=== PATIENT | female | born 1980 | race Caucasian/White ===

== ENCOUNTER 2016-04-04 11:07 | Emergency (ER) | payer OTHER ==
[2016-04-04 11:37] VITALS: BP 153/103; PULSE 100; TEMP 98; BMI 31.6
--- NOTE | 2016-04-04 14:57 | PDOC ---
History of Present Illness - General Chief Complaint: Pain Stated Complaint: ANXIETY & PAIN Time Seen by Provider: 04/04/16 14:36 - History of Present Illness Initial Comments: 04/04/16 14:58 35-year-old female with a past medical history of asthma, morbid obesity, diabetes, manic depression, bipolar disorder, arthritis, migraines, Patient states that 24 hours ago she got some upsetting news about her children , and she became very upset, and had an anxiety issue She states that since that time she has had 24 hours of constant chest pain, migraines, spine pain in her neck, and anxiety She denies any cough or shortness of breath She denies any leg swelling She denies any palpitations He denies any other complaints at this time, and states that the chest pain has been constant for 24 hours, since she got upset Remainder of the review of systems is negative Past History - Past Medical History Allergies/Adverse Reactions: Allergies Allergy/AdvReac Type Severity Reaction Status Date / Time hydrocodone bitartrate Allergy Severe SEIZURE Verified 04/04/16 11:37 [From Vicodin] Penicillins Allergy Severe Difficulty Verified 04/04/16 11:37 Breathing Sulfa (Sulfonamide Allergy Verified 04/04/16 11:37 Antibiotics) topiramate [From Topamax] Allergy Verified 04/04/16 11:37 Home Medications: Ambulatory Orders Ipratropium/Albuterol Sulfate [Combivent Respimat Inhal [place]] 4 gm IH DAILY Metformin HCl [Glucophage] 1,000 mg PO BID 12/14/13 Zolpidem Tartrate [Ambien] 10 mg PO HS 12/14/13 Gabapentin 300 mg PO TID 02/08/14 Omeprazole [Prilosec] 40 mg PO DAILY 02/08/14 Hydrochlorothiazide [Hctz -] 25 mg PO DAILY 07/21/14 Acetaminophen/Caffeine/Butalb [Fioricet -] 1 tab PO TID PRN 08/09/14 Cetirizine HCl [Zyrtec -] 10 mg PO DAILY 08/09/14 Ergocalciferol (Vitamin D2) [Vitamin D] 50,000 unit PO WEEKLY 08/09/14 Paroxetine HCl [Paxil] 40 mg PO DAILY 08/09/14 Insulin Glargine,Hum.rec.anlog [Lantus Solostar PEN (NF)] 46 units SQ HS Amlodipine Besylate/Benazepril [Lotrel 10-20 mg Capsule] 1 each PO DAILY Diphenhydramine HCl [Benadryl -] 25 mg PO HS PRN 05/06/15 Meclizine HCl [Antivert -] 25 mg PO DAILY PRN 05/06/15 Naproxen [EC-Naprosyn] 550 mg PO BID 05/06/15 Sitagliptin Phosphate [Januvia] 100 mg PO DAILY 05/06/15 Ascorbic Acid [Vitamin C -] 500 mg PO DAILY 03/06/16 Budesonide/Formeterol Fumarate [SYMBICORT 160/4.5mcg -] 1 inh PO BID 03/06/16 Cyclobenzaprine HCl [Flexeril -] 10 mg PO TID 03/06/16 Asthma: Yes COPD: Yes Diabetes: Yes (on insulin) HTN: Yes Hypercholesterolemia: Yes Psychiatric Problems: Yes (anxiety disorder) Suicide Attempt (Hx): No Seizures: Yes Other medical history: LUPUS - Surgical History Orthopedic Surgery: Yes (rt knee 06/19/12) - Immunization History Immunization Up to Date: No - Psycho/Social/Smoking Cessation Hx Anxiety: Yes (OCD) Suicidal Ideation: No Smoking Status: Yes Smoking History: Current every day smoker Have you smoked in the past 12 months: Yes Number of Cigarettes Smoked Daily: 10 If you are a former smoker, when did you quit?: 6 months Information on smoking cessation initiated: No 'Breaking Loose' booklet given: 02/08/15 Hx Alcohol Use: Yes Drug/Substance Use Hx: No Substance Use Type: Alcohol Hx Substance Use Treatment: No *Physical Exam - Vital Signs Last Vital Signs Temp Pulse Resp BP Pulse Ox 98 F 100 H 18 153/103 99 04/04/16 11:33 04/04/16 11:33 04/04/16 11:33 04/04/16 11:33 04/04/16 11:33 - Physical Exam Comments: 04/04/16 15:01 Physical exam Last Vital Signs Temp Pulse Resp BP Pulse Ox 98 F 100 H 18 153/103 100 04/04/16 11:33 04/04/16 11:33 04/04/16 11:33 04/04/16 11:33 04/04/16 13:30 GENERAL: The patient is awake, alert, and fully oriented, and in no apparent distress. HEAD: Normal with no signs of trauma. EYES: Sclera anicteric ENT: Mucous membranes moist NECK: Normal range of motion, supple No C-spine tenderness LUNGS: Breath sounds equal, clear to auscultation bilaterally. No wheezes, and no crackles. HEART: Regular rate and rhythm, normal S1 and S2 without murmur, rub or gallop. CHEST WALL: The chest pain is completely reproducible by pressing on the costochondral junctions bilaterally ABDOMEN: Soft, nontender, normoactive bowel sounds. No guarding, no rebound. No masses appreciated. EXTREMITIES: Normal range of motion, no edema. No clubbing or cyanosis. No cords, erythema, or tenderness. NEUROLOGICAL: Cranial nerves II through XII grossly intact. Normal speech, normal gait. PSYCH: Normal mood, normal affect. SKIN: Warm, Dry, ED Treatment Course - LABORATORY CBC & Chemistry Diagram: 04/04/16 15:37 04/04/16 15:37 Medical Decision Making - Medical Decision Making 04/04/16 16:45 Patient with anxiety and very atypical chest pain, which has been constant for the past 24 hours, and reproduced by pressing on the anterior chest wall One set of enzymes would be sufficient, for pain that is been constant for at least 24 hours EKG Normal sinus rhythm 97, normal axis Normal AV and IV conduction time Normal EKG 04/04/16 17:03 Laboratory Results - last 24 hr 04/04/16 04/04/16 15:37 15:37 WBC 12.4 H RBC 4.82 Hgb 12.5 D Hct 38.3 MCV 79.5 L MCHC 32.8 RDW 16.6 H D Plt Count 310 MPV 9.6 D Sodium 138 Potassium 3.9 Chloride 101 Carbon Dioxide 28 D Anion Gap 9 BUN 9 D Creatinine 0.7 D Creat Clearance w eGFR > 60 Random Glucose 132 H Calcium 9.2 Total Bilirubin 0.3 D AST 15 D ALT 30 Alkaline Phosphatase 206 H D Creatine Kinase 96 Troponin I < 0.02 Total Protein 7.7 Albumin 3.6 04/04/16 17:10 Patient refuses chest x-ray wants to leave now Impression-anxiety and atypical chest pain *DC/Admit/Observation/Transfer Diagnosis at time of Disposition: Atypical chest pain, Anxiety - Discharge Dispostion Disposition: HOME Condition at time of disposition: Stable - Referrals Referrals: Theresa Dennis [Primary Care Provider] - Call tomorrow - Patient Instructions Additional Instructions: Followup with your primary care physician in 24-48 hours Return immediately if you worsen in any way Take your medications as directed
[2016-04-04 15:54] LABS: MCHC 32.8 g/dl (32.0-36.0); MEAN CELL VOLUME 79.5 fl (80-96); MEAN PLT VOLUME 9.6 fl (7.5-11.1); PLATELET COUNT 310 K/MM3 (134-434); RDW 16.6 % (11.6-15.6); WHITE BLOOD COUNT 12.4 K/mm3 (4.0-10.0)
[2016-04-04 16:52] LABS: ALBUMIN 3.6 g/dl (3.4-5.0); ANION GAP 9 (8-16); BILIRUBIN,TOTAL 0.3 mg/dL (0.2-1.0); CALCIUM 9.2 mg/dL (8.5-10.1); CO2 28 mmol/L (21-32); CREATININE 0.7 mg/dL (0.55-1.02); GLUCOSE,RANDOM 132 mg/dL (74-106); SGOT/AST 15 U/L (15-37); SGPT/ALT 30 U/L (12-78); TOT PROT 7.7 g/dl (6.4-8.2)
[2016-04-04 16:54] LABS: ALK PHOS 206 U/L (45-117); TROPONIN I < 0.02 ng/ml (0.00-0.05)
--- NOTE | 2016-04-04 17:04 | EKG ---
Test Reason : Blood Pressure : / mmHG Vent. Rate : 097 BPM Atrial Rate : 097 BPM P-R Int : 152 ms QRS Dur : 078 ms QT Int : 366 ms P-R-T Axes : 037 024 037 degrees QTc Int : 464 ms POOR DATA QUALITY, INTERPRETATION MAY BE ADVERSELY AFFECTED NORMAL SINUS RHYTHM NORMAL ECG NO PREVIOUS ECGS AVAILABLE Confirmed by CHECO PÉREZ MD ([id number]) on 04/04/2016 5:04:24 PM Referred By: Confirmed By:CHECO PÉREZ MD
== END 2016-04-04 17:33 | disposition home or self-care (01) ==
LOC: JER 11:07
DX: R07.89 Other chest pain (principal); F41.9 Anxiety disorder, unspecified; I10 Essential (primary) hypertension; E10.9 Type 1 diabetes mellitus without complications; Z79.4 Long term (current) use of insulin; Z79.84 Long term (current) use of oral hypoglycemic drugs; J45.909 Unspecified asthma, uncomplicated; J44.9 Chronic obstructive pulmonary disease, unspecified
CPT/HCPCS: 36415; 80053; 82550; 84484; 84703; 85027; 93005; 93010; 99285-25

== ENCOUNTER 2019-07-01 20:53 | Inpatient (IN) | payer OTHER ==
--- NOTE | 2019-07-01 21:40 | PDOC ---
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 Patient lives in [place], here to help care for sister. Notes for the past week, she has had LLQ abdominal pain that radiates down her entire L leg. Went to another hospital 2 days ago, who did an X-ray of her hip showing arthritis, but without any acute pathology. Did not get CT scan at that time. Notes that she tried half a blunt and 800 mg Advil at home without relief. ROS: GENERAL/CONSTITUTIONAL: denies fever, chills, diaphoresis, generalized weakness HEAD, EYES, EARS, NOSE AND THROAT: denies rhinorrhea, nasal congestion, throat pain, throat swelling NEUROLOGIC: denies headache, focal weakness, dizziness CARDIOVASCULAR: denies chest pain, syncope, palpitations, irregular heart rate, lightheadedness RESPIRATORY: denies cough, shortness of breath, dyspnea with exertion GASTROINTESTINAL: endorses LLQ abdominal pain radiating down L leg. Denies abdominal distension, nausea, vomiting, diarrhea, constipation, melena, hematochezia GENITOURINARY: denies dysuria, frequency, urgency, hesitancy, hematuria, flank pain, genital pain MUSCULOSKELETAL: denies myalgia, arthralgia, joint swelling, back pain, neck pain SKIN: denies rash, itching, pallor HEMATOLOGIC/IMMUNOLOGIC: denies easy bleeding, easy bruising, lymphadenopathy, frequent infections ENDOCRINE: denies unexplained weight gain, unexplained weight loss, heat intolerance, cold intolerance PSYCHIATRIC: denies suicidal or homicidal ideation, hallucinations PE: Gen: well-developed, well-nourished, appears distressed and tearful Neuro: AAOX4, CN II-XII grossly intact HEENT: atraumatic, normocephalic Neck: trachea midline, supple CV: mildly tachycardic to 120s, regular rhythm, no murmurs, rubs, or gallops Pulm: CTA b/l, no wheezing Abd: soft, non-distended, LLQ tenderness MSK: full ROM, intact pulses Extr: no edema, no deformities Skin: warm, dry MDM: Concern for intra-abdominal pathology, diverticulitis v colitis. - CBC, CMP - PT/PTT - UA/UC/urine preg - lactic acid - Ofirmev - CT abd/pelvis pending Cr and test 07/01/19 22:35 WBC 16.7. 07/01/19 22:58 UA with 3+ glucose, 1+ ketones. 07/01/19 23:20 Lactate 2.4, Cr 0.8, serum preg negative. Will get CT abd/pelvis w/ contrast. 07/02/19 00:35 CT abd/pelvis: Asymmetric enlargement of the left psoas/iliopsoas and iliacus muscle concerning for evolving hematoma or abscess. Appendix normal. Several bilateral lower lobe pulmonary nodules concerning for malignancy. Sigmoid diverticulosis without diverticulitis or bowel obstruction. Hepatomegaly with hepatic steatosis. Will admit, get blood cultures, f/u repeat lactic acid, give vanc/meropenem (penicillin allergy). 07/02/19 01:17 EKG sinus tachycardia at 123 bpm, LA 152, QRS 78, QTc 432. Patient admitted. 07/02/19 01:52 Repeat lactic acid 0.9. Past History - Past Medical History Allergies/Adverse Reactions: Allergies Allergy/AdvReac Type Severity Reaction Status Date / Time hydrocodone bitartrate Allergy Severe SEIZURE Verified 04/04/16 11:37 [From Vicodin] Penicillins Allergy Severe Difficulty Verified 04/04/16 11:37 Breathing Sulfa (Sulfonamide Allergy Verified 04/04/16 11:37 Antibiotics) topiramate [From Topamax] Allergy Verified 04/04/16 11:37 Home Medications: Ambulatory Orders Ipratropium/Albuterol Sulfate [Combivent Respimat Inhal [place]] 4 gm IH DAILY 12/14/13 Metformin HCl [Glucophage] 1,000 mg PO BID 12/14/13 Zolpidem Tartrate [Ambien] 10 mg PO HS 12/14/13 Gabapentin 600 mg PO TID 02/08/14 Omeprazole [Prilosec] 40 mg PO DAILY 02/08/14 Hydrochlorothiazide [Hctz -] 25 mg PO DAILY 07/21/14 Insulin Glargine,Hum.rec.anlog [Lantus Solostar PEN (NF)] 46 units SQ HS 03/08/15 Budesonide/Formeterol Fumarate [SYMBICORT 160/4.5mcg -] 1 inh PO BID 03/06/16 Cyclobenzaprine HCl [Flexeril -] 10 mg PO TID 03/06/16 Budesonide/Formeterol Fumarate [SYMBICORT 160/4.5mcg -] 1 inh PO DAILY 07/02/19 Duloxetine HCl [Cymbalta] 30 mg PO DAILY 07/02/19 Furosemide [Lasix] 20 mg PO DAILY 07/02/19 Hydrochlorothiazide 07/02/19 Hydrochlorothiazide 25 mg PO DAILY 07/02/19 Hydromorphone HCl [Dilaudid] 8 mg PO TID 07/02/19 Ipratropium/Albuterol Sulfate [Combivent Respimat 20-100 Mcg] 1 inh NEB BID 07/02/19 Ipratropium/Albuterol Sulfate [Combivent Respimat Inhal [place]] 4 gm IH 07/02/19 LORazepam [Ativan] 1 mg PO HS 07/02/19 Sitagliptin Phosphate [Januvia] 50 mg PO DAILY 07/02/19 Asthma: Yes COPD: Yes Diabetes: Yes (on insulin) HTN: Yes Hypercholesterolemia: No Psychiatric Problems: Yes (anxiety disorder) Seizures: Yes - Surgical History Orthopedic Surgery: Yes (rt knee 06/19/12) - Immunization History Immunization Up to Date: Yes - Psycho Social/Smoking Cessation Hx Smoking Status: Yes Smoking History: Current every day smoker Have you smoked in the past 12 months: Yes Number of Cigarettes Smoked Daily: 10 If you are a former smoker, when did you quit?: 6 months Information on smoking cessation initiated: Yes 'Breaking Loose' booklet given: 02/08/15 (given on previous admission) Hx Alcohol Use: No Drug/Substance Use Hx: Yes (marijuana) Substance Use Type: Alcohol Hx Substance Use Treatment: No *Physical Exam - Vital Signs Last Vital Signs Temp Pulse Resp BP Pulse Ox 97.9 F 116 H 22 H 138/97 98 07/01/19 20:58 07/01/19 20:58 07/01/19 20:58 07/01/19 20:58 07/01/19 20:58 ED Treatment Course - LABORATORY CBC & Chemistry Diagram: 07/01/19 22:15 07/01/19 22:15 Discharge - Discharge Information Problems reviewed: Yes Clinical Impression/Diagnosis: Iliopsoas abscess - Follow up/Referral - Patient Discharge Instructions - Post Discharge Activity
[2019-07-01] MEDS ORDERED: SODIUM CHLORIDE 0.9% 500 ML INFUS.BAG IV ONE (22:20)
--- NOTE | 2019-07-01 22:22 | PDOC ---
Attending Attestation - Resident Resident Name: Cale Duvall - ED Attending Attestation I have performed the following: I have examined & evaluated the patient, The case was reviewed & discussed with the resident, I agree w/resident's findings & plan - HPI HPI: 07/01/19 22:21 38 yo F PMH lupus, cervical CA s/p chemotherapy in remission, IDDM type 2, asthma, morbid obesity, severe anxiety/depression, osteoarthritis, rheumatoid arthritis, migraines, s/p tubal ligation, MRSA colonization on chronic doxycycline/clindamycin, c/b recurrent yeast infections, presenting with L abd pain, radiating from groin to her back/buttock, intermittently and worsening x 1 week. yesterday developed fever, tmax 101; went to [facility] yesterday, where she said xrays were done and no further imaging or workup was pursued resides in [place]; came up to [place] to care for her sister who has endometriosis no other sick contacts. no travel history. no cough/congestion, vomiting, diarrhea, bloody stools, urinary sx. +current yeast infection, has not picked up her diflucan yet, as she gets frequent yeast infection from chronic use of doxycycline and clindamycin for chronic MRSA infections. no trauma, no recent procedures no h/o kidney stones, no prior sx of similar nature. 07/01/19 22:48 07/02/19 00:40 - Physicial Exam PE: 07/01/19 22:22 Agree with the resident's HPI and PE as documented in the electronic medical record. uncomfortable appearing, in mild distress 2/2 pain, EOMI, PERRL, nl conjunctiva, anicteric; oropharynx clear, dry mucus membranes. neck supple. lungs clear, +tachy. abdomen soft and obese, +LLQ TTP. no rebound or guarding. no CVAT. Back nontender. CARTY x4, no focal neuro deficits. No peripheral edema. normal color for ethnicity, WWP 07/01/19 22:51 - Medical Decision Making 07/01/19 22:51 Vital Signs Temp Pulse Resp BP Pulse Ox 97.9 F 116 H 22 H 138/97 98 07/01/19 20:58 07/01/19 20:58 07/01/19 20:58 07/01/19 20:58 07/01/19 20:58 initial vs reviewed, afebrile here. +tachycardic. normotensive normal sats no respiratory distress. +LLQ abdominal tenderness noted. DDx abdominal pain: Renal colic, biliary colic, metabolic/electrolyte derangements. GERD, PUD, esophageal spasm, pancreatitis, hepatitis, constipation, colitis, gastroenteritis, cholecystitis, UTI, pyelonephritis, ileus, SBO, medication side effect, hernia, appendicitis, diverticulitis, mesenteric ischemia. msk strain, mesenteric adenitis, psoas abscess. No evidence of pancreatitis, AAA, cholecystitis, choledocholithiasis, cholangitis, mesenteric ischemia, small bowel obstruction, diverticulitis, colitis, appendicitis, or pelvic etiolology, [place] tear, nougat candy maker helper issues such as ovarian torsion, TOA, or ectopic . The patient appears uncomfortable, Given medications tylenol --> reglan and morphine for continued pain control, as 12/24. IVF hydration. labs and lytes with normal Cr and lytes. +leukocytosis 16K, infection vs inflammation lactic mildly elevated, 2.4. will hydrate and recheck. lfts normal UA neg for blood or s/s infection; some glucose and protein, some ketones - getting hydration. neg preg test pending urine and blood cultures x2 07/02/19 00:[address] shows asymmetry with left psoas muscle, abscess vs hematoma. also incidental lung nodules, concern for malignancy - follow up ct chest as inpatient, cxr for now. will likely need IR drainage. IV vancomycin 2g (wt based dosing) and meropenem 1g (pcn allergy) for empiric coverage due to her h/o mrsa as well as dm/comorbidities admission warranted. continued pain control, hydration, IV abx, and IR consult in the AM for definitive management. admitted to Dr Garcia, hospitalist service. 07/02/19 01:29 Heart Score/ECG Review #1 ECG reviewed & interpreted by me at: 01:20 General ECG Interpretation: Sinus Rhythm, Normal Intervals 07/02/19 01:22 sinus tachycardia 123 bpm, nonspecific t wave abnormalities, normal intervals, narrow qrs. normal ST segments and T wave morphology Discharge - Discharge Information Problems reviewed: Yes Clinical Impression/Diagnosis: Iliopsoas abscess Condition: Fair - Admission Yes - Follow up/Referral - Patient Discharge Instructions - Post Discharge Activity
[2019-07-01 22:28] LABS: BASO % 0.4 % (0-2.0); EOS % 0.3 % (0-4.5); HEMATOCRIT 43.6 % (32.4-45.2); HEMOGLOBIN 14.4 GM/dL (10.7-15.3); LYMPH % 7.3 % (8-40); MCH 29.3 pg (25.7-33.7); MCHC 33.1 g/dl (32.0-36.0); MEAN CELL VOLUME 88.5 fl (80-96); MEAN PLT VOLUME 10.1 fl (7.5-11.1); PLATELET COUNT 342 K/MM3 (134-434); RBC 4.92 M/mm3 (3.60-5.2); RDW 13.8 % (11.6-15.6); WHITE BLOOD COUNT 16.7 K/mm3 (4.0-10.0)
[2019-07-01] MEDS ORDERED: ACETAMINOPHEN 1000 MG/100 ML VIAL (NON FORMULARY) IVPB ONE (22:30)
[2019-07-01] MEDS ORDERED: ACETAMINOPHEN INJECTION 100 ML IVPB ONE (22:33)
[2019-07-01 22:36] LABS: INR 1.07 (0.83-1.09); PROTHROMBIN TIME (PATIENT) 12.6 SEC (9.7-13.0)
[2019-07-01 22:38] LABS: ACTIVATED PTT 31.7 SECONDS (25.2-36.5)
[2019-07-01 22:46] LABS: PH,URINE 6.5 (5.0-8.0); URINE APPEARANCE CLEAR; URINE BILIRUBIN NEGATIVE (NEGATIVE); URINE COLOR YELLOW; URINE GLUCOSE (UA) 3+ (NEGATIVE); URINE KETONE 1+ (NEGATIVE); URINE LEUK ESTERASE NEGATIVE (NEGATIVE); URINE NITRITE NEGATIVE (NEGATIVE); URINE PROTEIN TRACE (NEGATIVE); URINE UROBILINOGEN 0.2 mg/dL (0.2-1.0)
[2019-07-01] MEDS ORDERED: METOCLOPRAMIDE HCL INJECTION 10 MG/2 ML VIAL IVPUSH ONE (22:47)
[2019-07-01] MEDS ORDERED: morphine CARPU-JECT 4 MG/1 ML DISP.SYRIN IVPUSH ONE (22:47)
[2019-07-01] MEDS ORDERED: morphine SULFATE 4 MG/ML VIAL ONE (22:49)
[2019-07-01] MEDS ORDERED: METOCLOPRAMIDE HCL INJECTION 10 MG/2 ML VIAL ONE (22:49)
[2019-07-01 23:18] LABS: ALBUMIN 2.5 g/dl (3.4-5.0); BILIRUBIN,TOTAL 0.4 mg/dL (0.2-1); BLOOD UREA NITROGEN 10.3 mg/dL (7-18); CALCIUM 9.1 mg/dL (8.5-10.1); CREATININE 0.8 mg/dL (0.55-1.3); POTASSIUM 3.9 mmol/L (3.5-5.1); TOT PROT 7.1 g/dl (6.4-8.2)
[2019-07-01 23:37] LABS: PLATELET ESTIMATE ADEQUATE
[2019-07-02] MEDS ORDERED: HYDROmorphone HCL CARPU-JECT 2 MG/1 ML DISP.SYRIN IVPUSH ONE ×2 (00:37→02:25)
[2019-07-02] MEDS ORDERED: HYDROmorphone HCl 2 MG/ML VIAL ONE ×2 (00:40→02:25)
[2019-07-02] MEDS ORDERED: VANCOMYCIN 1,000 MG in DEXTROSE 5%-WATER - 250 ML IVPB ONE (00:43)
[2019-07-02] MEDS ORDERED: PIPERACILLIN/TAZOB 3.375 GM 3.375 GM in DEXTROSE 5%-WATER - 50 ML IVPB ONE (00:44)
[2019-07-02] MEDS ORDERED: VANCOMYCIN 2,000 MG in DEXTROSE 5%-WATER - 250 ML IVPB ONE ×2 (00:46→01:21)
[2019-07-02] MEDS ORDERED: MEROPENEM 1 GM in DEXTROSE 5%-WATER 100 ML IVPB ONE (00:47)
--- NOTE | 2019-07-02 00:57 | HP ---
CHIEF COMPLAINT: severe LLQ pain PCP: Monica PCP HISTORY OF PRESENT ILLNESS: 38F w/ pmh of Lupus, h/o MRSA bacteremia, recurrent MRSA skin abscesses on intermittent doxycycline-clindamycin regimens, cervical CA(s/p chemotherapy 10ys prior), endometriosis, IDDM(Lantus 48U), seizure disorder, chronic migraines, herniated L-spine disc, chronic lower back pain(dilaudid 8mg TID), OA, RA, anxiety presented to [facility] at the behest of her sister for complaint of >7d of severe intermittent LLQ pain radiating to the leg and ribs. Has associated home Tmax of 101F, 3 day prior, which pt states triggered a witnessed seizure. Patient ran out of some of her home medications(including her keppra) ~3d prior. States that she has had recurrent skin abscesses of her Right arm, buttocks, perineal area that have prompted multiple I&Ds x3ys. Her daughters have also had leg abscesses. Patient states that once, her dx was attributed to pool swimming. Most recent abscess at her Left buttock, ~beginning of May that had spontaneous thick, yellow, foul drainage. Pt took a bus ride from [place]([facility]) -->[facility], at the beginning of May and subsequent the wound closed. Thinks that her abd has bulged in the last few days. ER course was notable for: (1) Glucose 370 (2) WBC 16.7, lactic acid 2.4 (3) glucose 370 (4) CT A/P: asymmetric enlargement of Left psoas/iliopsoas, iliacus muscle concerning for evolving hematoma or abscess. Several b/l pulmonary nodules(5- 15mm) concerning for malignancy. Sigmoid diverticulosis w/o diverticulitis or bowel obstruction. Hepatomegaly w/ hepatic steastosis. (5) NS 1L, meropenem + vanco, morphine, dilaudid 1mg x3, ofirmev Recent Travel: PAST MEDICAL HISTORY: Lupus, h/o MRSA bacteremia, recurrent MRSA skin abscesses on intermittent doxycycline-clindamycin regimens, cervical CA(s/p chemotherapy 10ys prior), endometriosis, IDDM(Lantus 48U), seizure disorder, chronic migraines, chronic lower back pain(dilaudid 8mg TID), OA, RA, anxiety PAST SURGICAL HISTORY: multiple skin I&Ds b/l tubal ligation Right knee ligament repair Social History: Smokin/2 ppd x20ys Alcohol: special occasions Drugs: MJ Allergies hydrocodone bitartrate [From Vicodin] Allergy (Severe, Verified 04/04/16 11:37) SEIZURE Penicillins Allergy (Severe, Verified 04/04/16 11:37) Difficulty Breathing Sulfa (Sulfonamide Antibiotics) Allergy (Verified 04/04/16 11:37) topiramate [From Topamax] Allergy (Verified 04/04/16 11:37) HOME MEDICATIONS: Home Medications Medication Instructions Recorded Ipratropium/Albuterol Sulfate 4 gm IH DAILY 12/14/13 [Combivent Respimat Inhal Guion] Metformin HCl [Glucophage] 1,000 mg PO BID 12/14/13 Zolpidem Tartrate [Ambien] 10 mg PO HS 12/14/13 Gabapentin 300 mg PO TID 02/08/14 Omeprazole [Prilosec] 40 mg PO DAILY 02/08/14 Hydrochlorothiazide [Hctz -] 25 mg PO DAILY 07/21/14 Acetaminophen/Caffeine/Butalb 1 tab PO TID PRN 08/09/14 [Fioricet -] Cetirizine HCl [Zyrtec -] 10 mg PO DAILY 08/09/14 Ergocalciferol (Vitamin D2) 50,000 unit PO WEEKLY 08/09/14 [Vitamin D] Paroxetine HCl [Paxil] 40 mg PO DAILY 08/09/14 Insulin Glargine,Hum.rec.anlog 46 units SQ HS 03/08/15 [Lantus Solostar PEN (NF)] Amlodipine Besylate/Benazepril 1 each PO DAILY 05/06/15 [Lotrel 10-20 mg Capsule] Diphenhydramine HCl [Benadryl -] 25 mg PO HS PRN 05/06/15 Meclizine HCl [Antivert -] 25 mg PO DAILY PRN 05/06/15 Naproxen [EC-Naprosyn] 550 mg PO BID 05/06/15 Sitagliptin Phosphate [Januvia] 100 mg PO DAILY 05/06/15 Ascorbic Acid [Vitamin C -] 500 mg PO DAILY 03/06/16 Budesonide/Formeterol Fumarate 1 inh PO BID 03/06/16 [SYMBICORT 160/4.5mcg -] Cyclobenzaprine HCl [Flexeril -] 10 mg PO TID 03/06/16 REVIEW OF SYSTEMS CONSTITUTIONAL: fever, loss of appetite Absent: chills, diaphoresis, generalized weakness, malaise, weight change HEENT: Absent: rhinorrhea, nasal congestion, throat pain, throat swelling, difficulty swallowing, mouth swelling, ear pain, eye pain, visual changes CARDIOVASCULAR: Absent: chest pain, syncope, palpitations, irregular heart rate, lightheadedness, peripheral edema RESPIRATORY: Absent: cough, shortness of breath, dyspnea with exertion, orthopnea, wheezing, stridor, hemoptysis GASTROINTESTINAL: LLQ abd pain, nausea Absent: abdominal distension, vomiting, diarrhea, constipation, melena, hematochezia GENITOURINARY: burning, itchy pain, white thick vaginal discharge Absent: dysuria, frequency, urgency, hesitancy, hematuria, flank pain, genital pain MUSCULOSKELETAL: Absent: myalgia, arthralgia, joint swelling, back pain, neck pain SKIN: RUE with mutliple well-healed incisional scars, Left inner bu ttock/perineum with area of nontender fluctuance Absent: rash, itching, pallor HEMATOLOGIC/IMMUNOLOGIC: Absent: easy bleeding, easy bruising, lymphadenopathy, frequent infections ENDOCRINE: Absent: unexplained weight gain, unexplained weight loss, heat intolerance, cold intolerance NEUROLOGIC: Absent: headache, focal weakness or paresthesias, dizziness, unsteady gait, seizure, mental status changes, bladder or bowel incontinence PSYCHIATRIC: Absent: anxiety, depression, suicidal or homicidal ideation, hallucinations. PHYSICAL EXAMINATION Vital Signs - 24 hr 07/01/19 20:58 Temperature 97.9 F Pulse Rate 116 H Respiratory 22 H Rate Blood Pressure 138/97 O2 Sat by Pulse 98 Oximetry (%) GENERAL: Awake, alert, and fully oriented. Anxious and in-distress. Obese HEAD: Normal with no signs of trauma. EYES: sclera anicteric, conjunctiva clear EARS, NOSE, THROAT: Ears normal, nares patent, oropharynx clear without ex udates. Moist mucous membranes. Nasal piercing, tongue peircing NECK: Normal range of motion, supple without lymphadenopathy, JVD, or masses. LUNGS: Breath sounds equal, clear to auscultation bilaterally. No wheezes, and no crackles. No accessory muscle use. HEART: Regular rhythm, tachycardia, normal S1 and S2 without murmur, rub or gallop. ABDOMEN: obese, well-healed umbilical surgical scar, LLQ tenderness, neg rebound. Abd pain on AROM and passive ROM of LLE MUSCULOSKELETAL: No bony deformities or tenderness. Pain to palpation of lower L-spine UPPER EXTREMITIES: 2+ pulses, warm, well-perfused. No cyanosis. No clubbing. No peripheral edema. LOWER EXTREMITIES: 2+ pulses, warm, well-perfused. No calf tenderness. No peripheral edema. No redness of LLE NEUROLOGICAL: Normal speech SKIN: Warm, dry, normal turgor, no rashes or lesions noted, normal capillary refill. Laboratory Results - last 24 hr 07/01/19 07/01/19 07/01/19 22:15 22:15 22:15 WBC 16.7 H RBC 4.92 Hgb 14.4 Hct 43.6 MCV 88.5 MCH 29.3 D MCHC 33.1 RDW 13.8 D Plt Count 342 MPV 10.1 Absolute Neuts (auto) 14.6 H Neutrophils % 87.0 H D Neutrophils % (Manual) 73.0 Band Neutrophils % 9.0 Lymphocytes % 7.3 L D Lymphocytes % (Manual) 10.0 Monocytes % 5.0 Monocytes % (Manual) 7 Eosinophils % 0.3 Eosinophils % (Manual) 1.0 Basophils % 0.4 Nucleated RBC % 0 Platelet Estimate Adequate PT with INR 12.60 INR 1.07 PTT (Actin FS) 31.7 Sodium 134 L Potassium 3.9 Chloride 99 Carbon Dioxide 22 Anion Gap 13 BUN 10.3 Creatinine 0.8 Est GFR (CKD-EPI)AfAm 109.93 Est GFR (CKD-EPI)NonAf 94.85 Random Glucose 370 H Lactic Acid Calcium 9.1 Total Bilirubin 0.4 AST 48 H ALT 54 Alkaline Phosphatase 208 H Total Protein 7.1 Albumin 2.5 L Urine Color Urine Appearance Urine pH Ur Specific [place] Urine Protein Urine Glucose (UA) Urine Ketones Urine Blood Urine Nitrite Urine Bilirubin Urine Urobilinogen Ur Leukocyte Esterase Urine HCG, Qual 07/01/19 07/01/19 07/01/19 22:30 22:30 22:35 WBC RBC Hgb Hct MCV MCH MCHC RDW Plt Count MPV Absolute Neuts (auto) Neutrophils % Neutrophils % (Manual) Band Neutrophils % Lymphocytes % Lymphocytes % (Manual) Monocytes % Monocytes % (Manual) Eosinophils % Eosinophils % (Manual) Basophils % Nucleated RBC % Platelet Estimate PT with INR INR PTT (Actin FS) Sodium Potassium Chloride Carbon Dioxide Anion Gap BUN Creatinine Est GFR (CKD-EPI)AfAm Est GFR (CKD-EPI)NonAf Random Glucose Lactic Acid 2.4 H* Calcium Total Bilirubin AST ALT Alkaline Phosphatase Total Protein Albumin Urine Color Yellow Urine Appearance Clear Urine pH 6.5 D Ur Specific [place] 1.038 H Urine Protein Trace Urine Glucose (UA) 3+ H Urine Ketones 1+ H Urine Blood Negative Urine Nitrite Negative Urine Bilirubin Negative Urine Urobilinogen 0.2 Ur Leukocyte Esterase Negative Urine HCG, Qual Negative ASSESSMENT/PLAN: Lupus, h/o MRSA bacteremia, recurrent MRSA skin abscesses on intermittent doxycycline-clindamycin regimens, cervical CA(s/p chemotherapy 10ys prior), endometriosis, IDDM(Lantus 48U), seizure disorder, chronic migraines, herniated L-spine disc, chronic lower back pain(dilaudid 8mg TID), OA, RA, anxiety presented to [facility] at the behest of her sister for complaint of >7d of severe intermittent LLQ pain. ED evaluation found a Left-sided psoas abscess. #sepsis 2/2 psoas abscess > WBC 16.7, tachy 116, lactic acid 2.4 > CT A/P: asymmetric enlargement of Left psoas/iliopsoas, iliacus muscle concerning for evolving hematoma or abscess. Several b/l pulmonary nodules(5- 15mm) concerning for malignancy. Sigmoid diverticulosis w/o diverticulitis or bowel obstruction. Hepatomegaly w/ hepatic steastosis > UA: gluocse 3+, ketones 1+ > BCX --pending - IVF - NPO - abx regimen: Meropenem + vancomycin - IR vs Surgery Consult - ID consult(Naren) #pulmonary nodules --possibly 2/2 metastases from cervical CA > CT chest --pending - consider outpatient Onc consult #vaginal yeast infection -diflucan #IDDM > gluc 370 > HbA1c --pending - ISS + Levemir(normally 48U, but giving 30U d/t NPO) #SLE --not an active issues - med rec pending #chronic seizure -keppra --dose unknown #COPD --not in excerbation -duonebs PRN -symbicort FEN -LR @100 -NPO, except meds DVT PPX -SQH Family Medical History Family Hx Cancer: Grandfather (paternal) (lung CA), Mother (Mother had leukemia. Maternal aunt had breast CA. Paternal aunt had brain CA) Visit type - Emergency Visit Emergency Visit: Yes ED Registration Date: 07/02/19 Care time: The patient presented to the Emergency Department on the above date and was hospitalized for further evaluation of their emergent condition. - New Patient This patient is new to me today: Yes Date on this admission: 07/02/19 - Critical Care Critical Care patient: No ATTENDING PHYSICIAN STATEMENT I saw and evaluated the patient. I reviewed the resident's note and discussed the case with the resident. I agree with the resident's findings and plan as documented. SUBJECTIVE: OBJECTIVE: ASSESSMENT AND PLAN:
[2019-07-02] MEDS ORDERED: MEROPENEM 1 GM VIAL (RESTRICTED TO ID) IVPB ONE (01:09)
[2019-07-02] MEDS ORDERED: VANCOMYCIN 1 GRAM (PRE-DOCKED) 1,000 MG/250 ML BAG IVPB ONE (01:10)
[2019-07-02] MEDS ORDERED: VANCOMYCIN 2,000 MG in DEXTROSE 5%-WATER - 500 ML IVPB ONE (01:21)
--- NOTE | 2019-07-02 01:24 | PN ---
Progress Note, Physician - Current Medication List Current Medications: Active Medications Vancomycin HCl 2,000 mg/ (Dextrose) 500 mls @ 250 mls/hr IVPB ONCE ONE; Protocol Stop: 07/02/19 03:20 Meropenem 1 gm/ Dextrose 50 mls @ 100 mls/hr IVPB ONCE ONE Stop: 07/02/19 01:59 - Objective Vital Signs: Vital Signs Temperature 97.9 F 07/01/19 20:58 Pulse Rate 116 H 07/01/19 20:58 Respiratory Rate 22 H 07/01/19 20:58 Blood Pressure 138/97 07/01/19 20:58 O2 Sat by Pulse Oximetry (%) 98 07/01/19 20:58 Constitutional: Yes: Well Nourished, Moderate Distress (due to pain) Cardiovascular: Yes: WNL Respiratory: Yes: WNL Gastrointestinal: Yes: Normal Bowel Sounds, Soft, Abdomen, Obese Extremities: Yes: Other (tenderness in gluteal and groin area) Edema: No Labs: CBC, BMP 07/01/19 22:15 07/01/19 22:15 INR, PTT INR 1.07 (0.83-1.09) 07/01/19 22:15 Impression/Plan Impression/Plan: ANTHONY 38 y/o F PMH SLE, cervical CA s/p chemotherapy in remission, IDDM type 2, COPD/Asthma (active smoker) , morbid obesity, severe anxiety/depression, seizure d/o osteoarthritis, rheumatoid arthritis, migraines, s/p tubal ligation, MRSA colonization w/ repeat skin abscesses on chronic doxycycline/clindamycin, c/b recurrent yeast infections, presenting with LLQ abd pain, radiating from groin to her back/buttock A/W fevers X 1 WK., and witnessed seizure x 1-pt off meds x 2 weeks. V/S: Afeb HR 116 BP 138/97 98% on RA Labs: Leukocytosis to 16.7 with left shift 87% Lymphopenia 7.3 H/H no anemia Plt wnl BMP: Na 134 K 3.9 BUN/Creat 10.3/0.8 LA 2.4 AST/ALT ALP 48/54/208 U/A 1+ketones neg nitrite neg LE Imaging: CTA/P: Asymmetric enlargement of the left psoas/iliopsoas and iliacus muscle concerning for evolving hematoma or abscess. Appendix normal. Several bilateral lower lobe pulmonary nodules concerning for malignancy. Sigmoid diverticulosis without diverticulitis or bowel obstruction. Hepatomegaly with hepatic steatosis Several bilateral lower lobe pulmonary nodules are seen 5-15 mm in size and concerning for malignancy In ED NS x 1L, Jasvir/Vanc, Dilaudid 1 mg IV x3, Morphine 4 mg x1, Reglan 10mg x1 , 1 g Tylenol IV Sepsis 2/2 Possible Left Psoas/iliopsoas Abscess C/W Vanc and Meropenem has Hx of MRSA colonization Trend LA to clearance Surgical consult /IR F/U off read - no notation on size BCx x 2 ESR , CRP IV LR @ 125 cc/ hr ID consult Dilaudid 2 mg q6 PRN -pt chronically on dilaudid- need to reconcile Vaginal Yeast Infection c/o thick white d/c U/A neg PO Diflucan Pulmonary nodules likely 2/2 Mets (Hx Cervical Cancer) / Cervical CA s/p chemotherapy in remission Chest CT CT A/P didnt show any other possible etiologies- f/u off read Transaminitis with cholestatic pattern in setting of morbid obesity CT-There are no gallstones identified. Liver is large and fatty in density without mass or biliary dilatation. Trend LFT IDDMII HbA1C F/S -370 On metformin, and jardiance- doses not reconciled ISS Lantus 48 qhs- give 30 for tonight- keep NPO SLE Needs reconciliation for meds Not in acute flare Seizure Keppra 1000 mg (per pt TID) order 1000 mg 1st dose stat and reconcile resume home dose COPD/Asthma Resume home meds- symbicort Duoneb PRN Smoking counseling Rheumatoid Arthritis/OA Needs reconciliation for meds Morbid obesity Severe anxiety/depression/Migraines DVT Px: HSQ 5K TID Diet- NPO Visit type - Emergency Visit Emergency Visit: Yes ED Registration Date: 07/02/19 Care time: The patient presented to the Emergency Department on the above date and was hospitalized for further evaluation of their emergent condition. - New Patient This patient is new to me today: No - Critical Care Critical Care patient: No - Discharge Referral Referred to [facility] Med P.C.: No
[2019-07-02] MEDS ORDERED: MEROPENEM 1 GM in DEXTROSE 5%-WATER - 50 ML IVPB ONE (01:30)
[2019-07-02] MEDS ORDERED: HYDROmorphone HCl 2 MG/ML VIAL IVPUSH ONE ×2 (02:18→05:21)
[2019-07-02] MEDS ORDERED: SODIUM CHLORIDE 1,000 ML IV SCH (02:30)
[2019-07-02] MEDS ORDERED: MORPHINE SULFATE 2 MG/ML VIAL IVPUSH PRN (04:14)
[2019-07-02] MEDS ORDERED: FLUCONAZOLE 150 MG TABLET PO ONE (04:20)
[2019-07-02] MEDS ORDERED: ALBUTEROL SO4 2.5/IPRATROPIUM 0.5 INH SOL 3 ML VIAL.NEB. NEB PRN (04:20)
[2019-07-02] MEDS ORDERED: MORPHINE SULFATE 2 MG/ML VIAL IVPUSH ONE ×2 (05:15→05:28)
[2019-07-02] MEDS ORDERED: oxyCODONE HCL 5 MG TABLET PO ONE (05:29)
[2019-07-02] MEDS: HEPARIN NA (PORCINE) 5,000 UNITS/ML 1ML VIAL SQ SCH ×3 (06:30→21:35)
[2019-07-02] MEDS ORDERED: HYDROmorphone HCl 2 MG/ML VIAL IVPUSH PRN (06:32)
[2019-07-02] MEDS: INSULIN SLIDING SCALE (NOVOLOG) 1 VIAL SQ SCH ×4 (06:45→21:36)
[2019-07-02] MEDS: levETIRAcetam 500 MG/5 ML INJECTION VIAL IVPB SCH ×3 (07:58→21:37)
[2019-07-02] MEDS: DOCUSATE SODIUM 100 MG CAPSULE (FP) PO SCH (09:49)
[2019-07-02] MEDS ORDERED: levETIRAcetam 500 MG TABLET (FP) PO SCH (10:00)
[2019-07-02] MEDS ORDERED: BUDESONIDE/FORMETEROL FUMARATE 80/4.5 mcg INHALER IH SCH (10:00)
[2019-07-02] MEDS ORDERED: MEROPENEM 500 MG in SODIUM CHLORIDE 100 ML IVPB ONE (10:00)
[2019-07-02 11:15] LABS: HEMATOCRIT 38.3 % (32.4-45.2); HEMOGLOBIN 12.5 GM/dL (10.7-15.3); MCH 28.8 pg (25.7-33.7); MCHC 32.5 g/dl (32.0-36.0); MEAN CELL VOLUME 88.5 fl (80-96); MEAN PLT VOLUME 9.4 fl (7.5-11.1); PLATELET COUNT 265 K/MM3 (134-434); RBC 4.33 M/mm3 (3.60-5.2); RDW 13.7 % (11.6-15.6); WHITE BLOOD COUNT 16.6 K/mm3 (4.0-10.0)
--- NOTE | 2019-07-02 11:26 | CONSULT ---
- Consultation REQUESTING PROVIDER: Arron GARRISON CONSULT REQUEST: We have been asked to surgically evaluate this patient for ( specify). PCP:Syed Heller HISTORY OF PRESENT ILLNESS:REYMUNDO who is a 38 y/o female who presented w/ a 10 -12 day history of worsening LLQ abdominal pain and left hip pain w/o h/o trauma. She traveled by bus recently to [place] from [place] to help her sister. She has a h/o sepsis due to MRSA and has been on oral antibiotics which she stopped after she left [place]; she is a poor historian at best; she states she had fever associated w/the pain; she was txed and released from and released from another local ER w/o a w/u; only an xray of her hip. She was seen on the stretcher prior to going for an MRI; she was c/o unrelenting pain in the left hip. PMHx: DM/HTN/?asthma?/# MRSA skin infections/cervical ca s/p chemo and in remission/lupus/anxiety and depression PSHx: BTL/knee surgery Home Medications Medication Instructions Recorded Ipratropium/Albuterol Sulfate 4 gm IH DAILY 12/14/13 [Combivent Respimat Inhal Ferney] Metformin HCl [Glucophage] 1,000 mg PO BID 12/14/13 Zolpidem Tartrate [Ambien] 10 mg PO HS 12/14/13 Gabapentin 600 mg PO TID 02/08/14 Omeprazole [Prilosec] 40 mg PO DAILY 02/08/14 Hydrochlorothiazide [Hctz -] 25 mg PO DAILY 07/21/14 Insulin Glargine,Hum.rec.anlog 46 units SQ HS 03/08/15 [Lantus Solostar PEN (NF)] Budesonide/Formeterol Fumarate 1 inh PO BID 03/06/16 [SYMBICORT 160/4.5mcg -] Cyclobenzaprine HCl [Flexeril -] 10 mg PO TID 03/06/16 Budesonide/Formeterol Fumarate 1 inh PO DAILY 07/02/19 [SYMBICORT 160/4.5mcg -] Duloxetine HCl [Cymbalta] 30 mg PO DAILY 07/02/19 Furosemide [Lasix] 20 mg PO DAILY 07/02/19 Hydrochlorothiazide 07/02/19 Hydrochlorothiazide 25 mg PO DAILY 07/02/19 Hydromorphone HCl [Dilaudid] 8 mg PO TID 07/02/19 Ipratropium/Albuterol Sulfate 1 inh NEB BID 07/02/19 [Combivent Respimat 20-100 Mcg] Ipratropium/Albuterol Sulfate 4 gm IH 07/02/19 [Combivent Respimat Inhal Ferney] LORazepam [Ativan] 1 mg PO HS 07/02/19 Sitagliptin Phosphate [Januvia] 50 mg PO DAILY 07/02/19 Allergies Allergy/AdvReac Type Severity Reaction Status Date / Time hydrocodone bitartrate Allergy Severe SEIZURE Verified 04/04/16 11:37 [From Vicodin] Penicillins Allergy Severe Difficulty Verified 04/04/16 11:37 Breathing Sulfa (Sulfonamide Allergy Verified 04/04/16 11:37 Antibiotics) topiramate [From Topamax] Allergy Verified 04/04/16 11:37 REVIEW OF SYSTEMS: CONSTITUTIONAL: Present: fever, chills, diaphoresis, generalized weakness, malaise, Absent :loss of appetite, weight change CARDIOVASCULAR: Absent: chest pain, syncope, palpitations, irregular heart rate, lightheadedness, peripheral edema RESPIRATORY: Absent: cough, shortness of breath, dyspnea with exertion, wheezing, stridor, hemoptysis GASTROINTESTINAL: Present: abdominal pain, Absent: abdominal distension, nausea, vomiting, diarrhea, constipation, melena, hematochezia GENITOURINARY: Absent: dysuria, frequency, urgency, hesitancy, hematuria, flank pain, genital pain Present: vaginal discharge HEMATOLOGIC/IMMUNOLOGIC: Absent: easy bleeding, easy bruising, lymphadenopathy NEUROLOGIC: Present: headache, focal weakness, paresthesias, dizziness, unsteady gait, mental status changes, Absent:bladder or bowel incontinence PSYCHIATRIC: Present: anxiety, depression, Absent:suicidal or homicidal ideation, hallucinations. PHYSICAL EXAM: GENERAL: Awake, alert, and fully oriented, in moderate acute distress. HEAD: Normal with no signs of trauma. EYES: sclera anicteric, conjunctiva clear. NECK: Normal ROM, supple without lymphadenopathy, JVD, or masses. ABDOMEN: Soft, nontender, not distended, normoactive bowel sounds, no guarding, no rebound, no masses. No organomegaly. No hernias; no scars MUSCULOSKELETAL: Limited ROM @ left hip from pain; No bony deformities or tenderness. No CVA tenderness. UPPER EXTREMITIES: 2+ pulses, warm, well-perfused. No cyanosis. Cap refill <2 seconds. No peripheral edema. LOWER EXTREMITIES: 2+ pulses, warm, well-perfused. No calf tenderness. No peripheral edema. NEUROLOGICAL: Normal speech, gait not observed. PSYCH: Cooperative. Poor eye contact. Appropriate mood and affect. SKIN: Warm, dry, normal turgor, no active rashes or lesions noted; areas present w/ evidence of previous ABSSSI. Vital Signs Temperature 98.5 F 07/02/19 08:20 Pulse Rate 137 H 07/02/19 08:20 Respiratory Rate 22 H 07/02/19 08:20 Blood Pressure 130/80 07/02/19 08:20 O2 Sat by Pulse Oximetry (%) 97 07/02/19 02:07 Lab Results WBC 16.6 K/mm3 (4.0-10.0) H 07/02/19 10:55 RBC 4.33 M/mm3 (3.60-5.2) 07/02/19 10:55 Hgb 12.5 GM/dL (10.7-15.3) 07/02/19 10:55 Hct 38.3 % (32.4-45.2) 07/02/19 10:55 MCV 88.5 fl (80-96) 07/02/19 10:55 MCHC 32.5 g/dl (32.0-36.0) 07/02/19 10:55 RDW 13.7 % (11.6-15.6) 07/02/19 10:55 Plt Count 265 K/MM3 (134-434) D 07/02/19 10:55 INR 1.07 (0.83-1.09) 07/01/19 22:15 Sodium 134 mmol/L (136-145) L 07/01/19 22:15 Potassium 3.9 mmol/L (3.5-5.1) 07/01/19 22:15 Chloride 99 mmol/L (98-107) 07/01/19 22:15 Carbon Dioxide 22 mmol/L (21-32) 07/01/19 22:15 Anion Gap 13 MMOL/L (8-16) 07/01/19 22:15 BUN 10.3 mg/dL (7-18) 07/01/19 22:15 Creatinine 0.8 mg/dL (0.55-1.3) 07/01/19 22:15 Random Glucose 370 mg/dL (74-106) H 07/01/19 22:15 Calcium 9.1 mg/dL (8.5-10.1) 07/01/19 22:15 Imaging w/u to date reviewed. IMP: left probable ilio-psoas inflammation and possible collection(s) most likely from hematogenous spread. PLAN: Suggest NPO/IVF/IVAB's/CT scan chest/f/u MRI?IR evaluation for drainage if review of images reveals a discrete drainable focus or foci; this would be both diagnostic and therapeutic. Rest as per primary team and recommendations of ID. Control pain; may need xfer to a tertiary care facility if operative intervention is needed. George Oreilly MD FACS
[2019-07-02 11:57] LABS: ANION GAP 18 MMOL/L (8-16); BLOOD UREA NITROGEN 4.8 mg/dL (7-18); CALCIUM 8.2 mg/dL (8.5-10.1); CHLORIDE 100 mmol/L (98-107); CO2 12 mmol/L (21-32); CREATININE 0.5 mg/dL (0.55-1.3); GLUCOSE,RANDOM 266 mg/dL (74-106); MAGNESIUM 1.8 mg/dL (1.8-2.4); PHOSPHOROUS 2.3 mg/dL (2.5-4.9); POTASSIUM 3.2 mmol/L (3.5-5.1); SODIUM 131 mmol/L (136-145)
--- NOTE | 2019-07-02 12:11 | EKG ---
Test Reason : Blood Pressure : / mmHG Vent. Rate : 141 BPM Atrial Rate : 141 BPM P-R Int : 096 ms QRS Dur : 078 ms QT Int : 368 ms P-R-T Axes : 000 026 056 degrees QTc Int : 563 ms SINUS TACHYCARDIA WITH SHORT GA NONSPECIFIC T WAVE ABNORMALITY ABNORMAL ECG WHEN COMPARED WITH ECG OF 02-JUL-2019 01:15, NONSPECIFIC T WAVE ABNORMALITY, IMPROVED IN ANTERIOR LEADS Confirmed by RIMA RAZO MD ([id number]) on 07/02/2019 12:10:58 PM Referred By: Confirmed By:RIMA RAZO MD
--- NOTE | 2019-07-02 12:11 | EKG ---
Test Reason : Blood Pressure : / mmHG Vent. Rate : 123 BPM Atrial Rate : 123 BPM P-R Int : 144 ms QRS Dur : 080 ms QT Int : 302 ms P-R-T Axes : 049 034 049 degrees QTc Int : 432 ms POOR DATA QUALITY, INTERPRETATION MAY BE ADVERSELY AFFECTED SINUS TACHYCARDIA POSSIBLE LEFT ATRIAL ENLARGEMENT NONSPECIFIC T WAVE ABNORMALITY ABNORMAL ECG WHEN COMPARED WITH ECG OF 04-APR-2016 15:43, NO SIGNIFICANT CHANGE WAS FOUND Confirmed by RIMA RAZO MD ([id number]) on 07/02/2019 12:11:27 PM Referred By: Confirmed By:RIMA RAZO MD
[2019-07-02 13:16] LABS: LDH 228 U/L (84-246)
--- NOTE | 2019-07-02 14:09 | PN ---
<Tayler Daniel - Last Filed: 07/02/19 14:44> Physical Exam: SUBJECTIVE: Patient seen and examined at bedside. pt is very uncomfortable screaming in pain OBJECTIVE: Vital Signs Period Temp Pulse Resp BP Sys/Turner Pulse Ox Last 24 Hr 97.9 F-99.5 F 116-137 20-24 130-156/80-97 96-98 GENERAL: The patient is awake, alert, and fully oriented, in no acute distress. HEAD: Normal with no signs of trauma. LUNGS:decreasd breath sounds, no accessory muscle use. HEART: tachycardic, S1, S2 without murmur, rub or gallop. ABDOMEN: Soft, TENDER at LLQ, LUQ, nondistended, + guarding, no rebound EXTREMITIES: 2+ pulses, warm, well-perfused, no edema. SKIN: Warm, dry, normal turgor, no rashes or lesions noted Laboratory Last Values WBC 16.6 K/mm3 (4.0-10.0) H 07/02/19 10:55 RBC 4.33 M/mm3 (3.60-5.2) 07/02/19 10:55 Hgb 12.5 GM/dL (10.7-15.3) 07/02/19 10:55 Hct 38.3 % (32.4-45.2) 07/02/19 10:55 MCV 88.5 fl (80-96) 07/02/19 10:55 MCH 28.8 pg (25.7-33.7) 07/02/19 10:55 MCHC 32.5 g/dl (32.0-36.0) 07/02/19 10:55 RDW 13.7 % (11.6-15.6) 07/02/19 10:55 Plt Count 265 K/MM3 (134-434) D 07/02/19 10:55 MPV 9.4 fl (7.5-11.1) 07/02/19 10:55 Absolute Neuts (auto) 14.6 K/mm3 (1.5-8.0) H 07/01/19 22:15 Neutrophils % 87.0 % (42.8-82.8) H D 07/01/19 22:15 Neutrophils % (Manual) 73.0 % (42.8-82.8) 07/01/19 22:15 Band Neutrophils % 9.0 % 07/01/19 22:15 Lymphocytes % 7.3 % (8-40) L D 07/01/19 22:15 Lymphocytes % (Manual) 10.0 % (8-40) 07/01/19 22:15 Monocytes % 5.0 % (3.8-10.2) 07/01/19 22:15 Monocytes % (Manual) 7 % (3.8-10.2) 07/01/19 22:15 Eosinophils % 0.3 % (0-4.5) 07/01/19 22:15 Eosinophils % (Manual) 1.0 % (0-4.5) 07/01/19:15 Basophils % 0.4 % (0-2.0) 07/01/19:15 Nucleated RBC % 0 % (0-0) 07/01/19 22:15 Platelet Estimate Adequate 07/01/19 22:15 ESR 76 mm/hr (0-20) H 07/02/19 10:55 PT with INR 12.60 SEC (9.7-13.0) 07/01/19 22:15 INR 1.07 (0.83-1.09) 07/01/19 22:15 PTT (Actin FS) 31.7 SECONDS (25.2-36.5) 07/01/19 22:15 Sodium 131 mmol/L (136-145) L 07/02/19 10:55 Potassium 3.2 mmol/L (3.5-5.1) L 07/02/19 10:55 Chloride 100 mmol/L (98-107) 07/02/19 10:55 Carbon Dioxide 12 mmol/L (21-32) L 07/02/19 10:55 Anion Gap 18 MMOL/L (8-16) H 07/02/19 10:55 BUN 4.8 mg/dL (7-18) L 07/02/19 10:55 Creatinine 0.5 mg/dL (0.55-1.3) L 07/02/19 10:55 Est GFR (CKD-EPI)AfAm 144.31 07/02/19 10:55 Est GFR (CKD-EPI)NonAf 124.51 07/02/19 10:55 POC Glucometer 254 UNITS (80-120) 07/02/19 12:55 Random Glucose 266 mg/dL (74-106) H 07/02/19 10:55 Hemoglobin A1c % 13.8 % (4.2-6.3) H 07/02/19 10:55 Lactic Acid 0.9 mmol/L (0.4-2.0) 07/02/19 01:02 Calcium 8.2 mg/dL (8.5-10.1) L 07/02/19 10:55 Phosphorus 2.3 mg/dL (2.5-4.9) L 07/02/19 10:55 Magnesium 1.8 mg/dL (1.8-2.4) 07/02/19 10:55 Total Bilirubin 0.4 mg/dL (0.2-1) 07/01/19 22:15 AST 48 U/L (15-37) H 07/01/19 22:15 ALT 54 U/L (13-61) 07/01/19 22:15 Alkaline Phosphatase 208 U/L (45-117) H 07/01/19 22:15 LD Total 228 U/L (84-246) 07/02/19 10:55 Troponin I < 0.02 ng/ml (0.00-0.05) 07/02/19 10:55 C-Reactive Protein 44.8 MG/DL (0.00-0.3) H 07/02/19 10:55 Total Protein 7.1 g/dl (6.4-8.2) 07/01/19 22:15 Albumin 2.5 g/dl (3.4-5.0) L 07/01/19 22:15 TSH 0.24 uIU/ml (0.358-3.74) L 07/02/19 10:55 Urine Color Yellow 07/01/19 22:30 Urine Appearance Clear 07/01/19 22:30 Urine pH 6.5 (5.0-8.0) D 07/01/19 22:30 Ur Specific Mcalester 1.038 (1.010-1.035) H 07/01/19 22:30 Urine Protein Trace (NEGATIVE) 07/01/19 22:30 Urine Glucose (UA) 3+ (NEGATIVE) H 07/01/19 22:30 Urine Ketones 1+ (NEGATIVE) H 07/01/19 22:30 Urine Blood Negative (NEGATIVE) 07/01/19 22:30 Urine Nitrite Negative (NEGATIVE) 07/01/19 22:30 Urine Bilirubin Negative (NEGATIVE) 07/01/19 22:30 Urine Urobilinogen 0.2 mg/dL (0.2-1.0) 07/01/19 22:30 Ur Leukocyte Esterase Negative (NEGATIVE) 07/01/19 22:30 Urine HCG, Qual Negative 07/01/19 22:30 Active Medications Generic Name Dose Route Start Last Admin Trade Name Freq PRN Reason Stop Dose Admin Albuterol/Ipratropium 1 amp 07/02/19 04:20 Duoneb - NEB Q6H PRN SHORTNESS OF BREATH Budesonide/Formoterol Fumarate 2 puff 07/02/19 10:00 Symbicort 160/4.5mcg - IH BID [facility] Docusate Sodium 100 mg 07/02/19 10:00 07/02/19 09:49 Colace - PO 100 mg DAILY [facility]ANTZ Administration Heparin Sodium (Porcine) 5,000 unit 07/02/19 06:00 07/02/19 06:30 Heparin - SQ 5,000 unit TID [facility] Administration Hydromorphone HCl 2 mg 07/02/19 06:32 07/02/19 09:49 Dilaudid Vial - IVPUSH 2 mg Q6H PRN Administration PAIN LEVEL 7 - 10 Sodium Chloride 1,000 mls @ 83 mls/hr 07/02/19 02:30 Normal Saline - IV ASDIR [facility] Lactated Ringer's 1,000 ml in 1,000 mls @ 125 mls/hr 07/02/19 04:30 Lactated Ringers Solution IV ASDIR [facility] Insulin Aspart 1 vial 07/02/19 07:00 07/02/19 12:56 Novolog Vial Sliding Scale - SQ Not Given ACHS [facility] Protocol Insulin Detemir 30 units 07/02/19 22:00 Levemir Vial SQ HS [facility] Levetiracetam 1,000 mg 07/02/19 06:45 07/02/19 07:58 Keppra Injection - IVPB 1,000 mg TID [facility] Administration ASSESSMENT/PLAN: Lupus, h/o MRSA bacteremia, 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 ED evaluation found a Left-sided psoas abscess. #sepsis 2/2 psoas abscess > WBC 16.7, tachy 116, lactic acid 2.4 > CT A/P: asymmetric enlargement of Left psoas/iliopsoas, iliacus muscle concerning for evolving hematoma or abscess. Several b/l pulmonary nodules(5- 15mm) concerning for malignancy. Sigmoid diverticulosis w/o diverticulitis or bowel obstruction. Hepatomegaly w/ hepatic steastosis > UA: gluocse 3+, ketones 1+ > BCX --pending - IVF - NPO - abx regimen: Meropenem + vancomycin - IR vs Surgery Consult - ID consult(Naren) #pulmonary nodules --possibly 2/2 metastases from cervical CA > CT chest --pending - consider outpatient Onc consult #vaginal yeast infection -diflucan #IDDM > gluc 370 > HbA1c --pending - ISS + Levemir(normally 48U, but giving 30U d/t NPO) #SLE --not an active issues - med rec pending #chronic seizure -keppra --dose unknown #COPD --not in excerbation -duonebs PRN -symbicort FEN -LR @100 -NPO, except meds DVT PPX -SQH ATTENDING PHYSICIAN STATEMENT I saw and evaluated the patient. I reviewed the resident's note and discussed the case with the resident. I agree with the resident's findings and plan as documented. SUBJECTIVE: OBJECTIVE: ASSESSMENT AND PLAN: <Syed Heller - Last Filed: 07/02/19 16:30> Physical Exam: SUBJECTIVE: Patient seen and examined OBJECTIVE: Vital Signs Period Temp Pulse Resp BP Sys/Turner Pulse Ox Last 24 Hr 97.9 F-101.1 F 116-137 20-24 130-156/77-97 96-98 Laboratory Results - last 24 hr 07/01/19 07/01/19 07/01/19 22:15 22:15 22:15 WBC 16.7 H RBC 4.92 Hgb 14.4 Hct 43.6 MCV 88.5 MCH 29.3 D MCHC 33.1 RDW 13.8 D Plt Count 342 MPV 10.1 Absolute Neuts (auto) 14.6 H Neutrophils % 87.0 H D Neutrophils % (Manual) 73.0 Band Neutrophils % 9.0 Lymphocytes % 7.3 L D Lymphocytes % (Manual) 10.0 Monocytes % 5.0 Monocytes % (Manual) 7 Eosinophils % 0.3 Eosinophils % (Manual) 1.0 Basophils % 0.4 Nucleated RBC % 0 Platelet Estimate Adequate ESR PT with INR 12.60 INR 1.07 PTT (Actin FS) 31.7 Sodium 134 L Potassium 3.9 Chloride 99 Carbon Dioxide 22 Anion Gap 13 BUN 10.3 Creatinine 0.8 Est GFR (CKD-EPI)AfAm 109.93 Est GFR (CKD-EPI)NonAf 94.85 POC Glucometer Random Glucose 370 H Hemoglobin A1c % Lactic Acid Calcium 9.1 Phosphorus Magnesium Total Bilirubin 0.4 AST 48 H ALT 54 Alkaline Phosphatase 208 H LD Total Troponin I C-Reactive Protein Total Protein 7.1 Albumin 2.5 L TSH Urine Color Urine Appearance Urine pH Ur Specific Mcalester Urine Protein Urine Glucose (UA) Urine Ketones Urine Blood Urine Nitrite Urine Bilirubin Urine Urobilinogen Ur Leukocyte Esterase Urine HCG, Qual 07/01/19 07/01/19 07/01/19 22:30 22:30 22:35 WBC RBC Hgb Hct MCV MCH MCHC RDW Plt Count MPV Absolute Neuts (auto) Neutrophils % Neutrophils % (Manual) Band Neutrophils % Lymphocytes % Lymphocytes % (Manual) Monocytes % Monocytes % (Manual) Eosinophils % Eosinophils % (Manual) Basophils % Nucleated RBC % Platelet Estimate ESR PT with INR INR PTT (Actin FS) Sodium Potassium Chloride Carbon Dioxide Anion Gap BUN Creatinine Est GFR (CKD-EPI)AfAm Est GFR (CKD-EPI)NonAf POC Glucometer Random Glucose Hemoglobin A1c % Lactic Acid 2.4 H* Calcium Phosphorus Magnesium Total Bilirubin AST ALT Alkaline Phosphatase LD Total Troponin I C-Reactive Protein Total Protein Albumin TSH Urine Color Yellow Urine Appearance Clear Urine pH 6.5 D Ur Specific Mcalester 1.038 H Urine Protein Trace Urine Glucose (UA) 3+ H Urine Ketones 1+ H Urine Blood Negative Urine Nitrite Negative Urine Bilirubin Negative Urine Urobilinogen 0.2 Ur Leukocyte Esterase Negative Urine HCG, Qual Negative 07/02/19 07/02/19 07/02/19 01:02 01:02 01:10 WBC RBC Hgb Hct MCV MCH MCHC RDW Plt Count MPV Absolute Neuts (auto) Neutrophils % Neutrophils % (Manual) Band Neutrophils % Lymphocytes % Lymphocytes % (Manual) Monocytes % Monocytes % (Manual) Eosinophils % Eosinophils % (Manual) Basophils % Nucleated RBC % Platelet Estimate ESR 68 H PT with INR INR PTT (Actin FS) Sodium Potassium Chloride Carbon Dioxide Anion Gap BUN Creatinine Est GFR (CKD-EPI)AfAm Est GFR (CKD-EPI)NonAf POC Glucometer Random Glucose Hemoglobin A1c % Lactic Acid 0.9 Calcium Phosphorus Magnesium Total Bilirubin AST ALT Alkaline Phosphatase LD Total Troponin I C-Reactive Protein 44.2 H Total Protein Albumin TSH Urine Color Urine Appearance Urine pH Ur Specific M[place] Urine Protein Urine Glucose (UA) Urine Ketones Urine Blood Urine Nitrite Urine Bilirubin Urine Urobilinogen Ur Leukocyte Esterase Urine HCG, Qual 07/02/19 07/02/19 07/02/19 06:35 10:55 10:55 WBC 16.6 H RBC 4.33 Hgb 12.5 Hct 38.3 MCV 88.5 MCH 28.8 MCHC 32.5 RDW 13.7 Plt Count 265 D MPV 9.4 Absolute Neuts (auto) Neutrophils % Neutrophils % (Manual) Band Neutrophils % Lymphocytes % Lymphocytes % (Manual) Monocytes % Monocytes % (Manual) Eosinophils % Eosinophils % (Manual) Basophils % Nucleated RBC % Platelet Estimate ESR PT with INR INR PTT (Actin FS) Sodium Potassium Chloride Carbon Dioxide Anion Gap BUN Creatinine Est GFR (CKD-EPI)AfAm Est GFR (CKD-EPI)NonAf POC Glucometer 261 Random Glucose Hemoglobin A1c % 13.8 H Lactic Acid Calcium Phosphorus Magnesium Total Bilirubin AST ALT Alkaline Phosphatase LD Total Troponin I C-Reactive Protein Total Protein Albumin TSH Urine Color Urine Appearance Urine pH Ur Specific M[place]ester Urine Protein Urine Glucose (UA) Urine Ketones Urine Blood Urine Nitrite Urine Bilirubin Urine Urobilinogen Ur Leukocyte Esterase Urine HCG, Qual 07/02/19 07/02/19 07/02/19 10:55 10:55 12:55 WBC RBC Hgb Hct MCV MCH MCHC RDW Plt Count MPV Absolute Neuts (auto) Neutrophils % Neutrophils % (Manual) Band Neutrophils % Lymphocytes % Lymphocytes % (Manual) Monocytes % Monocytes % (Manual) Eosinophils % Eosinophils % (Manual) Basophils % Nucleated RBC % Platelet Estimate ESR 76 H PT with INR INR PTT (Actin FS) Sodium 131 L Potassium 3.2 L Chloride 100 Carbon Dioxide 12 L Anion Gap 18 H BUN 4.8 L Creatinine 0.5 L Est GFR (CKD-EPI)AfAm 144.31 Est GFR (CKD-EPI)NonAf 124.51 POC Glucometer 254 Random Glucose 266 H Hemoglobin A1c % Lactic Acid Calcium 8.2 L Phosphorus 2.3 L Magnesium 1.8 Total Bilirubin AST ALT Alkaline Phosphatase LD Total 228 Troponin I < 0.02 C-Reactive Protein 44.8 H Total Protein Albumin TSH 0.24 L Urine Color Urine Appearance Urine pH Ur Specific M[place]ester Urine Protein Urine Glucose (UA) Urine Ketones Urine Blood Urine Nitrite Urine Bilirubin Urine Urobilinogen Ur Leukocyte Esterase Urine HCG, Qual Active Medications Generic Name Dose Route Start Last Admin Trade Name Freq PRN Reason Stop Dose Admin Albuterol/Ipratropium 1 amp 07/02/19 04:20 Duoneb - NEB Q6H PRN SHORTNESS OF BREATH Budesonide/Formoterol Fumarate 2 puff 07/02/19 10:00 Symbicort 160/4.5mcg - IH BID [facility] Docusate Sodium 100 mg 07/02/19 10:00 07/02/19 09:49 Colace - PO 100 mg DAILY [facility] Administration Heparin Sodium (Porcine) 5,000 unit 07/02/19 06:00 07/02/19 14:46 Heparin - SQ Not Given TID [facility] Hydromorphone HCl 2 mg 07/02/19 16:00 07/02/19 16:16 Dilaudid Vial - IVPUSH 2 mg Q4H PRN Administration PAIN LEVEL 7 - 10 Sodium Chloride 1,000 mls @ 83 mls/hr 07/02/19 02:30 Normal Saline - IV ASDIR [facility] Lactated Ringer's 1,000 ml in 1,000 mls @ 125 mls/hr 07/02/19 04:30 Lactated Ringers Solution IV ASDIR [facility] Meropenem 1 gm in 20 mls @ 240 mls/hr 07/02/19 18:00 Merrem (Restricted To Id) - IVPUSH Q8H-IV [facility] Vancomycin HCl 1,500 mg/ 500 mls @ 250 mls/hr 07/02/19 16:00 Dextrose IVPB Q12H [facility] Protocol Insulin Aspart 1 vial 07/02/19 07:00 07/02/19 12:56 Novolog Vial Sliding Scale - SQ Not Given ACHS [facility] Protocol Insulin Detemir 15 units 07/03/19 07:00 Levemir Vial SQ AM [facility] Levetiracetam 1,000 mg 07/02/19 06:45 07/02/19 15:36 Keppra Injection - IVPB 1,000 mg TID [facility] Administration ASSESSMENT/PLAN: Seen and examined. Please see resident note for further historical information. I personally verified all the drummond historical formation and exam findings. Personally in pretted imaging and diagnostics and reviewed appropriate results. I reviewed all labs and vital signs are per the resident note and EMR as documented. I agree with the above assessment and plan unless supplemented by myself and the following. Visit type - Emergency Visit Emergency Visit: Yes ED Registration Date: 07/02/19 Care time: The patient presented to the Emergency Department on the above date and was hospitalized for further evaluation of their emergent condition. - New Patient This patient is new to me today: Yes Date on this admission: 07/02/19 - Critical Care Critical Care patient: No - Discharge Referral Referred to [facility] Med P.C.: No ATTENDING PHYSICIAN STATEMENT I saw and evaluated the patient. I reviewed the resident's note and discussed the case with the resident. I agree with the resident's findings and plan as documented. SUBJECTIVE: OBJECTIVE: ASSESSMENT AND PLAN:
[2019-07-02] MEDS ORDERED: VANCOMYCIN HCL 1,500 MG in DEXTROSE 5%-WATER - 250 ML IVPB SCH (16:00)
--- NOTE | 2019-07-02 16:00 | PN ---
Progress Note (short form) - Note Progress Note: ID consult dictated imp/reccd 38 yo female admitted with 10 -12 day history of worsening llq/left hip pain she came from [place] two weeks ago to help her sister h notable for DM and MRSA sepsis about 8 months ago was hospitalized and then on daily clindamycin/doxycycline - stopped prior to arrival in [place] denies endocarditis denies IVDU (smokes marijuana) denies HIV 2 days after arriving started having pain also intermittent fevers with the pain went to the ED at another facility 2 days ago and was discharged after xray of hip she just returned from MRI very poor historian received vancomycin and meropenem in ED and meropenem agian this am without any issues history of PEN allergy complains of severe pain in her left hip and abdomen- won't turn on her back and won't let me touch her leg suspect MRSA endocarditis given overall constellation of fever, probable psoas abscess/phlegmon, cavitary lesions on chest ct cardiology consult surgery followup transfer to telemetry ECHO vanco/meropenem please follow vancomycin trough closely f/u imaging drain abscess if noted on MRI poorly controlled DM ?need to transfer repeat blood cultures in am follow labs closely trend esr/crp agree with quantiferon agree with covid 19 pcr overall prognosis guarded d/w hospitalist d/w cardiology Problem List - Problems (1) Endocarditis Code(s): I38 - ENDOCARDITIS, VALVE UNSPECIFIED (2) Hx MRSA infection Code(s): Z86.14 - PERSONAL HISTORY OF METHICILLIN RESIS STAPH INFECTION (3) Cavitary lung disease Code(s): J98.4 - OTHER DISORDERS OF LUNG (4) Iliopsoas abscess Code(s): K68.12 - PSOAS MUSCLE ABSCESS (5) Poorly controlled diabetes mellitus Code(s): E11.65 - TYPE 2 DIABETES MELLITUS WITH HYPERGLYCEMIA
[2019-07-02] MEDS: HYDROmorphone HCl 2 MG/ML VIAL IVPUSH PRN ×2 (16:16→20:34)
[2019-07-02] MEDS ORDERED: INSULIN SLIDING SCALE (NOVOLOG) 1 VIAL SQ SCH (16:30)
--- NOTE | 2019-07-02 16:30 | CON.CARD ---
Consult Consult Specialty:: cardiology Reason for Consultation:: r/o endocarditis - History of Present Illness Chief Complaint: Pt A&Ox3; pain with any movement of left hip, lower back; chest discomfort with cough History of Present Illness: 38 yo F PMH lupus, RA, OA, cervical CA s/p chemotherapy in remission, IDDM type 2, HTN, asthma, morbid obesity, severe anxiety/depression, ?seizures, current cigarette smoker,migraines, s/p tubal ligation, MRSA colonization on skin (back): on chronic doxycycline/clindamycin, c/b recurrent yeast infections, now presenting with L abd pain, radiating from groin to her back/buttock, intermittently and worsening x 1 week. yesterday developed fever, tmax 101; went to [facility] yesterday, where she said xrays were done and no further imaging or workup was pursued c/o severe left hip pain resides in [place]; came up to [place] to care for her sister who has endometriosis no other sick contacts. no travel history. no cough/congestion, vomiting, diarrhea, bloody stools, urinary sx. +current yeast infection, has not picked up her diflucan yet, as she gets frequent yeast infection from chronic use of doxycycline and clindamycin for chronic MRSA infections. no trauma, no recent procedures no h/o kidney stones, no prior sx of similar nature. Has had EKG recently; denies having had ECHO. - History Source History Provided By: Patient, Medical Record Limitations to Obtaining History: Other (Pt in pain; makes it difficult for her to give complete history) - Past Medical History Cardio/Vascular: Yes: HTN Reproductive: Yes: Other (regular menses) ...LMP: 02/22/12 - Alcohol/Substance Use Hx Alcohol Use: No - Smoking History Smoking history: Current every day smoker Have you smoked in the past 12 months: Yes Aproximately how many cigarettes per day: 10 If you are a former smoker, when did you quit?: 6 months Home Medications - Allergies Allergies/Adverse Reactions: Allergies Allergy/AdvReac Type Severity Reaction Status Date / Time hydrocodone bitartrate Allergy Severe SEIZURE Verified 04/04/16 11:37 [From Vicodin] Penicillins Allergy Severe Difficulty Verified 04/04/16 11:37 Breathing Sulfa (Sulfonamide Allergy Verified 04/04/16 11:37 Antibiotics) topiramate [From Topamax] Allergy Verified 04/04/16 11:37 - Home Medications Home Medications: Ambulatory Orders Ipratropium/Albuterol Sulfate [Combivent Respimat Inhal Turin] 4 gm IH DAILY Metformin HCl [Glucophage] 1,000 mg PO BID 12/14/13 Zolpidem Tartrate [Ambien] 10 mg PO HS 12/14/13 Gabapentin 600 mg PO TID 02/08/14 Omeprazole [Prilosec] 40 mg PO DAILY 02/08/14 Hydrochlorothiazide [Hctz -] 25 mg PO DAILY 07/21/14 Insulin Glargine,Hum.rec.anlog [Lantus Solostar PEN (NF)] 46 units SQ HS 03/08/15 Budesonide/Formeterol Fumarate [SYMBICORT 160/4.5mcg -] 1 inh PO BID 03/06/16 Cyclobenzaprine HCl [Flexeril -] 10 mg PO TID 03/06/16 Budesonide/Formeterol Fumarate [SYMBICORT 160/4.5mcg -] 1 inh PO DAILY 07/02/19 Duloxetine HCl [Cymbalta] 30 mg PO DAILY 07/02/19 Furosemide [Lasix] 20 mg PO DAILY 07/02/19 Hydrochlorothiazide 07/02/19 Hydrochlorothiazide 25 mg PO DAILY 07/02/19 Hydromorphone HCl [Dilaudid] 8 mg PO TID 07/02/19 Ipratropium/Albuterol Sulfate [Combivent Respimat 20-100 Mcg] 1 inh NEB BID 07/02/19 Ipratropium/Albuterol Sulfate [Combivent Respimat Inhal Turin] 4 gm IH 07/02/19 LORazepam [Ativan] 1 mg PO HS 07/02/19 Sitagliptin Phosphate [Januvia] 50 mg PO DAILY 07/02/19 Family Medical History Family Hx Cardiac Disorders: Mother (CVA in her 50s) Review of Systems - Review of Systems Constitutional: reports: Fever, Other (lower back, left hip pain) Eyes: reports: No Symptoms HENT: reports: No Symptoms Neck: reports: No Symptoms Cardiovascular: reports: Shortness of Breath Respiratory: reports: Exercise Intolerance, SOB on Exertion Gastrointestinal: reports: No Symptoms Genitourinary: reports: No Symptoms Breasts: reports: No Symptoms Reported Musculoskeletal: reports: Back Pain, Muscle Pain, Muscle Weakness Neurological: reports: Seizure, Weakness Psychiatric: reports: Anxiety, Depression - Risk Factors Known Risk Factors: Yes: Diabetes Mellitus, Physical Inactivity, Smoking, Other Vital Signs: Vital Signs Temperature 101.1 F H 07/02/19 15:27 Pulse Rate 120 H 07/02/19 15:27 Respiratory Rate 22 H 07/02/19 15:27 Blood Pressure 138/77 07/02/19 15:27 O2 Sat by Pulse Oximetry (%) 97 07/02/19 02:07 Constitutional: Yes: Anxious, Moderate Distress, Obese HENT: Yes: WNL Neck: Yes: WNL Respiratory: Yes: Tachypnea - Other Data Labs, Other Data: CBC, BMP 07/02/19 10:55 07/02/19 10:55 INR, PTT INR 1.07 (0.83-1.09) 07/01/19 22:15 Troponin, BNP 07/02/19 10:55 Troponin I < 0.02 Troponin, BNP 07/02/19 10:55 Troponin I < 0.02 Problem List - Problems (1) Hypokalemia Assessment/Plan: replete, Keep K 4.0-4.5 Keep Mg 2.0-2.4 Keep PO4 2.5-4.9 Code(s): E87.6 - HYPOKALEMIA (2) Endocarditis Assessment/Plan: ECHO: suboptimal study (pt in intense pain left hip,limiting her ability to move and allow better imaging; tachycardic) ; normal LVEF;unable to evaluate valves for vegetations. Blood cultures note cocci in clusters. Hx MRSA Pelvic MRI: suspicious for left ileacus abscesses. CT chest: severe atelectasis; numerous pulmonary nodules, some appeaing cavitary: eitiologies broad (r/o infectious; sarcoid; RA; malignancy) Febrile. On antibiotics per ID. Surgical evaluation regarding pelvic MRI findings. Maintain hydration; f/u Is and Os, BUN/Cr, electrolytes. Pain management. Surgical and pulmonary evaluations. Repeat ECHO when pt able to move for better position for imaging. F/u clinically; may require GENEVA. Code(s): I38 - ENDOCARDITIS, VALVE UNSPECIFIED (3) Blood bacterial culture positive Assessment/Plan: cocci in clusters; await identification. On antibiotics per ID. ECHO: limited study with normal LVEF; poor views of valves; nondiagnostic for vegetations. YECENIA pelvis : suspicious for absesses. Await surgical evaluation. Code(s): R78.81 - BACTEREMIA (4) Abscess Code(s): L02.91 - CUTANEOUS ABSCESS, UNSPECIFIED (5) Fever Code(s): R50.9 - FEVER, UNSPECIFIED (6) Rheumatoid arthritis Code(s): M06.9 - RHEUMATOID ARTHRITIS, UNSPECIFIED (7) Lupus Code(s): M32.9 - SYSTEMIC LUPUS ERYTHEMATOSUS, UNSPECIFIED (8) Osteoarthritis Code(s): M19.90 - UNSPECIFIED OSTEOARTHRITIS, UNSPECIFIED SITE (9) HTN (hypertension) Code(s): I10 - ESSENTIAL (PRIMARY) HYPERTENSION (10) Migraine Code(s): G43.909 - MIGRAINE, UNSP, NOT INTRACTABLE, WITHOUT STATUS MIGRAINOSUS (11) Obesity, Class III, BMI 40-49.9 (morbid obesity) Code(s): E66.01 - MORBID (SEVERE) OBESITY DUE TO EXCESS CALORIES (12) Seizure Code(s): R56.9 - UNSPECIFIED CONVULSIONS (13) Sleep apnea Code(s): G47.30 - SLEEP APNEA, UNSPECIFIED (14) Sinus tachycardia Code(s): R00.0 - TACHYCARDIA, UNSPECIFIED (15) Diabetes Code(s): E11.9 - TYPE 2 DIABETES MELLITUS WITHOUT COMPLICATIONS (16) Hx MRSA infection Assessment/Plan: Hx MRSA colonization; on chronic antibiotics. BLood cultures now: cocci in clusters. CT chest: severe atelectasis; cavitary lesions. MRI pelvis: collections suspicious for abscess. On antibiotics; f/u culture identification. Code(s): Z86.14 - PERSONAL HISTORY OF METHICILLIN RESIS STAPH INFECTION (17) Pulmonary cavitary lesion Assessment/Plan: CT chest: severe atelectasis; multiple nodules, cavitations On antibiotics. F/u with ID, training designer. Code(s): J98.4 - OTHER DISORDERS OF LUNG (18) Leukocytosis Code(s): D72.829 - ELEVATED WHITE BLOOD CELL COUNT, UNSPECIFIED (19) Cervical cancer Assessment/Plan: hx chemotherapy. CT chest: multiple nodules/some cavitary. Code(s): C53.9 - MALIGNANT NEOPLASM OF CERVIX UTERI, UNSPECIFIED
[2019-07-02] MEDS ORDERED: POTASSIUM CHLORIDE TABS 20 MEQ TABLET.ER (FP) PO ONE (16:33)
[2019-07-02] MEDS: LACTATED RINGERS SOLUTION 1,000 ML/1,000 ML INFUS.BAG IV SCH (16:44)
[2019-07-02] MEDS: BUDESONIDE/FORMETEROL FUMARATE 160/4.5 mcg INHALER IH SCH ×2 (17:00→21:37)
[2019-07-02] MEDS: VANCOMYCIN HCL 1,500 MG in DEXTROSE 5%-WATER - 500 ML IVPB SCH (17:14)
--- NOTE | 2019-07-02 17:45 | ECHO ---
Version: 1 Name: ABBIE JOHNSON Exam: Adult Echocardiogram Study Date: 07/02/2019, 4:44 PM Age: 38 Years Left Ventricle The left ventricle is grossly normal size. Left ventricular systolic function is grossly normal. Reg ional wall motion abnormalities cannot be excluded due to limited visualization. Right Ventricle The right ventricle is grossly normal size. The right ventricular systolic function is grossly kristy l. Atria Normal left and right atrial size and function. Mitral Valve The mitral valve is not well visualized. The mitral valve is grossly normal. There is no mitral valv e stenosis. Limited doppler. No significant regurgitation. Tricuspid Valve The tricuspid valve is not well visualized. Limited doppler, no significant tricuspid regurgitation. Aortic Valve The aortic valve is not well visualized. Limited doppler; no significant regurgitation. Pulmonic Valve The pulmonic valve is not well visualized. Great Vessels The aortic root is not well visualized. Pericardium/Pleura There is no pericardial effusion. Tech Comments Very TDS on valves due to morbid obesity and patient's position (alternating right lateral decubitus /supine). Also very agitated and in a lot of left hip pain. Summary Statements Technically difficult and limited study. Consider GENEVA if clinically indicated. Left ventricular systolic function is grossly normal. Regional wall motion abnormalities cannot be excluded due to limited visualization. The mitral valve is not well visualized. The mitral valve is grossly normal. Limited doppler. No significant regurgitation. Limited doppler, no significant tricuspid regurgitation. The aortic valve is not well visualized. Limited doppler; no significant regurgitation. The pulmonic valve is not well visualized. Technically difficult and limited study. Consider GENEVA if clinically indicated. MD Panda *Rg 07/02/2019, 5:45 PM Ordering Physician: Fantasma Dc Referring Physician: FANTASMA DC Performed By: Shala Chandler
--- NOTE | 2019-07-02 17:59 | CONS ---
INFECTIOUS DISEASE CONSULTATION DATE OF CONSULTATION: DATE OF DICTATION: 07/02/2019 HISTORY: This is a 38-year-old woman with history of lupus, history of MRSA bacteremia she reports about 8 months ago. Denies endocarditis, recurrent MRSA skin abscesses. She has been on doxycycline, clindamycin. Recently stopped about 2 weeks ago. History of diabetes. Presents to the ER with complaints of severe left lower quadrant pain radiating to her left leg. She has had fevers at home that she states happen when she has the pain. She reports coming by bus to [place] 2 weeks ago to help her sister from [place]. She reports that 2 days after she arrived she started having this pain, which has gradually worsened. She reports as well intermittent fevers. She denies any nausea, vomiting, diarrhea, or dysuria. She went to another ER 2 days ago. Reports that she had an x-ray but no acute pathology. She denies any cough. She denies any congestion or sick contact. She says everyone is well at her sister's house. She is currently a very poor historian. Much of this history is from the chart as she is in pain and really does not want to talk. She just returned from MRI. In the ER, she was noted to have an elevated glucose, a white count of 16. CAT scan showed asymmetric enlargement of the left psoas, iliopsoas area, and she has now gone for an MRI of the same area. She got vancomycin and meropenem in the emergency room, which she tolerated well. PAST MEDICAL HISTORY: Notable for lupus, MRSA bacteremia, recurrent MRSA skin abscesses, cervical cancer status post chemotherapy 10 years ago, endometriosis, diabetes, seizure disorder, chronic migraines, chronic low back pain, osteoarthritis, rheumatoid arthritis, and anxiety. SURGICAL HISTORY: Notable for multiple skin incisions and drainage, section, bilateral tubal ligation, and right knee ligament repair. SOCIAL HISTORY: She smokes 1/2 pack per day. She smokes occasional marijuana. Occasional alcohol. No IV drug use. Reports she is HIV negative. ALLERGIES: She is allergic to HYDROCODONE, PENICILLIN, which causes difficulty breathing, SULFA, but she has tolerated the meropenem, which she has received several doses of. TOPAMAX she is allergic to as well. MEDICATIONS: Combivent, hydromorphone, hydrochlorothiazide, Lasix, Cymbalta, Ativan, Januvia, Symbicort, Prilosec, Glucophage, insulin. She has stopped her clindamycin, doxycycline she tells me. REVIEW OF SYSTEMS: As per HPI. PHYSICAL EXAMINATION: General: She is lying on her right side. She refuses to lie on her back. Exam is extremely limited. Vital Signs: Temperature is 101.1, pulse of 120, blood pressure is 138/77, respiratory rate is 22. She is saturating 97% on 2 L nasal cannula. HEENT: She is normocephalic. Her eyes are anicteric. She does not have any conjunctival hemorrhages. Neck: Supple. Heart: Tachycardic. I do not hear a murmur. Lungs: Diminished breath sounds at the bases. Abdomen: Mid epigastric area is soft. I am examining her on her side. She will not let me examine her left side or her left hip. She will not move her legs. DIAGNOSTIC DATA: Her white count is 16.6, hemoglobin 12.5, platelets are 265, sedimentation rate is 76, INR is 1. BUN 48, creatinine 0.5, hemoglobin A1c is 13.8, glucose at 266. CRP is 44. Her urine hCG is negative. Urinalysis is notable for 3+ glucose, 1+ ketones. CAT scan of the abdomen is as previously stated. She had a chest CT done that shows ill-defined infiltrates with some atelectatic changes upper lobes and apical segments. She also has multiple lung nodules some demonstrating early cavitation. In summary, this is an ill-appearing 38-year-old woman very poor historian who has severe pain in her left hip and abdomen with some iliopsoas swelling. Concerns would be MRSA, endocarditis with probable psoas abscess phlegmon. Cavitary lesions on chest CT as well are supportive of this. Would obtain a Cardiology consult, echo, surgical follow up. Transfer to telemetry. Vancomycin, meropenem, which she is tolerating. Please follow vancomycin trough closely. Follow up her imaging. Drain abscess if noted on the MRI. Question whether she needs to be transferred. Repeat blood cultures in the morning. Follow labs closely. Trend her sedimentation rate, CRP. Agree with QuantiFeron. Agree with COVID-19 PCR. Overall prognosis is guarded. Discussed with the hospitalist and with Cardiology. AURA COSTELLO M.D. [id number]
[2019-07-02] MEDS: MEROPENEM 1 GM PUSH 1 GM/20 ML DISP.SYRIN IVPUSH SCH (18:44)
[2019-07-02] MEDS ORDERED: FAMOTIDINE 20 MG TABLET PO ONE (20:47)
[2019-07-02] MEDS ORDERED: INSULIN (LEVEMIR) 100 UNITS/ML UNITS SQ SCH (22:00)
[2019-07-03] MEDS: HYDROmorphone HCl 2 MG/ML VIAL IVPUSH PRN ×5 (01:04→20:56)
[2019-07-03] MEDS: MEROPENEM 1 GM PUSH 1 GM/20 ML DISP.SYRIN IVPUSH SCH ×3 (01:30→18:07)
[2019-07-03] MEDS ORDERED: ALBUTEROL SO4 HFA INHALER IH PRN (02:17)
[2019-07-03] MEDS: VANCOMYCIN HCL 1,500 MG in DEXTROSE 5%-WATER - 500 ML IVPB SCH (03:22)
[2019-07-03] MEDS: HEPARIN NA (PORCINE) 5,000 UNITS/ML 1ML VIAL SQ SCH ×2 (05:35→15:12)
[2019-07-03] MEDS: levETIRAcetam 500 MG/5 ML INJECTION VIAL IVPB SCH ×2 (05:35→15:13)
[2019-07-03] MEDS: LACTATED RINGERS SOLUTION 1,000 ML/1,000 ML INFUS.BAG IV SCH ×2 (06:00→09:55)
[2019-07-03] MEDS: INSULIN SLIDING SCALE (NOVOLOG) 1 VIAL SQ SCH ×4 (06:40→18:01)
[2019-07-03] MEDS: INSULIN (LEVEMIR) 100 UNITS/ML UNITS SQ SCH (07:28)
--- NOTE | 2019-07-03 07:43 | PN ---
Progress Note (short form) - Note Progress Note: Coverage for Dr. Lee Ann Davis Chief Complaint: Events noted, notes reviewed, resting in bed, complaining of persistent discomfort- left lower quadrant and hip area, tachypnea, denies any chest discomfort History of Present Illness: Seen or examined. Events noted, notes reviewed, resting in bed, complaining of persistent discomfort- left lower quadrant and hip area, tachypnea, denies any chest discomfort Awaiting transfer to a telemetry unit for observation/monitoring Current Medications: Current Medications Generic Name Dose Route Start Last Admin Trade Name Freq PRN Reason Stop Dose Admin Albuterol Sulfate 2 puff 07/03/19 02:17 Ventolin Hfa Inhaler - IH Q4H PRN SHORT OF BREATH/WHEEZING Budesonide/Formoterol Fumarate 2 puff 07/02/19 10:00 07/03/19 09:10 Symbicort 160/4.5mcg - IH 2 puff BID FRANTZ Administration Docusate Sodium 100 mg 07/02/19 10:00 07/03/19 09:02 Colace - PO 100 mg DAILY FRANTZ Administration Guaifenesin 10 ml 07/03/19 08:16 07/03/19 09:04 Robitussin - PO 10 ml Q6H PRN Administration COUGH Heparin Sodium (Porcine) 5,000 unit 07/02/19 06:00 07/03/19 15:12 Heparin - SQ Not Given TID FRANTZ Hydromorphone HCl 2 mg 07/02/19 16:00 07/03/19 13:25 Dilaudid Vial - IVPUSH 2 mg Q4H PRN Administration PAIN LEVEL 7 - 10 Lactated Ringer's 1,000 ml in 1,000 mls @ 125 mls/hr 07/02/19 04:30 07/03/19 09:55 Lactated Ringers Solution IV 125 mls/hr ASDIR FRANTZ Administration Meropenem 1 gm in 20 mls @ 240 mls/hr 07/02/19 18:00 07/03/19 09:55 Merrem (Restricted To Id) - IVPUSH 240 mls/hr Q8H-IV FRANTZ Administration Vancomycin HCl 1,500 mg/ 500 mls @ 250 mls/hr 07/02/19 16:00 07/03/19 03:22 Dextrose IVPB 250 mls/hr Q12H FRANTZ Administration Protocol Potassium Phosphate 30 mm/ 510 mls @ 62.5 mls/hr 07/03/19 14:01 Sodium Chloride IVPB 07/03/19 22:10 ONCE ONE Insulin Aspart 1 vial 07/02/19 07:00 07/03/19 11:42 Novolog Vial Sliding Scale - SQ Not Given ACHS [facility] Protocol Insulin Detemir 15 units 07/03/19 07:00 07/03/19 07:28 Levemir Vial SQ 15 units AM FRANTZ Administration Levetiracetam 1,000 mg 07/02/19 06:45 07/03/19 15:13 Keppra Injection - IVPB 1,000 mg TID FRANTZ Administration Review of Systems Constitutional: denies: Chills or Fever Cardiovascular: As noted above Respiratory: denies: Cough or Sputum Production Gastrointestinal: denies: Nausea, Vomiting, Diarrhea, Constipation reports Abdominal Pain/left lower quadrant Genitourinary: No symptoms reported - Objective Vital Signs: Last Vital Signs Temp Pulse Resp BP Pulse Ox 98.4 F 125 H 24 H 143/92 96 07/03/19 14:41 07/03/19 14:41 07/03/19 14:41 07/03/19 14:41 07/03/19 09:05 Neck: Supple negative JVD no bruit Cardiovascular: S1 S2 Regularly Rate Rhythm Tachycardic Respiratory: Diminished Breath Sounds Bilaterally Gastrointestinal: Soft Normal Bowel Sounds Ext: Negative Edema Labs: CBC, BMP 07/03/19 12:34 07/03/19 12:34 Hepatic Panel Total Bilirubin 0.5 mg/dL (0.2-1) 07/03/19 12:34 AST 14 U/L (15-37) L 07/03/19 12:34 ALT 23 U/L (13-61) 07/03/19 12:34 Alkaline Phosphatase 156 U/L (45-117) H 07/03/19 12:34 Albumin 1.8 g/dl (3.4-5.0) L 07/03/19 12:34 INR, PTT INR 1.07 (0.83-1.09) 07/01/19 22:15 Fibrinogen > 500.0 mg/dL (238-498) H 07/03/19 12:34 Assessment/Plan ASSESSMENT: 1. Bacterial endocarditis suspected (MRSA endocarditis suspected), evidence of septic emboli (MRSA bacteremia) 2. Probable sepsis syndrome- coronavirus/COVID 19 to be excluded, serology pending 3. Persistent sinus tachycardia most likely related to the above-noted clinical presentation 4. History of systemic lupus erythematosus 5. Hypertension 6. Insulin-dependent diabetes mellitus 7. History of bronchial asthma 8. History of rheumatoid arthritis 9. History of cervical carcinoma post chemotherapy 10. History of anxiety disorder/clinical depression PLAN: 1. Continue antibiotic therapy as per primary team/ID service 2. If sinus tachycardia is persistent provided hemodynamic stability may consider the addition of beta-abhinav therapy 3. Consideration for transesophageal echocardiography if the above-noted silvio teremia is persistent despite adequate antibiotic therapy- preferentially avoid any invasive procedures considering the current coronavirus/COVID 19 pandemic 4. Awaiting transfer to a telemetry unit for purpose of monitoring/pending bed availability Ishaan Colindres M.D.
--- NOTE | 2019-07-03 08:55 | PN ---
Progress Note (short form) - Note Progress Note: PULMONARY CONSULTATION DICTATED 07/03/19 IMP SUSPECTED ENDOCARDITIS SUSPECTED COVID 19 SLE RA OA ASTHMA MULTIPLE ABSCESSES PLAN SUPPLEMENTAL O2 ABX PER ID SURGERY EVAL FOR DRAINAGE OF ABSCESSES COVID SEROLOGY PENDING MONITOR LYTES MONITOR INFLAMMATORY MARKERS ALBUTEROL INHALER DR SAM
[2019-07-03] MEDS: DOCUSATE SODIUM 100 MG CAPSULE (FP) PO SCH (09:02)
[2019-07-03] MEDS: guaiFENesin 200 MG/10 ML 10 ML UNIT-DOSE CUPS PO PRN ×2 (09:04→18:01)
[2019-07-03] MEDS: BUDESONIDE/FORMETEROL FUMARATE 160/4.5 mcg INHALER IH SCH (09:10)
--- NOTE | 2019-07-03 12:12 | PN ---
<Tayler Daniel - Last Filed: 07/03/19 12:05> Physical Exam: SUBJECTIVE: Patient seen and examined0 at bedside , pt in alot of pain . OBJECTIVE: Vital Signs Period Temp Pulse Resp BP Sys/Turner Pulse Ox Last 24 Hr 98.6 F-101.1 F 120-146 22-24 135-163/24-96 94 GENERAL: The patient is awake, alert, and fully oriented, in no acute distress. HEAD: Normal with no signs of trauma. LUNGS: Breath sounds decreased, tachypneic clear to auscultation bilaterally HEART:tachycardic S1, S2 ABDOMEN: Soft, TTP LLQ, LUQ nondistended EXTREMITIES: 2+ pulses, warm, well-perfused, no edema. SKIN: Warm, dry, normal turgor, no rashes or lesions noted Active Medications Generic Name Dose Route Start Last Admin Trade Name Freq PRN Reason Stop Dose Admin Albuterol Sulfate 2 puff 07/03/19 02:17 Ventolin Hfa Inhaler - IH Q4H PRN SHORT OF BREATH/WHEEZING Budesonide/Formoterol Fumarate 2 puff 07/02/19 10:00 07/03/19 09:10 Symbicort 160/4.5mcg - IH 2 puff BID FRANTZ Administration Docusate Sodium 100 mg 07/02/19 10:00 07/03/19 09:02 Colace - PO 100 mg DAILY FRANTZ Administration Guaifenesin 10 ml 07/03/19 08:16 07/03/19 09:04 Robitussin - PO 10 ml Q6H PRN Administration COUGH Heparin Sodium (Porcine) 5,000 unit 07/02/19 06:00 07/03/19 05:35 Heparin - SQ Not Given TID FRANTZ Hydromorphone HCl 2 mg 07/02/19 16:00 07/03/19 09:04 Dilaudid Vial - IVPUSH 2 mg Q4H PRN Administration PAIN LEVEL 7 - 10 Lactated Ringer's 1,000 ml in 1,000 mls @ 125 mls/hr 07/02/19 04:30 07/03/19 09:55 Lactated Ringers Solution IV 125 mls/hr ASDIR FRANTZ Administration Meropenem 1 gm in 20 mls @ 240 mls/hr 07/02/19 18:00 07/03/19 09:55 Merrem (Restricted To Id) - IVPUSH 240 mls/hr Q8H-IV FRANTZ Administration Vancomycin HCl 1,500 mg/ 500 mls @ 250 mls/hr 07/02/19 16:00 07/03/19 03:22 Dextrose IVPB 250 mls/hr Q12H FRANTZ Administration Protocol Insulin Aspart 1 vial 07/02/19 07:00 07/03/19 06:40 Novolog Vial Sliding Scale - SQ Not Given ACHS FRANTZ Protocol Insulin Detemir 15 units 07/03/19 07:00 07/03/19 07:28 Levemir Vial SQ 15 units AM FRANTZ Administration Levetiracetam 1,000 mg 07/02/19 06:45 07/03/19 05:35 Keppra Injection - IVPB 1,000 mg TID FRANTZ Administration ASSESSMENT/PLAN: 38 yo F PMH of lupus, h/o MRSA bacteremia, recurrent MRSA skin abscesses on in termittent doxycycline-clindamycin regimens, cervical CA(s/p chemotherapy 10ys prior), endometriosis, IDDM(Lantus 48U), seizure disorder, chronic migraines, herniated L-spine disc, chronic lower back pain(dilaudid 8mg TID), OA, RA, anxiety presented to [facility] with 10 days severe intermittent LLQ pain. admitted for sepsis 2/2 Left-sided psoas abscess. Sepsis 2/2 likely psoas abscess ; MRSA bacteremia, r/o endocarditis - leukocytosis , lactate , febrile - CT and MRI reviewed. psoas hematoma vs abcess ; IR and Surgery input appreciated - maintain IVF, NPO - continue Jasvir , vanc - ID recs appreciated - BCx: presumptive MRSA - Echo shows normal EF, unable to assess valve fxn; will try to repeat Echo for better image, may need GENEVA to r/o vegetations -transfer to tele for closer monitoring pulmonary nodules 2/2 septic emboli vs TB - will order quantiferon -BCx : presumptive MRSA - Pulm consulted peripheral GGO - will test for COVID 19 - Pulm consulted - avoid nebulized meds DM -BGM - ISS + Levemir(15 U) -A1C 13.3 Seixure d/o - continue keppra FEN -LR @100 -NPO, except meds DVT PPX; SQH ATTENDING PHYSICIAN STATEMENT I saw and evaluated the patient. I reviewed the resident's note and discussed the case with the resident. I agree with the resident's findings and plan as documented. SUBJECTIVE: OBJECTIVE: ASSESSMENT AND PLAN: <Syed Helelr - Last Filed: 07/03/19 18:54> Physical Exam: SUBJECTIVE: Patient seen and examined OBJECTIVE: Vital Signs Period Temp Pulse Resp BP Sys/Turner Pulse Ox Last 24 Hr 98.4 F-98.9 F 125-140 23-24 135-163/24-92 94-96 Laboratory Results - last 24 hr 07/02/19 07/03/19 07/03/19 21:33 06:14 11:41 WBC RBC Hgb Hct MCV MCH MCHC RDW Plt Count MPV Fibrinogen D-Dimer Sodium Potassium Chloride Carbon Dioxide Anion Gap BUN Creatinine Est GFR (CKD-EPI)AfAm Est GFR (CKD-EPI)NonAf POC Glucometer 236 284 234 Random Glucose Calcium Phosphorus Magnesium Ferritin Total Bilirubin AST ALT Alkaline Phosphatase LD Total C-Reactive Protein Total Protein Albumin Triglycerides Cholesterol Total LDL Cholesterol HDL Cholesterol 07/03/19 07/03/19 07/03/19 12:34 12:34 12:34 WBC 17.7 H RBC 4.25 Hgb 12.2 Hct 38.0 MCV 89.4 MCH 28.6 MCHC 32.0 RDW 14.1 Plt Count 280 MPV 9.2 Fibrinogen > 500.0 H D-Dimer 4500 H Sodium 134 L Potassium 3.5 Chloride 106 Carbon Dioxide 13 L Anion Gap 15 BUN 7.8 Creatinine 0.5 L Est GFR (CKD-EPI)AfAm 144.31 Est GFR (CKD-EPI)NonAf 124.51 POC Glucometer Random Glucose 247 H Calcium 8.6 Phosphorus 1.5 L Magnesium 2.0 Ferritin 706.9 H Total Bilirubin 0.5 AST 14 L ALT 23 Alkaline Phosphatase 156 H LD Total 241 C-Reactive Protein 43.6 H Total Protein 6.0 L Albumin 1.8 L Triglycerides 211 H Cholesterol 128 Total LDL Cholesterol 83 HDL Cholesterol 11 L 07/03/19 17:55 WBC RBC Hgb Hct MCV MCH MCHC RDW Plt Count MPV Fibrinogen D-Dimer Sodium Potassium Chloride Carbon Dioxide Anion Gap BUN Creatinine Est GFR (CKD-EPI)AfAm Est GFR (CKD-EPI)NonAf POC Glucometer 242 Random Glucose Calcium Phosphorus Magnesium Ferritin Total Bilirubin AST ALT Alkaline Phosphatase LD Total C-Reactive Protein Total Protein Albumin Triglycerides Cholesterol Total LDL Cholesterol HDL Cholesterol Active Medications Generic Name Dose Route Start Last Admin Trade Name Freq PRN Reason Stop Dose Admin Albuterol Sulfate 2 puff 07/03/19 02:17 Ventolin Hfa Inhaler - IH Q4H PRN SHORT OF BREATH/WHEEZING Budesonide/Formoterol Fumarate 2 puff 07/02/19 10:00 07/03/19 09:10 Symbicort 160/4.5mcg - IH 2 puff BID FRANTZ Administration Docusate Sodium 100 mg 07/02/19 10:00 07/03/19 09:02 Colace - PO 100 mg DAILY FRANTZ Administration Guaifenesin 10 ml 07/03/19 08:16 07/03/19 18:01 Robitussin - PO 10 ml Q6H PRN Administration COUGH Heparin Sodium (Porcine) 5,000 unit 07/02/19 06:00 07/03/19 15:12 Heparin - SQ Not Given TID FRANTZ Hydromorphone HCl 2 mg 07/02/19 16:00 07/03/19 13:25 Dilaudid Vial - IVPUSH 2 mg Q4H PRN Administration PAIN LEVEL 7 - 10 Lactated Ringer's 1,000 ml in 1,000 mls @ 125 mls/hr 07/02/19 04:30 07/03/19 09:55 Lactated Ringers Solution IV 125 mls/hr ASDIR FRANTZ Administration Meropenem 1 gm in 20 mls @ 240 mls/hr 07/02/19 18:00 07/03/19 18:07 Merrem (Restricted To Id) - IVPUSH 240 mls/hr Q8H-IV FRANTZ Administration Vancomycin HCl 1,500 mg/ 500 mls @ 250 mls/hr 07/02/19 16:00 07/03/19 03:22 Dextrose IVPB 250 mls/hr Q12H FRANTZ Administration Protocol Potassium Phosphate 30 mm/ 510 mls @ 62.5 mls/hr 07/03/19 14:01 07/03/19 18:08 Sodium Chloride IVPB 07/03/19 22:10 62.5 mls/hr ONCE ONE Administration Insulin Aspart 1 vial 07/02/19 07:00 07/03/19 18:01 Novolog Vial Sliding Scale - SQ 4 units ACHS FRANTZ Administration Protocol Insulin Detemir 15 units 07/03/19 07:00 07/03/19 07:28 Levemir Vial SQ 15 units AM FRANTZ Administration Levetiracetam 1,000 mg 07/02/19 06:45 07/03/19 15:13 Keppra Injection - IVPB 1,000 mg TID FRANTZ Administration ASSESSMENT/PLAN: Patient is going today for possible I&D of his abscess by IR. Seen and examined. Please see resident note for further historical information. I personally verified all the drummond historical formation and exam findings. Personally in pretted imaging and diagnostics and reviewed appropriate results. I reviewed all labs and vital signs are per the resident note and EMR as documented. I agree with the above assessment and plan unless supplemented by myself and the following. Visit type - Emergency Visit Emergency Visit: Yes ED Registration Date: 07/02/19 Care time: The patient presented to the Emergency Department on the above date and was hospitalized for further evaluation of their emergent condition. - New Patient This patient is new to me today: Yes Date on this admission: 07/03/19 - Critical Care Critical Care patient: No - Discharge Referral Referred to [facility] Med P.C.: No ATTENDING PHYSICIAN STATEMENT I saw and evaluated the patient. I reviewed the resident's note and discussed the case with the resident. I agree with the resident's findings and plan as documented. SUBJECTIVE: OBJECTIVE: ASSESSMENT AND PLAN:
[2019-07-03 12:49] LABS: HEMOGLOBIN 12.2 GM/dL (10.7-15.3); MCH 28.6 pg (25.7-33.7); MEAN CELL VOLUME 89.4 fl (80-96); MEAN PLT VOLUME 9.2 fl (7.5-11.1); PLATELET COUNT 280 K/MM3 (134-434); RBC 4.25 M/mm3 (3.60-5.2); RDW 14.1 % (11.6-15.6); WHITE BLOOD COUNT 17.7 K/mm3 (4.0-10.0)
[2019-07-03 13:23] LABS: ALBUMIN 1.8 g/dl (3.4-5.0); BILIRUBIN,TOTAL 0.5 mg/dL (0.2-1); BLOOD UREA NITROGEN 7.8 mg/dL (7-18); CALCIUM 8.6 mg/dL (8.5-10.1); CREATININE 0.5 mg/dL (0.55-1.3); PHOSPHOROUS 1.5 mg/dL (2.5-4.9); POTASSIUM 3.5 mmol/L (3.5-5.1)
[2019-07-03] MEDS ORDERED: NAPH,MB-DB/K PH,MBDB POWDER PACKET PO SCH (14:00)
[2019-07-03] MEDS ORDERED: POTASSIUM PHOSPHATE 30 MM in SODIUM CHLORIDE 500 ML IVPB ONE (14:01)
--- NOTE | 2019-07-03 14:14 | PN ---
Progress Note (short form) - Note Progress Note: still with LLQ and left hip pain laying on her right side Vital Signs Period Temp Pulse Resp BP Sys/Turner Pulse Ox Last 24 Hr 98.6 F-101.1 F 120-146 22-24 135-163/24-96 94-96 cor-rrr lungs decreased bs at bases abd soft,left sided discomfort ext no edema, pain to touch left hip CBC, BMP 07/03/19 12:34 07/03/19 12:34 Microbiology 07/02/19 00:55 Blood - Peripheral Venous Blood Culture - Preliminary Staphylococcus Latex Coag Pos 07/02/19 01:02 Blood - Peripheral Venous Blood Culture - Preliminary Presumptive Mrsa (Pbp2a Pos) echo limited pelvic MRI with collections noted left iliacus muscle a/p suspect MRSA endocarditis MRSA bacteremia abscesses left iliacus muscle pen allergy repeat blood cultures sent trend esr/crp agree with quantiferon agree with covid 19 pcr continue with vanco/meropenem for vanco trough today please contact surgery regarding abscess drainage d/w resident who will speak with her attending
[2019-07-03] MEDS ORDERED: HYDROmorphone HCl 2 MG/ML VIAL IVPB ONE (16:15)
--- NOTE | 2019-07-03 17:09 | PN ---
Progress Note (short form) - Note Progress Note: PULMONARY CONSULTATION DICTATED 07/03/19 IMP LIKELY MRSA ENDOCARDITIS MULTIPLE PULMONARY NODULES LIKELY INFECTIOUS SLE RA SUSPECTED COVID 19 MULTIPLE ABSCESSES ASTHMA H/O CERVICAL CA PLAN ABX PER ID SURGERY EVAL FOR DRAINAGE COVID SEROLOGY PENDING ALBUTEROL MONITOR INFLAMMATORY MARKERS MONITOR LYTES ? GENEVA DR SAM Problem List - Problems (1) Abscess Code(s): L02.91 - CUTANEOUS ABSCESS, UNSPECIFIED (2) Blood bacterial culture positive Code(s): R78.81 - BACTEREMIA (3) Endocarditis Code(s): I38 - ENDOCARDITIS, VALVE UNSPECIFIED (4) Fever Code(s): R50.9 - FEVER, UNSPECIFIED (5) Hx MRSA infection Code(s): Z86.14 - PERSONAL HISTORY OF METHICILLIN RESIS STAPH INFECTION (6) Iliopsoas abscess Code(s): K68.12 - PSOAS MUSCLE ABSCESS (7) Lupus Code(s): M32.9 - SYSTEMIC LUPUS ERYTHEMATOSUS, UNSPECIFIED (8) Pulmonary cavitary lesion Code(s): J98.4 - OTHER DISORDERS OF LUNG (9) Rheumatoid arthritis Code(s): M06.9 - RHEUMATOID ARTHRITIS, UNSPECIFIED (10) Asthma Code(s): J45.909 - UNSPECIFIED ASTHMA, UNCOMPLICATED (11) HTN (hypertension) Code(s): I10 - ESSENTIAL (PRIMARY) HYPERTENSION
--- NOTE | 2019-07-03 17:30 | CONS ---
PULMONARY CONSULTATION DATE OF CONSULTATION: 07/03/2019 REFERRING PHYSICIAN: Syed Heller MD HISTORY: Patient is a 38-year-old female with a past medical for lupus, asthma, history of MRSA bacteremia approximately 8 months ago, recurrent MRSA skin abscesses, diabetes, cervical cancer status post chemotherapy 10 years ago, endometriosis, diabetes, seizure disorder, chronic migraines, chronic lower back pain, osteoarthritis, rheumatoid arthritis, anxiety. Admitted to [facility] with complaint of severe left lower quadrant pain radiating to her legs. Patient apparently had fevers at home. She apparently came by bus to [place] approximately 2 weeks ago from [place]. Apparently 2 days after she arrived she started developing the pain, which has increased in severity. She also had intermittent fevers. She denied any nausea, vomiting, or diarrhea. She apparently went to the emergency room 2 days prior to this admission and had an x-ray, which showed no acute pathology. Denied any cough. In the ER, she was noted to have elevated glucose, elevated white count. She had a CT scan of the chest, which revealed left psoas, iliopsoas area, and asymmetric enlargement. She also had a CAT scan of the chest performed, which revealed multiple pulmonary nodules some with cavitation and mediastinal adenopathy and ill-defined infiltrates in the lower lobe segments as well as a lumbar MRI, which revealed a left iliac muscle prominence, associated edema within the muscle, and a loculated fluid collection suggestive of abscesses. Echocardiogram was also performed, which revealed valves are not well visualized. No evidence of acute endocarditis with poor study. PAST MEDICAL HISTORY: Again as above. CURRENT MEDICATIONS: Include Symbicort, meropenem, vancomycin, Keppra, albuterol, Colace, Robitussin, NovoLog, Levemir, Dilaudid, potassium. PHYSICAL EXAMINATION: General: Patient is an obese female awake, alert. Appears in pain. Mildly dyspneic. Vital Signs: She is afebrile. Blood pressure 143/92, respiratory rate is 24, O2 saturation is 96%. HEENT: Normocephalic, atraumatic. Neck: Supple. Heart: Regular with S1, S2. Chest: Clear. Abdomen: Soft. Bowel sounds are positive. Extremities: No cyanosis or edema. LABORATORIES: WBCs 17.7, hemoglobin 12.2, hematocrit 38, platelet count 280,000. BUN is 7, creatinine 0.5. Ferritin level is 706, CRP is 43, LDH is 241, fibrinogen greater than 500. D-dimer greater than 4500. CAT scan of the chest as noted earlier. IMPRESSION: 1. 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 2. Multiple abscesses. 3. Suspected COVID-19 infection. 4. Systemic lupus erythematosus. 5. Rheumatoid. 6. Osteoarthritis. 7. Asthma. PLAN: Supplemental O2. Antibiotics per Infectious Disease. Surgical evaluation for drainage of abscesses. COVID serology pending. Monitor electrolytes. Monitor inflammatory markers. Albuterol inhaler as needed. LINDA SAM M.D. [id number]
[2019-07-04] MEDS ORDERED: ACETAMINOPHEN 1000 MG/100 ML VIAL (NON FORMULARY) IVPB ONE (00:08)
[2019-07-04] MEDS: INSULIN SLIDING SCALE (NOVOLOG) 1 VIAL SQ SCH ×5 (00:14→23:31)
[2019-07-04] MEDS: HEPARIN NA (PORCINE) 5,000 UNITS/ML 1ML VIAL SQ SCH ×4 (00:15→21:29)
[2019-07-04] MEDS: levETIRAcetam 500 MG/5 ML INJECTION VIAL IVPB SCH ×4 (00:15→21:29)
[2019-07-04] MEDS: BUDESONIDE/FORMETEROL FUMARATE 160/4.5 mcg INHALER IH SCH ×3 (00:20→21:29)
[2019-07-04] MEDS: VANCOMYCIN HCL 1,500 MG in DEXTROSE 5%-WATER - 500 ML IVPB SCH (00:36)
[2019-07-04] MEDS: MEROPENEM 1 GM PUSH 1 GM/20 ML DISP.SYRIN IVPUSH SCH ×2 (01:51→09:29)
[2019-07-04] MEDS ORDERED: PT OWN MED DRAWER 7, Y5N ONE ×5 (02:05→23:11)
[2019-07-04] MEDS: guaiFENesin 200 MG/10 ML 10 ML UNIT-DOSE CUPS PO PRN (04:07)
[2019-07-04] MEDS: LACTATED RINGERS SOLUTION 1,000 ML/1,000 ML INFUS.BAG IV SCH (04:49)
[2019-07-04] MEDS: HYDROmorphone HCl 2 MG/ML VIAL IVPUSH PRN ×4 (04:54→20:15)
[2019-07-04] MEDS: INSULIN (LEVEMIR) 100 UNITS/ML UNITS SQ SCH (06:51)
--- NOTE | 2019-07-04 07:14 | PN ---
Progress Note (short form) - Note Progress Note: Coverage for Dr. Lee Ann Davis Chief Complaint: Events noted, notes reviewed, transferred to telemetry unit, post CT-guided iliopsoas abscess drainage- drain in situ, resting in bed/restless, complaining of persistent discomfort- left lower quadrant and hip area, denies any chest discomfort History of Present Illness: Seen or examined on telemetry. Events noted, notes reviewed, transferred to telemetry unit, post CT-guided iliopsoas abscess drainage- drain in situ, resting in bed/restless, complaining of persistent discomfort- left lower quadrant and hip area, denies any chest discomfort Current Medications: Current Medications Generic Name Dose Route Start Last Admin Trade Name Freq PRN Reason Stop Dose Admin Albuterol Sulfate 2 puff 07/03/19 02:17 Ventolin Hfa Inhaler - IH Q4H PRN SHORT OF BREATH/WHEEZING Budesonide/Formoterol Fumarate 2 puff 07/02/19 10:00 07/04/19 09:44 Symbicort 160/4.5mcg - IH 2 puff BID FRANTZ Administration Docusate Sodium 100 mg 07/02/19 10:00 07/04/19 09:22 Colace - PO 100 mg DAILY FRANTZ Administration Guaifenesin 10 ml 07/03/19 08:16 07/04/19 04:07 Robitussin - PO 10 ml Q6H PRN Administration COUGH Heparin Sodium (Porcine) 5,000 unit 07/02/19 06:00 07/04/19 06:51 Heparin - SQ 5,000 unit TID FRANTZ Administration Hydromorphone HCl 2 mg 07/02/19 16:00 07/04/19 09:06 Dilaudid Vial - IVPUSH 2 mg Q4H PRN Administration PAIN LEVEL 7 - 10 Lactated Ringer's 1,000 ml in 1,000 mls @ 125 mls/hr 07/02/19 04:30 07/04/19 04:49 Lactated Ringers Solution IV Not Given ASDIR FRANTZ Vancomycin HCl 1,750 mg/ 500 mls @ 125 mls/hr 07/04/19 12:00 07/04/19 12:01 Dextrose IVPB 125 mls/hr Q12H FRANTZ Administration Protocol Potassium Phosphate 30 mm/ 510 mls @ 62.5 mls/hr 07/04/19 11:31 Sodium Chloride IVPB 07/04/19 19:40 ONCE ONE Insulin Aspart 1 vial 07/02/19 07:00 07/04/19 11:30 Novolog Vial Sliding Scale - SQ 6 units ACHS FRANTZ Administration Protocol Insulin Detemir 15 units 07/03/19 07:00 07/04/19 06:51 Levemir Vial SQ 15 units AM FRANTZ Administration Levetiracetam 1,000 mg 07/02/19 06:45 07/04/19 06:51 Keppra Injection - IVPB 1,000 mg TID FARNTZ Administration Review of Systems Constitutional: denies: Chills or Fever Cardiovascular: As noted above Respiratory: denies: Cough or Sputum Production Gastrointestinal: denies: Nausea, Vomiting, Diarrhea, Constipation reports Abdominal Pain/left lower quadrant Genitourinary: No symptoms reported - Objective Vital Signs: Last Vital Signs Temp Pulse Resp BP Pulse Ox 98.3 F 115 H 20 142/68 94 L 07/04/19 07:00 07/04/19 07:00 07/04/19 07:00 07/04/19 07:00 07/03/19 21:30 Intake & Output 07/01/19 07/02/19 07/03/19 07/04/19 23:59 23:59 23:59 23:59 Intake Total 2375 2515 1490 Output Total 20 10 Balance 2375 2495 1480 Weight 231 lb 231 lb Neck: Supple negative JVD no bruit Cardiovascular: S1 S2 Regularly Rate Rhythm Tachycardic Respiratory: Diminished Breath Sounds Bilaterally Gastrointestinal: Soft Normal Bowel Sounds Ext: Negative Edema Labs: CBC, BMP 07/04/19 05:50 07/04/19 05:50 Hepatic Panel Total Bilirubin 0.9 mg/dL (0.2-1) 07/04/19 05:50 AST 119 U/L (15-37) H 07/04/19 05:50 ALT 77 U/L (13-61) H 07/04/19 05:50 Alkaline Phosphatase 172 U/L (45-117) H 07/04/19 05:50 Albumin 1.7 g/dl (3.4-5.0) L 07/04/19 05:50 INR, PTT INR 1.07 (0.83-1.09) 07/01/19 22:15 Fibrinogen > 500.0 mg/dL (238-498) H 07/04/19 05:50 Abnormal Lab Results 07/03/19 07/03/19 07/03/19 12:34 12:34 12:34 WBC 17.7 H Fibrinogen > 500.0 H D-Dimer 4500 H Sodium 134 L Potassium Carbon Dioxide 13 L Creatinine 0.5 L Random Glucose 247 H Calcium Phosphorus 1.5 L Ferritin 706.9 H AST 14 L ALT Alkaline Phosphatase 156 H LD Total C-Reactive Protein 43.6 H Total Protein 6.0 L Albumin 1.8 L Triglycerides 211 H HDL Cholesterol 11 L Vancomycin Pre-Dose 07/04/19 07/04/19 07/04/19 00:25 05:50 05:50 WBC 18.9 H Fibrinogen D-Dimer Sodium Potassium 3.3 L Carbon Dioxide 19 L Creatinine 0.4 L Random Glucose 235 H Calcium 8.2 L Phosphorus 1.7 L Ferritin 882.7 H AST 119 H ALT 77 H Alkaline Phosphatase 172 H LD Total 304 H C-Reactive Protein 31.3 H Total Protein 5.7 L Albumin 1.7 L Triglycerides HDL Cholesterol Vancomycin Pre-Dose 1.9 L 07/04/19 05:50 WBC Fibrinogen > 500.0 H D-Dimer 5257 H Sodium Potassium Carbon Dioxide Creatinine Random Glucose Calcium Phosphorus Ferritin AST ALT Alkaline Phosphatase LD Total C-Reactive Protein Total Protein Albumin Triglycerides HDL Cholesterol Vancomycin Pre-Dose Assessment/Plan ASSESSMENT: 1. Bacterial endocarditis suspected (MRSA endocarditis suspected), evidence of septic emboli (MRSA bacteremia) 2. Iliopsoas abscess post percutaneous CT scan guided drainage/drain in situ with probable sepsis syndrome- coronavirus/COVID 19 negative 3. Persistent sinus tachycardia most likely related to the above-noted clinical presentation 4. History of systemic lupus erythematosus 5. Hypertension 6. Insulin-dependent diabetes mellitus 7. History of bronchial asthma 8. History of rheumatoid arthritis 9. History of cervical carcinoma post chemotherapy 10. History of anxiety disorder/clinical depression 11. Hypokalemia PLAN: 1. Continue antibiotic therapy as per primary team/ID service 2. As outlined in yesterday's note if sinus tachycardia is persistent provided hemodynamic stability may consider the addition of beta-abhinav therapy 3. Consideration for transesophageal echocardiography if the above-noted bacteremia is persistent despite adequate antibiotic therapy- preferentially avoid any invasive procedures considering the current coronavirus/COVID 19 pandemic 4. Correction of hypokalemia- primary team to address Saulat Jens M.D.
[2019-07-04 08:16] LABS: HEMATOCRIT 35.2 % (32.4-45.2); HEMOGLOBIN 11.7 GM/dL (10.7-15.3); MCH 28.7 pg (25.7-33.7); MCHC 33.2 g/dl (32.0-36.0); MEAN CELL VOLUME 86.6 fl (80-96); MEAN PLT VOLUME 9.6 fl (7.5-11.1); PLATELET COUNT 279 K/MM3 (134-434); RBC 4.07 M/mm3 (3.60-5.2); RDW 14.4 % (11.6-15.6); WHITE BLOOD COUNT 18.9 K/mm3 (4.0-10.0)
[2019-07-04 08:56] LABS: ALBUMIN 1.7 g/dl (3.4-5.0); BILIRUBIN,TOTAL 0.9 mg/dL (0.2-1); BLOOD UREA NITROGEN 9.4 mg/dL (7-18); CALCIUM 8.2 mg/dL (8.5-10.1); CREATININE 0.4 mg/dL (0.55-1.3); MAGNESIUM 2.2 mg/dL (1.8-2.4); PHOSPHOROUS 1.7 mg/dL (2.5-4.9); POTASSIUM 3.3 mmol/L (3.5-5.1); TOT PROT 5.7 g/dl (6.4-8.2)
[2019-07-04] MEDS: DOCUSATE SODIUM 100 MG CAPSULE (FP) PO SCH (09:22)
[2019-07-04] MEDS ORDERED: POTASSIUM PHOSPHATE 30 MM in SODIUM CHLORIDE 500 ML IVPB ONE (11:31)
--- NOTE | 2019-07-04 11:33 | PN ---
Progress Note (short form) - Note Progress Note: able to lay flat today s/p IR drainage of 20 cc pus from ilacus abscess drain in place eating Vital Signs Period Temp Pulse Resp BP Sys/Turner Pulse Ox Last 24 Hr 97.9 F-98.7 F 115-128 20-24 127-147/65-92 94-98 cor-rrr llungs decreased bs at bases abd soft,nt ext no edema drain with murky bloody fluid CBC, BMP 07/04/19 05:50 07/04/19 05:50 Microbiology 07/02/19 00:55 Blood - Peripheral Venous Blood Culture - Preliminary Presumptive Mrsa (Pbp2a Pos) 07/02/19 01:02 Blood - Peripheral Venous Blood Culture - Preliminary Presumptive Mrsa (Pbp2a Pos) 07/03/19 11:10 Blood - Peripheral Venous Blood Culture - Preliminary Pending Organism 07/03/19 11:10 Blood - Peripheral Venous Blood Culture - Preliminary Pending Organism echo limited pelvic MRI with collections noted left iliacus muscle COVID a/p suspect MRSA endocarditis MRSA bacteremia abscesses left iliacus muscle-s/p IR drainage pen allergy obese poorly controlled DM lupus by history repeat blood cultures sent - trend esr/crp agree with quantiferon d/c meropenem continue vancomycin d/w cardiology overall prognosis is guarded repeat vancomycin trough before dose tomorrow 11am- do not hold vancomycin pending levels
[2019-07-04] MEDS ORDERED: VANCOMYCIN HCL 1,500 MG in DEXTROSE 5%-WATER - 500 ML IVPB SCH (12:00)
[2019-07-04] MEDS: VANCOMYCIN 1,750 MG in DEXTROSE 5%-WATER - 500 ML IVPB SCH ×2 (12:01→23:32)
--- NOTE | 2019-07-04 12:03 | PN ---
Progress Note (short form) - Note Progress Note: Attending Surgeon c/o pain; she is receiving Dilaudid VSS AF drain in place left flank; bloody output only blood cultures positive for MRSA Psoas drainage cultures/gram stain pending IMP:s/p left psoas abscess drainage PLAN: Continue present tx.; will need f/u imaging later this week. George Oreilly MD FACS
--- NOTE | 2019-07-04 12:19 | PN ---
<Syed Heller - Last Filed: 07/04/19 17:04> Physical Exam: SUBJECTIVE: Patient seen and examined OBJECTIVE: Vital Signs Period Temp Pulse Resp BP Sys/Turner Pulse Ox Last 24 Hr 97.9 F-98.7 F 115-128 20-22 127-154/65-87 94-98 Laboratory Results - last 24 hr 07/02/19 07/03/19 07/03/19 16:10 12:34 17:55 WBC RBC Hgb Hct MCV MCH MCHC RDW Plt Count MPV Fibrinogen D-Dimer Sodium 134 L Potassium 3.5 Chloride 106 Carbon Dioxide 13 L Anion Gap 15 BUN 7.8 Creatinine 0.5 L Est GFR (CKD-EPI)AfAm 144.31 Est GFR (CKD-EPI)NonAf 124.51 POC Glucometer 242 Random Glucose 247 H Calcium 8.6 Phosphorus 1.5 L Magnesium 2.0 Ferritin 706.9 H Total Bilirubin 0.5 Direct Bilirubin AST 14 L ALT 23 Alkaline Phosphatase 156 H LD Total 241 Creatine Kinase 103 C-Reactive Protein 43.6 H Total Protein 6.0 L Albumin 1.8 L Triglycerides 211 H Cholesterol 128 Total LDL Cholesterol 83 HDL Cholesterol 11 L Vancomycin Pre-Dose COVID-19 (TESSIE) Not detected 07/04/19 07/04/19 07/04/19 00:25 05:50 05:50 WBC 18.9 H RBC 4.07 Hgb 11.7 Hct 35.2 MCV 86.6 MCH 28.7 MCHC 33.2 RDW 14.4 Plt Count 279 MPV 9.6 Fibrinogen D-Dimer Sodium 136 Potassium 3.3 L Chloride 105 Carbon Dioxide 19 L Anion Gap 12 BUN 9.4 Creatinine 0.4 L Est GFR (CKD-EPI)AfAm 155.30 Est GFR (CKD-EPI)NonAf 134.00 POC Glucometer Random Glucose 235 H Calcium 8.2 L Phosphorus 1.7 L Magnesium 2.2 Ferritin 882.7 H Total Bilirubin 0.9 Direct Bilirubin 0.2 AST 119 H ALT 77 H Alkaline Phosphatase 172 H LD Total 304 H Creatine Kinase C-Reactive Protein 31.3 H Total Protein 5.7 L Albumin 1.7 L Triglycerides Cholesterol Total LDL Cholesterol HDL Cholesterol Vancomycin Pre-Dose 1.9 L COVID-19 (TESSIE) 07/04/19 05:50 WBC RBC Hgb Hct MCV MCH MCHC RDW Plt Count MPV Fibrinogen > 500.0 H D-Dimer 5257 H Sodium Potassium Chloride Carbon Dioxide Anion Gap BUN Creatinine Est GFR (CKD-EPI)AfAm Est GFR (CKD-EPI)NonAf POC Glucometer Random Glucose Calcium Phosphorus Magnesium Ferritin Total Bilirubin Direct Bilirubin AST ALT Alkaline Phosphatase LD Total Creatine Kinase C-Reactive Protein Total Protein Albumin Triglycerides Cholesterol Total LDL Cholesterol HDL Cholesterol Vancomycin Pre-Dose COVID-19 (TESSIE) Active Medications Generic Name Dose Route Start Last Admin Trade Name Freq PRN Reason Stop Dose Admin Albuterol Sulfate 2 puff 07/03/19 02:17 Ventolin Hfa Inhaler - IH Q4H PRN SHORT OF BREATH/WHEEZING Budesonide/Formoterol Fumarate 2 puff 07/02/19 10:00 07/04/19 09:44 Symbicort 160/4.5mcg - IH 2 puff BID FRANTZ Administration Docusate Sodium 100 mg 07/02/19 10:00 07/04/19 09:22 Colace - PO 100 mg DAILY FRANTZ Administration Guaifenesin 10 ml 07/03/19 08:16 07/04/19 04:07 Robitussin - PO 10 ml Q6H PRN Administration COUGH Heparin Sodium (Porcine) 5,000 unit 07/02/19 06:00 07/04/19 14:04 Heparin - SQ 5,000 unit TID FRANTZ Administration Hydromorphone HCl 2 mg 07/02/19 16:00 07/04/19 16:07 Dilaudid Vial - IVPUSH 2 mg Q4H PRN Administration PAIN LEVEL 7 - 10 Lactated Ringer's 1,000 ml in 1,000 mls @ 125 mls/hr 07/02/19 04:30 07/04/19 04:49 Lactated Ringers Solution IV Not Given ASDIR FRANTZ Vancomycin HCl 1,750 mg/ 500 mls @ 125 mls/hr 07/04/19 12:00 07/04/19 12:01 Dextrose IVPB 125 mls/hr Q12H FRANTZ Administration Protocol Potassium Phosphate 30 mm/ 510 mls @ 62.5 mls/hr 07/04/19 11:31 07/04/19 16:28 Sodium Chloride IVPB 07/04/19 19:40 62.5 mls/hr ONCE ONE Administration Doxycycline Hyclate 100 mg/ 100 mls @ 100 mls/hr 07/04/19 14:07 Dextrose IVPB BID FRANTZ Insulin Aspart 1 vial 07/02/19 07:00 07/04/19 16:28 Novolog Vial Sliding Scale - SQ 6 units ACHS FRANTZ Administration Protocol Insulin Detemir 15 units 07/03/19 07:00 07/04/19 06:51 Levemir Vial SQ 15 units AM FRANTZ Administration Levetiracetam 1,000 mg 07/02/19 06:45 07/04/19 15:28 Keppra Injection - IVPB 1,000 mg TID FRANTZ Administration ASSESSMENT/PLAN: Seen and examined. Please see resident note for further historical information. I personally verified all the drummond historical formation and exam findings. Personally in pretted imaging and diagnostics and reviewed appropriate results. I reviewed all labs and vital signs are per the resident note and EMR as documented. I agree with the above assessment and plan unless supplemented by myself and the following. Plan #1 sepsis due to saw sepsis MRSA bacteremia rule endocarditis Pulmonary nodule possible septic emboli versus TB diabetes Elevated liver enzymes Continue IV antibiotics drainage is in place and it draining For elevated liver enzymes we will do repeat abdominal sonogram and hepatitis panel ID consult follow-up appreciated continue pain medications. Visit type - Emergency Visit Emergency Visit: Yes ED Registration Date: 07/02/19 Care time: The patient presented to the Emergency Department on the above date and was hospitalized for further evaluation of their emergent condition. - New Patient This patient is new to me today: No - Critical Care Critical Care patient: No - Discharge Referral Referred to [facility] Med [facility] No ATTENDING PHYSICIAN STATEMENT I saw and evaluated the patient. I reviewed the resident's note and discussed the case with the resident. I agree with the resident's findings and plan as documented. SUBJECTIVE: OBJECTIVE: ASSESSMENT AND PLAN: <Tayler Daniel - Last Filed: 07/04/19 18:04> Physical Exam: SUBJECTIVE: Patient seen and examined at bedside. pt states she is very uncomfortable and is in alot of pain. she states that the pain is not improved OBJECTIVE: Vital Signs Period Temp Pulse Resp BP Sys/Turner Pulse Ox Last 24 Hr 97.9 F-98.7 F 115-128 20-24 127-147/65-92 94-98 GENERAL: The patient is awake, alert, and fully oriented, in no acute distress. HEAD: Normal with no signs of trauma. LUNGS: Breath sounds decreased, clear to auscultation bilaterally,no accessory muscle use. HEART: tachycardic,S1, S2 ABDOMEN: Soft, tender to palpation LUQ, LLQ EXTREMITIES: 2+ pulses, warm, well-perfused, no edema. Laboratory Results - last 24 hr 07/02/19 07/03/19 07/03/19 16:10 12:34 12:34 WBC 17.7 H RBC 4.25 Hgb 12.2 Hct 38.0 MCV 89.4 MCH 28.6 MCHC 32.0 RDW 14.1 Plt Count 280 MPV 9.2 Fibrinogen D-Dimer Sodium 134 L Potassium 3.5 Chloride 106 Carbon Dioxide 13 L Anion Gap 15 BUN 7.8 Creatinine 0.5 L Est GFR (CKD-EPI)AfAm 144.31 Est GFR (CKD-EPI)NonAf 124.51 POC Glucometer Random Glucose 247 H Calcium 8.6 Phosphorus 1.5 L Magnesium 2.0 Ferritin 706.9 H Total Bilirubin 0.5 AST 14 L ALT 23 Alkaline Phosphatase 156 H LD Total 241 C-Reactive Protein 43.6 H Total Protein 6.0 L Albumin 1.8 L Triglycerides 211 H Cholesterol 128 Total LDL Cholesterol 83 HDL Cholesterol 11 L Vancomycin Pre-Dose COVID-19 (TESSIE) Not detected 07/03/19 07/03/19 07/04/19 12:34 17:55 00:25 WBC RBC Hgb Hct MCV MCH MCHC RDW Plt Count MPV Fibrinogen > 500.0 H D-Dimer 4500 H Sodium Potassium Chloride Carbon Dioxide Anion Gap BUN Creatinine Est GFR (CKD-EPI)AfAm Est GFR (CKD-EPI)NonAf POC Glucometer 242 Random Glucose Calcium Phosphorus Magnesium Ferritin Total Bilirubin AST ALT Alkaline Phosphatase LD Total C-Reactive Protein Total Protein Albumin Triglycerides Cholesterol Total LDL Cholesterol HDL Cholesterol Vancomycin Pre-Dose 1.9 L COVID-19 (TESSIE) 07/04/19 07/04/19 07/04/19 05:50 05:50 05:50 WBC 18.9 H RBC 4.07 Hgb 11.7 Hct 35.2 MCV 86.6 MCH 28.7 MCHC 33.2 RDW 14.4 Plt Count 279 MPV 9.6 Fibrinogen > 500.0 H D-Dimer 5257 H Sodium 136 Potassium 3.3 L Chloride 105 Carbon Dioxide 19 L Anion Gap 12 BUN 9.4 Creatinine 0.4 L Est GFR (CKD-EPI)AfAm 155.30 Est GFR (CKD-EPI)NonAf 134.00 POC Glucometer Random Glucose 235 H Calcium 8.2 L Phosphorus 1.7 L Magnesium 2.2 Ferritin 882.7 H Total Bilirubin 0.9 AST 119 H ALT 77 H Alkaline Phosphatase 172 H LD Total 304 H C-Reactive Protein 31.3 H Total Protein 5.7 L Albumin 1.7 L Triglycerides Cholesterol Total LDL Cholesterol HDL Cholesterol Vancomycin Pre-Dose COVID-19 (TESSIE) Active Medications Generic Name Dose Route Start Last Admin Trade Name Freq PRN Reason Stop Dose Admin Albuterol Sulfate 2 puff 07/03/19 02:17 Ventolin Hfa Inhaler - IH Q4H PRN SHORT OF BREATH/WHEEZING Budesonide/Formoterol Fumarate 2 puff 07/02/19 10:00 07/04/19 09:44 Symbicort 160/4.5mcg - IH 2 puff BID FRANTZ Administration Docusate Sodium 100 mg 07/02/19 10:00 07/04/19 09:22 Colace - PO 100 mg DAILY FRANTZ Administration Guaifenesin 10 ml 07/03/19 08:16 07/04/19 04:07 Robitussin - PO 10 ml Q6H PRN Administration COUGH Heparin Sodium (Porcine) 5,000 unit 07/02/19 06:00 07/04/19 06:51 Heparin - SQ 5,000 unit TID FRANTZ Administration Hydromorphone HCl 2 mg 07/02/19 16:00 07/04/19 09:06 Dilaudid Vial - IVPUSH 2 mg Q4H PRN Administration PAIN LEVEL 7 - 10 Lactated Ringer's 1,000 ml in 1,000 mls @ 125 mls/hr 07/02/19 04:30 07/04/19 04:49 Lactated Ringers Solution IV Not Given ASDIR FRANTZ Vancomycin HCl 1,750 mg/ 500 mls @ 125 mls/hr 07/04/19 12:00 07/04/19 12:01 Dextrose IVPB 125 mls/hr Q12H FRANTZ Administration Protocol Potassium Phosphate 30 mm/ 510 mls @ 62.5 mls/hr 07/04/19 11:31 Sodium Chloride IVPB 07/04/19 19:40 ONCE ONE Insulin Aspart 1 vial 07/02/19 07:00 07/04/19 11:30 Novolog Vial Sliding Scale - SQ 6 units ACHS FRANTZ Administration Protocol Insulin Detemir 15 units 07/03/19 07:00 07/04/19 06:51 Levemir Vial SQ 15 units AM FRANTZ Administration Levetiracetam 1,000 mg 07/02/19 06:45 07/04/19 06:51 Keppra Injection - IVPB 1,000 mg TID FRANTZ Administration ASSESSMENT/PLAN: 38 yo F PMH of lupus, h/o MRSA bacteremia, recurrent MRSA skin abscesses on intermittent doxycycline-clindamycin regimens, cervical CA(s/p chemotherapy 10ys prior), endometriosis, IDDM(Lantus 48U), seizure disorder, chronic migraines, herniated L-spine disc, chronic lower back pain(dilaudid 8mg TID), OA, RA, anxiety presented to [facility] with 10 days severe intermittent LLQ pain. admitted for sepsis 2/2 Left-sided psoas abscess. s/p IR drainage on 07/03 w/ FRANCO drain Sepsis 2/2 likely psoas abscess ; MRSA bacteremia, r/o endocarditis - leukocytosis , lactate , febrile - CT and MRI reviewed. psoas hematoma vs abcess ; IR and Surgery input appreciated . s/p abscess drainage by IR, now has FRANCO . pending abscess cx. -c/w IVF - continue vanc. vanc level tomorrow at 11 - continue doxy - ID recs appreciated - BCx: MRSA. pending rpt - Echo shows normal EF, unable to assess valve fxn; will try to repeat Echo for better image, may need GENEVA to r/o vegetations -transfer to tele for closer monitoring - pain mgmt consulted . pt now on dilauded 4 mg q4 h pulmonary nodules 2/2 septic emboli vs TB - quantiferon pending -BCx : MRSA. pending rpt - Pulm consulted. ID consulted peripheral GGO - COVID 19 negative - Pulm consulted - avoid nebulized meds DM -BGM - ISS + Levemir(15 U) -A1C 13.3 Seixure d/o - continue keppra Transaminitis likely 2/2 sepsis - cont to monitor - hold tylenol - hepatitis panel pending FEN -LR @100 -diabetic, sodium diet DVT PPX; SQH ATTENDING PHYSICIAN STATEMENT I saw and evaluated the patient. I reviewed the resident's note and discussed the case with the resident. I agree with the resident's findings and plan as documented. SUBJECTIVE: OBJECTIVE: ASSESSMENT AND PLAN:
[2019-07-04] MEDS ORDERED: DOXYCYCLINE INJECTION 100 MG in DEXTROSE 5%-WATER - 100 ML IVPB SCH (14:00)
[2019-07-04] MEDS ORDERED: DOXYCYCLINE HYCLATE 100 MG VIAL ONE (14:13)
[2019-07-04] MEDS ORDERED: DEXTROSE 5%-WATER 100 ML IVPB ONE (14:13)
[2019-07-04 15:33] LABS: BILIRUBIN,DIRECT 0.2 mg/dL (0.0-0.2)
[2019-07-04] MEDS: DOXYCYCLINE INJECTION 100 MG in DEXTROSE 5%-WATER 100 ML IVPB SCH (21:57)
[2019-07-05] MEDS: HYDROmorphone HCl 2 MG/ML VIAL IVPUSH PRN ×2 (00:36→05:22)
[2019-07-05] MEDS: HEPARIN NA (PORCINE) 5,000 UNITS/ML 1ML VIAL SQ SCH ×3 (05:21→21:11)
[2019-07-05] MEDS: levETIRAcetam 500 MG/5 ML INJECTION VIAL IVPB SCH ×3 (05:21→21:11)
[2019-07-05] MEDS: LACTATED RINGERS SOLUTION 1,000 ML/1,000 ML INFUS.BAG IV SCH (05:21)
[2019-07-05] MEDS: guaiFENesin 200 MG/10 ML 10 ML UNIT-DOSE CUPS PO PRN ×2 (06:28→13:10)
[2019-07-05] MEDS: INSULIN SLIDING SCALE (NOVOLOG) 1 VIAL SQ SCH ×4 (06:29→21:11)
[2019-07-05] MEDS: INSULIN (LEVEMIR) 100 UNITS/ML UNITS SQ SCH (06:29)
[2019-07-05] MEDS ORDERED: DOXYCYCLINE HYCLATE 100 MG VIAL ONE (08:12)
[2019-07-05] MEDS ORDERED: DEXTROSE 5%-WATER 100 ML IVPB ONE (08:12)
--- NOTE | 2019-07-05 08:32 | PN ---
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 yesterday developed fever, tmax 101; went to [facility] yesterday, where she said xrays were done and no further imaging or workup was pursued c/o severe left hip pain - Current Medication List Current Medications: Active Medications Albuterol Sulfate (Ventolin Hfa Inhaler -) 2 puff IH Q4H PRN PRN Reason: SHORT OF BREATH/WHEEZING Budesonide/Formoterol Fumarate (Symbicort 160/4.5mcg -) 2 puff IH BID [facility] Last Admin: 07/04/19 21:29 Dose: 2 puff Documented by: Docusate Sodium (Colace -) 100 mg PO DAILY [facility] Last Admin: 07/04/19 09:22 Dose: 100 mg Documented by: Guaifenesin (Robitussin -) 10 ml PO Q6H PRN PRN Reason: COUGH Last Admin: 07/05/19 06:28 Dose: 10 ml Documented by: Heparin Sodium (Porcine) (Heparin -) 5,000 unit SQ TID [facility] Last Admin: 07/05/19 05:21 Dose: 5,000 unit Documented by: Hydromorphone HCl (Dilaudid Vial -) 2 mg IVPUSH Q4H PRN PRN Reason: PAIN LEVEL 7 - 10 Last Admin: 07/05/19 05:22 Dose: 2 mg Documented by: Lactated Ringer's (Lactated Ringers Solution) 1,000 ml in 1,000 mls @ 125 mls/hr IV ASDIR [facility] Last Admin: 07/05/19 05:21 Dose: Not Given Documented by: Vancomycin HCl 1,750 mg/ (Dextrose) 500 mls @ 125 mls/hr IVPB Q12H [facility]; Protocol Last Admin: 07/04/19 23:32 Dose: 125 mls/hr Documented by: Doxycycline Hyclate 100 mg/ (Dextrose) 100 mls @ 100 mls/hr IVPB BID [facility] Last Admin: 07/04/19 21:57 Dose: 100 mls/hr Documented by: Insulin Aspart (Novolog Vial Sliding Scale -) 1 vial SQ ACHS [facility]; Protocol Last Admin: 07/05/19 06:29 Dose: 6 units Documented by: Insulin Detemir (Levemir Vial) 15 units SQ AM [facility] Last Admin: 07/05/19 06:29 Dose: 15 units Documented by: Levetiracetam (Keppra Injection -) 1,000 mg IVPB TID [facility] Last Admin: 07/05/19 05:21 Dose: 1,000 mg Documented by: - Objective Vital Signs: Vital Signs Temperature 98.5 F 07/05/19 06:00 Pulse Rate 117 H 07/05/19 06:00 Respiratory Rate 20 07/05/19 06:00 Blood Pressure 149/89 07/05/19 06:00 O2 Sat by Pulse Oximetry (%) 96 07/04/19 21:00 Eyes: Yes: WNL, Conjunctiva Clear, EOM Intact HENT: Yes: WNL, Atraumatic, Normocephalic Neck: Yes: WNL, Supple, Trachea Midline Cardiovascular: Yes: WNL, Regular Rate and Rhythm, S1, S2 Respiratory: Yes: Diminished Gastrointestinal: Yes: WNL, Normal Bowel Sounds Genitourinary: Yes: WNL Musculoskeletal: Yes: WNL Extremities: Yes: WNL Edema: No Integumentary: Yes: WNL Neurological: Yes: WNL, Alert, Oriented ...Motor Strength: WNL Psychiatric: Yes: WNL Labs: CBC, BMP 07/04/19 05:50 07/04/19 05:50 INR, PTT INR 1.07 (0.83-1.09) 07/01/19 22:15 Fibrinogen > 500.0 mg/dL (238-498) H 07/04/19 05:50 Assessment/Plan 1. r/o Bacterial endocarditis suspected (MRSA endocarditis suspected), evidence of septic emboli (MRSA bacteremia) 2. Iliopsoas abscess post percutaneous CT scan guided drainage/drain in situ with probable sepsis syndrome- coronavirus/COVID 19 negative 3. Persistent sinus tachycardia most likely related to the above-noted clinical presentation 4. History of systemic lupus erythematosus 5. Hypertension 6. Insulin-dependent diabetes mellitus 7. History of bronchial asthma 8. History of rheumatoid arthritis 9. History of cervical carcinoma post chemotherapy 10. History of anxiety disorder/clinical depression 11. Hypokalemia PLAN: 1. Continue antibiotic therapy as per primary team/ID service 2. As outlined in yesterday's note if sinus tachycardia is persistent provided hemodynamic stability may consider the addition of beta-abhinav therapy 3. Patient cooperative today will repeat TTE. Consideration for transesophageal echocardiography if the above-noted bacteremia is persistent despite adequate antibiotic therapy- preferentially avoid any invasive procedures considering the current coronavirus/COVID 19 pandemic 4. Correction of hypokalemia- primary team to address
[2019-07-05] MEDS: DOCUSATE SODIUM 100 MG CAPSULE (FP) PO SCH (09:08)
[2019-07-05] MEDS: DOXYCYCLINE INJECTION 100 MG in DEXTROSE 5%-WATER 100 ML IVPB SCH (09:08)
[2019-07-05] MEDS: BUDESONIDE/FORMETEROL FUMARATE 160/4.5 mcg INHALER IH SCH ×2 (09:09→21:11)
[2019-07-05] MEDS: HYDROmorphone HCl 2 MG/ML VIAL IVPB PRN ×3 (10:12→21:05)
[2019-07-05] MEDS ORDERED: SODIUM CHLORIDE NASAL SPRAY 44 ML BOTTLE NS PRN (10:19)
--- NOTE | 2019-07-05 10:21 | PN ---
Physical Exam: SUBJECTIVE: Patient seen and examined OBJECTIVE: Vital Signs Period Temp Pulse Resp BP Sys/Turner Pulse Ox Last 24 Hr 97.7 F-98.5 F 114-125 18-24 125-154/74-117 96 GENERAL: The patient is awake, alert, and fully oriented, in no acute distress. HEAD: Normal with no signs of trauma. EYES: PERRL, extraocular movements intact, sclera anicteric, conjunctiva clear. No ptosis. ENT: Ears normal, nares patent, oropharynx clear without exudates, moist mucous membranes. NECK: Trachea midline, full range of motion, supple. LUNGS: Breath sounds equal, clear to auscultation bilaterally, no wheezes, no crackles, no accessory muscle use. HEART: Regular rate and rhythm, S1, S2 without murmur, rub or gallop. ABDOMEN: Soft, nontender, nondistended, normoactive bowel sounds, no guarding, no rebound, no hepatosplenomegaly, no masses. EXTREMITIES: 2+ pulses, warm, well-perfused, no edema. NEUROLOGICAL: Cranial nerves II through XII grossly intact. Normal speech, gait not observed. PSYCH: Normal mood, normal affect. SKIN: Warm, dry, normal turgor, no rashes or lesions noted Laboratory Results - last 24 hr 07/02/19 07/03/19 07/04/19 16:10 12:34 05:50 Sodium 134 L 136 Potassium 3.5 3.3 L Chloride 106 105 Carbon Dioxide 13 L 19 L Anion Gap 15 12 BUN 7.8 9.4 Creatinine 0.5 L 0.4 L Est GFR (CKD-EPI)AfAm 144.31 155.30 Est GFR (CKD-EPI)NonAf 124.51 134.00 POC Glucometer Random Glucose 247 H 235 H Calcium 8.6 8.2 L Phosphorus 1.5 L 1.7 L Magnesium 2.0 2.2 Ferritin 706.9 H 882.7 H Total Bilirubin 0.5 0.9 Direct Bilirubin 0.2 AST 14 L 119 H ALT 23 77 H Alkaline Phosphatase 156 H 172 H LD Total 241 304 H Creatine Kinase 103 C-Reactive Protein 43.6 H 31.3 H Total Protein 6.0 L 5.7 L Albumin 1.8 L 1.7 L Triglycerides 211 H Cholesterol 128 Total LDL Cholesterol 83 HDL Cholesterol 11 L COVID-19 (TESSIE) Not detected 07/05/19 05:16 Sodium Potassium Chloride Carbon Dioxide Anion Gap BUN Creatinine Est GFR (CKD-EPI)AfAm Est GFR (CKD-EPI)NonAf POC Glucometer 261 Random Glucose Calcium Phosphorus Magnesium Ferritin Total Bilirubin Direct Bilirubin AST ALT Alkaline Phosphatase LD Total Creatine Kinase C-Reactive Protein Total Protein Albumin Triglycerides Cholesterol Total LDL Cholesterol HDL Cholesterol COVID-19 (TESSIE) Active Medications Generic Name Dose Route Start Last Admin Trade Name Freq PRN Reason Stop Dose Admin Acetaminophen 1,000 mg 07/05/19 10:18 Tylenol - PO Q6H PRN MODERATE PAIN Albuterol Sulfate 2 puff 07/03/19 02:17 Ventolin Hfa Inhaler - IH Q4H PRN SHORT OF BREATH/WHEEZING Budesonide/Formoterol Fumarate 2 puff 07/02/19 10:00 07/05/19 09:09 Symbicort 160/4.5mcg - IH 2 puff BID [facility] Administration Docusate Sodium 100 mg 07/02/19 10:00 07/05/19 09:08 Colace - PO 100 mg DAILY [facility] Administration Guaifenesin 10 ml 07/03/19 08:16 07/05/19 06:28 Robitussin - PO 10 ml Q6H PRN Administration COUGH Heparin Sodium (Porcine) 5,000 unit 07/02/19 06:00 07/05/19 05:21 Heparin - SQ 5,000 unit TID [facility] Administration Hydromorphone HCl 2 mg 07/05/19 10:09 07/05/19 10:12 Dilaudid Vial - IVPB 2 mg Q4H PRN Administration PAIN LEVEL 7 - 10 Lactated Ringer's 1,000 ml in 1,000 mls @ 125 mls/hr 07/02/19 04:30 07/05/19 05:21 Lactated Ringers Solution IV Not Given ASDIR [facility]Z Vancomycin HCl 1,750 mg/ 500 mls @ 125 mls/hr 07/04/19 12:00 07/04/19 23:32 Dextrose IVPB 125 mls/hr Q12H [facility] Administration Protocol Doxycycline Hyclate 100 mg/ 100 mls @ 100 mls/hr 07/04/19 14:07 07/05/19 09:08 Dextrose IVPB 100 mls/hr BID [facility] Administration Insulin Aspart 1 vial 07/02/19 07:00 07/05/19 06:29 Novolog Vial Sliding Scale - SQ 6 units ACHS [facility] Administration Protocol Insulin Detemir 15 units 07/03/19 07:00 07/05/19 06:29 Levemir Vial SQ 15 units AM [facility] Administration Levetiracetam 1,000 mg 07/02/19 06:45 07/05/19 05:21 Keppra Injection - IVPB 1,000 mg TID [facility] Administration ASSESSMENT/PLAN: pt seen AAOx3 pt receiving 2L via O2 sat 96%, pt c/o dry nasal and blowing red tinged mucous. saline ocean spray prn ordered drainage intact, minimal serous sanguineous noted. pt continue to c/o pain to left groin area, continue with Dilaudid as ordered. Tylenol 1000mg prn ordered. continue to monitor Visit type - Emergency Visit Emergency Visit: Yes ED Registration Date: 07/02/19 Care time: The patient presented to the Emergency Department on the above date and was hospitalized for further evaluation of their emergent condition. - New Patient This patient is new to me today: Yes Date on this admission: 07/05/19 - Critical Care Critical Care patient: No - Discharge Referral Referred to [facility] Med P.C.: No
--- NOTE | 2019-07-05 12:35 | EKG ---
Test Reason : Blood Pressure : / mmHG Vent. Rate : 137 BPM Atrial Rate : 137 BPM P-R Int : 112 ms QRS Dur : 082 ms QT Int : 380 ms P-R-T Axes : -12 022 047 degrees QTc Int : 573 ms SINUS TACHYCARDIA NONSPECIFIC T WAVE ABNORMALITY ABNORMAL ECG WHEN COMPARED WITH ECG OF 02-JUL-2019 06:10, NONSPECIFIC T WAVE ABNORMALITY, IMPROVED IN LATERAL LEADS Confirmed by Adrián Abreu ([id number]) on 07/05/2019 12:35:11 PM Referred By: Confirmed By:Adrián Abreu
--- NOTE | 2019-07-05 12:51 | PN ---
Progress Note (short form) - Note Progress Note: overall improved, still with left hip/LLQ discomfort eating afebrile Vital Signs Period Temp Pulse Resp BP Sys/Turner Pulse Ox Last 24 Hr 97.7 F-98.5 F 114-125 18-24 125-154/74-117 96-96 cor-rrr lungs decreased bs at bases abd soft,nt drain- minimal fluid ext no edema CBC, BMP 07/04/19 05:50 07/04/19 05:50 today's labs not yet drawn Microbiology 07/03/19 17:30 Abscess Gram Stain - Final 07/03/19 17:30 Abscess Body Fluid Culture - Preliminary Presumptive Mrsa (Pbp2a Pos) 07/04/19 05:50 Blood - Peripheral Venous Blood Culture - Preliminary Pending Organism 07/04/19 06:10 Blood - Peripheral Venous Blood Culture - Preliminary NO GROWTH OBTAINED AFTER 24 HOURS, INCUBATION TO CONTINUE FOR 4 DAYS. 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
[2019-07-05 13:04] LABS: BASO % 0.3 % (0-2.0); EOS % 0.3 % (0-4.5); HEMATOCRIT 39.5 % (32.4-45.2); HEMOGLOBIN 13.1 GM/dL (10.7-15.3); LYMPH % 13.3 % (8-40); MCH 28.4 pg (25.7-33.7); MCHC 33.2 g/dl (32.0-36.0); MEAN CELL VOLUME 85.6 fl (80-96); MONO % 7.9 % (3.8-10.2); NEUT % 78.2 % (42.8-82.8); PLATELET COUNT 424 K/MM3 (134-434); RBC 4.61 M/mm3 (3.60-5.2); WHITE BLOOD COUNT 22.1 K/mm3 (4.0-10.0)
[2019-07-05] MEDS ORDERED: PT OWN MED DRAWER 7, Y5N ONE ×2 (13:07→20:46)
[2019-07-05] MEDS: VANCOMYCIN 1,750 MG in DEXTROSE 5%-WATER - 500 ML IVPB SCH (13:09)
[2019-07-05 13:35] LABS: BILIRUBIN,TOTAL 0.8 mg/dL (0.2-1); BLOOD UREA NITROGEN 7.6 mg/dL (7-18); CALCIUM 8.6 mg/dL (8.5-10.1); CREATININE 0.7 mg/dL (0.55-1.3); MAGNESIUM 2.3 mg/dL (1.8-2.4); PHOSPHOROUS 2.8 mg/dL (2.5-4.9); POTASSIUM 3.2 mmol/L (3.5-5.1); TOT PROT 6.5 g/dl (6.4-8.2)
[2019-07-05 14:10] LABS: ANISOCYTOSIS 0; MACROCYTOSIS 0; PLATELET ESTIMATE NORMAL
[2019-07-05] MEDS: VANCOMYCIN HCL 1,500 MG in DEXTROSE 5%-WATER - 500 ML IVPB SCH ×2 (14:44→16:42)
[2019-07-05] MEDS: DOXYCYCLINE INJECTION 100 MG in DEXTROSE 5%-WATER - 100 ML IVPB SCH (21:11)
[2019-07-05] MEDS: POTASSIUM CHLORIDE TABS 20 MEQ TABLET.ER (FP) PO SCH (21:11)
[2019-07-05] MEDS ORDERED: VANCOMYCIN HCL 1,750 MG in DEXTROSE 5%-WATER - 500 ML IVPB SCH (23:30)
[2019-07-06] MEDS: VANCOMYCIN HCL 1,750 MG in DEXTROSE 5%-WATER - 500 ML IVPB SCH ×2 (02:08→13:17)
[2019-07-06] MEDS: HYDROmorphone HCl 2 MG/ML VIAL IVPB PRN ×5 (02:08→20:35)
[2019-07-06] MEDS: HEPARIN NA (PORCINE) 5,000 UNITS/ML 1ML VIAL SQ SCH ×3 (06:05→21:36)
[2019-07-06] MEDS: LACTATED RINGERS SOLUTION 1,000 ML/1,000 ML INFUS.BAG IV SCH ×2 (06:05→12:39)
[2019-07-06] MEDS: levETIRAcetam 500 MG/5 ML INJECTION VIAL IVPB SCH ×3 (06:05→21:36)
[2019-07-06] MEDS: INSULIN (LEVEMIR) 100 UNITS/ML UNITS SQ SCH (06:15)
[2019-07-06] MEDS: INSULIN SLIDING SCALE (NOVOLOG) 1 VIAL SQ SCH ×4 (06:15→21:55)
[2019-07-06 08:06] LABS: BASO % 0.3 % (0-2.0); EOS % 0.6 % (0-4.5); HEMATOCRIT 33.3 % (32.4-45.2); HEMOGLOBIN 11.2 GM/dL (10.7-15.3); LYMPH % 13.8 % (8-40); MCH 28.5 pg (25.7-33.7); MCHC 33.6 g/dl (32.0-36.0); MEAN CELL VOLUME 84.8 fl (80-96); MEAN PLT VOLUME 8.7 fl (7.5-11.1); MONO % 9.4 % (3.8-10.2); NEUT % 75.9 % (42.8-82.8); PLATELET COUNT 332 K/MM3 (134-434); RBC 3.93 M/mm3 (3.60-5.2); RDW 13.6 % (11.6-15.6); WHITE BLOOD COUNT 15.4 K/mm3 (4.0-10.0)
[2019-07-06] MEDS ORDERED: PT OWN MED DRAWER 7, Y5N ONE ×3 (08:40→21:22)
[2019-07-06 08:48] LABS: ALBUMIN 1.8 g/dl (3.4-5.0); BILIRUBIN,TOTAL 0.4 mg/dL (0.2-1); BLOOD UREA NITROGEN 5.4 mg/dL (7-18); CALCIUM 8.1 mg/dL (8.5-10.1); CREATININE 0.4 mg/dL (0.55-1.3); TOT PROT 5.8 g/dl (6.4-8.2)
[2019-07-06 09:04] LABS: POTASSIUM 2.7 mmol/L (3.5-5.1)
[2019-07-06] MEDS: DOCUSATE SODIUM 100 MG CAPSULE (FP) PO SCH (09:08)
[2019-07-06] MEDS: POTASSIUM CHLORIDE TABS 20 MEQ TABLET.ER (FP) PO SCH ×2 (09:08→21:36)
[2019-07-06] MEDS: BUDESONIDE/FORMETEROL FUMARATE 160/4.5 mcg INHALER IH SCH ×2 (09:09→21:38)
[2019-07-06] MEDS: DOXYCYCLINE INJECTION 100 MG in DEXTROSE 5%-WATER - 100 ML IVPB SCH ×2 (09:09→21:36)
--- NOTE | 2019-07-06 09:13 | ECHO ---
Name: RAJ PISANO, ABBIE Exam:Adult Echocardiogram Study Date: 07/05/2019 03:13 PM Age: 38 yrs Reason For Study: R/O Endocarditis, f/u patient awake and cooperative Height: 61 in Weight: 231 lb BSA: 2.0 m2 MMode/2D Measurements & Calculations RVDd: 2.9 cm Ao root diam: 2.7 cm IVSd: 0.90 cm LA dimension: 3.5 cm LVIDd: 4.4 cm ACS: 2.0 cm LVIDs: 3.0 cm LVPWd: 0.93 cm EDV(Teich): 90.0 ml LVOT diam: 2.0 cm ESV(Teich): 36.1 ml LAV (MOD-bp): 32.0 ml TAPSE: 2.1 cm RV S Burt: 19.2 cm/sec Doppler Measurements & Calculations MV E max burt: 124.6 cm/sec Ao V2 max: 181.9 cm/sec MV A max burt: 153.6 cm/sec Ao max P.2 mmHg MV E/A: 0.81 Ao V2 mean: 112.5 cm/sec MV dec time: 0.10 sec Ao mean P.0 mmHg Ao V2 VTI: 25.0 cm YURY(I,D): 2.9 cm2 YURY(V,D): 2.3 cm2 LV V1 max P.6 mmHg SV(LVOT): 71.4 ml LV V1 mean P.9 mmHg LV V1 max: 137.6 cm/sec LV V1 mean: 90.6 cm/sec LV V1 VTI: 23.6 cm TR max burt: 215.1 cm/sec PA V2 max: 115.4 cm/sec TR max P.9 mmHg PA max P.3 mmHg PA acc slope: 897.2 cm/sec2 PA acc time: 0.11 sec Med Peak E' Burt: 7.6 cm/sec PA pr(Accel): 31.5 mmHg Med E/e': 16.4 Lat Peak E' Burt: 10.8 cm/sec Lat E/e': 11.5 Pulm Sys Burt: 81.9 cm/sec Pulm Turner Burt: 51.3 cm/sec Pulm S/D: 1.6 Tech Comments TDS due to body habitus. Procedure Study Quality: Fair. The study was technically difficult with many images being suboptimal in quality . Left Ventricle The left ventricular size, thickness and function are normal. The left ventricular ejection fraction is normal. Ejection Fraction = 60-65%. Right Ventricle The right ventricle is normal in size and function. Atria Normal left and right atrial size and function. Mitral Valve The mitral valve is grossly normal. There is no mitral regurgitation noted. Tricuspid Valve The tricuspid valve is not well visualized. The tricuspid valve is not well visualized, but is grossl y normal. No tricuspid regurgitation. Aortic Valve The aortic valve is trileaflet. No hemodynamically significant valvular aortic stenosis. No aortic regurgitation is present. Pulmonic Valve The pulmonic valve is not well visualized. There is no pulmonic valvular regurgitation. Great Vessels The aortic root is normal size. Pericardium/Pleura There is no pericardial effusion. Interpretation Summary This was essentially a normal study. Adrián Abreu 07/06/2019 09:12 AM
[2019-07-06 10:48] LABS: ANISOCYTOSIS 0; MACROCYTOSIS 0; PLATELET ESTIMATE NORMAL
[2019-07-06] MEDS: KCL 10 MEQ IVPB 10 MEQ/100 ML INFUS.BAG IVPB SCH ×3 (11:32→16:37)
[2019-07-06] MEDS: guaiFENesin 200 MG/10 ML 10 ML UNIT-DOSE CUPS PO PRN ×2 (11:39→20:35)
[2019-07-06] MEDS: LIDOCAINE 5% TOPICAL PATCH TP SCH (11:39)
--- NOTE | 2019-07-06 11:45 | PN ---
Physical Exam: SUBJECTIVE: Patient seen and examined OBJECTIVE: Vital Signs Period Temp Pulse Resp BP Sys/Turner Pulse Ox Last 24 Hr 98 F-98.8 F 101-120 17-22 145-156/84-92 GENERAL: The patient is awake, alert, and fully oriented, in no acute distress. HEAD: Normal with no signs of trauma. EYES: PERRL, extraocular movements intact, sclera anicteric, conjunctiva clear. No ptosis. ENT: Ears normal, nares patent, oropharynx clear without exudates, moist mucous membranes. NECK: Trachea midline, full range of motion, supple. LUNGS: Breath sounds equal, clear to auscultation bilaterally, no wheezes, no crackles, no accessory muscle use. HEART: Regular rate and rhythm, S1, S2 without murmur, rub or gallop. ABDOMEN: Soft, nontender, nondistended, normoactive bowel sounds, no guarding, no rebound, no hepatosplenomegaly, no masses. EXTREMITIES: 2+ pulses, warm, well-perfused, no edema. NEUROLOGICAL: Cranial nerves II through XII grossly intact. Normal speech, gait not observed. PSYCH: Normal mood, normal affect. SKIN: Warm, dry, normal turgor, no rashes or lesions noted Laboratory Results - last 24 hr 07/02/19 07/04/19 07/05/19 13:00 16:10 12:40 WBC RBC Hgb Hct MCV MCH MCHC RDW Plt Count MPV Absolute Neuts (auto) Neutrophils % Neutrophils % (Manual) Band Neutrophils % Lymphocytes % Lymphocytes % (Manual) Monocytes % Monocytes % (Manual) Eosinophils % Eosinophils % (Manual) Basophils % Basophils % (Manual) Myelocytes % (Man) Promyelocytes % (Man) Blast Cells % (Manual) Nucleated RBC % Metamyelocytes Hypochromia Platelet Estimate Polychromasia Poikilocytosis Anisocytosis Microcytosis Macrocytosis Sodium Potassium Chloride Carbon Dioxide Anion Gap BUN Creatinine Est GFR (CKD-EPI)AfAm Est GFR (CKD-EPI)NonAf POC Glucometer Random Glucose Calcium Phosphorus Magnesium Total Bilirubin AST ALT Alkaline Phosphatase C-Reactive Protein Total Protein Albumin Vancomycin Pre-Dose 5.3 Hep A IgM Ab Confirm Negative Hep Bs Antigen Negative Hep B Core IgM Ab Negative Hepatitis C Ab (EIA) <0.1 TB Test (QFT) Nil 0.01 TB Test (QFT) Mitogen 0.41 TB Test (QFT) Ag 1 0.03 TB Test (QFT) Ag 2 0.02 TB Test (QFT) Indeterminate TB Positive Criteria 07/05/19 07/05/19 07/05/19 12:40 12:40 20:59 WBC 22.1 H RBC 4.61 Hgb 13.1 Hct 39.5 MCV 85.6 MCH 28.4 MCHC 33.2 RDW 14.0 Plt Count 424 D MPV 9.0 Absolute Neuts (auto) 17.3 H Neutrophils % 78.2 Neutrophils % (Manual) 65.3 Band Neutrophils % 9.9 Lymphocytes % 13.3 D Lymphocytes % (Manual) 15.8 D Monocytes % 7.9 Monocytes % (Manual) 5 Eosinophils % 0.3 Eosinophils % (Manual) 0.0 D Basophils % 0.3 Basophils % (Manual) 0.0 Myelocytes % (Man) 2 Promyelocytes % (Man) 0 Blast Cells % (Manual) 0 Nucleated RBC % 0 Metamyelocytes 1 Hypochromia 0 Platelet Estimate Normal Polychromasia 0 Poikilocytosis 0 Anisocytosis 0 Microcytosis 0 Macrocytosis 0 Sodium 135 L Potassium 3.2 L Chloride 96 L Carbon Dioxide 27 Anion Gap 12 BUN 7.6 Creatinine 0.7 Est GFR (CKD-EPI)AfAm 129.19 Est GFR (CKD-EPI)NonAf 111.47 POC Glucometer 291 Random Glucose 344 H Calcium 8.6 Phosphorus 2.8 Magnesium 2.3 Total Bilirubin 0.8 AST 40 H ALT 76 H Alkaline Phosphatase 206 H C-Reactive Protein Total Protein 6.5 Albumin 2.0 L Vancomycin Pre-Dose Hep A IgM Ab Confirm Hep Bs Antigen Hep B Core IgM Ab Hepatitis C Ab (EIA) TB Test (QFT) Nil TB Test (QFT) Mitogen TB Test (QFT) Ag 1 TB Test (QFT) Ag 2 TB Test (QFT) TB Positive Criteria 07/06/19 07/06/19 07/06/19 05:58 07:19 07:19 WBC 15.4 H RBC 3.93 Hgb 11.2 Hct 33.3 D MCV 84.8 MCH 28.5 MCHC 33.6 RDW 13.6 Plt Count 332 D MPV 8.7 Absolute Neuts (auto) 11.7 H Neutrophils % 75.9 Neutrophils % (Manual) 71.0 Band Neutrophils % 2.0 Lymphocytes % 13.8 Lymphocytes % (Manual) 17.0 Monocytes % 9.4 Monocytes % (Manual) 8 Eosinophils % 0.6 D Eosinophils % (Manual) 1.0 D Basophils % 0.3 Basophils % (Manual) 1.0 D Myelocytes % (Man) 0 D Promyelocytes % (Man) 0 Blast Cells % (Manual) 0 Nucleated RBC % 0 Metamyelocytes 0 D Hypochromia 0 Platelet Estimate Normal Polychromasia 0 Poikilocytosis 0 Anisocytosis 0 Microcytosis 0 Macrocytosis 0 Sodium 135 L Potassium 2.7 L* Chloride 96 L Carbon Dioxide 33 H Anion Gap 6 L BUN 5.4 L Creatinine 0.4 L Est GFR (CKD-EPI)AfAm 155.30 Est GFR (CKD-EPI)NonAf 134.00 POC Glucometer 270 Random Glucose 240 H Calcium 8.1 L Phosphorus Magnesium Total Bilirubin 0.4 AST 14 L ALT 47 Alkaline Phosphatase 148 H C-Reactive Protein 16.0 H Total Protein 5.8 L Albumin 1.8 L Vancomycin Pre-Dose Hep A IgM Ab Confirm Hep Bs Antigen Hep B Core IgM Ab Hepatitis C Ab (EIA) TB Test (QFT) Nil TB Test (QFT) Mitogen TB Test (QFT) Ag 1 TB Test (QFT) Ag 2 TB Test (QFT) TB Positive Criteria 07/06/19 11:36 WBC RBC Hgb Hct MCV MCH MCHC RDW Plt Count MPV Absolute Neuts (auto) Neutrophils % Neutrophils % (Manual) Band Neutrophils % Lymphocytes % Lymphocytes % (Manual) Monocytes % Monocytes % (Manual) Eosinophils % Eosinophils % (Manual) Basophils % Basophils % (Manual) Myelocytes % (Man) Promyelocytes % (Man) Blast Cells % (Manual) Nucleated RBC % Metamyelocytes Hypochromia Platelet Estimate Polychromasia Poikilocytosis Anisocytosis Microcytosis Macrocytosis Sodium Potassium Chloride Carbon Dioxide Anion Gap BUN Creatinine Est GFR (CKD-EPI)AfAm Est GFR (CKD-EPI)NonAf POC Glucometer 261 Random Glucose Calcium Phosphorus Magnesium Total Bilirubin AST ALT Alkaline Phosphatase C-Reactive Protein Total Protein Albumin Vancomycin Pre-Dose Hep A IgM Ab Confirm Hep Bs Antigen Hep B Core IgM Ab Hepatitis C Ab (EIA) TB Test (QFT) Nil TB Test (QFT) Mitogen TB Test (QFT) Ag 1 TB Test (QFT) Ag 2 TB Test (QFT) TB Positive Criteria Active Medications Generic Name Dose Route Start Last Admin Trade Name Freq PRN Reason Stop Dose Admin Acetaminophen 1,000 mg 07/05/19 10:18 Tylenol - PO Q6H PRN MODERATE PAIN Albuterol Sulfate 2 puff 07/03/19 02:17 Ventolin Hfa Inhaler - IH Q4H PRN SHORT OF BREATH/WHEEZING Budesonide/Formoterol Fumarate 2 puff 07/02/19 10:00 07/06/19 09:09 Symbicort 160/4.5mcg - IH 2 puff BID FRANTZ Administration Docusate Sodium 100 mg 07/02/19 10:00 07/06/19 09:08 Colace - PO 100 mg DAILY [facility]Z Administration Guaifenesin 10 ml 07/03/19 08:16 07/06/19 11:39 Robitussin - PO 10 ml Q6H PRN Administration COUGH Heparin Sodium (Porcine) 5,000 unit 07/02/19 06:00 07/06/19 06:05 Heparin - SQ 5,000 unit TID FRANTZ Administration Hydromorphone HCl 2 mg 07/05/19 10:09 07/06/19 11:27 Dilaudid Vial - IVPB 2 mg Q4H PRN Administration PAIN LEVEL 7 - 10 Lactated Ringer's 1,000 ml in 1,000 mls @ 125 mls/hr 07/02/19 04:30 07/06/19 06:05 Lactated Ringers Solution IV Not Given ASDIR FRANTZ Doxycycline Hyclate 100 mg/ 100 mls @ 100 mls/hr 07/05/19 22:00 07/06/19 09:09 Dextrose IVPB 100 mls/hr BID FRANTZ Administration Vancomycin HCl 1,750 mg/ 500 mls @ 250 mls/hr 07/06/19 01:00 07/06/19 02:08 Dextrose IVPB 250 mls/hr Q12H FRANTZ Administration Protocol Potassium Chloride 10 meq in 100 mls @ 100 mls/hr 07/06/19 10:45 07/06/19 11:32 Potassium Chloride 10 Meq Premix Ivpb - IVPB 07/06/19 13:44 100 mls/hr Q60M FRANTZ Administration Insulin Aspart 1 vial 07/02/19 07:00 07/06/19 11:39 Novolog Vial Sliding Scale - SQ 6 units ACHS FRANTZ Administration Protocol Insulin Detemir 15 units 07/03/19 07:00 07/06/19 06:15 Levemir Vial SQ 15 units AM FR[facility]Z Administration Levetiracetam 1,000 mg 07/02/19 06:45 07/06/19 06:05 Keppra Injection - IVPB 1,000 mg TID FRANTZ Administration Lidocaine 1 patch 07/06/19 11:00 07/06/19 11:39 Lidoderm Patch - TP 1 patch DAILY FRANTZ Administration Miscellaneous 1 each 07/06/19 22:00 Lidoderm Patch Removal MC DAILY@2200 FRANTZ Potassium Chloride 20 meq 07/05/19 22:00 07/06/19 09:08 K-Dur - PO 07/07/19 21:59 20 meq BID FRANTZ Administration Sodium Chloride 2 spray 07/05/19 10:19 07/05/19 13:10 [place]al [place] - NS 2 spray TID PRN Administration NASAL CONGESTION ASSESSMENT/PLAN: aaox3 lying in bed. receiving O2 via N/C sat at >95% lungs assessed CTA no c/o respiratory distress, no SOB no chest pain ocean spray helping with her dry nose low potassium; 3 runs of KCL via IV ordered repeated CBC for tomorrow FRANCO intact draining minimal amt of fluid. pt states her wound pain is lessen. pt able to move leg more freely. pt c/o low back pain; lidocaine patch ordered.. tylenol 1000mg ordered, pt made aware to request tylenol as well. Visit type - Emergency Visit Emergency Visit: Yes ED Registration Date: 07/02/19 Care time: The patient presented to the Emergency Department on the above date and was hospitalized for further evaluation of their emergent condition. - New Patient This patient is new to me today: Yes Date on this admission: 07/06/19 - Critical Care Critical Care patient: No - Discharge Referral Referred to [facility] Med P.C.: No
--- NOTE | 2019-07-06 13:31 | PN ---
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
[2019-07-06] MEDS: LIDOCAINE PATCH REMOVAL MC SCH (21:56)
[2019-07-07] MEDS ORDERED: PT OWN MED DRAWER 7, Y5N ONE ×3 (00:06→09:00)
--- NOTE | 2019-07-07 00:10 | PN ---
Progress Note, Physician Chief Complaint: Pt A&Ox3; no dyspnea; no chest pain; less pain in hip ("with Dilaudid, the pain went from 10/10 to 8/10"). Litlle pain at left iliacus abscess IR drainage site. She mentions having "polyps in my lungs: it must be malignancy; I knew it would happen some time". 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 yesterday developed fever, tmax 101; went to [facility] yesterday, where she said xrays were done and no further imaging or workup was pursued c/o severe left hip pain resides in [place]; came up to [place] to care for her sister who has endometriosis no other sick contacts. no travel history. no cough/congestion, vomiting, diarrhea, bloody stools, urinary sx. +current yeast infection, has not picked up her diflucan yet, as she gets frequent yeast infection from chronic use of doxycycline and clindamycin for chronic MRSA infections. no trauma, no recent procedures no h/o kidney stones, no prior sx of similar nature. Has had EKG recently; denies having had ECHO. - Current Medication List Current Medications: Active Medications Acetaminophen (Tylenol -) 1,000 mg PO Q6H PRN PRN Reason: MODERATE PAIN Albuterol Sulfate (Ventolin Hfa Inhaler -) 2 puff IH Q4H PRN PRN Reason: SHORT OF BREATH/WHEEZING Last Admin: 07/06/19 22:42 Dose: 2 inh Documented by: Budesonide/Formoterol Fumarate (Symbicort 160/4.5mcg -) 2 puff IH BID [facility] Last Admin: 07/06/19 21:38 Dose: 2 puff Documented by: Docusate Sodium (Colace -) 100 mg PO DAILY [facility] Last Admin: 07/06/19 09:08 Dose: 100 mg Documented by: Guaifenesin (Robitussin -) 10 ml PO Q6H PRN PRN Reason: COUGH Last Admin: 07/06/19 20:35 Dose: 10 ml Documented by: Heparin Sodium (Porcine) (Heparin -) 5,000 unit SQ TID [facility] Last Admin: 07/06/19 21:36 Dose: 5,000 unit Documented by: Hydromorphone HCl (Dilaudid Vial -) 2 mg IVPB Q4H PRN PRN Reason: PAIN LEVEL 7 - 10 Last Admin: 07/06/19 20:35 Dose: 2 mg Documented by: Lactated Ringer's (Lactated Ringers Solution) 1,000 ml in 1,000 mls @ 125 mls/hr IV ASDIR [facility] Last Admin: 07/06/19 12:39 Dose: 125 mls/hr Documented by: Doxycycline Hyclate 100 mg/ (Dextrose) 100 mls @ 100 mls/hr IVPB BID [facility] Last Admin: 07/06/19 21:36 Dose: 100 mls/hr Documented by: Vancomycin HCl 1,750 mg/ (Dextrose) 500 mls @ 250 mls/hr IVPB Q12H [facility]; Protocol Last Admin: 07/06/19 13:17 Dose: 250 mls/hr Documented by: Insulin Aspart (Novolog Vial Sliding Scale -) 1 vial SQ ACHS [facility]; Protocol Last Admin: 07/06/19 21:55 Dose: 6 units Documented by: Insulin Detemir (Levemir Vial) 15 units SQ AM [facility] Last Admin: 07/06/19 06:15 Dose: 15 units Documented by: Levetiracetam (Keppra Injection -) 1,000 mg IVPB TID [facility] Last Admin: 07/06/19 21:36 Dose: 1,000 mg Documented by: Lidocaine (Lidoderm Patch -) 1 patch TP DAILY [facility] Last Admin: 07/06/19 11:39 Dose: 1 patch Documented by: Miscellaneous (Lidoderm Patch Removal) 1 each MC DAILY@2200 [facility] Last Admin: 07/06/19 21:56 Dose: 1 each Documented by: Potassium Chloride (K-Dur -) 20 meq PO BID [facility] Stop: 07/07/19 21:59 Last Admin: 07/06/19 21:36 Dose: 20 meq Documented by: Sodium Chloride ([place] Nasal [place] -) 2 spray NS TID PRN PRN Reason: NASAL CONGESTION Last Admin: 07/05/19 13:10 Dose: 2 spray Documented by: - Objective Vital Signs: Vital Signs Temperature 97.5 F L 07/06/19 18:00 Pulse Rate 109 H 07/06/19 18:00 Respiratory Rate 07/06/19 18:00 Blood Pressure 135/80 07/06/19 18:00 O2 Sat by Pulse Oximetry (%) 93 L 07/06/19 17:40 Constitutional: Yes: Obese Eyes: Yes: WNL HENT: Yes: WNL Cardiovascular: Yes: S1, S2, S4 Respiratory: Yes: WNL Gastrointestinal: No: Tenderness ...Rectal Exam: Yes: Deferred Genitourinary: No: Anuria Breast(s): Yes: WNL Musculoskeletal: Yes: Joint Stiffness, Muscle Pain Extremities: Yes: Other Edema: No Peripheral Pulses WNL: Yes Integumentary: Yes: Tattoos Wound/Incision: Yes: Dressing Dry and Intact (left iliacus IR drainage) Neurological: Yes: Alert, Oriented Psychiatric: Yes: Alert, Oriented, Other Labs: CBC, BMP 07/06/19 07:19 07/06/19 07:19 INR, PTT INR 1.07 (0.83-1.09) 07/01/19 22:15 Fibrinogen > 500.0 mg/dL (238-498) H 07/04/19 05:50 Abnormal Lab Results 07/06/19 07/06/19 07:19 07:19 WBC 15.4 H Absolute Neuts (auto) 11.7 H Sodium 135 L Potassium 2.7 L* Chloride 96 L Carbon Dioxide 33 H Anion Gap 6 L BUN 5.4 L Creatinine 0.4 L Random Glucose 240 H Calcium 8.1 L AST 14 L Alkaline Phosphatase 148 H C-Reactive Protein 16.0 H Total Protein 5.8 L Albumin 1.8 L - ....Imaging Chest X-ray: Image Reviewed EKG: Image Reviewed Problem List - Problems (1) Hypokalemia Assessment/Plan: replete again, and: Keep K 4.0-4.5 Keep Mg 2.0-2.4 Keep PO4 2.5-4.9 Code(s): E87.6 - HYPOKALEMIA (2) Endocarditis Assessment/Plan: With pt having less pain in hip and better able to move, ECHO was repeated, and was reported as being an essentially normal study. S/p iliacus abscess IR drainage. Pt remains baterecmic (MRSA). Afebrile since 07/02/19 at 15:17. CT chest: severe atelectasis; numerous pulmonary nodules, some appearing cavitar y: eitiologies broad (r/o infectious; sarcoid; RA; malignancy) Febrile. On vancomycin and doxycycline per ID (await new agent: telavancin) Blood cultures sent today. Maintain hydration; f/u Is and Os, BUN/Cr, electrolytes. Pain management. Clinically improved, but remains bacteremic; may require GENEVA. Code(s): I38 - ENDOCARDITIS, VALVE UNSPECIFIED (3) Blood bacterial culture positive Assessment/Plan: Bacteremic (MRSA). On antibiotics per ID. Repeat ECHO: essentially normal study. Afebrile since 07/02/19. Code(s): R78.81 - BACTEREMIA (4) Abscess Assessment/Plan: s/p IR purulent drainage of left iliacus abscess. Code(s): L02.91 - CUTANEOUS ABSCESS, UNSPECIFIED (5) Rheumatoid arthritis Code(s): M06.9 - RHEUMATOID ARTHRITIS, UNSPECIFIED (6) Lupus Code(s): M32.9 - SYSTEMIC LUPUS ERYTHEMATOSUS, UNSPECIFIED (7) Osteoarthritis Code(s): M19.90 - UNSPECIFIED OSTEOARTHRITIS, UNSPECIFIED SITE (8) HTN (hypertension) Code(s): I10 - ESSENTIAL (PRIMARY) HYPERTENSION (9) Migraine Code(s): G43.909 - MIGRAINE, UNSP, NOT INTRACTABLE, WITHOUT STATUS MIGRAINOSUS (10) Obesity, Class III, BMI 40-49.9 (morbid obesity) Code(s): E66.01 - MORBID (SEVERE) OBESITY DUE TO EXCESS CALORIES (11) Seizure Code(s): R56.9 - UNSPECIFIED CONVULSIONS (12) Sleep apnea Code(s): G47.30 - SLEEP APNEA, UNSPECIFIED (13) Sinus tachycardia Code(s): R00.0 - TACHYCARDIA, UNSPECIFIED (14) Diabetes Code(s): E11.9 - TYPE 2 DIABETES MELLITUS WITHOUT COMPLICATIONS (15) Hx MRSA infection Assessment/Plan: Hx MRSA colonization; on chronic antibiotics. BLood cultures now: cocci in clusters. CT chest: severe atelectasis; cavitary lesions. MRI pelvis: collections suspicious for abscess. On antibiotics; f/u culture identification. Code(s): Z86.14 - PERSONAL HISTORY OF METHICILLIN RESIS STAPH INFECTION (16) Pulmonary cavitary lesion Assessment/Plan: CT chest: severe atelectasis; multiple nodules, cavitations On antibiotics. 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 Code(s): J98.4 - OTHER DISORDERS OF LUNG (17) Leukocytosis Code(s): D72.829 - ELEVATED WHITE BLOOD CELL COUNT, UNSPECIFIED (18) Cervical cancer Assessment/Plan: hx chemotherapy. CT chest: multiple nodules, some cavitary. Code(s): C53.9 - MALIGNANT NEOPLASM OF CERVIX UTERI, UNSPECIFIED
[2019-07-07] MEDS: VANCOMYCIN HCL 1,750 MG in DEXTROSE 5%-WATER - 500 ML IVPB SCH (00:27)
[2019-07-07] MEDS: HYDROmorphone HCl 2 MG/ML VIAL IVPB PRN ×5 (00:32→18:15)
[2019-07-07] MEDS: levETIRAcetam 500 MG/5 ML INJECTION VIAL IVPB SCH ×2 (05:46→14:51)
[2019-07-07] MEDS: HEPARIN NA (PORCINE) 5,000 UNITS/ML 1ML VIAL SQ SCH ×2 (05:46→14:51)
[2019-07-07] MEDS: LACTATED RINGERS SOLUTION 1,000 ML/1,000 ML INFUS.BAG IV SCH (05:46)
[2019-07-07] MEDS: INSULIN (LEVEMIR) 100 UNITS/ML UNITS SQ SCH (06:00)
[2019-07-07] MEDS: INSULIN SLIDING SCALE (NOVOLOG) 1 VIAL SQ SCH ×3 (06:00→17:08)
[2019-07-07 07:50] LABS: BASO % 0.4 % (0-2.0); EOS % 1.2 % (0-4.5); HEMATOCRIT 34.7 % (32.4-45.2); HEMOGLOBIN 11.8 GM/dL (10.7-15.3); LYMPH % 15.7 % (8-40); MCH 28.9 pg (25.7-33.7); MCHC 33.9 g/dl (32.0-36.0); MEAN CELL VOLUME 85.2 fl (80-96); MEAN PLT VOLUME 8.4 fl (7.5-11.1); NEUT % 73.7 % (42.8-82.8); PLATELET COUNT 381 K/MM3 (134-434); RBC 4.08 M/mm3 (3.60-5.2); RDW 13.6 % (11.6-15.6)
--- NOTE | 2019-07-07 08:12 | PN ---
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 yesterday developed fever, tmax 101; went to [facility] yesterday, where she said xrays were done and no further imaging or workup was pursued c/o severe left hip pain - Current Medication List Current Medications: Active Medications Acetaminophen (Tylenol -) 1,000 mg PO Q6H PRN PRN Reason: MODERATE PAIN Albuterol Sulfate (Ventolin Hfa Inhaler -) 2 puff IH Q4H PRN PRN Reason: SHORT OF BREATH/WHEEZING Last Admin: 07/06/19 22:42 Dose: 2 inh Documented by: Budesonide/Formoterol Fumarate (Symbicort 160/4.5mcg -) 2 puff IH BID [facility] Last Admin: 07/06/19 21:38 Dose: 2 puff Documented by: Docusate Sodium (Colace -) 100 mg PO DAILY [facility] Last Admin: 07/06/19 09:08 Dose: 100 mg Documented by: Guaifenesin (Robitussin -) 10 ml PO Q6H PRN PRN Reason: COUGH Last Admin: 07/06/19 20:35 Dose: 10 ml Documented by: Heparin Sodium (Porcine) (Heparin -) 5,000 unit SQ TID [facility] Last Admin: 07/07/19 05:46 Dose: 5,000 unit Documented by: Hydromorphone HCl (Dilaudid Vial -) 2 mg IVPB Q4H PRN PRN Reason: PAIN LEVEL 7 - 10 Last Admin: 07/07/19 05:35 Dose: 2 mg Documented by: Lactated Ringer's (Lactated Ringers Solution) 1,000 ml in 1,000 mls @ 125 mls/hr IV ASDIR [facility] Last Admin: 07/07/19 05:46 Dose: 125 mls/hr Documented by: Doxycycline Hyclate 100 mg/ (Dextrose) 100 mls @ 100 mls/hr IVPB BID [facility] Last Admin: 07/06/19 21:36 Dose: 100 mls/hr Documented by: Vancomycin HCl 1,750 mg/ (Dextrose) 500 mls @ 250 mls/hr IVPB Q12H [facility]; Protocol Last Admin: 07/07/19 00:27 Dose: 250 mls/hr Documented by: Insulin Aspart (Novolog Vial Sliding Scale -) 1 vial SQ ACHS [facility]; Protocol Last Admin: 07/07/19 06:00 Dose: 4 units Documented by: Insulin Detemir (Levemir Vial) 15 units SQ AM [facility] Last Admin: 07/07/19 06:00 Dose: 15 units Documented by: Levetiracetam (Keppra Injection -) 1,000 mg IVPB TID [facility] Last Admin: 07/07/19 05:46 Dose: 1,000 mg Documented by: Lidocaine (Lidoderm Patch -) 1 patch TP DAILY [facility] Last Admin: 07/06/19 11:39 Dose: 1 patch Documented by: Miscellaneous (Lidoderm Patch Removal) 1 each MC DAILY@2200 [facility] Last Admin: 07/06/19 21:56 Dose: 1 each Documented by: Potassium Chloride (K-Dur -) 20 meq PO BID [facility] Stop: 07/07/19 21:59 Last Admin: 07/06/19 21:36 Dose: 20 meq Documented by: Sodium Chloride ([place] Nasal [place] -) 2 spray NS TID PRN PRN Reason: NASAL CONGESTION Last Admin: 07/05/19 13:10 Dose: 2 spray Documented by: - Objective Vital Signs: Vital Signs Temperature 98.7 F 07/07/19 05:44 Pulse Rate 107 H 07/07/19 05:44 Respiratory Rate 18 07/07/19 05:44 Blood Pressure 151/83 07/07/19 05:44 O2 Sat by Pulse Oximetry (%) 99 07/07/19 06:00 Eyes: Yes: WNL, Conjunctiva Clear, EOM Intact HENT: Yes: WNL, Atraumatic, Normocephalic Neck: Yes: WNL, Supple, Trachea Midline Cardiovascular: Yes: WNL, Regular Rate and Rhythm Respiratory: Yes: WNL, Regular, CTA Bilaterally Gastrointestinal: Yes: WNL, Normal Bowel Sounds Genitourinary: Yes: WNL Musculoskeletal: Yes: WNL Extremities: Yes: WNL Edema: No Integumentary: Yes: WNL Neurological: Yes: WNL, Alert, Oriented ...Motor Strength: WNL Psychiatric: Yes: WNL Labs: INR, PTT INR 1.07 (0.83-1.09) 07/01/19 22:15 Fibrinogen > 500.0 mg/dL (238-498) H 07/04/19 05:50 Assessment/Plan Problem List - Problems (1) Hypokalemia Assessment/Plan: replete again, and: Keep K 4.0-4.5 Keep Mg 2.0-2.4 Keep PO4 2.5-4.9 Code(s): E87.6 - HYPOKALEMIA (2) Endocarditis Assessment/Plan: With pt having less pain in hip and better able to move, ECHO was repeated, and was reported as being an essentially normal study. S/p iliacus abscess IR drainage. Pt remains baterecmic (MRSA). Afebrile since 07/02/19 at 15:17. CT chest: severe atelectasis; numerous pulmonary nodules, some appearing cavitary: eitiologies broad (r/o infectious; sarcoid; RA; malignancy) Febrile. On vancomycin and doxycycline per ID (await new agent: telavancin) Blood cultures sent today. Maintain hydration; f/u Is and Os, BUN/Cr, electrolytes. Pain management. Clinically improved, but remains bacteremic; may require GENEVA. Code(s): I38 - ENDOCARDITIS, VALVE UNSPECIFIED (3) Blood bacterial culture positive Assessment/Plan: Bacteremic (MRSA). On antibiotics per ID. Repeat ECHO: essentially normal study. Afebrile since 07/02/19. Code(s): R78.81 - BACTEREMIA (4) Abscess Assessment/Plan: s/p IR purulent drainage of left iliacus abscess. Code(s): L02.91 - CUTANEOUS ABSCESS, UNSPECIFIED (5) Rheumatoid arthritis Code(s): M06.9 - RHEUMATOID ARTHRITIS, UNSPECIFIED (6) Lupus Code(s): M32.9 - SYSTEMIC LUPUS ERYTHEMATOSUS, UNSPECIFIED (7) Osteoarthritis Code(s): M19.90 - UNSPECIFIED OSTEOARTHRITIS, UNSPECIFIED SITE (8) HTN (hypertension) Code(s): I10 - ESSENTIAL (PRIMARY) HYPERTENSION (9) Migraine Code(s): G43.909 - MIGRAINE, UNSP, NOT INTRACTABLE, WITHOUT STATUS MIGRAINOSUS (10) Obesity, Class III, BMI 40-49.9 (morbid obesity) Code(s): E66.01 - MORBID (SEVERE) OBESITY DUE TO EXCESS CALORIES (11) Seizure Code(s): R56.9 - UNSPECIFIED CONVULSIONS (12) Sleep apnea Code(s): G47.30 - SLEEP APNEA, UNSPECIFIED (13) Sinus tachycardia Code(s): R00.0 - TACHYCARDIA, UNSPECIFIED (14) Diabetes Code(s): E11.9 - TYPE 2 DIABETES MELLITUS WITHOUT COMPLICATIONS (15) Hx MRSA infection Assessment/Plan: Hx MRSA colonization; on chronic antibiotics. BLood cultures now: cocci in clusters. CT chest: severe atelectasis; cavitary lesions. MRI pelvis: collections suspicious for abscess. On antibiotics; f/u culture identification. Code(s): Z86.14 - PERSONAL HISTORY OF METHICILLIN RESIS STAPH INFECTION (16) Pulmonary cavitary lesion Assessment/Plan: CT chest: severe atelectasis; multiple nodules, cavitations On antibiotics. 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 Code(s): J98.4 - OTHER DISORDERS OF LUNG (17) Leukocytosis Code(s): D72.829 - ELEVATED WHITE BLOOD CELL COUNT, UNSPECIFIED (18) Cervical cancer Assessment/Plan: hx chemotherapy. CT chest: multiple nodules, some cavitary. Code(s): C53.9 - MALIGNANT NEOPLASM OF CERVIX UTERI, UNSPECIFIED
[2019-07-07 08:22] LABS: BLOOD UREA NITROGEN 5.1 mg/dL (7-18); CALCIUM 8.4 mg/dL (8.5-10.1); CREATININE 0.4 mg/dL (0.55-1.3); POTASSIUM 3.1 mmol/L (3.5-5.1)
[2019-07-07] MEDS: DOXYCYCLINE INJECTION 100 MG in DEXTROSE 5%-WATER - 100 ML IVPB SCH (09:07)
[2019-07-07] MEDS: ACETAMINOPHEN 500 MG TABLET (FP) PO PRN ×2 (09:07→15:52)
[2019-07-07] MEDS: POTASSIUM CHLORIDE TABS 20 MEQ TABLET.ER (FP) PO SCH (09:07)
[2019-07-07] MEDS: DOCUSATE SODIUM 100 MG CAPSULE (FP) PO SCH (09:07)
[2019-07-07] MEDS: LIDOCAINE 5% TOPICAL PATCH TP SCH (09:07)
[2019-07-07] MEDS: BUDESONIDE/FORMETEROL FUMARATE 160/4.5 mcg INHALER IH SCH (10:20)
[2019-07-07] MEDS ORDERED: ALBUTEROL SO4 HFA INHALER IH PRN (10:46)
[2019-07-07 10:54] LABS: ANISOCYTOSIS 0; MACROCYTOSIS 0; PLATELET ESTIMATE NORMAL
--- NOTE | 2019-07-07 11:08 | PN ---
Physical Exam: SUBJECTIVE: Patient seen and examined OBJECTIVE: Vital Signs Period Temp Pulse Resp BP Sys/Turner Pulse Ox Last 24 Hr 97.3 F-98.7 F 98-112 18-20 124-154/74-83 91-99 GENERAL: The patient is awake, alert, and fully oriented, in no acute distress. HEAD: Normal with no signs of trauma. EYES: PERRL, extraocular movements intact, sclera anicteric, conjunctiva clear. No ptosis. ENT: Ears normal, nares patent, oropharynx clear without exudates, moist mucous membranes. NECK: Trachea midline, full range of motion, supple. LUNGS: Breath sounds equal, clear to auscultation bilaterally, no wheezes, no crackles, no accessory muscle use. HEART: Regular rate and rhythm, S1, S2 without murmur, rub or gallop. ABDOMEN: Soft, nontender, nondistended, normoactive bowel sounds, no guarding, no rebound, no hepatosplenomegaly, no masses. EXTREMITIES: 2+ pulses, warm, well-perfused, no edema. NEUROLOGICAL: Cranial nerves II through XII grossly intact. Normal speech, gait not observed. PSYCH: Normal mood, normal affect. SKIN: Warm, dry, normal turgor, no rashes or lesions noted Laboratory Results - last 24 hr 07/06/19 07/06/19 07/06/19 07:19 11:36 21:51 WBC RBC Hgb Hct MCV MCH MCHC RDW Plt Count MPV Absolute Neuts (auto) Neutrophils % Neutrophils % (Manual) 71.0 Band Neutrophils % 2.0 Lymphocytes % Lymphocytes % (Manual) 17.0 Monocytes % Monocytes % (Manual) 8 Eosinophils % Eosinophils % (Manual) 1.0 D Basophils % Basophils % (Manual) 1.0 D Myelocytes % (Man) 0 D Promyelocytes % (Man) 0 Blast Cells % (Manual) 0 Nucleated RBC % 0 Metamyelocytes 0 D Hypochromia 0 Platelet Estimate Normal Polychromasia 0 Poikilocytosis 0 Anisocytosis 0 Microcytosis 0 Macrocytosis 0 Sodium Potassium Chloride Carbon Dioxide Anion Gap BUN Creatinine Est GFR (CKD-EPI)AfAm Est GFR (CKD-EPI)NonAf POC Glucometer 261 259 Random Glucose Calcium 07/07/19 07/07/19 07:15 07:15 WBC 16.0 H RBC 4.08 Hgb 11.8 Hct 34.7 MCV 85.2 MCH 28.9 MCHC 33.9 RDW 13.6 Plt Count 381 MPV 8.4 Absolute Neuts (auto) 11.8 H Neutrophils % 73.7 Neutrophils % (Manual) Band Neutrophils % Lymphocytes % 15.7 Lymphocytes % (Manual) Monocytes % 9.0 Monocytes % (Manual) Eosinophils % 1.2 D Eosinophils % (Manual) Basophils % 0.4 Basophils % (Manual) Myelocytes % (Man) Promyelocytes % (Man) Blast Cells % (Manual) Nucleated RBC % 0 Metamyelocytes Hypochromia Platelet Estimate Polychromasia Poikilocytosis Anisocytosis Microcytosis Macrocytosis Sodium 138 Potassium 3.1 L Chloride 98 Carbon Dioxide 32 Anion Gap 8 BUN 5.1 L Creatinine 0.4 L Est GFR (CKD-EPI)AfAm 155.30 Est GFR (CKD-EPI)NonAf 134.00 POC Glucometer Random Glucose 224 H Calcium 8.4 L Active Medications Generic Name Dose Route Start Last Admin Trade Name Freq PRN Reason Stop Dose Admin Acetaminophen 1,000 mg 07/05/19 10:18 07/07/19 09:07 Tylenol - PO 1,000 mg Q6H PRN Administration MODERATE PAIN Albuterol Sulfate 2 puff 07/07/19 10:46 Ventolin Hfa Inhaler - IH Q4H PRN SHORT OF BREATH/WHEEZING Budesonide/Formoterol Fumarate 2 puff 07/02/19 10:00 07/07/19 10:20 Symbicort 160/4.5mcg - IH 2 puff BID [facility] Administration Docusate Sodium 100 mg 07/02/19 10:00 07/07/19 09:07 Colace - PO 100 mg DAILY [facility] Administration Guaifenesin 10 ml 07/03/19 08:16 07/06/19 20:35 Robitussin - PO 10 ml Q6H PRN Administration COUGH Heparin Sodium (Porcine) 5,000 unit 07/02/19 06:00 07/07/19 05:46 Heparin - SQ 5,000 unit TID [facility] Administration Hydromorphone HCl 2 mg 07/05/19 10:09 07/07/19 10:12 Dilaudid Vial - IVPB 2 mg Q4H PRN Administration PAIN LEVEL 7 - 10 Lactated Ringer's 1,000 ml in 1,000 mls @ 125 mls/hr 07/02/19 04:30 07/07/19 05:46 Lactated Ringers Solution IV 125 mls/hr ASDIR [facility] Administration Doxycycline Hyclate 100 mg/ 100 mls @ 100 mls/hr 07/05/19 22:00 07/07/19 09:07 Dextrose IVPB 100 mls/hr BID [facility] Administration Insulin Aspart 1 vial 07/02/19 07:00 07/07/19 06:00 Novolog Vial Sliding Scale - SQ 4 units ACHS [facility] Administration Protocol Insulin Detemir 15 units 07/03/19 07:00 07/07/19 06:00 Levemir Vial SQ 15 units AM [facility] Administration Levetiracetam 1,000 mg 07/02/19 06:45 07/07/19 05:46 Keppra Injection - IVPB 1,000 mg TID [facility] Administration Lidocaine 1 patch 07/06/19 11:00 07/07/19 09:07 Lidoderm Patch - TP 1 patch DAILY [facility] Administration Miscellaneous 1 each 07/06/19 22:00 07/06/19 21:56 Lidoderm Patch Removal MC 1 each DAILY@2200 [facility] Administration Non-Formulary Medication 1 inh 07/07/19 11:00 Ipratropium/Albuterol Sulfate [Combivent Respimat 20-100 Mcg] NEB BID [facility] Potassium Chloride 40 meq 07/07/19 10:00 07/07/19 09:07 K-Dur - PO 40 meq DAILY [facility] Administration Sodium Chloride 2 spray 07/05/19 10:19 07/05/19 13:10 [place] Nasal [place] - NS 2 spray TID PRN Administration NASAL CONGESTION ASSESSMENT/PLAN: aaox3 breathing well with current o2 orders lungs cta pt c/o of dressing to site is coming off. dressing change orders placed pt prefers combivent inh instead for albuterol inh. combivent ordered. Visit type - Emergency Visit Emergency Visit: Yes ED Registration Date: 07/02/19 Care time: The patient presented to the Emergency Department on the above date and was hospitalized for further evaluation of their emergent condition. - New Patient This patient is new to me today: Yes Date on this admission: 07/07/19 - Critical Care Critical Care patient: No - Discharge Referral Referred to [facility] Med P.C.: No
[2019-07-07] MEDS ORDERED: IPRATROPIUM/ALBUTEROL (COMBIVENT) RESPIMAT 20-100 MCG IH SCH (11:30)
--- NOTE | 2019-07-07 13:23 | PN ---
Progress Note (short form) - Note Progress Note: overall improved, still with left hip/LLQ discomfort eating afebrile still with positive blood cultures from 07/05 pending continues with drainage from the abscess Vital Signs Period Temp Pulse Resp BP Sys/Turner Pulse Ox Last 24 Hr 97.3 F-98.7 F 98-112 - 124-154/74-83 91-99 cor-rrr llungs decreased bs at bases abd soft,nt ext no edema drain with purulence CBC, BMP 07/07/19 07:15 07/07/19 07:15 Microbiology 07/04/19 05:50 Blood - Peripheral Venous Blood Culture - Final Mr S Aureus 07/03/19 17:30 Abscess Gram Stain - Final 07/03/19 17:30 Abscess Body Fluid Culture - Final Mr S Aureus 07/03/19 17:30 Abscess Anaerobic Culture - Final NO ANAEROBES WERE ISOLATED 07/04/19 06:10 Blood - Peripheral Venous Blood Culture - Preliminary Staphylococcus Latex Coag Pos 07/06/19 07:19 Blood - Peripheral Venous Blood Culture - Preliminary NO GROWTH OBTAINED AFTER 24 HOURS, INCUBATION TO CONTINUE FOR 4 DAYS. 07/06/19 07:19 Blood - Peripheral Venous Blood Culture - Preliminary NO GROWTH OBTAINED AFTER 24 HOURS, INCUBATION TO CONTINUE FOR 4 DAYS. 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
[2019-07-07] MEDS: IPRATROPIUM/ALBUTEROL (COMBIVENT) RESPIMAT 20-100 MCG IH SCH ×3 (15:36→22:30)
[2019-07-07] MEDS: WATER IVPB SCH (16:02)
[2019-07-07] MEDS: DEXTROSE 5% IVPB SCH (16:02)
[2019-07-07] MEDS: TELAVANCIN HCL IVPB SCH (16:02)
[2019-07-07] MEDS ORDERED: VANCOMYCIN 2,000 MG in DEXTROSE 5%-WATER - 250 ML IVPB ONE (23:28)
[2019-07-07] MEDS ORDERED: LACTATED RINGERS SOLUTION 1,000 ML/1,000 ML INFUS.BAG IV SCH (23:28)
[2019-07-07] MEDS: levETIRAcetam 500 MG TABLET (FP) PO SCH (23:45)
[2019-07-08] MEDS: LIDOCAINE PATCH REMOVAL MC SCH ×2 (02:12→22:43)
[2019-07-08] MEDS: HYDROmorphone HCL 2 MG TABLET PO PRN ×4 (03:58→16:56)
[2019-07-08] MEDS: guaiFENesin 200 MG/10 ML 10 ML UNIT-DOSE CUPS PO PRN (03:59)
[2019-07-08] MEDS ORDERED: levETIRAcetam 500 MG/5 ML INJECTION VIAL IVPB SCH (06:00)
[2019-07-08] MEDS: levETIRAcetam 500 MG TABLET (FP) PO SCH ×3 (07:22→22:43)
[2019-07-08] MEDS: INSULIN (LEVEMIR) 100 UNITS/ML UNITS SQ SCH ×2 (07:22→22:43)
[2019-07-08] MEDS: HEPARIN NA (PORCINE) 5,000 UNITS/ML 1ML VIAL SQ SCH ×4 (07:22→22:43)
[2019-07-08] MEDS: BUDESONIDE/FORMETEROL FUMARATE 160/4.5 mcg INHALER IH SCH ×3 (07:45→22:43)
[2019-07-08] MEDS: INSULIN SLIDING SCALE (NOVOLOG) 1 VIAL SQ SCH ×2 (07:45→16:51)
[2019-07-08] MEDS: levETIRAcetam 500 MG/5 ML INJECTION VIAL IVPB SCH (07:45)
[2019-07-08 08:13] LABS: BASO % 0.4 % (0-2.0); EOS % 1.4 % (0-4.5); HEMATOCRIT 35.4 % (32.4-45.2); HEMOGLOBIN 11.7 GM/dL (10.7-15.3); LYMPH % 15.8 % (8-40); MCH 28.7 pg (25.7-33.7); MCHC 33.1 g/dl (32.0-36.0); MEAN CELL VOLUME 86.7 fl (80-96); MEAN PLT VOLUME 8.6 fl (7.5-11.1); NEUT % 74.4 % (42.8-82.8); PLATELET COUNT 381 K/MM3 (134-434); RBC 4.08 M/mm3 (3.60-5.2); RDW 14.1 % (11.6-15.6)
[2019-07-08] MEDS ORDERED: PT OWN MED DRAWER 7, Y5N ONE (08:14)
[2019-07-08] MEDS: DOCUSATE SODIUM 100 MG CAPSULE (FP) PO SCH (09:13)
[2019-07-08] MEDS: LIDOCAINE 5% TOPICAL PATCH TP SCH (09:13)
[2019-07-08] MEDS: POTASSIUM CHLORIDE TABS 20 MEQ TABLET.ER (FP) PO SCH (09:13)
[2019-07-08] MEDS: IPRATROPIUM/ALBUTEROL (COMBIVENT) RESPIMAT 20-100 MCG IH SCH ×4 (09:44→22:43)
[2019-07-08 10:15] LABS: BLOOD UREA NITROGEN 5.5 mg/dL (7-18); CALCIUM 9.3 mg/dL (8.5-10.1); CREATININE 0.6 mg/dL (0.55-1.3); POTASSIUM 3.3 mmol/L (3.5-5.1)
[2019-07-08 11:07] LABS: ANISOCYTOSIS 0; MACROCYTOSIS 0; PLATELET ESTIMATE NORMAL
[2019-07-08] MEDS: ACETAMINOPHEN 500 MG TABLET (FP) PO PRN (13:58)
[2019-07-08] MEDS: WATER IVPB SCH (14:16)
[2019-07-08] MEDS: DEXTROSE 5% IVPB SCH (14:16)
[2019-07-08] MEDS: TELAVANCIN HCL IVPB SCH (14:16)
--- NOTE | 2019-07-08 14:28 | PN ---
Progress Note (short form) - Note Progress Note: overall improved, still with left hip/LLQ discomfort eating afebrile continues to have hip pain +constipation Vital Signs Period Temp Pulse Resp BP Sys/Turner Pulse Ox Last 24 Hr 97.4 F-99.4 F 93-108 20-20 141-155/77-94 95-100 cor-rrr llungs decreased bs at bases abd soft,nt ext no edema +drainage in FRANCO CBC, BMP 07/08/19 07:50 07/08/19 07:50 Microbiology 07/04/19 06:10 Blood - Peripheral Venous Blood Culture - Final Staphylococcus Latex Coag Pos 07/06/19 07:19 Blood - Peripheral Venous Blood Culture - Preliminary NO GROWTH OBTAINED AFTER 48 HOURS, INCUBATION TO CONTINUE FOR 3 DAYS. 07/06/19 07:19 Blood - Peripheral Venous Blood Culture - Preliminary NO GROWTH OBTAINED AFTER 48 HOURS, INCUBATION TO CONTINUE FOR 3 DAYS. 07/04/19 05:50 Blood - Peripheral Venous Blood Culture - Final Mr S Aureus 07/03/19 17:30 Abscess Gram Stain - Final 07/03/19 17:30 Abscess Body Fluid Culture - Final Mr S Aureus 07/03/19 17:30 Abscess Anaerobic Culture - Final NO ANAEROBES WERE ISOLATED 07/03/19 11:10 Blood - Peripheral Venous Blood Culture - Final Mr S Aureus 07/03/19 11:10 Blood - Peripheral Venous Blood Culture - Final Mr S Aureus 07/02/19 00:55 Blood - Peripheral Venous Blood Culture - Final Mr S Aureus 07/02/19 01:02 Blood - Peripheral Venous Blood Culture - Final Mr S Aureus pelvic MRI with collections noted left iliacus muscle COVID pcr negative 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
[2019-07-08] MEDS ORDERED: POLYETHYLENE GLYCOL 3350 119 GM BTL PO PRN (14:29)
--- NOTE | 2019-07-08 14:40 | PN ---
Physical Exam: SUBJECTIVE: Patient seen and examined OBJECTIVE: Vital Signs Period Temp Pulse Resp BP Sys/Turner Pulse Ox Last 24 Hr 97.4 F-99.4 F 93-115 - 141-155/77-95 95-100 Vital Signs Temperature 98.6 F 07/08/19 14:26 Pulse Rate 115 H 07/08/19 14:26 Respiratory Rate 20 07/08/19 14:26 Blood Pressure 147/95 07/08/19 14:26 O2 Sat by Pulse Oximetry (%) 95 07/08/19 09:00 GENERAL: The patient is awake, alert, in no acute distress but complains of 7/10 pain in the left hip area. HEAD: Normal with no signs of trauma. EYES: EOMI ENT: Ears normal NECK: normal LUNGS: Breath sounds clear HEART: Regular rate and rhythm, S1, S2 ABDOMEN: Soft, nontender, nondistended, normoactive bowel sounds, no guarding. FRANCO drain left lower quadrant with DSD, draining scant serosang fluid EXTREMITIES: 2+ pulses, warm, well-perfused, bruises on bilateral upper arms NEUROLOGICAL: nl mentation. Normal speech, gait not observed. PSYCH: Normal mood, normal affect. SKIN: Warm, dry Laboratory Results - last 24 hr 07/07/19 07/08/19 07/08/19 16:51 07:16 07:50 WBC RBC Hgb Hct MCV MCH MCHC RDW Plt Count MPV Absolute Neuts (auto) Neutrophils % Neutrophils % (Manual) Band Neutrophils % Lymphocytes % Lymphocytes % (Manual) Monocytes % Monocytes % (Manual) Eosinophils % Eosinophils % (Manual) Basophils % Basophils % (Manual) Myelocytes % (Man) Promyelocytes % (Man) Blast Cells % (Manual) Nucleated RBC % Metamyelocytes Hypochromia Platelet Estimate Polychromasia Poikilocytosis Anisocytosis Microcytosis Macrocytosis Sodium 137 Potassium 3.3 L Chloride 96 L Carbon Dioxide 30 Anion Gap 10 BUN 5.5 L Creatinine 0.6 Est GFR (CKD-EPI)AfAm 135.91 Est GFR (CKD-EPI)NonAf 117.26 POC Glucometer 234 294 Random Glucose 294 H Calcium 9.3 C-Reactive Protein 9.9 H 07/08/19 07/08/19 07:50 11:50 WBC 19.0 H RBC 4.08 Hgb 11.7 Hct 35.4 MCV 86.7 MCH 28.7 MCHC 33.1 RDW 14.1 Plt Count 381 MPV 8.6 Absolute Neuts (auto) 14.1 H Neutrophils % 74.4 Neutrophils % (Manual) 63.0 Band Neutrophils % 7.0 Lymphocytes % 15.8 Lymphocytes % (Manual) 15.0 Monocytes % 8.0 Monocytes % (Manual) 9 Eosinophils % 1.4 Eosinophils % (Manual) 4.0 D Basophils % 0.4 Basophils % (Manual) 0.0 Myelocytes % (Man) 0 D Promyelocytes % (Man) 0 Blast Cells % (Manual) 0 Nucleated RBC % 0 Metamyelocytes 2 D Hypochromia 0 Platelet Estimate Normal Polychromasia 0 Poikilocytosis 0 Anisocytosis 0 Microcytosis 0 Macrocytosis 0 Sodium Potassium Chloride Carbon Dioxide Anion Gap BUN Creatinine Est GFR (CKD-EPI)AfAm Est GFR (CKD-EPI)NonAf POC Glucometer 271 Random Glucose Calcium C-Reactive Protein Active Medications Generic Name Dose Route Start Last Admin Trade Name Freq PRN Reason Stop Dose Admin Acetaminophen 1,000 mg 07/05/19 10:18 07/08/19 13:58 Tylenol - PO 1,000 mg Q6H PRN Administration MODERATE PAIN Albuterol Sulfate 2 puff 07/07/19 10:46 Ventolin Hfa Inhaler - IH Q4H PRN SHORT OF BREATH/WHEEZING Albuterol/Ipratropium 1 puff 07/07/19 11:47 07/08/19 14:01 Combivent Respimat 20-100 Mcg IH 1 puff QID FRANTZ Administration Budesonide/Formoterol Fumarate 2 puff 07/08/19 10:00 07/08/19 09:44 Symbicort 160/4.5mcg - IH 2 puff BID FRANTZ Administration Docusate Sodium 100 mg 07/08/19 10:00 07/08/19 09:13 Colace - PO 100 mg DAILY FRANTZ Administration Guaifenesin 10 ml 07/03/19 08:16 07/08/19 03:59 Robitussin - PO 10 ml Q6H PRN Administration COUGH Heparin Sodium (Porcine) 5,000 unit 07/08/19 06:00 07/08/19 13:58 Heparin - SQ 5,000 unit TID FRANTZ Administration Hydromorphone HCl 2 mg 07/07/19 23:34 07/08/19 12:45 Dilaudid - PO 2 mg Q4H PRN Administration PAIN LEVEL 4 - 6 Telavancin 1,000 mg/ Dextrose 316.6667 mls @ 316.667 mls/hr 07/07/19 15:00 07/08/19 14:16 IVPB 316.667 mls/hr DAILY@1500 FRANTZ Administration Lactated Ringer's 1,000 ml in 1,000 mls @ 100 mls/hr 07/08/19 14:29 Lactated Ringers Solution IV ASDIR FRANTZ Insulin Detemir 15 units 07/03/19 07:00 07/08/19 07:22 Levemir Vial SQ 15 units AM FRANTZ Administration Levetiracetam 1,000 mg 07/07/19 23:45 07/08/19 13:58 Keppra - PO 1,000 mg TID FRANTZ Administration Lidocaine 1 patch 07/06/19 11:00 07/08/19 09:13 Lidoderm Patch - TP 1 patch DAILY [facility]ANTZ Administration Miscellaneous 1 each 07/06/19 22:00 07/08/19 02:12 Lidoderm Patch Removal MC Not Given DAILY@2200 FRANTZ Polyethylene Glycol 17 gm 07/08/19 14:29 Miralax (For Daily Use) - PO DAILY PRN CONSTIPATION Potassium Chloride 40 meq 07/07/19 10:00 07/08/19 09:13 K-Dur - PO 40 meq DAILY FRANTZ Administration Sodium Chloride 2 spray 07/05/19 10:19 07/05/19 13:10 [place] Nasal [place] - NS 2 spray TID PRN Administration NASAL CONGESTION ASSESSMENT/PLAN: 38 yo woman with a PMH of Lupus, h/o MRSA bacteremia, 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 Hospital course: ED: Tx with Vanc/meropenem 06/30: CT A/P: left iliopsoas enlarged, diverticulosis, hepatomegaly, b/l pulmonary nodules concerning for malignancy 07/01: Dr. Oreilly: prob left IP inflamation, rec: antibiotics 07/01: Chest CT: infiltrates, atelectasis, nodules, broad differential, cavitary lesions 07/01: ID, Dr. Marlow: sever pain left hip, supect MRSA endocarditis, rec: Cardiolgoy, Vanc, merop 07/01: Cardiology: Echo: supboptimal, nl LVEF, unable to eval for vegitations. BC positive for cocci in clusters. MRI Pelvis suspicious for abscess 07/01 Blood culture: positive for staph aureus 07/01: COVID negative 07/02: IR drainage Quantiferon 07/02: Abscess micro: positive for staph aureus 07/02: Dr. Villareal: suspect MRSA endocarditis 07/03: Abdominal ultrasound: cholelithiasis not acute 07/04: repeat Echo: essentially nl 07/06: Chest xray: interval worsening bilateral infiltrates 07/07: ID: rec: repeat blood cultures, reimage per surg recommendations last week 07/07: Cardiology: replete K, follow lytes, echo essentially nl Imp 1. MRSA endocarditis 2. Left iliopsoas drainage 3. multiple medical problems Plan 1. ID notes plan for repeat blood cultures 2. repeat CT Abd and pelvis ordered 3. ID, Cardiology, Pulmonary following 4. on daily Kcl, an additional 40 meq ordered 5. will increase Levimir to 15 u bid Problem List - Problems (1) Blood bacterial culture positive Problems reviewed: Yes Code(s): R78.81 - BACTEREMIA (2) Hx MRSA infection Problems reviewed: Yes Code(s): Z86.14 - PERSONAL HISTORY OF METHICILLIN RESIS STAPH INFECTION (3) Iliopsoas abscess Problems reviewed: Yes Code(s): K68.12 - PSOAS MUSCLE ABSCESS (4) Pulmonary cavitary lesion Problems reviewed: Yes Code(s): J98.4 - OTHER DISORDERS OF LUNG (5) Chronic use of opiate drugs therapeutic purposes Problems reviewed: Yes Code(s): Z79.899 - OTHER MRB ENGINEER (CURRENT) DRUG THERAPY (6) Diabetes Problems reviewed: Yes Code(s): E11.9 - TYPE 2 DIABETES MELLITUS WITHOUT COMPLICATIONS Visit type - Emergency Visit Emergency Visit: No - New Patient This patient is new to me today: Yes Date on this admission: 07/08/19 - Critical Care Critical Care patient: No
--- NOTE | 2019-07-08 14:41 | PN ---
Progress Note, Physician Chief Complaint: Pt A&Ox3; no dyspnea; no chest pain; c/o left hip pain, and mild pain at surgical drainage site. 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 yesterday developed fever, tmax 101; went to [facility] yesterday, where she said xrays were done and no further imaging or workup was pursued c/o severe left hip pain resides in [place]; came up to [place] to care for her sister who has endometriosis no other sick contacts. no travel history. no cough/congestion, vomiting, diarrhea, bloody stools, urinary sx. +current yeast infection, has not picked up her diflucan yet, as she gets frequent yeast infection from chronic use of doxycycline and clindamycin for chronic MRSA infections. no trauma, no recent procedures no h/o kidney stones, no prior sx of similar nature. Has had EKG recently; denies having had ECHO. - Current Medication List Current Medications: Active Medications Acetaminophen (Tylenol -) 1,000 mg PO Q6H PRN PRN Reason: MODERATE PAIN Last Admin: 07/08/19 13:58 Dose: 1,000 mg Documented by: Albuterol Sulfate (Ventolin Hfa Inhaler -) 2 puff IH Q4H PRN PRN Reason: SHORT OF BREATH/WHEEZING Albuterol/Ipratropium (Combivent Respimat 20-100 Mcg) 1 puff IH QID [facility] Last Admin: 07/08/19 14:01 Dose: 1 puff Documented by: Budesonide/Formoterol Fumarate (Symbicort 160/4.5mcg -) 2 puff IH BID [facility] Last Admin: 07/08/19 09:44 Dose: 2 puff Documented by: Docusate Sodium (Colace -) 100 mg PO DAILY [facility] Last Admin: 07/08/19 09:13 Dose: 100 mg Documented by: Guaifenesin (Robitussin -) 10 ml PO Q6H PRN PRN Reason: COUGH Last Admin: 07/08/19 03:59 Dose: 10 ml Documented by: Heparin Sodium (Porcine) (Heparin -) 5,000 unit SQ TID [facility] Last Admin: 07/08/19 13:58 Dose: 5,000 unit Documented by: Hydromorphone HCl (Dilaudid -) 2 mg PO Q4H PRN PRN Reason: PAIN LEVEL 4 - 6 Last Admin: 07/08/19 12:45 Dose: 2 mg Documented by: Telavancin 1,000 mg/ Dextrose 316.6667 mls @ 316.667 mls/hr IVPB DAILY@1500 [facility] Last Admin: 07/08/19 14:16 Dose: 316.667 mls/hr Documented by: Lactated Ringer's (Lactated Ringers Solution) 1,000 ml in 1,000 mls @ 100 mls/hr IV ASDIR [facility] Insulin Detemir (Levemir Vial) 15 units SQ AM [facility] Last Admin: 07/08/19 07:22 Dose: 15 units Documented by: Levetiracetam (Keppra -) 1,000 mg PO TID [facility] Last Admin: 07/08/19 13:58 Dose: 1,000 mg Documented by: Lidocaine (Lidoderm Patch -) 1 patch TP DAILY [facility] Last Admin: 07/08/19 09:13 Dose: 1 patch Documented by: Miscellaneous (Lidoderm Patch Removal) 1 each MC DAILY@2200 [facility] Last Admin: 07/08/19 02:12 Dose: Not Given Documented by: Polyethylene Glycol (Miralax (For Daily Use) -) 17 gm PO DAILY PRN PRN Reason: CONSTIPATION Potassium Chloride (K-Dur -) 40 meq PO DAILY [facility] Last Admin: 07/08/19 09:13 Dose: 40 meq Documented by: Sodium Chloride ([place] Nasal [place] -) 2 spray NS TID PRN PRN Reason: NASAL CONGESTION Last Admin: 07/05/19 13:10 Dose: 2 spray Documented by: - Objective Vital Signs: Vital Signs Temperature 98.6 F 07/08/19 14:26 Pulse Rate 115 H 07/08/19 14:26 Respiratory Rate 20 07/08/19 14:26 Blood Pressure 147/95 07/08/19 14:26 O2 Sat by Pulse Oximetry (%) 95 07/08/19 09:00 Constitutional: Yes: Obese Eyes: Yes: WNL HENT: Yes: WNL Neck: Yes: WNL Cardiovascular: Yes: S1, S2 Labs: CBC, BMP 07/08/19 07:50 07/08/19 07:50 INR, PTT INR 1.07 (0.83-1.09) 07/01/19 22:15 Fibrinogen > 500.0 mg/dL (238-498) H 07/04/19 05:50 Problem List - Problems (1) Hypokalemia Assessment/Plan: replete again (on 40 meq PO dailyh; will give an additional 40 meq), and: Keep K 4.0-4.5 (may improve with starting lisinopirl for HTN and DM). Keep Mg 2.0-2.4 (check serial level) Keep PO4 2.5-4.9 Code(s): E87.6 - HYPOKALEMIA (2) Endocarditis Assessment/Plan: 07/06/2019 blood cultures negative x 48 hours. ECHO was repeated, and was reported as being an essentially normal study. S/p iliacus abscess IR drainage; another 5 ml drained. On antibiotic change per ID. Code(s): I38 - ENDOCARDITIS, VALVE UNSPECIFIED (3) Blood bacterial culture positive Assessment/Plan: MRSA; most recent blood cultures ()07/06/19) negative x 48 hours. On antibiotics per ID. Repeat ECHO: essentially normal study. Afebrile since 07/02/19. Code(s): R78.81 - BACTEREMIA (4) Abscess Assessment/Plan: s/p IR purulent drainage of left iliacus abscess; still draining. For repeat CT Code(s): L02.91 - CUTANEOUS ABSCESS, UNSPECIFIED (5) Rheumatoid arthritis Code(s): M06.9 - RHEUMATOID ARTHRITIS, UNSPECIFIED (6) Lupus Code(s): M32.9 - SYSTEMIC LUPUS ERYTHEMATOSUS, UNSPECIFIED (7) Osteoarthritis Code(s): M19.90 - UNSPECIFIED OSTEOARTHRITIS, UNSPECIFIED SITE (8) HTN (hypertension) Assessment/Plan: start lisinopril (HTN; DM; episodes of hypokalemia). F/U BP serially; BUN/Cr, electrolytes. Code(s): I10 - ESSENTIAL (PRIMARY) HYPERTENSION (9) Migraine Code(s): G43.909 - MIGRAINE, UNSP, NOT INTRACTABLE, WITHOUT STATUS MIGRAINOSUS (10) Obesity, Class III, BMI 40-49.9 (morbid obesity) Code(s): E66.01 - MORBID (SEVERE) OBESITY DUE TO EXCESS CALORIES (11) Seizure Code(s): R56.9 - UNSPECIFIED CONVULSIONS (12) Sleep apnea Code(s): G47.30 - SLEEP APNEA, UNSPECIFIED (13) Sinus tachycardia Code(s): R00.0 - TACHYCARDIA, UNSPECIFIED (14) Diabetes Code(s): E11.9 - TYPE 2 DIABETES MELLITUS WITHOUT COMPLICATIONS (15) Hx MRSA infection Code(s): Z86.14 - PERSONAL HISTORY OF METHICILLIN RESIS STAPH INFECTION (16) Pulmonary cavitary lesion Code(s): J98.4 - OTHER DISORDERS OF LUNG (17) Leukocytosis Code(s): D72.829 - ELEVATED WHITE BLOOD CELL COUNT, UNSPECIFIED (18) Cervical cancer Code(s): C53.9 - MALIGNANT NEOPLASM OF CERVIX UTERI, UNSPECIFIED
[2019-07-08] MEDS ORDERED: POTASSIUM CHLORIDE TABS 20 MEQ TABLET.ER (FP) PO ONE (14:43)
[2019-07-08] MEDS: LACTATED RINGERS SOLUTION 1,000 ML/1,000 ML INFUS.BAG IV SCH (15:10)
[2019-07-08] MEDS: PANTOPRAZOLE 40 MG TABLET PO SCH (16:51)
[2019-07-08 17:01] LABS: PHOSPHOROUS 4.7 mg/dL (2.5-4.9)
[2019-07-09] MEDS: ACETAMINOPHEN 500 MG TABLET (FP) PO PRN (00:13)
[2019-07-09] MEDS: HYDROmorphone HCL 2 MG TABLET PO PRN ×4 (02:30→20:23)
[2019-07-09] MEDS: INSULIN SLIDING SCALE (NOVOLOG) 1 VIAL SQ SCH ×2 (07:05→17:51)
[2019-07-09] MEDS: HEPARIN NA (PORCINE) 5,000 UNITS/ML 1ML VIAL SQ SCH ×3 (07:05→21:51)
[2019-07-09] MEDS: INSULIN (LEVEMIR) 100 UNITS/ML UNITS SQ SCH ×2 (07:05→21:51)
[2019-07-09] MEDS: levETIRAcetam 500 MG TABLET (FP) PO SCH ×3 (07:05→21:51)
[2019-07-09 07:13] LABS: BASO % 0.3 % (0-2.0); EOS % 1.1 % (0-4.5); HEMATOCRIT 35.2 % (32.4-45.2); HEMOGLOBIN 11.8 GM/dL (10.7-15.3); LYMPH % 17.5 % (8-40); MCHC 33.5 g/dl (32.0-36.0); MEAN CELL VOLUME 86.6 fl (80-96); MEAN PLT VOLUME 8.1 fl (7.5-11.1); MONO % 7.5 % (3.8-10.2); NEUT % 73.6 % (42.8-82.8); PLATELET COUNT 368 K/MM3 (134-434); RBC 4.06 M/mm3 (3.60-5.2); WHITE BLOOD COUNT 13.5 K/mm3 (4.0-10.0)
[2019-07-09 07:39] LABS: ALBUMIN 2.1 g/dl (3.4-5.0); BILIRUBIN,TOTAL 0.7 mg/dL (0.2-1); BLOOD UREA NITROGEN 5.7 mg/dL (7-18); CALCIUM 8.5 mg/dL (8.5-10.1); CREATININE 0.7 mg/dL (0.55-1.3); POTASSIUM 4.1 mmol/L (3.5-5.1); TOT PROT 6.5 g/dl (6.4-8.2)
[2019-07-09 09:03] LABS: ANISOCYTOSIS 0; MACROCYTOSIS 0; PLATELET ESTIMATE NORMAL
--- NOTE | 2019-07-09 10:44 | PN ---
Physical Exam: SUBJECTIVE: Patient seen and examined. GI upset she notes started after contrast taken for CT yesterday. Nose has "scabs" from NC. Wants to go home, wants Tele off. Pain left lower quadrant persists OBJECTIVE: Vital Signs Period Temp Pulse Resp BP Sys/Turner Pulse Ox Last 24 Hr 98.0 F-98.9 F 92-115 18-20 134-158/66-98 92 GENERAL: The patient is awake, alert, in no acute distress. HEAD: Normal with no signs of trauma. EYES: Extraocular movements intact. No ptosis. ENT: Ears normal NECK: Supple. LUNGS: Breath sounds equal, clear to auscultation bilaterally HEART: Regular rate and rhythm, S1, S2 ABDOMEN: Soft, nontender, nondistended, normoactive bowel sounds, no guarding EXTREMITIES: warm, well-perfused, no edema. NEUROLOGICAL: Cranial nerves II through XII grossly intact. Normal speech, gait not observed. PSYCH: Normal mood, normal affect. SKIN: Warm, dry, normal turgor, no rashes or lesions noted Laboratory Results - last 24 hr 07/08/19 07/08/19 07/08/19 07:50 07:50 11:50 WBC RBC Hgb Hct MCV MCH MCHC RDW Plt Count MPV Absolute Neuts (auto) Neutrophils % Neutrophils % (Manual) 63.0 Band Neutrophils % 7.0 Lymphocytes % Lymphocytes % (Manual) 15.0 Monocytes % Monocytes % (Manual) 9 Eosinophils % Eosinophils % (Manual) 4.0 D Basophils % Basophils % (Manual) 0.0 Myelocytes % (Man) 0 D Promyelocytes % (Man) 0 Blast Cells % (Manual) 0 Nucleated RBC % 0 Metamyelocytes 2 D Hypochromia 0 Platelet Estimate Normal Polychromasia 0 Poikilocytosis 0 Anisocytosis 0 Microcytosis 0 Macrocytosis 0 Sodium 137 Potassium 3.3 L Chloride 96 L Carbon Dioxide 30 Anion Gap 10 BUN 5.5 L Creatinine 0.6 Est GFR (CKD-EPI)AfAm 135.91 Est GFR (CKD-EPI)NonAf 117.26 POC Glucometer 271 Random Glucose 294 H Calcium 9.3 Phosphorus 4.7 Magnesium 2.0 Total Bilirubin AST ALT Alkaline Phosphatase C-Reactive Protein 9.9 H Total Protein Albumin 07/09/19 07/09/19 06:40 06:40 WBC 13.5 H RBC 4.06 Hgb 11.8 Hct 35.2 MCV 86.6 MCH 29.0 MCHC 33.5 RDW 14.0 Plt Count 368 MPV 8.1 Absolute Neuts (auto) 9.9 H Neutrophils % 73.6 Neutrophils % (Manual) 68.0 Band Neutrophils % 3.0 Lymphocytes % 17.5 Lymphocytes % (Manual) 17.0 Monocytes % 7.5 Monocytes % (Manual) 5 Eosinophils % 1.1 Eosinophils % (Manual) 1.0 Basophils % 0.3 Basophils % (Manual) 1.0 D Myelocytes % (Man) 1 D Promyelocytes % (Man) 0 Blast Cells % (Manual) 0 Nucleated RBC % 0 Metamyelocytes 3 H D Hypochromia 0 Platelet Estimate Normal Polychromasia 0 Poikilocytosis 0 Anisocytosis 0 Microcytosis 0 Macrocytosis 0 Sodium 133 L Potassium 4.1 Chloride 98 Carbon Dioxide 28 Anion Gap 7 L BUN 5.7 L Creatinine 0.7 Est GFR (CKD-EPI)AfAm 129.19 Est GFR (CKD-EPI)NonAf 111.47 POC Glucometer Random Glucose 352 H Calcium 8.5 Phosphorus Magnesium Total Bilirubin 0.7 AST 242 H ALT 120 H Alkaline Phosphatase 354 H C-Reactive Protein Total Protein 6.5 Albumin 2.1 L Active Medications Generic Name Dose Route Start Last Admin Trade Name Freq PRN Reason Stop Dose Admin Acetaminophen 1,000 mg 07/05/19 10:18 07/09/19 00:13 Tylenol - PO 1,000 mg Q6H PRN Administration MODERATE PAIN Albuterol Sulfate 2 puff 07/07/19 10:46 Ventolin Hfa Inhaler - IH Q4H PRN SHORT OF BREATH/WHEEZING Albuterol/Ipratropium 1 puff 07/07/19 11:47 07/08/19 22:43 Combivent Respimat 20-100 Mcg IH 1 puff QID [facility] Administration Budesonide/Formoterol Fumarate 2 puff 07/08/19 10:00 07/08/19 22:43 Symbicort 160/4.5mcg - IH 2 puff BID [facility]Z Administration Docusate Sodium 100 mg 07/08/19 10:00 07/08/19 09:13 Colace - PO 100 mg DAILY [facility] Administration Guaifenesin 10 ml 07/03/19 08:16 07/08/19 03:59 Robitussin - PO 10 ml Q6H PRN Administration COUGH Heparin Sodium (Porcine) 5,000 unit 07/08/19 06:00 07/09/19 07:05 Heparin - SQ 5,000 unit TID [facility]Z Administration Hydromorphone HCl 2 mg 07/07/19 23:34 07/09/19 07:04 Dilaudid - PO 2 mg Q4H PRN Administration PAIN LEVEL 4 - 6 Telavancin 1,000 mg/ Dextrose 316.6667 mls @ 316.667 mls/hr 07/07/19 15:00 07/08/19 14:16 IVPB 316.667 mls/hr DAILY@1500 [facility] Administration Lactated Ringer's 1,000 ml in 1,000 mls @ 100 mls/hr 07/08/19 14:29 07/08/19 15:10 Lactated Ringers Solution IV 100 mls/hr ASDIR [facility] Administration Insulin Aspart 1 vial 07/08/19 16:30 07/09/19 07:05 Novolog Vial Sliding Scale - SQ 4 units BIDAC [facility]Z Administration Protocol Insulin Detemir 15 units 07/08/19 22:00 07/09/19 07:05 Levemir Vial SQ 15 units BID@0700,2200 [facility] Administration Levetiracetam 1,000 mg 07/07/19 23:45 07/09/19 07:05 Keppra - PO 1,000 mg TID [facility]Z Administration Lidocaine 1 patch 07/06/19 11:00 07/08/19 09:13 Lidoderm Patch - TP 1 patch DAILY [facility] Administration Miscellaneous 1 each 07/06/19 22:00 07/08/19 22:43 Lidoderm Patch Removal MC Not Given DAILY@2200 [facility]Z Pantoprazole Sodium 40 mg 07/08/19 16:30 07/08/19 16:51 Protonix - PO 40 mg DAILY [facility]Z Administration Polyethylene Glycol 17 gm 07/08/19 14:29 07/08/19 15:00 Miralax (For Daily Use) - PO 17 gm DAILY PRN Administration CONSTIPATION Potassium Chloride 40 meq 07/07/19 10:00 07/08/19 09:13 K-Dur - PO 40 meq DAILY [facility] Administration Sodium Chloride 2 spray 07/05/19 10:19 07/05/19 13:10 [place] Nasal [place] - NS 2 spray TID PRN Administration NASAL CONGESTION ASSESSMENT/PLAN: 38 yo woman with a PMH of Lupus, h/o MRSA bacteremia, 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 Pt was on antibiotics prior to admission. Hospital course: ED: Tx with Vanc/meropenem 06/30: CT A/P: left iliopsoas enlarged, diverticulosis, hepatomegaly, b/l pulmonary nodules concerning for malignancy 07/01: Dr. Oreilly: prob left IP inflamation, rec: antibiotics 07/01: Chest CT: infiltrates, atelectasis, nodules, broad differential, cavitary lesions 07/01: ID, Dr. Marlow: sever pain left hip, supect MRSA endocarditis, rec: Cardiolgoy, Vanc, merop 07/01: Cardiology: Echo: supboptimal, nl LVEF, unable to eval for vegetations. BC positive for cocci in clusters. MRI Pelvis suspicious for abscess 07/01: Blood culture: positive for staph aureus 07/01: COVID negative 07/01: Quantiferon: indeterminate 07/02: IR drainage 07/02: Abscess micro: positive for staph aureus 07/02: Dr. Villareal: suspect MRSA endocarditis 07/03: Abdominal ultrasound: cholelithiasis not acute 07/04: repeat Echo: essentially nl 07/06: Chest xray: interval worsening bilateral infiltrates 07/07: ID: rec: repeat blood cultures, reimage per surg recommendations last week 07/07: Cardiology: replete K, follow lytes, echo essentially nl 07/07: CT Abd/pelvis: decreased collection 07/08: Blood cultures repeated Imp 1. MRSA endocarditis, 07/05 blood cultures negative, new set sent on 07/07 2. Left iliopsoas drainage, cultures reveal staph aureus, collection reduced in size on yesterday's scan 3. multiple medical problems 4. hypokalemia, supplemented, today normal Plan 1. ID, Cardiology, Pulmonary following 2. follow glucose, increased Levimir to 15 u bid on 07/07 3. daily CBC, CMP 4. discussed FRANCO drain with Dr. Oreilly, plan to keep drain in until FridayJuly 11 Problem List - Problems (1) Blood bacterial culture positive Problems reviewed: Yes Code(s): R78.81 - BACTEREMIA (2) Hx MRSA infection Problems reviewed: Yes Code(s): Z86.14 - PERSONAL HISTORY OF METHICILLIN RESIS STAPH INFECTION (3) Iliopsoas abscess Problems reviewed: Yes Code(s): K68.12 - PSOAS MUSCLE ABSCESS (4) Pulmonary cavitary lesion Problems reviewed: Yes Code(s): J98.4 - OTHER DISORDERS OF LUNG (5) Chronic use of opiate drugs therapeutic purposes Problems reviewed: Yes Code(s): Z79.899 - OTHER HALFWAY (CURRENT) DRUG THERAPY (6) Diabetes Problems reviewed: Yes Code(s): E11.9 - TYPE 2 DIABETES MELLITUS WITHOUT COMPLICATIONS Visit type - Emergency Visit Emergency Visit: No - New Patient This patient is new to me today: No - Critical Care Critical Care patient: No
[2019-07-09] MEDS: BUDESONIDE/FORMETEROL FUMARATE 160/4.5 mcg INHALER IH SCH ×2 (10:55→21:53)
[2019-07-09] MEDS: IPRATROPIUM/ALBUTEROL (COMBIVENT) RESPIMAT 20-100 MCG IH SCH ×4 (10:55→21:51)
[2019-07-09] MEDS: LIDOCAINE 5% TOPICAL PATCH TP SCH (10:58)
[2019-07-09] MEDS: PANTOPRAZOLE 40 MG TABLET PO SCH (10:58)
[2019-07-09] MEDS: POTASSIUM CHLORIDE TABS 20 MEQ TABLET.ER (FP) PO SCH (10:58)
[2019-07-09] MEDS: DOCUSATE SODIUM 100 MG CAPSULE (FP) PO SCH (10:58)
--- NOTE | 2019-07-09 11:44 | PN ---
Progress Note (short form) - Note Progress Note: overall improved, still with left hip/LLQ discomfort eating afebrile continues to have hip pain constipation resolved Vital Signs Period Temp Pulse Resp BP Sys/Turner Pulse Ox Last 24 Hr 98.0 F-98.9 F 92-115 18-20 134-158/66-98 92 cor-rrr lungs decreased bs at bases abd soft,nt +pus in FRANCO drain ext no edema Microbiology 07/06/19 07:19 Blood - Peripheral Venous Blood Culture - Preliminary Presumptive Mrsa (Pbp2a Pos) 07/06/19 07:19 Blood - Peripheral Venous Blood Culture - Preliminary NO GROWTH OBTAINED AFTER 72 HOURS, INCUBATION TO CONTINUE FOR 2 DAYS. 07/04/19 06:10 Blood - Peripheral Venous Blood Culture - Final Staphylococcus Latex Coag Pos 07/04/19 05:50 Blood - Peripheral Venous Blood Culture - Final Mr S Aureus 07/03/19 17:30 Abscess Gram Stain - Final 07/03/19 17:30 Abscess Body Fluid Culture - Final Mr S Aureus 07/03/19 17:30 Abscess Anaerobic Culture - Final NO ANAEROBES WERE ISOLATED 07/03/19 11:10 Blood - Peripheral Venous Blood Culture - Final Mr S Aureus 07/03/19 11:10 Blood - Peripheral Venous Blood Culture - Final Mr S Aureus 07/02/19 00:55 Blood - Peripheral Venous Blood Culture - Final Mr S Aureus 07/02/19 01:02 Blood - Peripheral Venous Blood Culture - Final Mr S Aureus ct scan noted COVID pcr negative a/p suspected MRSA endocarditis MRSA bacteremia persistent abscesses left iliacus muscle-s/p IR drainage pen allergy obese poorly controlled DM lupus by history seizure disorder repeat blood culture pending need repeat imaging for f/u of abscess telavancin day #3 continue IVF while on televancin monitor renal function daily she reports anaphylaxis to penicillin and sulfa allergy options limited for MRSA treatment for both blood and lung infections as well as abscess review imaging repeat blood cultures sent abnl lfts- would ask GI to see covid negative
[2019-07-09] MEDS: LISINOPRIL 5 MG TABLET (FP) PO SCH (14:33)
--- NOTE | 2019-07-09 15:39 | PN ---
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 yesterday developed fever, tmax 101; went to [facility] yesterday, where she said xrays were done and no further imaging or workup was pursued c/o severe left hip pain - Current Medication List Current Medications: Active Medications Acetaminophen (Tylenol -) 1,000 mg PO Q6H PRN PRN Reason: MODERATE PAIN Last Admin: 07/09/19 00:13 Dose: 1,000 mg Documented by: Albuterol Sulfate (Ventolin Hfa Inhaler -) 2 puff IH Q4H PRN PRN Reason: SHORT OF BREATH/WHEEZING Albuterol/Ipratropium (Combivent Respimat 20-100 Mcg) 1 puff IH QID [facility] Last Admin: 07/09/19 14:33 Dose: 1 puff Documented by: Budesonide/Formoterol Fumarate (Symbicort 160/4.5mcg -) 2 puff IH BID [facility] Last Admin: 07/09/19 10:55 Dose: 2 puff Documented by: Docusate Sodium (Colace -) 100 mg PO DAILY [facility] Last Admin: 07/09/19 10:58 Dose: 100 mg Documented by: Guaifenesin (Robitussin -) 10 ml PO Q6H PRN PRN Reason: COUGH Last Admin: 07/08/19 03:59 Dose: 10 ml Documented by: Heparin Sodium (Porcine) (Heparin -) 5,000 unit SQ TID [facility] Last Admin: 07/09/19 14:33 Dose: 5,000 unit Documented by: Hydromorphone HCl (Dilaudid -) 2 mg PO Q4H PRN PRN Reason: PAIN LEVEL 4 - 6 Last Admin: 07/09/19 07:04 Dose: 2 mg Documented by: Telavancin 1,000 mg/ Dextrose 316.6667 mls @ 316.667 mls/hr IVPB DAILY@1500 [facility] Last Admin: 07/08/19 14:16 Dose: 316.667 mls/hr Documented by: Lactated Ringer's (Lactated Ringers Solution) 1,000 ml in 1,000 mls @ 100 mls/hr IV ASDIR [facility] Last Admin: 07/08/19 15:10 Dose: 100 mls/hr Documented by: Insulin Aspart (Novolog Vial Sliding Scale -) 1 vial SQ BIDAC [facility]; Protocol Last Admin: 07/09/19 07:05 Dose: 4 units Documented by: Insulin Detemir (Levemir Vial) 15 units SQ BID@0700,2200 [facility] Last Admin: 07/09/19 07:05 Dose: 15 units Documented by: Levetiracetam (Keppra -) 1,000 mg PO TID [facility] Last Admin: 07/09/19 14:33 Dose: 1,000 mg Documented by: Lidocaine (Lidoderm Patch -) 1 patch TP DAILY [facility] Last Admin: 07/09/19 10:58 Dose: 1 patch Documented by: Lisinopril (Prinivil) 5 mg PO DAILY [facility] Last Admin: 07/09/19 14:33 Dose: 5 mg Documented by: Miscellaneous (Lidoderm Patch Removal) 1 each MC DAILY@2200 [facility] Last Admin: 07/08/19 22:43 Dose: Not Given Documented by: Pantoprazole Sodium (Protonix -) 40 mg PO DAILY [facility] Last Admin: 07/09/19 10:58 Dose: 40 mg Documented by: Polyethylene Glycol (Miralax (For Daily Use) -) 17 gm PO DAILY PRN PRN Reason: CONSTIPATION Last Admin: 07/08/19 15:00 Dose: 17 gm Documented by: Potassium Chloride (K-Dur -) 40 meq PO DAILY [facility] Last Admin: 07/09/19 10:58 Dose: 40 meq Documented by: Sodium Chloride ([place] Nasal [place] -) 2 spray NS TID PRN PRN Reason: NASAL CONGESTION Last Admin: 07/05/19 13:10 Dose: 2 spray Documented by: - Objective Vital Signs: Vital Signs Temperature 98.3 F 07/09/19 14:46 Pulse Rate 94 H 07/09/19 14:46 Respiratory Rate 18 07/09/19 14:46 Blood Pressure 127/76 07/09/19 14:46 O2 Sat by Pulse Oximetry (%) 95 07/09/19 09:00 Eyes: Yes: WNL, Conjunctiva Clear, EOM Intact HENT: Yes: WNL, Atraumatic, Normocephalic Neck: Yes: WNL, Supple, Trachea Midline Cardiovascular: Yes: WNL, Regular Rate and Rhythm Respiratory: Yes: WNL, Regular, CTA Bilaterally Gastrointestinal: Yes: WNL, Normal Bowel Sounds Genitourinary: Yes: WNL Musculoskeletal: Yes: WNL Extremities: Yes: WNL Edema: No Integumentary: Yes: WNL Neurological: Yes: WNL, Alert, Oriented ...Motor Strength: WNL Psychiatric: Yes: WNL Labs: CBC, BMP 07/09/19 06:40 07/09/19 06:40 INR, PTT INR 1.07 (0.83-1.09) 07/01/19 22:15 Fibrinogen > 500.0 mg/dL (238-498) H 07/04/19 05:50 Assessment/Plan Problem List - Problems (1) Hypokalemia Assessment/Plan: replete again, and: Keep K 4.0-4.5 Keep Mg 2.0-2.4 Keep PO4 2.5-4.9 Code(s): E87.6 - HYPOKALEMIA (2) Endocarditis Assessment/Plan: With pt having less pain in hip and better able to move, ECHO was repeated, and was reported as being an essentially normal study. S/p iliacus abscess IR drainage. Pt remains baterecmic (MRSA). Afebrile since 07/02/19 at 15:17. CT chest: severe atelectasis; numerous pulmonary nodules, some appearing ca vitary: eitiologies broad (r/o infectious; sarcoid; RA; malignancy) Febrile. On vancomycin and doxycycline per ID (await new agent: telavancin) Blood cultures sent today. Maintain hydration; f/u Is and Os, BUN/Cr, electrolytes. Pain management. Clinically improved, but remains bacteremic; may require GENEVA. Code(s): I38 - ENDOCARDITIS, VALVE UNSPECIFIED (3) Blood bacterial culture positive Assessment/Plan: Bacteremic (MRSA). On antibiotics per ID. Repeat ECHO: essentially normal study. Afebrile since 07/02/19. Code(s): R78.81 - BACTEREMIA (4) Abscess Assessment/Plan: s/p IR purulent drainage of left iliacus abscess. Code(s): L02.91 - CUTANEOUS ABSCESS, UNSPECIFIED (5) Rheumatoid arthritis Code(s): M06.9 - RHEUMATOID ARTHRITIS, UNSPECIFIED (6) Lupus Code(s): M32.9 - SYSTEMIC LUPUS ERYTHEMATOSUS, UNSPECIFIED (7) Osteoarthritis Code(s): M19.90 - UNSPECIFIED OSTEOARTHRITIS, UNSPECIFIED SITE (8) HTN (hypertension) Code(s): I10 - ESSENTIAL (PRIMARY) HYPERTENSION (9) Migraine Code(s): G43.909 - MIGRAINE, UNSP, NOT INTRACTABLE, WITHOUT STATUS MIGRAINOSUS (10) Obesity, Class III, BMI 40-49.9 (morbid obesity) Code(s): E66.01 - MORBID (SEVERE) OBESITY DUE TO EXCESS CALORIES (11) Seizure Code(s): R56.9 - UNSPECIFIED CONVULSIONS (12) Sleep apnea Code(s): G47.30 - SLEEP APNEA, UNSPECIFIED (13) Sinus tachycardia Code(s): R00.0 - TACHYCARDIA, UNSPECIFIED (14) Diabetes Code(s): E11.9 - TYPE 2 DIABETES MELLITUS WITHOUT COMPLICATIONS (15) Hx MRSA infection Assessment/Plan: Hx MRSA colonization; on chronic antibiotics. BLood cultures now: cocci in clusters. CT chest: severe atelectasis; cavitary lesions. MRI pelvis: collections suspicious for abscess. On antibiotics; f/u culture identification. Code(s): Z86.14 - PERSONAL HISTORY OF METHICILLIN RESIS STAPH INFECTION (16) Pulmonary cavitary lesion Assessment/Plan: CT chest: severe atelectasis; multiple nodules, cavitations On antibiotics. F/u with ID, sales and marketing specialist. Code(s): J98.4 - OTHER DISORDERS OF LUNG (17) Leukocytosis Code(s): D72.829 - ELEVATED WHITE BLOOD CELL COUNT, UNSPECIFIED (18) Cervical cancer Assessment/Plan: hx chemotherapy. CT chest: multiple nodules, some cavitary. Code(s): C53.9 - MALIGNANT NEOPLASM OF CERVIX UTERI, UNSPECIFIED
[2019-07-09] MEDS: LACTATED RINGERS SOLUTION 1,000 ML/1,000 ML INFUS.BAG IV SCH (16:10)
[2019-07-09] MEDS: TELAVANCIN HCL IVPB SCH (16:11)
[2019-07-09] MEDS: DEXTROSE 5% IVPB SCH (16:11)
[2019-07-09] MEDS: WATER IVPB SCH (16:11)
[2019-07-09] MEDS ORDERED: PT OWN MED DRAWER 7, Y5N ONE (21:33)
[2019-07-09] MEDS: LIDOCAINE PATCH REMOVAL MC SCH (21:52)
[2019-07-10] MEDS: HYDROmorphone HCL 2 MG TABLET PO PRN ×4 (00:54→20:56)
[2019-07-10] MEDS: levETIRAcetam 500 MG TABLET (FP) PO SCH ×3 (05:35→21:13)
[2019-07-10] MEDS: HEPARIN NA (PORCINE) 5,000 UNITS/ML 1ML VIAL SQ SCH ×3 (05:35→21:13)
[2019-07-10] MEDS: INSULIN (LEVEMIR) 100 UNITS/ML UNITS SQ SCH ×2 (06:43→22:30)
[2019-07-10] MEDS: INSULIN SLIDING SCALE (NOVOLOG) 1 VIAL SQ SCH ×2 (06:44→16:30)
--- NOTE | 2019-07-10 07:43 | PN ---
Progress Note, Physician Chief Complaint: Seen and examined in bed. C/o of pain to left flank/ LLQ. Feels very weak and not able to ambulate to bathroom History of Present Illness: 38 y/o female with PMH Lupus, h/o MRSA bacteremia, recurrent MRSA skin abscesses on intermittent doxycycline-clindamycin regimens, cervical CA(s/p chemotherapy 10ys prior), endometriosis, IDDM(Lantus 48U), seizure disorder, chronic migra tamika, herniated L-spine disc, chronic lower back pain(dilaudid 8mg TID), OA, RA, anxiety presented to [facility] at the behest of her sister for complaint of >7d of severe intermittent LLQ pain. ED evaluation found a Left-sided psoas abscess. - Current Medication List Current Medications: Active Medications Acetaminophen (Tylenol -) 1,000 mg PO Q6H PRN PRN Reason: MODERATE PAIN Last Admin: 07/09/19 00:13 Dose: 1,000 mg Documented by: Albuterol Sulfate (Ventolin Hfa Inhaler -) 2 puff IH Q4H PRN PRN Reason: SHORT OF BREATH/WHEEZING Albuterol/Ipratropium (Combivent Respimat 20-100 Mcg) 1 puff IH QID [facility] Last Admin: 07/09/19 21:51 Dose: 1 puff Documented by: Budesonide/Formoterol Fumarate (Symbicort 160/4.5mcg -) 2 puff IH BID [facility] Last Admin: 07/09/19 21:53 Dose: 2 puff Documented by: Docusate Sodium (Colace -) 100 mg PO DAILY [facility] Last Admin: 07/09/19 10:58 Dose: 100 mg Documented by: Guaifenesin (Robitussin -) 10 ml PO Q6H PRN PRN Reason: COUGH Last Admin: 07/08/19 03:59 Dose: 10 ml Documented by: Heparin Sodium (Porcine) (Heparin -) 5,000 unit SQ TID [facility] Last Admin: 07/10/19 05:35 Dose: 5,000 unit Documented by: Hydromorphone HCl (Dilaudid -) 2 mg PO Q4H PRN PRN Reason: PAIN LEVEL 4 - 6 Last Admin: 07/10/19 05:16 Dose: 2 mg Documented by: Telavancin 1,000 mg/ Dextrose 316.6667 mls @ 316.667 mls/hr IVPB DAILY@1500 [facility] Last Admin: 07/09/19 16:11 Dose: 316.667 mls/hr Documented by: Lactated Ringer's (Lactated Ringers Solution) 1,000 ml in 1,000 mls @ 100 mls/hr IV ASDIR [facility] Last Admin: 07/09/19 16:10 Dose: 100 mls/hr Documented by: Insulin Aspart (Novolog Vial Sliding Scale -) 1 vial SQ BIDAC [facility]; Protocol Last Admin: 07/10/19 06:44 Dose: 6 units Documented by: Insulin Detemir (Levemir Vial) 15 units SQ BID@0700,2200 [facility] Last Admin: 07/10/19 06:43 Dose: 15 units Documented by: Levetiracetam (Keppra -) 1,000 mg PO TID [facility] Last Admin: 07/10/19 05:35 Dose: 1,000 mg Documented by: Lidocaine (Lidoderm Patch -) 1 patch TP DAILY [facility] Last Admin: 07/09/19 10:58 Dose: 1 patch Documented by: Lisinopril (Prinivil) 5 mg PO DAILY [facility] Last Admin: 07/09/19 14:33 Dose: 5 mg Documented by: Miscellaneous (Lidoderm Patch Removal) 1 each MC DAILY@2200 [facility] Last Admin: 07/09/19 21:52 Dose: 1 each Documented by: Pantoprazole Sodium (Protonix -) 40 mg PO DAILY [facility] Last Admin: 07/09/19 10:58 Dose: 40 mg Documented by: Polyethylene Glycol (Miralax (For Daily Use) -) 17 gm PO DAILY PRN PRN Reason: CONSTIPATION Last Admin: 07/08/19 15:00 Dose: 17 gm Documented by: Potassium Chloride (K-Dur -) 40 meq PO DAILY [facility] Last Admin: 07/09/19 10:58 Dose: 40 meq Documented by: Sodium Chloride ([place] Nasal [place] -) 2 spray NS TID PRN PRN Reason: NASAL CONGESTION Last Admin: 07/05/19 13:10 Dose: 2 spray Documented by: - Objective Vital Signs: Vital Signs Temperature 100.1 F H 07/10/19 02:00 Pulse Rate 112 H 07/10/19 02:00 Respiratory Rate 19 07/10/19 02:00 Blood Pressure 167/96 07/10/19 02:00 O2 Sat by Pulse Oximetry (%) 95 07/09/19 20:17 Constitutional: Yes: No Distress, Calm, Obese Eyes: Yes: WNL, Conjunctiva Clear HENT: Yes: WNL, Atraumatic, Normocephalic Neck: Yes: WNL, Supple, Trachea Midline Cardiovascular: Yes: WNL, Regular Rate and Rhythm Respiratory: Yes: WNL, Regular, CTA Bilaterally, On Nasal O2 (2L) Gastrointestinal: Yes: Abdomen, Obese, Tenderness (TTP LLQ/flank) ...Rectal Exam: Yes: Deferred Genitourinary: Yes: Incontinence Breast(s): Yes: WNL Musculoskeletal: Yes: Muscle Weakness Extremities: Yes: WNL Edema: No Peripheral Pulses WNL: Yes Peripheral Pulses: Left Radial: 2+, Right Radial: 2+, Left Doralis Pedis: 2+, Right Dorsalis Pedis: 2+, Left Femoral: 2+, Right Femoral: 2+ Integumentary: Yes: Other (fungal rash to groin BL) ...Motor Strength: LLE, RLE (weakness) Labs: CBC, BMP 07/09/19 06:40 07/09/19 06:40 INR, PTT INR 1.07 (0.83-1.09) 07/01/19 22:15 Fibrinogen > 500.0 mg/dL (238-498) H 07/04/19 05:50 - ....Imaging Cat Scan: Report Reviewed (ABD/Pelvis abcess collection less) Problem List - Problems (1) Migraine Assessment/Plan: no migraines noted since admission Code(s): G43.909 - MIGRAINE, UNSP, NOT INTRACTABLE, WITHOUT STATUS MIGRAINOSUS (2) IDDM (insulin dependent diabetes mellitus) Assessment/Plan: BGM AC/HS with novolog sliding scale BGM remain high will increase levemir to 20u bid c/w diabetic diet c/w levemir Code(s): [id number] - (3) Chronic bilateral low back pain Assessment/Plan: takes dilaudid at home additional pain from iliopsoas abcess dilaudid PO for pain 4-6, IV for 7-10 Code(s): M54.5 - LOW BACK PAIN; G89.29 - OTHER CHRONIC PAIN (4) MRSA bacteremia Assessment/Plan: ilsiopsoas abcess drain placed on 07/02 FRANCO with exudatative drainage on telavancin IV TTE 07/01 supboptimal, nl LVEF, unable to eval for vegetations ;repeated 07/04 and normal may require GENEVA if remains bacteremic repeat BCX sent ID following Code(s): R78.81 - BACTEREMIA; B95.62 - METHICILLIN RESIS STAPH INFCT CAUSING DISEASES CLASSD ELSWHR (5) Fungal infection of the groin Assessment/Plan: nystatin powder to groin prn avoid diapers, frequent toileting Code(s): B35.6 - TINEA CRURIS (6) Prophylactic measure Assessment/Plan: FEN Fluids: adequate PO intake Electrolytes: monitor & replete as needed Nutrition: diabetic diet DVT moderate risk sq heparin Dispo Maintain as inpatient full code discharge planning to home with possible IV abx Code(s): Z29.9 - ENCOUNTER FOR PROPHYLACTIC MEASURES, UNSPECIFIED (7) Iliopsoas abscess Assessment/Plan: FRANCO drain placed in IR on 07/03 continue to drain milky exudative material with persistent pain wii repeat CT on fri to assess size of collection c/w abx monitor temp and wbc curve Code(s): K68.12 - PSOAS MUSCLE ABSCESS (8) Lupus Code(s): M32.9 - SYSTEMIC LUPUS ERYTHEMATOSUS, UNSPECIFIED (9) Obesity, Class III, BMI 40-49.9 (morbid obesity) Assessment/Plan: weight loss counseling Code(s): E66.01 - MORBID (SEVERE) OBESITY DUE TO EXCESS CALORIES (10) Seizure Assessment/Plan: c/w keppra Code(s): R56.9 - UNSPECIFIED CONVULSIONS (11) Weakness Assessment/Plan: generalized weakness d/t immbolity, bacteremia PT request placed Code(s): R53.1 - WEAKNESS Impression/Plan Impression/Plan: Hospital course: ED: Tx with Vanc/meropenem 06/30: CT A/P: left iliopsoas enlarged, diverticulosis, hepatomegaly, b/l pulmonary nodules concerning for malignancy 07/01: Dr. Oreilly: prob left IP inflamation, rec: antibiotics 07/01: Chest CT: infiltrates, atelectasis, nodules, broad differential, cavitary lesions 07/01: ID, Dr. Marlow: sever pain left hip, supect MRSA endocarditis, rec: Cardiolgoy, Vanc, merop 07/01: Cardiology: Echo: supboptimal, nl LVEF, unable to eval for vegetations. BC positive for cocci in clusters. MRI Pelvis suspicious for abscess 07/01: Blood culture: positive for staph aureus 07/01: COVID negative 07/01: Quantiferon: indeterminate 07/02: IR drainage 07/02: Abscess micro: positive for staph aureus 07/02: Dr. Villareal: suspect MRSA endocarditis 07/03: Abdominal ultrasound: cholelithiasis not acute 07/04: repeat Echo: essentially nl 07/06: Chest xray: interval worsening bilateral infiltrates 07/07: ID: rec: repeat blood cultures, reimage per surg recommendations last week 07/07: Cardiology: replete K, follow lytes, echo essentially nl 07/07: CT Abd/pelvis: decreased collection 07/08: Blood cultures repeated 07/09:levemir increased, BCx pedning Visit type - Emergency Visit Emergency Visit: Yes ED Registration Date: 07/02/19 Care time: The patient presented to the Emergency Department on the above date and was hospitalized for further evaluation of their emergent condition. - New Patient This patient is new to me today: Yes Date on this admission: 07/10/19 - Critical Care Critical Care patient: No - Discharge Referral Referred to [facility] No
[2019-07-10 08:24] LABS: BASO % 0.3 % (0-2.0); HEMATOCRIT 36.1 % (32.4-45.2); HEMOGLOBIN 11.9 GM/dL (10.7-15.3); LYMPH % 15.7 % (8-40); MCH 28.4 pg (25.7-33.7); MCHC 32.9 g/dl (32.0-36.0); MEAN CELL VOLUME 86.4 fl (80-96); MEAN PLT VOLUME 8.5 fl (7.5-11.1); PLATELET COUNT 387 K/MM3 (134-434); RBC 4.18 M/mm3 (3.60-5.2); RDW 14.2 % (11.6-15.6)
[2019-07-10 08:52] LABS: ALBUMIN 2.4 g/dl (3.4-5.0); BILIRUBIN,TOTAL 0.3 mg/dL (0.2-1); BLOOD UREA NITROGEN 9.5 mg/dL (7-18); CALCIUM 8.7 mg/dL (8.5-10.1); CREATININE 0.7 mg/dL (0.55-1.3); POTASSIUM 4.3 mmol/L (3.5-5.1)
[2019-07-10] MEDS: IPRATROPIUM/ALBUTEROL (COMBIVENT) RESPIMAT 20-100 MCG IH SCH ×4 (09:29→21:13)
[2019-07-10] MEDS: LIDOCAINE 5% TOPICAL PATCH TP SCH (09:29)
[2019-07-10] MEDS: DOCUSATE SODIUM 100 MG CAPSULE (FP) PO SCH (09:29)
[2019-07-10] MEDS: POTASSIUM CHLORIDE TABS 20 MEQ TABLET.ER (FP) PO SCH (09:29)
[2019-07-10] MEDS: PANTOPRAZOLE 40 MG TABLET PO SCH (09:30)
[2019-07-10] MEDS: BUDESONIDE/FORMETEROL FUMARATE 160/4.5 mcg INHALER IH SCH ×2 (09:30→21:13)
[2019-07-10] MEDS: LISINOPRIL 5 MG TABLET (FP) PO SCH (09:30)
[2019-07-10 10:43] LABS: MAGNESIUM 2.3 mg/dL (1.8-2.4)
[2019-07-10] MEDS ORDERED: ALBUTEROL SO4 2.5/IPRATROPIUM 0.5 INH SOL 3 ML VIAL.NEB. NEB PRN ×2 (11:16→11:21)
[2019-07-10] MEDS ORDERED: HYDROmorphone HCL CARPU-JECT 2 MG/1 ML DISP.SYRIN IVPUSH SCH (12:00)
[2019-07-10] MEDS: NYSTATIN POWDER 100,000 UNITS/GM - 15 GM TOPICAL POWDER TP SCH ×2 (15:00→22:30)
--- NOTE | 2019-07-10 15:12 | PN ---
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 yesterday developed fever, tmax 101; went to [facility] yesterday, where she said xrays were done and no further imaging or workup was pursued c/o severe left hip pain resides in [place]; came up to [place] to care for her sister who has endometriosis no other sick contacts. no travel history. no cough/congestion, vomiting, diarrhea, bloody stools, urinary sx. +current yeast infection, has not picked up her diflucan yet, as she gets frequent yeast infection from chronic use of doxycycline and clindamycin for chronic MRSA infections. no trauma, no recent procedures no h/o kidney stones, no prior sx of similar nature. Has had EKG recently; denies having had ECHO. - Current Medication List Current Medications: Active Medications Acetaminophen (Tylenol -) 1,000 mg PO Q6H PRN PRN Reason: MODERATE PAIN Last Admin: 07/09/19 00:13 Dose: 1,000 mg Documented by: Albuterol/Ipratropium (Combivent Respimat 20-100 Mcg) 1 puff IH QID [facility] Last Admin: 07/10/19 14:00 Dose: 1 puff Documented by: Albuterol/Ipratropium (Duoneb -) 1 amp NEB Q4H PRN PRN Reason: SHORTNESS OF BREATH Budesonide/Formoterol Fumarate (Symbicort 160/4.5mcg -) 2 puff IH BID [facility] Last Admin: 07/10/19 09:30 Dose: 2 puff Documented by: Docusate Sodium (Colace -) 100 mg PO DAILY [facility] Last Admin: 07/10/19 09:29 Dose: 100 mg Documented by: Guaifenesin (Robitussin -) 10 ml PO Q6H PRN PRN Reason: COUGH Last Admin: 07/08/19 03:59 Dose: 10 ml Documented by: Heparin Sodium (Porcine) (Heparin -) 5,000 unit SQ TID [facility] Last Admin: 07/10/19 14:00 Dose: 5,000 unit Documented by: Hydromorphone HCl (Dilaudid -) 2 mg PO Q4H PRN PRN Reason: PAIN LEVEL 4 - 6 Last Admin: 07/10/19 05:16 Dose: 2 mg Documented by: Hydromorphone HCl (Dilaudid Vial -) 0.5 mg IVPUSH Q4H PRN PRN Reason: PAIN LEVEL 7 - 10 Telavancin 1,000 mg/ Dextrose 316.6667 mls @ 316.667 mls/hr IVPB DAILY@1500 [facility] Last Admin: 07/09/19 16:11 Dose: 316.667 mls/hr Documented by: Lactated Ringer's (Lactated Ringers Solution) 1,000 ml in 1,000 mls @ 100 mls/hr IV ASDIR [facility] Last Admin: 07/09/19 16:10 Dose: 100 mls/hr Documented by: Insulin Aspart (Novolog Vial Sliding Scale -) 1 vial SQ BIDAC [facility]; Protocol Last Admin: 07/10/19 06:44 Dose: 6 units Documented by: Insulin Detemir (Levemir Vial) 15 units SQ BID@0700,2200 [facility] Last Admin: 07/10/19 06:43 Dose: 15 units Documented by: Levetiracetam (Keppra -) 1,000 mg PO TID [facility] Last Admin: 07/10/19 14:00 Dose: 1,000 mg Documented by: Lidocaine (Lidoderm Patch -) 1 patch TP DAILY [facility] Last Admin: 07/10/19 09:29 Dose: 1 patch Documented by: Lisinopril (Prinivil) 5 mg PO DAILY [facility] Last Admin: 07/10/19 09:30 Dose: 5 mg Documented by: Miscellaneous (Lidoderm Patch Removal) 1 each MC DAILY@2200 [facility] Last Admin: 07/09/19 21:52 Dose: 1 each Documented by: Nystatin (Nystop Powder -) 1 applic TP TID [facility] Pantoprazole Sodium (Protonix -) 40 mg PO DAILY [facility] Last Admin: 07/10/19 09:30 Dose: 40 mg Documented by: Polyethylene Glycol (Miralax (For Daily Use) -) 17 gm PO DAILY PRN PRN Reason: CONSTIPATION Last Admin: 07/08/19 15:00 Dose: 17 gm Documented by: Potassium Chloride (K-Dur -) 40 meq PO DAILY [facility] Last Admin: 07/10/19 09:29 Dose: 40 meq Documented by: Sodium Chloride ([place] Nasal [place] -) 2 spray NS TID PRN PRN Reason: NASAL CONGESTION Last Admin: 07/05/19 13:10 Dose: 2 spray Documented by: - Objective Vital Signs: Vital Signs Temperature 98.7 F 07/10/19 08:00 Pulse Rate 94 H 07/10/19 08:00 Respiratory Rate 18 07/10/19 08:00 Blood Pressure 126/78 07/10/19 08:00 O2 Sat by Pulse Oximetry (%) 93 L 07/10/19 09:00 Constitutional: Yes: Obese Eyes: Yes: WNL HENT: Yes: WNL Neck: Yes: WNL Respiratory: Yes: Diminished, Tachypnea Gastrointestinal: Yes: Soft ...Rectal Exam: Yes: Deferred Genitourinary: No: Anuria Breast(s): Yes: WNL Musculoskeletal: Yes: Joint Stiffness (left hip), Muscle Weakness Extremities: Yes: Cool Edema: No Peripheral Pulses WNL: Yes Integumentary: Yes: Tattoos Wound/Incision: Yes: Dressing Dry and Intact (drain) Neurological: Yes: Alert, Oriented, Weakness Psychiatric: Yes: WNL Labs: CBC, BMP 07/10/19 07:35 07/10/19 07:35 INR, PTT INR 1.07 (0.83-1.09) 07/01/19 22:15 Fibrinogen > 500.0 mg/dL (238-498) H 07/04/19 05:50 - ....Imaging Chest X-ray: Image Reviewed EKG: Image Reviewed Other: Image Reviewed Problem List - Problems (1) Hypokalemia Assessment/Plan: On 40 meq PO daily; K WNL x past 72 hours Keep K 4.0-4.5 Keep Mg 2.0-2.4 (check serial level) Keep PO4 2.5-4.9 Code(s): E87.6 - HYPOKALEMIA (2) Endocarditis Assessment/Plan: 07/06/2019 blood cultures negative x 96 hours. ECHO was repeated, and was reported as being an essentially normal study. S/p iliacus abscess IR drainage. On antibiotics per ID. Code(s): I38 - ENDOCARDITIS, VALVE UNSPECIFIED (3) Blood bacterial culture positive Assessment/Plan: MRSA; most recent blood cultures ()07/06/19) negative x >96 hours;f/u. On antibiotics per ID. Repeat ECHO: essentially normal study. Afebrile since 07/02/19. Code(s): R78.81 - BACTEREMIA (4) Abscess Assessment/Plan: s/p IR purulent drainage of left iliacus abscess; still draining. For repeat CT Code(s): L02.91 - CUTANEOUS ABSCESS, UNSPECIFIED (5) Rheumatoid arthritis Code(s): M06.9 - RHEUMATOID ARTHRITIS, UNSPECIFIED (6) Lupus Code(s): M32.9 - SYSTEMIC LUPUS ERYTHEMATOSUS, UNSPECIFIED (7) Osteoarthritis Code(s): M19.90 - UNSPECIFIED OSTEOARTHRITIS, UNSPECIFIED SITE (8) HTN (hypertension) Code(s): I10 - ESSENTIAL (PRIMARY) HYPERTENSION (9) Migraine Code(s): G43.909 - MIGRAINE, UNSP, NOT INTRACTABLE, WITHOUT STATUS MIGRAINOSUS (10) Obesity, Class III, BMI 40-49.9 (morbid obesity) Code(s): E66.01 - MORBID (SEVERE) OBESITY DUE TO EXCESS CALORIES (11) Seizure Code(s): R56.9 - UNSPECIFIED CONVULSIONS (12) Sleep apnea Code(s): G47.30 - SLEEP APNEA, UNSPECIFIED (13) Sinus tachycardia Code(s): R00.0 - TACHYCARDIA, UNSPECIFIED (14) Diabetes Code(s): E11.9 - TYPE 2 DIABETES MELLITUS WITHOUT COMPLICATIONS (15) Hx MRSA infection Code(s): Z86.14 - PERSONAL HISTORY OF METHICILLIN RESIS STAPH INFECTION (16) Pulmonary cavitary lesion Code(s): J98.4 - OTHER DISORDERS OF LUNG (17) Leukocytosis Code(s): D72.829 - ELEVATED WHITE BLOOD CELL COUNT, UNSPECIFIED (18) Cervical cancer Code(s): C53.9 - MALIGNANT NEOPLASM OF CERVIX UTERI, UNSPECIFIED
[2019-07-10] MEDS: TELAVANCIN HCL IVPB SCH (16:00)
[2019-07-10] MEDS: DEXTROSE 5% IVPB SCH (16:00)
[2019-07-10] MEDS: WATER IVPB SCH (16:00)
[2019-07-10] MEDS ORDERED: PT OWN MED DRAWER 7, Y5N ONE (16:21)
[2019-07-10] MEDS: LACTATED RINGERS SOLUTION 1,000 ML/1,000 ML INFUS.BAG IV SCH (17:25)
[2019-07-10] MEDS: HYDROmorphone HCl 2 MG/ML VIAL IVPUSH PRN (17:27)
[2019-07-11] MEDS: LIDOCAINE PATCH REMOVAL MC SCH ×2 (00:09→23:42)
[2019-07-11] MEDS: ACETAMINOPHEN 500 MG TABLET (FP) PO PRN (02:22)
[2019-07-11] MEDS: HYDROmorphone HCL 2 MG TABLET PO PRN ×2 (04:39→21:11)
[2019-07-11] MEDS: HEPARIN NA (PORCINE) 5,000 UNITS/ML 1ML VIAL SQ SCH ×3 (05:00→22:00)
[2019-07-11] MEDS: levETIRAcetam 500 MG TABLET (FP) PO SCH ×3 (05:00→22:00)
[2019-07-11] MEDS: NYSTATIN POWDER 100,000 UNITS/GM - 15 GM TOPICAL POWDER TP SCH ×3 (06:48→22:00)
[2019-07-11] MEDS: INSULIN SLIDING SCALE (NOVOLOG) 1 VIAL SQ SCH ×2 (06:48→17:05)
[2019-07-11] MEDS: INSULIN (LEVEMIR) 100 UNITS/ML UNITS SQ SCH ×2 (06:48→22:00)
--- NOTE | 2019-07-11 07:39 | PN ---
Progress Note, Physician Chief Complaint: Seen and examined in bed.Pain to left flank / LLQ persists-states is less lthan yesterday. Remains very week. History of Present Illness: 38 y/o female with PMH Lupus, h/o MRSA bacteremia, recurrent MRSA skin abscesses on intermittent doxycycline-clindamycin regimens, cervical CA(s/p chemotherapy 10ys prior), endometriosis, IDDM(Lantus 48U), seizure disorder, chronic migrai hany, herniated L-spine disc, chronic lower back pain(dilaudid 8mg TID), OA, RA, anxiety presented to [facility] at the behest of her sister for complaint of >7d of severe intermittent LLQ pain. ED evaluation found a Left-sided psoas abscess. - Current Medication List Current Medications: Active Medications Acetaminophen (Tylenol -) 1,000 mg PO Q6H PRN PRN Reason: MODERATE PAIN Last Admin: 07/11/19 02:22 Dose: 1,000 mg Documented by: Albuterol/Ipratropium (Combivent Respimat 20-100 Mcg) 1 puff IH QID [facility] Last Admin: 07/10/19 21:13 Dose: 1 puff Documented by: Albuterol/Ipratropium (Duoneb -) 1 amp NEB Q4H PRN PRN Reason: SHORTNESS OF BREATH Budesonide/Formoterol Fumarate (Symbicort 160/4.5mcg -) 2 puff IH BID [facility] Last Admin: 07/10/19 21:13 Dose: 2 puff Documented by: Docusate Sodium (Colace -) 100 mg PO DAILY [facility] Last Admin: 07/10/19 09:29 Dose: 100 mg Documented by: Guaifenesin (Robitussin -) 10 ml PO Q6H PRN PRN Reason: COUGH Last Admin: 07/08/19 03:59 Dose: 10 ml Documented by: Heparin Sodium (Porcine) (Heparin -) 5,000 unit SQ TID [facility] Last Admin: 07/11/19 05:00 Dose: 5,000 unit Documented by: Hydromorphone HCl (Dilaudid -) 2 mg PO Q4H PRN PRN Reason: PAIN LEVEL 4 - 6 Last Admin: 07/11/19 04:39 Dose: 2 mg Documented by: Hydromorphone HCl (Dilaudid Vial -) 0.5 mg IVPUSH Q4H PRN PRN Reason: PAIN LEVEL 7 - 10 Last Admin: 07/10/19 17:27 Dose: 0.5 mg Documented by: Telavancin 1,000 mg/ Dextrose 316.6667 mls @ 316.667 mls/hr IVPB DAILY@1500 [facility] Last Admin: 07/10/19 16:00 Dose: 316.667 mls/hr Documented by: Lactated Ringer's (Lactated Ringers Solution) 1,000 ml in 1,000 mls @ 100 mls/hr IV ASDIR [facility] Last Admin: 07/10/19 17:25 Dose: 100 mls/hr Documented by: Insulin Aspart (Novolog Vial Sliding Scale -) [facility]ial [facility]; Protocol Last Admin: 07/11/19 06:48 Dose: 6 units Documented by: Insulin Detemir (Levemir Vial) 20 units SQ BID@0700,2200 [facility] Last Admin: 07/11/19 06:48 Dose: 20 units Documented by: Levetiracetam (Keppra -) 1,000 mg PO TID [facility] Last Admin: 07/11/19 05:00 Dose: 1,000 mg Documented by: Lidocaine (Lidoderm Patch -) 1 patch TP DAILY [facility] Last Admin: 07/10/19 09:29 Dose: 1 patch Documented by: Lisinopril (Prinivil) 5 mg PO DAILY [facility] Last Admin: 07/10/19 09:30 Dose: 5 mg Documented by: Miscellaneous (Lidoderm Patch Removal) 1 each MC DAILY@2200 [facility] Last Admin: 07/11/19 00:09 Dose: Not Given Documented by: Nystatin (Nystop Powder -) 1 applic TP TID [facility] Last Admin: 07/11/19 06:48 Dose: Not Given Documented by: Pantoprazole Sodium (Protonix -) 40 mg PO DAILY [facility] Last Admin: 07/10/19 09:30 Dose: 40 mg Documented by: Polyethylene Glycol (Miralax (For Daily Use) -) 17 gm PO DAILY PRN PRN Reason: CONSTIPATION Last Admin: 07/08/19 15:00 Dose: 17 gm Documented by: Potassium Chloride (K-Dur -) 40 meq PO DAILY [facility] Last Admin: 07/10/19 09:29 Dose: 40 meq Documented by: Sodium Chloride ([place] Nasal [place] -) 2 spray NS TID PRN PRN Reason: NASAL CONGESTION Last Admin: 07/05/19 13:10 Dose: 2 spray Documented by: - Objective Vital Signs: Vital Signs Temperature 98.1 F 07/11/19 06:00 Pulse Rate 93 H 07/11/19 06:00 Respiratory Rate 07/11/19 06:00 Blood Pressure 111/64 07/11/19 06:00 O2 Sat by Pulse Oximetry (%) 93 L 07/10/19 21:00 Additional Findings/Remarks: Constitutional: Yes: No Distress, Calm, Obese Eyes: Yes: WNL, Conjunctiva Clear HENT: Yes: WNL, Atraumatic, Normocephalic Neck: Yes: WNL, Supple, Trachea Midline Cardiovascular: Yes: WNL, Regular Rate and Rhythm Respiratory: Yes: WNL, Regular, CTA Bilaterally, On Nasal O2 (2L) Gastrointestinal: Yes: Abdomen, Obese, Tenderness (TTP LLQ/flank) ...Rectal Exam: Yes: Deferred Genitourinary: Yes: Incontinence Breast(s): Yes: WNL Musculoskeletal: Yes: Muscle Weakness Extremities: Yes: WNL Edema: No Peripheral Pulses WNL: Yes Peripheral Pulses: Left Radial: 2+, Right Radial: 2+, Left Doralis Pedis: 2+, Right Dorsalis Pedis: 2+, Left Femoral: 2+, Right Femoral: 2+ Integumentary: Yes: Other (fungal rash to groin BL) ...Motor Strength: LLE, RLE (weakness) Labs: CBC, BMP 07/10/19 07:35 07/10/19 07:35 INR, PTT INR 1.07 (0.83-1.09) 07/01/19 22:15 Fibrinogen > 500.0 mg/dL (238-498) H 07/04/19 05:50 - ....Imaging Cat Scan: Report Reviewed Problem List - Problems (1) Migraine Assessment/Plan: no migraines noted since admission Code(s): G43.909 - MIGRAINE, UNSP, NOT INTRACTABLE, WITHOUT STATUS MIGRAINOSUS (2) IDDM (insulin dependent diabetes mellitus) Assessment/Plan: BGM AC/HS with novolog sliding scale BGM remain high BGM remain high c/w levemir 20u bid-will increase tmrw in reamin high c/w diabetic diet Code(s): [id number] - (3) Chronic bilateral low back pain Assessment/Plan: takes dilaudid at home additional pain from iliopsoas abcess dilaudid PO for pain 4-6, IV for 7-10 Code(s): M54.5 - LOW BACK PAIN; G89.29 - OTHER CHRONIC PAIN (4) MRSA bacteremia Assessment/Plan: ilsiopsoas abcess drain placed on 07/02 FRANCO with exudatative drainage on telavancin IV TTE 07/01 supboptimal, nl LVEF, unable to eval for vegetations ;repeated 07/04 and normal may require GENEVA if remains bacteremic repeat BCX sent ID following Code(s): R78.81 - BACTEREMIA; B95.62 - METHICILLIN RESIS STAPH INFCT CAUSING DISEASES CLASSD ELSWHR (5) Fungal infection of the groin Assessment/Plan: c/w nystatin powder to groin prn avoid diapers, frequent toileting Code(s): B35.6 - TINEA CRURIS (6) Prophylactic measure Assessment/Plan: FEN Fluids: adequate PO intake Electrolytes: monitor & replete as needed Nutrition: diabetic diet DVT moderate risk sq heparin Dispo Maintain as inpatient full code discharge planning to home with possible IV abx Code(s): Z29.9 - ENCOUNTER FOR PROPHYLACTIC MEASURES, UNSPECIFIED (7) Iliopsoas abscess Assessment/Plan: FRANCO drain placed in IR on 07/03 continue to drain milky exudative material with persistent pain will repeat CT on fri to assess size of collection c/w abx monitor temp and wbc curve Code(s): K68.12 - PSOAS MUSCLE ABSCESS (8) Lupus Code(s): M32.9 - SYSTEMIC LUPUS ERYTHEMATOSUS, UNSPECIFIED (9) Obesity, Class III, BMI 40-49.9 (morbid obesity) Assessment/Plan: weight loss counseling Code(s): E66.01 - MORBID (SEVERE) OBESITY DUE TO EXCESS CALORIES (10) Seizure Assessment/Plan: c/w keppra Code(s): R56.9 - UNSPECIFIED CONVULSIONS (11) Weakness Assessment/Plan: generalized weakness d/t immbolity, bacteremia PT request placed Code(s): R53.1 - WEAKNESS Visit type - Emergency Visit Emergency Visit: Yes ED Registration Date: 07/02/19 Care time: The patient presented to the Emergency Department on the above date and was hospitalized for further evaluation of their emergent condition. - New Patient This patient is new to me today: No - Critical Care Critical Care patient: No - Discharge Referral Referred to [facility] Med P.C[facility] No
[2019-07-11] MEDS ORDERED: PT OWN MED DRAWER 7, Y5N ONE ×2 (08:22→14:09)
[2019-07-11] MEDS: DOCUSATE SODIUM 100 MG CAPSULE (FP) PO SCH (09:18)
[2019-07-11] MEDS: BUDESONIDE/FORMETEROL FUMARATE 160/4.5 mcg INHALER IH SCH ×2 (09:19→22:00)
[2019-07-11] MEDS: PANTOPRAZOLE 40 MG TABLET PO SCH (09:19)
[2019-07-11] MEDS: POTASSIUM CHLORIDE TABS 20 MEQ TABLET.ER (FP) PO SCH (09:19)
[2019-07-11] MEDS: LISINOPRIL 5 MG TABLET (FP) PO SCH (09:19)
[2019-07-11] MEDS: IPRATROPIUM/ALBUTEROL (COMBIVENT) RESPIMAT 20-100 MCG IH SCH ×4 (09:19→22:00)
[2019-07-11] MEDS: LIDOCAINE 5% TOPICAL PATCH TP SCH (12:05)
[2019-07-11 12:12] LABS: BASO % 0.6 % (0-2.0); EOS % 0.9 % (0-4.5); HEMATOCRIT 37.1 % (32.4-45.2); HEMOGLOBIN 12.1 GM/dL (10.7-15.3); LYMPH % 21.4 % (8-40); MCH 28.5 pg (25.7-33.7); MCHC 32.6 g/dl (32.0-36.0); MEAN CELL VOLUME 87.5 fl (80-96); MEAN PLT VOLUME 8.6 fl (7.5-11.1); NEUT % 70.1 % (42.8-82.8); PLATELET COUNT 361 K/MM3 (134-434); RBC 4.24 M/mm3 (3.60-5.2); RDW 14.3 % (11.6-15.6); WHITE BLOOD COUNT 13.3 K/mm3 (4.0-10.0)
[2019-07-11] MEDS: HYDROmorphone HCl 2 MG/ML VIAL IVPUSH PRN (12:27)
[2019-07-11 12:55] LABS: ALBUMIN 2.4 g/dl (3.4-5.0); BILIRUBIN,TOTAL 0.8 mg/dL (0.2-1); BLOOD UREA NITROGEN 11.9 mg/dL (7-18); CALCIUM 9.1 mg/dL (8.5-10.1); CREATININE 0.6 mg/dL (0.55-1.3); MAGNESIUM 2.4 mg/dL (1.8-2.4); POTASSIUM 4.7 mmol/L (3.5-5.1); TOT PROT 6.9 g/dl (6.4-8.2)
[2019-07-11] MEDS: LACTATED RINGERS SOLUTION 1,000 ML/1,000 ML INFUS.BAG IV SCH (14:08)
[2019-07-11] MEDS: DEXTROSE 5% IVPB SCH (16:51)
[2019-07-11] MEDS: WATER IVPB SCH (16:51)
[2019-07-11] MEDS: TELAVANCIN HCL IVPB SCH (16:51)
[2019-07-12] MEDS: INSULIN (LEVEMIR) 100 UNITS/ML UNITS SQ SCH ×2 (06:54→21:44)
[2019-07-12] MEDS: HEPARIN NA (PORCINE) 5,000 UNITS/ML 1ML VIAL SQ SCH ×3 (06:54→21:44)
[2019-07-12] MEDS: NYSTATIN POWDER 100,000 UNITS/GM - 15 GM TOPICAL POWDER TP SCH ×3 (06:54→21:45)
[2019-07-12] MEDS: INSULIN SLIDING SCALE (NOVOLOG) 1 VIAL SQ SCH ×2 (06:54→17:13)
[2019-07-12] MEDS: levETIRAcetam 500 MG TABLET (FP) PO SCH ×3 (06:54→21:44)
--- NOTE | 2019-07-12 07:52 | PN ---
Progress Note, Physician Chief Complaint: Seen and examined in bed. Pain persists. Upset that she could not eat bc she has to drink PO contrast for CT. COVID test re-sent -markers sent and elevated. History of Present Illness: 38 y/o female with PMH Lupus, h/o MRSA bacteremia, recurrent MRSA skin abscesses on intermittent doxycycline-clindamycin regimens, cervical CA(s/p chemotherapy 10ys prior), endometriosis, IDDM(Lantus 48U), seizure disorder, chronic migraines, herniated L-spine disc, chronic lower back pain(dilaudid 8mg TID), OA, RA, anxiety presented to [facility] at the behest of her sister for complaint of >7d of severe intermittent LLQ pain. ED evaluation found a Left-sided psoas abscess. - Current Medication List Current Medications: Active Medications Acetaminophen (Tylenol -) 1,000 mg PO Q6H PRN PRN Reason: MODERATE PAIN Last Admin: 07/11/19 02:22 Dose: 1,000 mg Documented by: Albuterol/Ipratropium (Combivent Respimat 20-100 Mcg) 1 puff IH QID [facility] Last Admin: 07/11/19 22:00 Dose: 1 puff Documented by: Albuterol/Ipratropium (Duoneb -) 1 amp NEB Q4H PRN PRN Reason: SHORTNESS OF BREATH Budesonide/Formoterol Fumarate (Symbicort 160/4.5mcg -) 2 puff IH BID [facility] Last Admin: 07/11/19 22:00 Dose: 2 puff Documented by: Docusate Sodium (Colace -) 100 mg PO DAILY [facility] Last Admin: 07/11/19 09:18 Dose: 100 mg Documented by: Guaifenesin (Robitussin -) 10 ml PO Q6H PRN PRN Reason: COUGH Last Admin: 07/08/19 03:59 Dose: 10 ml Documented by: Heparin Sodium (Porcine) (Heparin -) 5,000 unit SQ TID [facility] Last Admin: 07/12/19 06:54 Dose: 5,000 unit Documented by: Hydromorphone HCl (Dilaudid -) 2 mg PO Q4H PRN PRN Reason: PAIN LEVEL 4 - 6 Last Admin: 07/11/19 21:11 Dose: 2 mg Documented by: Hydromorphone HCl (Dilaudid Vial -) 0.5 mg IVPUSH Q4H PRN PRN Reason: PAIN LEVEL 7 - 10 Last Admin: 07/11/19 12:27 Dose: 0.5 mg Documented by: Telavancin 1,000 mg/ Dextrose 316.6667 mls @ 316.667 mls/hr IVPB DAILY@1500 [facility] Last Admin: 07/11/19 16:51 Dose: 316.667 mls/hr Documented by: Lactated Ringer's (Lactated Ringers Solution) 1,000 ml in 1,000 mls @ 100 mls/hr IV ASDIR [facility] Last Admin: 07/11/19 14:08 Dose: 100 mls/hr Documented by: Insulin Aspart (Novolog Vial Sliding Scale -) [facility]; Protocol Last Admin: 07/12/19 06:54 Dose: 8 units Documented by: Insulin Detemir (Levemir Vial) 20 units SQ BID@0700,2200 [facility] Last Admin: 07/12/19 06:54 Dose: 20 units Documented by: Levetiracetam (Keppra -) 1,000 mg PO TID [facility] Last Admin: 07/12/19 06:54 Dose: 1,000 mg Documented by: Lidocaine (Lidoderm Patch -) 1 patch TP DAILY [facility] Last Admin: 07/11/19 12:05 Dose: 1 patch Documented by: Lisinopril (Prinivil) 5 mg PO DAILY [facility] Last Admin: 07/11/19 09:19 Dose: 5 mg Documented by: Miscellaneous (Lidoderm Patch Removal) 1 each MC DAILY@2200 [facility] Last Admin: 07/11/19 23:42 Dose: Not Given Documented by: Nystatin (Nystop Powder -) 1 applic TP TID [facility] Last Admin: 07/12/19 06:54 Dose: 1 applic Documented by: Pantoprazole Sodium (Protonix -) 40 mg PO DAILY [facility] Last Admin: 07/11/19 09:19 Dose: 40 mg Documented by: Polyethylene Glycol (Miralax (For Daily Use) -) 17 gm PO DAILY PRN PRN Reason: CONSTIPATION Last Admin: 07/08/19 15:00 Dose: 17 gm Documented by: Potassium Chloride (K-Dur -) 40 meq PO DAILY [facility] Last Admin: 07/11/19 09:19 Dose: 40 meq Documented by: Sodium Chloride ([place] Nasal [place] -) 2 spray NS TID PRN PRN Reason: NASAL CONGESTION Last Admin: 07/05/19 13:10 Dose: 2 spray Documented by: - Objective Vital Signs: Vital Signs Temperature 99.2 F 07/12/19 06:55 Pulse Rate 108 H 07/12/19 06:55 Respiratory Rate 07/12/19 06:55 Blood Pressure 121/74 07/12/19 06:55 O2 Sat by Pulse Oximetry (%) 94 L 07/11/19 21:00 Labs: INR, PTT INR 1.07 (0.83-1.09) 07/01/19 22:15 Fibrinogen > 500.0 mg/dL (238-498) H 07/04/19 05:50 Problem List - Problems (1) Migraine Assessment/Plan: no migraines noted since admission takes fiorecet at home Code(s): G43.909 - MIGRAINE, UNSP, NOT INTRACTABLE, WITHOUT STATUS MIGRAINOSUS (2) IDDM (insulin dependent diabetes mellitus) Assessment/Plan: BGM AC/HS with novolog sliding scale BGM remain high will increase levemir to 30 u and c/t monitor poor compliance with diet c/w diabetic diet Code(s): [id number] - (3) Chronic bilateral low back pain Assessment/Plan: takes dilaudid at home additional pain from iliopsoas abcess dilaudid PO for pain 4-6, IV for 7-10 Code(s): M54.5 - LOW BACK PAIN; G89.29 - OTHER CHRONIC PAIN (4) MRSA bacteremia Assessment/Plan: ilsiopsoas abcess drain placed on 07/02 FRANCO with exudatative drainage on telavancin IV day 6 TTE 07/01 supboptimal, nl LVEF, unable to eval for vegetations ;repeated 07/04 and normal may require GENEVA if remains bacteremic repeat BCX pending ID following Code(s): R78.81 - BACTEREMIA; B95.62 - METHICILLIN RESIS STAPH INFCT CAUSING DISEASES CLASSD ELSWHR (5) Fungal infection of the groin Assessment/Plan: c/w nystatin powder to groin prn avoid diapers, frequent toileting Code(s): B35.6 - TINEA CRURIS (6) Prophylactic measure Assessment/Plan: FEN Fluids: adequate PO intake Electrolytes: monitor & replete as needed Nutrition: diabetic diet DVT moderate risk sq heparin Dispo Maintain as inpatient full code discharge planning to home with possible IV abx-hiowever pt is uninsured so would have to come to infusion center if IV abx are needed Code(s): Z29.9 - ENCOUNTER FOR PROPHYLACTIC MEASURES, UNSPECIFIED (7) Iliopsoas abscess Assessment/Plan: FRANCO drain placed in IR on 07/03 continue to drain milky exudative material with persistent pain-FRANCO 5cc over night repeat CT pending c/w abx monitor temp and wbc curve Code(s): K68.12 - PSOAS MUSCLE ABSCESS (8) Lupus Code(s): M32.9 - SYSTEMIC LUPUS ERYTHEMATOSUS, UNSPECIFIED (9) Obesity, Class III, BMI 40-49.9 (morbid obesity) Assessment/Plan: weight loss counseling poor complaince with diet Code(s): E66.01 - MORBID (SEVERE) OBESITY DUE TO EXCESS CALORIES (10) Seizure Assessment/Plan: c/w keppra Code(s): R56.9 - UNSPECIFIED CONVULSIONS (11) Weakness Assessment/Plan: generalized weakness d/t immbolity, bacteremia refusing PT this am-"I threw them out" Code(s): R53.1 - WEAKNESS Visit type - Emergency Visit Emergency Visit: Yes ED Registration Date: 07/02/19 Care time: The patient presented to the Emergency Department on the above date and was hospitalized for further evaluation of their emergent condition. - New Patient This patient is new to me today: No - Critical Care Critical Care patient: No - Discharge Referral Referred to [facility] Med P.C.: No
[2019-07-12 08:13] LABS: BASO % 0.4 % (0-2.0); EOS % 0.8 % (0-4.5); HEMATOCRIT 39.5 % (32.4-45.2); LYMPH % 18.4 % (8-40); MCH 28.8 pg (25.7-33.7); MEAN CELL VOLUME 87.4 fl (80-96); MEAN PLT VOLUME 8.8 fl (7.5-11.1); MONO % 6.2 % (3.8-10.2); NEUT % 74.2 % (42.8-82.8); PLATELET COUNT 380 K/MM3 (134-434); RBC 4.52 M/mm3 (3.60-5.2); RDW 13.9 % (11.6-15.6); WHITE BLOOD COUNT 15.5 K/mm3 (4.0-10.0)
--- NOTE | 2019-07-12 08:32 | PN ---
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 yesterday developed fever, tmax 101; went to [facility] yesterday, where she said xrays were done and no further imaging or workup was pursued c/o severe left hip pain - Current Medication List Current Medications: Active Medications Acetaminophen (Tylenol -) 1,000 mg PO Q6H PRN PRN Reason: MODERATE PAIN Last Admin: 07/11/19 02:22 Dose: 1,000 mg Documented by: Albuterol/Ipratropium (Combivent Respimat 20-100 Mcg) 1 puff IH QID [facility] Last Admin: 07/11/19 22:00 Dose: 1 puff Documented by: Albuterol/Ipratropium (Duoneb -) 1 amp NEB Q4H PRN PRN Reason: SHORTNESS OF BREATH Budesonide/Formoterol Fumarate (Symbicort 160/4.5mcg -) 2 puff IH BID [facility] Last Admin: 07/11/19 22:00 Dose: 2 puff Documented by: Docusate Sodium (Colace -) 100 mg PO DAILY [facility] Last Admin: 07/11/19 09:18 Dose: 100 mg Documented by: Guaifenesin (Robitussin -) 10 ml PO Q6H PRN PRN Reason: COUGH Last Admin: 07/08/19 03:59 Dose: 10 ml Documented by: Heparin Sodium (Porcine) (Heparin -) 5,000 unit SQ TID [facility] Last Admin: 07/12/19 06:54 Dose: 5,000 unit Documented by: Hydromorphone HCl (Dilaudid -) 2 mg PO Q4H PRN PRN Reason: PAIN LEVEL 4 - 6 Last Admin: 07/11/19 21:11 Dose: 2 mg Documented by: Hydromorphone HCl (Dilaudid Vial -) 0.5 mg IVPUSH Q4H PRN PRN Reason: PAIN LEVEL 7 - 10 Last Admin: 07/11/19 12:27 Dose: 0.5 mg Documented by: Telavancin 1,000 mg/ Dextrose 316.6667 mls @ 316.667 mls/hr IVPB DAILY@1500 [facility] Last Admin: 07/11/19 16:51 Dose: 316.667 mls/hr Documented by: Lactated Ringer's (Lactated Ringers Solution) 1,000 ml in 1,000 mls @ 100 mls/hr IV ASDIR [facility] Last Admin: 07/11/19 14:08 Dose: 100 mls/hr Documented by: Insulin Aspart (Novolog Vial Sliding Scale -) 1 vial SQ BIDAC [facility]; Protocol Last Admin: 07/12/19 06:54 Dose: 8 units Documented by: Insulin Detemir (Levemir Vial) 20 units SQ BID@0700,2200 [facility] Last Admin: 07/12/19 06:54 Dose: 20 units Documented by: Levetiracetam (Keppra -) 1,000 mg PO TID [facility] Last Admin: 07/12/19 06:54 Dose: 1,000 mg Documented by: Lidocaine (Lidoderm Patch -) 1 patch TP DAILY [facility] Last Admin: 07/11/19 12:05 Dose: 1 patch Documented by: Lisinopril (Prinivil) 5 mg PO DAILY [facility] Last Admin: 07/11/19 09:19 Dose: 5 mg Documented by: Miscellaneous (Lidoderm Patch Removal) 1 each MC DAILY@2200 [facility] Last Admin: 07/11/19 23:42 Dose: Not Given Documented by: Nystatin (Nystop Powder -) 1 applic TP TID [facility] Last Admin: 07/12/19 06:54 Dose: 1 applic Documented by: Pantoprazole Sodium (Protonix -) 40 mg PO DAILY [facility] Last Admin: 07/11/19 09:19 Dose: 40 mg Documented by: Polyethylene Glycol (Miralax (For Daily Use) -) 17 gm PO DAILY PRN PRN Reason: CONSTIPATION Last Admin: 07/08/19 15:00 Dose: 17 gm Documented by: Potassium Chloride (K-Dur -) 40 meq PO DAILY [facility] Last Admin: 07/11/19 09:19 Dose: 40 meq Documented by: Sodium Chloride ([place] Nasal [place] -) 2 spray NS TID PRN PRN Reason: NASAL CONGESTION Last Admin: 07/05/19 13:10 Dose: 2 spray Documented by: - Objective Vital Signs: Vital Signs Temperature 99.2 F 07/12/19 06:55 Pulse Rate 108 H 07/12/19 06:55 Respiratory Rate 07/12/19 06:55 Blood Pressure 121/74 07/12/19 06:55 O2 Sat by Pulse Oximetry (%) 94 L 07/11/19 21:00 Eyes: Yes: WNL, Conjunctiva Clear, EOM Intact HENT: Yes: WNL, Atraumatic, Normocephalic Neck: Yes: WNL, Supple, Trachea Midline Cardiovascular: Yes: WNL, Regular Rate and Rhythm Respiratory: Yes: WNL, Regular, CTA Bilaterally Gastrointestinal: Yes: WNL, Normal Bowel Sounds Genitourinary: Yes: WNL Musculoskeletal: Yes: WNL Extremities: Yes: WNL Edema: No Integumentary: Yes: WNL Neurological: Yes: WNL, Alert, Oriented ...Motor Strength: WNL Psychiatric: Yes: WNL Labs: CBC, BMP 07/12/19 07:15 INR, PTT INR 1.07 (0.83-1.09) 07/01/19 22:15 Fibrinogen > 500.0 mg/dL (238-498) H 07/04/19 05:50 Assessment/Plan - Problems (1) Hypokalemia Assessment/Plan: On 40 meq PO daily; K WNL x past 72 hours Keep K 4.0-4.5 Keep Mg 2.0-2.4 (check serial level) Keep PO4 2.5-4.9 Code(s): E87.6 - HYPOKALEMIA (2) Endocarditis Assessment/Plan: 07/06/2019 blood cultures negative x 96 hours. ECHO was repeated, and was reported as being an essentially normal study. S/p iliacus abscess IR drainage. On antibiotics per ID. Code(s): I38 - ENDOCARDITIS, VALVE UNSPECIFIED (3) Blood bacterial culture positive Assessment/Plan: MRSA; f/u blood cultures negative On antibiotics per ID. Repeat ECHO: essentially normal study. Afebrile since 07/02/19. Code(s): R78.81 - BACTEREMIA (4) Abscess Assessment/Plan: s/p IR purulent drainage of left iliacus abscess; still draining. For repeat CT Code(s): L02.91 - CUTANEOUS ABSCESS, UNSPECIFIED (5) Rheumatoid arthritis Code(s): M06.9 - RHEUMATOID ARTHRITIS, UNSPECIFIED (6) Lupus Code(s): M32.9 - SYSTEMIC LUPUS ERYTHEMATOSUS, UNSPECIFIED (7) Osteoarthritis Code(s): M19.90 - UNSPECIFIED OSTEOARTHRITIS, UNSPECIFIED SITE (8) HTN (hypertension) Code(s): I10 - ESSENTIAL (PRIMARY) HYPERTENSION (9) Migraine Code(s): G43.909 - MIGRAINE, UNSP, NOT INTRACTABLE, WITHOUT STATUS MIGRAINOSUS (10) Obesity, Class III, BMI 40-49.9 (morbid obesity) Code(s): E66.01 - MORBID (SEVERE) OBESITY DUE TO EXCESS CALORIES (11) Seizure Code(s): R56.9 - UNSPECIFIED CONVULSIONS (12) Sleep apnea Code(s): G47.30 - SLEEP APNEA, UNSPECIFIED (13) Sinus tachycardia Code(s): R00.0 - TACHYCARDIA, UNSPECIFIED (14) Diabetes Code(s): E11.9 - TYPE 2 DIABETES MELLITUS WITHOUT COMPLICATIONS (15) Hx MRSA infection Code(s): Z86.14 - PERSONAL HISTORY OF METHICILLIN RESIS STAPH INFECTION (16) Pulmonary cavitary lesion Code(s): J98.4 - OTHER DISORDERS OF LUNG (17) Leukocytosis Code(s): D72.829 - ELEVATED WHITE BLOOD CELL COUNT, UNSPECIFIED (18) Cervical cancer Code(s): C53.9 - MALIGNANT NEOPLASM OF CERVIX UTERI, UNSPECIFIED
[2019-07-12 09:21] LABS: ALBUMIN 2.8 g/dl (3.4-5.0); BILIRUBIN,TOTAL 0.7 mg/dL (0.2-1); BLOOD UREA NITROGEN 8.5 mg/dL (7-18); CALCIUM 9.1 mg/dL (8.5-10.1); CREATININE 0.7 mg/dL (0.55-1.3); MAGNESIUM 2.3 mg/dL (1.8-2.4); POTASSIUM 4.4 mmol/L (3.5-5.1); TOT PROT 7.8 g/dl (6.4-8.2)
[2019-07-12] MEDS: DOCUSATE SODIUM 100 MG CAPSULE (FP) PO SCH (10:31)
[2019-07-12] MEDS: PANTOPRAZOLE 40 MG TABLET PO SCH (10:31)
[2019-07-12] MEDS: LIDOCAINE 5% TOPICAL PATCH TP SCH (10:32)
[2019-07-12] MEDS: LISINOPRIL 5 MG TABLET (FP) PO SCH (10:32)
[2019-07-12] MEDS: POTASSIUM CHLORIDE TABS 20 MEQ TABLET.ER (FP) PO SCH (10:32)
[2019-07-12] MEDS: HYDROmorphone HCl 2 MG/ML VIAL IVPUSH PRN ×3 (10:55→23:46)
[2019-07-12] MEDS: BUDESONIDE/FORMETEROL FUMARATE 160/4.5 mcg INHALER IH SCH ×2 (11:01→21:45)
[2019-07-12] MEDS: IPRATROPIUM/ALBUTEROL (COMBIVENT) RESPIMAT 20-100 MCG IH SCH ×4 (11:01→21:44)
--- NOTE | 2019-07-12 15:56 | PN ---
Progress Note (short form) - Note Progress Note: overall improved, still with left hip/LLQ discomfort still with drainage from the noah drain Vital Signs Period Temp Pulse Resp BP Sys/Turner Pulse Ox Last 24 Hr 97.9 F-99.2 F 93-110 19-20 118-123/64-105 94 cor-rrr lungs decreased bs at bases abd soft,nt ext +purulent drainge in NOAH no edema CBC, BMP 07/12/19 07:15 07/12/19 07:15 crp 1.8 Microbiology 07/09/19 06:40 Blood - Peripheral Venous Blood Culture - Preliminary NO GROWTH OBTAINED AFTER 72 HOURS, INCUBATION TO CONTINUE FOR 2 DAYS. 07/09/19 06:45 Blood - Peripheral Venous Blood Culture - Preliminary NO GROWTH OBTAINED AFTER 72 HOURS, INCUBATION TO CONTINUE FOR 2 DAYS. 07/06/19 07:19 Blood - Peripheral Venous Blood Culture - Final NO GROWTH AFTER 5 DAYS INCUBATION 07/06/19 07:19 Blood - Peripheral Venous Blood Culture - Final Mr S Aureus 07/04/19 06:10 Blood - Peripheral Venous Blood Culture - Final Staphylococcus Latex Coag Pos 07/04/19 05:50 Blood - Peripheral Venous Blood Culture - Final Mr S Aureus 07/03/19 17:30 Abscess Gram Stain - Final 07/03/19 17:30 Abscess Body Fluid Culture - Final Mr S Aureus 07/03/19 17:30 Abscess Anaerobic Culture - Final NO ANAEROBES WERE ISOLATED 07/03/19 11:10 Blood - Peripheral Venous Blood Culture - Final Mr S Aureus 07/03/19 11:10 Blood - Peripheral Venous Blood Culture - Final Mr S Aureus 07/02/19 00:55 Blood - Peripheral Venous Blood Culture - Final Mr S Aureus 07/02/19 01:02 Blood - Peripheral Venous Blood Culture - Final Mr S Aureus COVID pcr negative a/p 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 need repeat imaging for f/u of abscess telavancin day #6 continue IVF while on televancin monitor renal function daily she reports anaphylaxis to penicillin and sulfa allergy options limited for MRSA treatment for both blood and lung infections as well as abscess review imaging repeat blood cultures sent covid negative repeat imaging today
[2019-07-12] MEDS: TELAVANCIN HCL IVPB SCH (16:16)
[2019-07-12] MEDS: WATER IVPB SCH (16:16)
[2019-07-12] MEDS: DEXTROSE 5% IVPB SCH (16:16)
[2019-07-12] MEDS: LACTATED RINGERS SOLUTION 1,000 ML/1,000 ML INFUS.BAG IV SCH (17:00)
[2019-07-12] MEDS: ACETAMINOPHEN 500 MG TABLET (FP) PO PRN (18:31)
[2019-07-12] MEDS: LIDOCAINE PATCH REMOVAL MC SCH (21:45)
[2019-07-13] MEDS: ACETAMINOPHEN 500 MG TABLET (FP) PO PRN ×2 (02:46→11:40)
[2019-07-13] MEDS: INSULIN (LEVEMIR) 100 UNITS/ML UNITS SQ SCH ×3 (05:55→22:24)
[2019-07-13] MEDS: INSULIN SLIDING SCALE (NOVOLOG) 1 VIAL SQ SCH ×3 (05:57→16:53)
[2019-07-13] MEDS: HEPARIN NA (PORCINE) 5,000 UNITS/ML 1ML VIAL SQ SCH ×3 (05:57→22:24)
[2019-07-13] MEDS: levETIRAcetam 500 MG TABLET (FP) PO SCH ×3 (05:58→22:24)
[2019-07-13] MEDS: NYSTATIN POWDER 100,000 UNITS/GM - 15 GM TOPICAL POWDER TP SCH ×3 (05:58→22:24)
[2019-07-13 07:17] LABS: BASO % 0.9 % (0-2.0); EOS % 1.3 % (0-4.5); HEMOGLOBIN 12.3 GM/dL (10.7-15.3); LYMPH % 24.1 % (8-40); MCHC 33.3 g/dl (32.0-36.0); MEAN CELL VOLUME 87.1 fl (80-96); MONO % 6.8 % (3.8-10.2); NEUT % 66.9 % (42.8-82.8); PLATELET COUNT 357 K/MM3 (134-434); RBC 4.25 M/mm3 (3.60-5.2); RDW 14.2 % (11.6-15.6); WHITE BLOOD COUNT 10.3 K/mm3 (4.0-10.0)
[2019-07-13 07:40] LABS: ALBUMIN 2.6 g/dl (3.4-5.0); BILIRUBIN,TOTAL 0.3 mg/dL (0.2-1); BLOOD UREA NITROGEN 12.1 mg/dL (7-18); CALCIUM 8.6 mg/dL (8.5-10.1); CREATININE 0.8 mg/dL (0.55-1.3); MAGNESIUM 2.2 mg/dL (1.8-2.4); POTASSIUM 4.5 mmol/L (3.5-5.1); TOT PROT 7.1 g/dl (6.4-8.2)
[2019-07-13] MEDS: HYDROmorphone HCl 2 MG/ML VIAL IVPUSH PRN ×2 (09:01→13:18)
[2019-07-13] MEDS: POTASSIUM CHLORIDE TABS 20 MEQ TABLET.ER (FP) PO SCH (09:02)
[2019-07-13] MEDS: LIDOCAINE 5% TOPICAL PATCH TP SCH (09:02)
[2019-07-13] MEDS: DOCUSATE SODIUM 100 MG CAPSULE (FP) PO SCH (09:02)
[2019-07-13] MEDS: PANTOPRAZOLE 40 MG TABLET PO SCH (09:02)
[2019-07-13] MEDS: LISINOPRIL 5 MG TABLET (FP) PO SCH (09:02)
[2019-07-13] MEDS: IPRATROPIUM/ALBUTEROL (COMBIVENT) RESPIMAT 20-100 MCG IH SCH ×4 (09:03→22:23)
[2019-07-13] MEDS: BUDESONIDE/FORMETEROL FUMARATE 160/4.5 mcg INHALER IH SCH ×2 (09:03→22:24)
--- NOTE | 2019-07-13 12:10 | PN ---
Progress Note, Physician Chief Complaint: Pt A&Ox3; denies chest pain or dyspnea; had physical therapy for hip, but pain there limits ability to stretch. Wants pain medication (dilaudid). 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 yesterday developed fever, tmax 101; went to [facility] yesterday, where she said xrays were done and no further imaging or workup was pursued c/o severe left hip pain resides in [place]; came up to [place] to care for her sister who has endometriosis no other sick contacts. no travel history. no cough/congestion, vomiting, diarrhea, bloody stools, urinary sx. +current yeast infection, has not picked up her diflucan yet, as she gets frequent yeast infection from chronic use of doxycycline and clindamycin for chronic MRSA infections. no trauma, no recent procedures no h/o kidney stones, no prior sx of similar nature. Has had EKG recently; denies having had ECHO. - Current Medication List Current Medications: Active Medications Acetaminophen (Tylenol -) 1,000 mg PO Q6H PRN PRN Reason: MODERATE PAIN Last Admin: 07/13/19 11:40 Dose: 1,000 mg Documented by: Albuterol/Ipratropium (Combivent Respimat 20-100 Mcg) 1 puff IH QID [facility] Last Admin: 07/13/19 09:03 Dose: 1 puff Documented by: Albuterol/Ipratropium (Duoneb -) 1 amp NEB Q4H PRN PRN Reason: SHORTNESS OF BREATH Budesonide/Formoterol Fumarate (Symbicort 160/4.5mcg -) 2 puff IH BID [facility] Last Admin: 07/13/19 09:03 Dose: 2 puff Documented by: Docusate Sodium (Colace -) 100 mg PO DAILY [facility] Last Admin: 07/13/19 09:02 Dose: 100 mg Documented by: Guaifenesin (Robitussin -) 10 ml PO Q6H PRN PRN Reason: COUGH Last Admin: 07/08/19 03:59 Dose: 10 ml Documented by: Heparin Sodium (Porcine) (Heparin -) 5,000 unit SQ TID [facility] Last Admin: 07/13/19 05:57 Dose: 5,000 unit Documented by: Hydromorphone HCl (Dilaudid -) 2 mg PO Q4H PRN PRN Reason: PAIN LEVEL 4 - 6 Last Admin: 07/11/19 21:11 Dose: 2 mg Documented by: Hydromorphone HCl (Dilaudid Vial -) 0.5 mg IVPUSH Q4H PRN PRN Reason: PAIN LEVEL 7 - 10 Last Admin: 07/13/19 09:01 Dose: 0.5 mg Documented by: Telavancin 1,000 mg/ Dextrose 316.6667 mls @ 316.667 mls/hr IVPB DAILY@1500 [facility] Last Admin: 07/12/19 16:16 Dose: 316.667 mls/hr Documented by: Lactated Ringer's (Lactated Ringers Solution) 1,000 ml in 1,000 mls @ 100 mls/hr IV ASDIR [facility] Last Admin: 07/12/19 17:00 Dose: 100 mls/hr Documented by: Insulin Aspart (Novolog Vial Sliding Scale -) [facility]; [facility] Last Admin: 07/13/19 07:39 Dose: Not Given Documented by: Insulin Detemir (Levemir Vial) 30 units SQ BID@0700,2200 [facility] Last Admin: 07/13/19 07:38 Dose: Not Given Documented by: Levetiracetam (Keppra -) 1,000 mg PO TID [facility] Last Admin: 07/13/19 05:58 Dose: 1,000 mg Documented by: Lidocaine (Lidoderm Patch -) 1 patch TP DAILY [facility] Last Admin: 07/13/19 09:02 Dose: 1 patch Documented by: Lisinopril (Prinivil) 5 mg PO DAILY [facility] Last Admin: 07/13/19 09:02 Dose: 5 mg Documented by: Miscellaneous (Lidoderm Patch Removal) 1 each MC DAILY@2200 [facility] Last Admin: 07/12/19 21:45 Dose: 1 each Documented by: Nystatin (Nystop Powder -) 1 applic TP TID [facility] Last Admin: 07/13/19 05:58 Dose: 1 applic Documented by: Pantoprazole Sodium (Protonix -) 40 mg PO DAILY [facility] Last Admin: 07/13/19 09:02 Dose: 40 mg Documented by: Polyethylene Glycol (Miralax (For Daily Use) -) 17 gm PO DAILY PRN PRN Reason: CONSTIPATION Last Admin: 07/08/19 15:00 Dose: 17 gm Documented by: Potassium Chloride (K-Dur -) 40 meq PO DAILY [facility] Last Admin: 07/13/19 09:02 Dose: 40 meq Documented by: Sodium Chloride ([place] Nasal [place] -) 2 spray NS TID PRN PRN Reason: NASAL CONGESTION Last Admin: 07/05/19 13:10 Dose: 2 spray Documented by: - Objective Vital Signs: Vital Signs Temperature 98.8 F 07/13/19 08:55 Pulse Rate 101 H 07/13/19 08:55 Respiratory Rate 18 07/13/19 08:55 Blood Pressure 135/80 07/13/19 08:55 O2 Sat by Pulse Oximetry (%) 98 07/12/19 09:00 Constitutional: Yes: Anxious Eyes: Yes: WNL HENT: Yes: WNL Cardiovascular: Yes: Regular Rate and Rhythm, S1, S2 Respiratory: Yes: Diminished Gastrointestinal: Yes: Soft, Abdomen, Obese ...Rectal Exam: Yes: Deferred Genitourinary: No: Anuria Breast(s): Yes: WNL Musculoskeletal: Yes: Joint Stiffness, Muscle Pain, Muscle Weakness Extremities: Yes: Cool Edema: No Peripheral Pulses WNL: Yes Integumentary: Yes: Incision, Tattoos Wound/Incision: Yes: Dressing Dry and Intact (LLQ drain (abscess)) Neurological: Yes: Alert, Oriented Psychiatric: Yes: Alert, Oriented, Other (addiction to pain medications) Labs: CBC, BMP 07/13/19 06:26 07/13/19 06:26 INR, PTT INR 1.07 (0.83-1.09) 07/01/19 22:15 Fibrinogen > 500.0 mg/dL (238-498) H 07/04/19 05:50 - ....Imaging Cat Scan: Image Reviewed (abd/pelvic CT) Problem List - Problems (1) Hypokalemia Assessment/Plan: Keep K 4.0-4.5 Keep Mg 2.0-2.4 (check serial level) Keep PO4 2.5-4.9 Code(s): E87.6 - HYPOKALEMIA (2) Endocarditis Assessment/Plan: 07/06/2019 blood cultures negative; repeat set pending. ECHO was repeated: essentially normal study. S/p iliacus abscess IR drainage. Severe atelectasis, infiltrates, cavitary pulmonary lesions. On antibiotics per ID. Code(s): I38 - ENDOCARDITIS, VALVE UNSPECIFIED (3) Blood bacterial culture positive Assessment/Plan: MRSA; most recent blood cultures (07/06/19) negative x >96 hours;f/u set pending (07/12/19 drawn). On antibiotics per ID. Repeat ECHO: essentially normal study. Afebrile since 07/02/19 except 100.1 on 07/10/19. Code(s): R78.81 - BACTEREMIA (4) Abscess Assessment/Plan: s/p IR purulent drainage of left iliacus abscess; still draining. Repeat CT results noted. Code(s): L02.91 - CUTANEOUS ABSCESS, UNSPECIFIED (5) Rheumatoid arthritis Code(s): M06.9 - RHEUMATOID ARTHRITIS, UNSPECIFIED (6) Lupus Code(s): M32.9 - SYSTEMIC LUPUS ERYTHEMATOSUS, UNSPECIFIED (7) Osteoarthritis Code(s): M19.90 - UNSPECIFIED OSTEOARTHRITIS, UNSPECIFIED SITE (8) HTN (hypertension) Assessment/Plan: started lisinopril (HTN; DM; episodes of hypokalemia). F/U BP serially; BUN/Cr, electrolytes. Code(s): I10 - ESSENTIAL (PRIMARY) HYPERTENSION (9) Migraine Code(s): G43.909 - MIGRAINE, UNSP, NOT INTRACTABLE, WITHOUT STATUS MIGRAINOSUS (10) Obesity, Class III, BMI 40-49.9 (morbid obesity) Code(s): E66.01 - MORBID (SEVERE) OBESITY DUE TO EXCESS CALORIES (11) Seizure Code(s): R56.9 - UNSPECIFIED CONVULSIONS (12) Sleep apnea Code(s): G47.30 - SLEEP APNEA, UNSPECIFIED (13) Sinus tachycardia Assessment/Plan: resolved. Code(s): R00.0 - TACHYCARDIA, UNSPECIFIED (14) Diabetes Code(s): E11.9 - TYPE 2 DIABETES MELLITUS WITHOUT COMPLICATIONS (15) Hx MRSA infection Assessment/Plan: Hx MRSA colonization; on chronic antibiotics. BLood cultures now: cocci in clusters. CT chest: severe atelectasis; cavitary lesions. MRI pelvis: collections suspicious for abscess. On antibiotics Code(s): Z86.14 - PERSONAL HISTORY OF METHICILLIN RESIS STAPH INFECTION (16) Pulmonary cavitary lesion Assessment/Plan: CT chest: severe atelectasis; multiple nodules, cavitations On antibiotics. 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 Code(s): J98.4 - OTHER DISORDERS OF LUNG (17) Leukocytosis Code(s): D72.829 - ELEVATED WHITE BLOOD CELL COUNT, UNSPECIFIED (18) Cervical cancer Assessment/Plan: hx chemotherapy. CT chest: multiple nodules, some cavitary. Code(s): C53.9 - MALIGNANT NEOPLASM OF CERVIX UTERI, UNSPECIFIED (19) COVID-19 Assessment/Plan: initial study negative; repeated: results pending. Code(s): U07.1 - COVID POSITIVE (20) Chronic pain with drug dependence Assessment/Plan: Pt will require present pain medications, then long-term pain management and help with gradually coming off the medications. Code(s): G89.29 - OTHER CHRONIC PAIN; F19.20 - OTHER PSYCHOACTIVE SUBSTANCE DEPENDENCE, UNCOMPLICATED
--- NOTE | 2019-07-13 14:15 | PN ---
Progress Note (short form) - Note Progress Note: overall improved, still with left hip/LLQ discomfort still with drainage from the noah drain Vital Signs Period Temp Pulse Resp BP Sys/Turner Pulse Ox Last 24 Hr 97.9 F-98.8 F 99-110 18-19 106-147/64-80 94 cor-rrr llungs decreased bs at bases abd soft,nt ext no edema still with purulent drainage in NOAH CBC, BMP 07/13/19 06:26 07/13/19 06:26 Microbiology 07/12/19 07:20 Blood - Peripheral Venous Blood Culture - Preliminary NO GROWTH OBTAINED AFTER 24 HOURS, INCUBATION TO CONTINUE FOR 4 DAYS. 07/12/19 07:15 Blood - Peripheral Venous Blood Culture - Preliminary NO GROWTH OBTAINED AFTER 24 HOURS, INCUBATION TO CONTINUE FOR 4 DAYS. 07/09/19 06:40 Blood - Peripheral Venous Blood Culture - Preliminary NO GROWTH OBTAINED AFTER 96 HOURS, INCUBATION TO CONTINUE FOR 1 DAYS. 07/09/19 06:45 Blood - Peripheral Venous Blood Culture - Preliminary NO GROWTH OBTAINED AFTER 96 HOURS, INCUBATION TO CONTINUE FOR 1 DAYS. 07/06/19 07:19 Blood - Peripheral Venous Blood Culture - Final NO GROWTH AFTER 5 DAYS INCUBATION 07/06/19 07:19 Blood - Peripheral Venous Blood Culture - Final Mr S Aureus 07/04/19 06:10 Blood - Peripheral Venous Blood Culture - Final Staphylococcus Latex Coag Pos 07/04/19 05:50 Blood - Peripheral Venous Blood Culture - Final Mr S Aureus 07/03/19 17:30 Abscess Gram Stain - Final 07/03/19 17:30 Abscess Body Fluid Culture - Final Mr S Aureus 07/03/19 17:30 Abscess Anaerobic Culture - Final NO ANAEROBES WERE ISOLATED 07/03/19 11:10 Blood - Peripheral Venous Blood Culture - Final Mr S Aureus 07/03/19 11:10 Blood - Peripheral Venous Blood Culture - Final Mr S Aureus 07/02/19 00:55 Blood - Peripheral Venous Blood Culture - Final Mr S Aureus 07/02/19 01:02 Blood - Peripheral Venous Blood Culture - Final Mr S Aureus COVID pcr negative a/p suspected MRSA endocarditis MRSA bacteremia -last positive blood culture 07/05 abscesses left iliacus muscle-s/p IR drainage-coninues to drain via noah drain (please leave in place) bilateral cavitary infiltrates pen allergy obese poorly controlled DM lupus by history seizure disorder repeat blood culture negative! telavancin day #7 continue IVF while on televancin monitor renal function daily she reports anaphylaxis to penicillin and sulfa allergy options limited for MRSA treatment for both blood and lung infections as well as abscess
[2019-07-13] MEDS ORDERED: PT OWN MED DRAWER 7, Y5N ONE (14:36)
[2019-07-13] MEDS: DEXTROSE 5% IVPB SCH (14:46)
[2019-07-13] MEDS: WATER IVPB SCH (14:46)
[2019-07-13] MEDS: TELAVANCIN HCL IVPB SCH (14:46)
[2019-07-13] MEDS: LACTATED RINGERS SOLUTION 1,000 ML/1,000 ML INFUS.BAG IV SCH (15:02)
[2019-07-13] MEDS ORDERED: CYCLOBENZAPRINE HCL 10 MG TABLET (FP) PO SCH (15:15)
--- NOTE | 2019-07-13 15:19 | PN ---
Physical Exam: SUBJECTIVE: Patient seen and examined at the bedside. she tells me she feels well, but still having pain. on dilaudid 8mg at home tid prescribed by a doctor in [place]. also on flexril tid for back pain. OBJECTIVE: unable to istop her as iSTOP information does no provide information for the state [facility]. will continue diluaudid po based on pain scale Patient is a 38 year old female with a significant past medical history of lupus, MRSA bacteremia, recurrent MRSA skin abscesses on intermittent doxycyclin e-clindamycin regimens, cervical CA (s/p chemotherapy 10ys prior), endometriosis, IDDM, seizure disorder, chronic migraines, herniated L-spine disc, chronic lower back pain (dilaudid 8mg TID), OA, RA, anxiety presented to [facility] at the behest of her sister for complaint of >7d of severe intermittent LLQ pain. ED evaluation found a Left-sided psoas abscess. Vital Signs Period Temp Pulse Resp BP Sys/Turner Pulse Ox Last 24 Hr 98.2 F-98.8 F 101-110 18-19 106-147/64-82 94 GENERAL: The patient is awake, alert, and fully oriented, in no acute distress. HEAD: Normal with no signs of trauma. EYES: PERRL, extraocular movements intact, sclera anicteric, conjunctiva clear. No ptosis. ENT: Ears normal, nares patent, oropharynx clear without exudates, moist mucous membranes. NECK: Trachea midline, full range of motion, supple. ABDOMEN: Soft, nontender, nondistended, normoactive bowel sounds EXTREMITIES: 2+ pulses, warm, well-perfused, no edema. NEUROLOGICAL: Normal speech, gait not observed. PSYCH: Normal mood, normal affect. SKIN: Warm, dry, normal turgor, no rashes or lesions noted Laboratory Results - last 24 hr 07/12/19 07/12/19 07/13/19 16:32 20:44 06:26 WBC 10.3 H RBC 4.25 Hgb 12.3 Hct 37.0 MCV 87.1 MCH 29.0 MCHC 33.3 RDW 14.2 Plt Count 357 MPV 9.0 Absolute Neuts (auto) 6.9 Neutrophils % 66.9 Lymphocytes % 24.1 D Monocytes % 6.8 Eosinophils % 1.3 Basophils % 0.9 Nucleated RBC % 0 D-Dimer Sodium Potassium Chloride Carbon Dioxide Anion Gap BUN Creatinine Est GFR (CKD-EPI)AfAm Est GFR (CKD-EPI)NonAf POC Glucometer 312 297 Random Glucose Calcium Magnesium Ferritin Total Bilirubin AST ALT Alkaline Phosphatase LD Total C-Reactive Protein Total Protein Albumin 07/13/19 07/13/19 06:26 06:26 WBC RBC Hgb Hct MCV MCH MCHC RDW Plt Count MPV Absolute Neuts (auto) Neutrophils % Lymphocytes % Monocytes % Eosinophils % Basophils % Nucleated RBC % D-Dimer 2236 H Sodium 134 L Potassium 4.5 Chloride 98 Carbon Dioxide 27 Anion Gap 9 BUN 12.1 Creatinine 0.8 Est GFR (CKD-EPI)AfAm 109.93 Est GFR (CKD-EPI)NonAf 94.85 POC Glucometer Random Glucose 392 H Calcium 8.6 Magnesium 2.2 Ferritin 280.6 Total Bilirubin 0.3 AST 5 L ALT 34 Alkaline Phosphatase 233 H LD Total 129 C-Reactive Protein 2.0 H Total Protein 7.1 Albumin 2.6 L Active Medications Generic Name Dose Route Start Last Admin Trade Name Freq PRN Reason Stop Dose Admin Acetaminophen 1,000 mg 07/05/19 10:18 07/13/19 11:40 Tylenol - PO 1,000 mg Q6H PRN Administration PAIN 4-6 Albuterol/Ipratropium 1 puff 07/07/19 11:47 07/13/19 14:47 Combivent Respimat 20-100 Mcg IH 1 puff QID FRANTZ Administration Albuterol/Ipratropium 1 amp 07/10/19 11:21 Duoneb - NEB Q4H PRN SHORTNESS OF BREATH Budesonide/Formoterol Fumarate 2 puff 07/08/19 10:00 07/13/19 09:03 Symbicort 160/4.5mcg - IH 2 puff BID FRANTZ Administration Cyclobenzaprine HCl 5 mg 07/13/19 15:15 Flexeril - PO TID FRANTZ Docusate Sodium 100 mg 07/08/19 10:00 07/13/19 09:02 Colace - PO 100 mg DAILY FRANTZ Administration Guaifenesin 10 ml 07/03/19 08:16 07/08/19 03:59 Robitussin - PO 10 ml Q6H PRN Administration COUGH Heparin Sodium (Porcine) 5,000 unit 07/08/19 06:00 07/13/19 14:47 Heparin - SQ 5,000 unit TID FRANTZ Administration Hydromorphone HCl 2 mg 07/07/19 23:34 07/11/19 21:11 Dilaudid - PO 2 mg Q4H PRN Administration PAIN LEVEL 4 - 6 Hydromorphone HCl 4 mg 07/13/19 15:11 Dilaudid - PO Q6H PRN PAIN LEVEL 7 - 10 Telavancin 1,000 mg/ Dextrose 316.6667 mls @ 316.667 mls/hr 07/07/19 15:00 07/13/19 14:46 IVPB 316.667 mls/hr DAILY@1500 FRANTZ Administration Lactated Ringer's 1,000 ml in 1,000 mls @ 100 mls/hr 07/08/19 14:29 07/13/19 15:02 Lactated Ringers Solution IV 100 mls/hr ASDIR [facility] Administration Insulin Aspart 1 vial 07/08/19 16:30 07/13/19 07:39 Novolog Vial Sliding Scale - SQ Not Given BIDAC [facility] Protocol Insulin Detemir 30 units 07/12/19 22:00 07/13/19 07:38 Levemir Vial SQ Not Given BID@0700,2200 [facility] Levetiracetam 1,000 mg 07/07/19 23:45 07/13/19 14:47 Keppra - PO 1,000 mg TID RFANTZ Administration Lidocaine 1 patch 07/06/19 11:00 07/13/19 09:02 Lidoderm Patch - TP 1 patch DAILY FRANTZ Administration Lisinopril 5 mg 07/09/19 12:30 07/13/19 09:02 Prinivil PO 5 mg DAILY FRANTZ Administration Miscellaneous 1 each 07/06/19 22:00 07/12/19 21:45 Lidoderm Patch Removal MC 1 each DAILY@2200 FRANTZ Administration Nystatin 1 applic 07/10/19 14:00 07/13/19 15:02 Nystop Powder - TP 1 applic TID [facility] Administration Pantoprazole Sodium 40 mg 07/08/19 16:30 07/13/19 09:02 Protonix - PO 40 mg DAILY FRANTZ Administration Polyethylene Glycol 17 gm 07/08/19 14:29 07/08/19 15:00 Miralax (For Daily Use) - PO 17 gm DAILY PRN Administration CONSTIPATION Potassium Chloride 40 meq 07/07/19 10:00 07/13/19 09:02 K-Dur - PO 40 meq DAILY FRANTZ Administration Sodium Chloride 2 spray 07/05/19 10:19 07/05/19 13:10 [place] Nasal [place] - NS 2 spray TID PRN Administration NASAL CONGESTION ASSESSMENT/PLAN: Problem List - Problems (1) MRSA bacteremia Assessment/Plan: ilsiopsoas abcess drain placed on 07/02. patient with apx 5cc of total output, per IR, maintain drain in place. FRANCO with exudatative drainage on telavancin IV per ID TTE 07/01 supboptimal, nl LVEF, unable to eval for vegetations;repeated 07/04 and normal may require GENEVA if remains bacteremic per cardiololgy repeat BCX negative ID following Code(s): R78.81 - BACTEREMIA; B95.62 - METHICILLIN RESIS STAPH INFCT CAUSING DISEASES CLASSD ELSWHR (2) Lupus Code(s): M32.9 - SYSTEMIC LUPUS ERYTHEMATOSUS, UNSPECIFIED (3) Iliopsoas abscess Assessment/Plan: drainage with scant amount. continue antibiotics per ID abd/ct reviewed Code(s): K68.12 - PSOAS MUSCLE ABSCESS (4) Cervical cancer Assessment/Plan: will need outpatient follow up Code(s): C53.9 - MALIGNANT NEOPLASM OF CERVIX UTERI, UNSPECIFIED (5) Chronic bilateral low back pain Assessment/Plan: flexiril tid Code(s): M54.5 - LOW BACK PAIN; G89.29 - OTHER CHRONIC PAIN (6) Endocarditis Assessment/Plan: followed by cardiology, per their note: 07/06/2019 blood cultures negative; repeat set negative to date. ECHO was repeated: essentially normal study. S/p iliacus abscess IR drainage. Severe atelectasis, infiltrates, cavitary pulmonary lesions. On antibiotics per ID. Code(s): I38 - ENDOCARDITIS, VALVE UNSPECIFIED (7) Hx MRSA infection Code(s): Z86.14 - PERSONAL HISTORY OF METHICILLIN RESIS STAPH INFECTION (8) Hypokalemia Code(s): E87.6 - HYPOKALEMIA (9) IDDM (insulin dependent diabetes mellitus) Assessment/Plan: on levemir bid, will tighten short acting Code(s): [id number] - (10) Leukocytosis Code(s): D72.829 - ELEVATED WHITE BLOOD CELL COUNT, UNSPECIFIED (11) Obesity, Class III, BMI 40-49.9 (morbid obesity) Code(s): E66.01 - MORBID (SEVERE) OBESITY DUE TO EXCESS CALORIES Visit type - Emergency Visit Emergency Visit: Yes ED Registration Date: 07/02/19 Care time: The patient presented to the Emergency Department on the above date and was hospitalized for further evaluation of their emergent condition. - New Patient This patient is new to me today: Yes Date on this admission: 07/13/19 - Critical Care Critical Care patient: No - Discharge Referral Referred to [facility] Med P.C.: No
[2019-07-13] MEDS: LORazepam 1 MG TABLET PO PRN (17:06)
[2019-07-13] MEDS ORDERED: FAMOTIDINE 20 MG/50 ML IVPB 20 MG/50 ML MG IVPB ONE (19:14)
[2019-07-13] MEDS: LIDOCAINE PATCH REMOVAL MC SCH (22:24)
[2019-07-13] MEDS: CYCLOBENZAPRINE HCL 10 MG TABLET (FP) PO SCH (22:24)
[2019-07-14] MEDS: HEPARIN NA (PORCINE) 5,000 UNITS/ML 1ML VIAL SQ SCH ×3 (06:01→21:41)
[2019-07-14] MEDS: CYCLOBENZAPRINE HCL 10 MG TABLET (FP) PO SCH ×3 (06:01→21:41)
[2019-07-14] MEDS: NYSTATIN POWDER 100,000 UNITS/GM - 15 GM TOPICAL POWDER TP SCH ×2 (06:01→14:10)
[2019-07-14] MEDS: levETIRAcetam 500 MG TABLET (FP) PO SCH ×3 (06:01→21:40)
[2019-07-14] MEDS: INSULIN SLIDING SCALE (NOVOLOG) 1 VIAL SQ SCH ×4 (06:26→22:15)
[2019-07-14] MEDS: INSULIN (LEVEMIR) 100 UNITS/ML UNITS SQ SCH ×2 (06:26→22:14)
[2019-07-14 07:59] LABS: BASO % 1.2 % (0-2.0); EOS % 0.9 % (0-4.5); HEMATOCRIT 40.5 % (32.4-45.2); HEMOGLOBIN 13.2 GM/dL (10.7-15.3); LYMPH % 19.9 % (8-40); MCH 28.9 pg (25.7-33.7); MCHC 32.6 g/dl (32.0-36.0); MEAN CELL VOLUME 88.5 fl (80-96); MEAN PLT VOLUME 9.8 fl (7.5-11.1); MONO % 6.7 % (3.8-10.2); NEUT % 71.3 % (42.8-82.8); PLATELET COUNT 337 K/MM3 (134-434); RBC 4.58 M/mm3 (3.60-5.2); RDW 14.1 % (11.6-15.6); WHITE BLOOD COUNT 12.3 K/mm3 (4.0-10.0)
[2019-07-14] MEDS ORDERED: PT OWN MED DRAWER 7, Y5N ONE ×2 (09:14→14:56)
[2019-07-14 09:15] LABS: ALBUMIN 2.8 g/dl (3.4-5.0); BILIRUBIN,TOTAL 0.5 mg/dL (0.2-1); BLOOD UREA NITROGEN 9.8 mg/dL (7-18); CALCIUM 9.4 mg/dL (8.5-10.1); CREATININE 0.8 mg/dL (0.55-1.3); MAGNESIUM 2.2 mg/dL (1.8-2.4); POTASSIUM 4.5 mmol/L (3.5-5.1); TOT PROT 7.6 g/dl (6.4-8.2)
[2019-07-14] MEDS: DOCUSATE SODIUM 100 MG CAPSULE (FP) PO SCH (09:20)
[2019-07-14] MEDS: LISINOPRIL 5 MG TABLET (FP) PO SCH (09:20)
[2019-07-14] MEDS: IPRATROPIUM/ALBUTEROL (COMBIVENT) RESPIMAT 20-100 MCG IH SCH ×3 (09:20→17:11)
[2019-07-14] MEDS: POTASSIUM CHLORIDE TABS 20 MEQ TABLET.ER (FP) PO SCH (09:20)
[2019-07-14] MEDS: LIDOCAINE 5% TOPICAL PATCH TP SCH (09:20)
[2019-07-14] MEDS: PANTOPRAZOLE 40 MG TABLET PO SCH (09:20)
[2019-07-14] MEDS: BUDESONIDE/FORMETEROL FUMARATE 160/4.5 mcg INHALER IH SCH (09:20)
--- NOTE | 2019-07-14 10:02 | PN ---
Physical Exam: SUBJECTIVE: Patient seen and examined, wanted to leave AMA last evening, spoke to her about importance of staying as she is being treated for multiple infections including endocarditis. she has agreed to stay in the hospital and no longer wants to sign out ama. OBJECTIVE: unable to istop her as iSTOP information does no provide information for the state [facility]. will continue diluaudid po based on pain scale ------- Patient is a 38 year old female with a significant past medical history of lupus, MRSA bacteremia, recurrent MRSA skin abscesses on intermittent doxycycline-clindamycin regimens, cervical CA (s/p chemotherapy 10ys prior), endometriosis, IDDM, seizure disorder, chronic migraines, herniated L-spine disc, chronic lower back pain (dilaudid 8mg TID), OA, RA, anxiety presented to [facility] for complaint of >7d of severe intermittent LLQ pain. ED evaluation found a Left-sided psoas abscess. Vital Signs Period Temp Pulse Resp BP Sys/Turner Pulse Ox Last 24 Hr 97.7 F-98.8 F 102-105 18-19 110-136/63-95 94 GENERAL: The patient is awake, alert, and fully oriented, in no acute distress. HEAD: Normal with no signs of trauma. EYES: PERRL, extraocular movements intact, sclera anicteric, conjunctiva clear. No ptosis. ENT: Ears normal, nares patent, oropharynx clear without exudates, moist mucous membranes. NECK: Trachea midline, full range of motion, supple. ABDOMEN: Soft, nontender, nondistended, normoactive bowel sounds EXTREMITIES: 2+ pulses, warm, well-perfused, no edema. NEUROLOGICAL: Normal speech, gait not observed. PSYCH: Normal mood, normal affect. SKIN: Warm, dry, normal turgor, no rashes or lesions noted Laboratory Results - last 24 hr 07/12/19 07/14/19 07/14/19 19:30 05:43 07:30 WBC 12.3 H RBC 4.58 Hgb 13.2 Hct 40.5 MCV 88.5 MCH 28.9 MCHC 32.6 RDW 14.1 Plt Count 337 MPV 9.8 Absolute Neuts (auto) 8.7 H Neutrophils % 71.3 Lymphocytes % 19.9 Monocytes % 6.7 Eosinophils % 0.9 Basophils % 1.2 Nucleated RBC % 0 D-Dimer Sodium Potassium Chloride Carbon Dioxide Anion Gap BUN Creatinine Est GFR (CKD-EPI)AfAm Est GFR (CKD-EPI)NonAf POC Glucometer 198 Random Glucose Calcium Magnesium Ferritin Total Bilirubin AST ALT Alkaline Phosphatase LD Total Total Protein Albumin COVID-19 (TESSIE) Not detected 07/14/19 07/14/19 07:30 07:30 WBC RBC Hgb Hct MCV MCH MCHC RDW Plt Count MPV Absolute Neuts (auto) Neutrophils % Lymphocytes % Monocytes % Eosinophils % Basophils % Nucleated RBC % D-Dimer 2253 H Sodium 133 L Potassium 4.5 Chloride 98 Carbon Dioxide 25 Anion Gap 11 BUN 9.8 Creatinine 0.8 Est GFR (CKD-EPI)AfAm 109.93 Est GFR (CKD-EPI)NonAf 94.85 POC Glucometer Random Glucose 272 H Calcium 9.4 Magnesium 2.2 Ferritin 259.1 Total Bilirubin 0.5 AST 6 L ALT 28 Alkaline Phosphatase 213 H LD Total 149 Total Protein 7.6 Albumin 2.8 L COVID-19 (TESSIE) Active Medications Generic Name Dose Route Start Last Admin Trade Name Freq PRN Reason Stop Dose Admin Acetaminophen 1,000 mg 07/05/19 10:18 07/13/19 11:40 Tylenol - PO 1,000 mg Q6H PRN Administration PAIN 4-6 Acetaminophen/Butalbital/Caffeine 1 tablet 07/13/19 15:31 Fioricet - PO Q6H PRN HEADACHE Albuterol/Ipratropium 1 puff 07/07/19 11:47 07/13/19 22:23 Combivent Respimat 20-100 Mcg IH 1 puff QID FRANTZ Administration Albuterol/Ipratropium 1 amp 07/10/19 11:21 Duoneb - NEB Q4H PRN SHORTNESS OF BREATH Budesonide/Formoterol Fumarate 2 puff 07/08/19 10:00 07/13/19 22:24 Symbicort 160/4.5mcg - IH 2 puff BID FRANTZ Administration Cyclobenzaprine HCl 10 mg 07/13/19 15:37 07/14/19 06:01 Flexeril - PO 10 mg TID FRANTZ Administration Docusate Sodium 100 mg 07/08/19 10:00 07/13/19 09:02 Colace - PO 100 mg DAILY FRANTZ Administration Guaifenesin 10 ml 07/03/19 08:16 07/08/19 03:59 Robitussin - PO 10 ml Q6H PRN Administration COUGH Heparin Sodium (Porcine) 5,000 unit 07/08/19 06:00 07/14/19 06:01 Heparin - SQ 5,000 unit TID FRANTZ Administration Hydromorphone HCl 8 mg 07/13/19 16:10 07/13/19 18:17 Dilaudid - PO 8 mg Q6H PRN Administration PAIN LEVEL 7 - 10 Telavancin 1,000 mg/ Dextrose 316.6667 mls @ 316.667 mls/hr 07/07/19 15:00 07/13/19 14:46 IVPB 316.667 mls/hr DAILY@1500 FRANTZ Administration Lactated Ringer's 1,000 ml in 1,000 mls @ 100 mls/hr 07/08/19 14:29 07/13/19 15:02 Lactated Ringers Solution IV 100 mls/hr ASDIR FRANTZ Administration Insulin Aspart 1 vial 07/13/19 16:12 07/14/19 06:26 Novolog Vial Sliding Scale - SQ 4 units BIDAC FRANTZ Administration Protocol Insulin Detemir 30 units 07/12/19 22:00 07/14/19 06:26 Levemir Vial SQ 30 units BID@0700,2200 FRANTZ Administration Levetiracetam 1,000 mg 07/07/19 23:45 07/14/19 06:01 Keppra - PO 1,000 mg TID FRANTZ Administration Lidocaine 1 patch 07/06/19 11:00 07/13/19 09:02 Lidoderm Patch - TP 1 patch DAILY FRANTZ Administration Lisinopril 5 mg 07/09/19 12:30 07/13/19 09:02 Prinivil PO 5 mg DAILY FRANTZ Administration Lorazepam 1 mg 07/13/19 16:11 07/13/19 17:06 Ativan - PO 1 mg TID PRN Administration ANXIETY Miscellaneous 1 each 07/06/19 22:00 07/13/19 22:24 Lidoderm Patch Removal MC 1 each DAILY@2200 FRANTZ Administration Nystatin 1 applic 07/10/19 14:00 07/14/19 06:01 Nystop Powder - TP 1 applic TID FRANTZ Administration Pantoprazole Sodium 40 mg 07/08/19 16:30 07/13/19 09:02 Protonix - PO 40 mg DAILY FRANTZ Administration Polyethylene Glycol 17 gm 07/08/19 14:29 07/08/19 15:00 Miralax (For Daily Use) - PO 17 gm DAILY PRN Administration CONSTIPATION Potassium Chloride 40 meq 07/07/19 10:00 07/13/19 09:02 K-Dur - PO 40 meq DAILY FRANTZ Administration Sodium Chloride 2 spray 07/05/19 10:19 07/05/19 13:10 [place] Nasal [place] - NS 2 spray TID PRN Administration NASAL CONGESTION ASSESSMENT/PLAN: Problem List - Problems (1) MRSA bacteremia Assessment/Plan: ilsiopsoas abcess drain placed on 07/02. patient with apx 5cc of total output, per IR, maintain drain in place. FRANCO with exudatative drainage on telavancin IV per ID TTE 07/01 supboptimal, nl LVEF, unable to eval for vegetations;repeated 07/04 and normal may require GENEVA if remains bacteremic per cardiololgy repeat BCX negative ID following Code(s): R78.81 - BACTEREMIA; B95.62 - METHICILLIN RESIS STAPH INFCT CAUSING DISEASES CLASSD ELSWHR (2) Iliopsoas abscess Assessment/Plan: drainage with scant amount. continue antibiotics per ID, on telavancin 1000 mg abd/ct reviewed Code(s): K68.12 - PSOAS MUSCLE ABSCESS (3) Lupus Code(s): M32.9 - SYSTEMIC LUPUS ERYTHEMATOSUS, UNSPECIFIED (4) Cervical cancer Assessment/Plan: will need outpatient follow up Code(s): C53.9 - MALIGNANT NEOPLASM OF CERVIX UTERI, UNSPECIFIED (5) Chronic bilateral low back pain Assessment/Plan: flexiril tid Code(s): M54.5 - LOW BACK PAIN; G89.29 - OTHER CHRONIC PAIN (6) Endocarditis Assessment/Plan: followed by cardiology, per their note: 07/06/2019 blood cultures negative; repeat set negative to date. ECHO was repeated: essentially normal study. S/p iliacus abscess IR drainage. Severe atelectasis, infiltrates, cavitary pulmonary lesions. On antibiotics per ID. Code(s): I38 - ENDOCARDITIS, VALVE UNSPECIFIED (7) Hx MRSA infection Code(s): Z86.14 - PERSONAL HISTORY OF METHICILLIN RESIS STAPH INFECTION (8) Hypokalemia Code(s): E87.6 - HYPOKALEMIA (9) IDDM (insulin dependent diabetes mellitus) Assessment/Plan: on levemir bid, will tighten short acting Code(s): [id number] - (10) Leukocytosis Code(s): D72.829 - ELEVATED WHITE BLOOD CELL COUNT, UNSPECIFIED (11) Obesity, Class III, BMI 40-49.9 (morbid obesity) Code(s): E66.01 - MORBID (SEVERE) OBESITY DUE TO EXCESS CALORIES (12) Seizure disorder Assessment/Plan: on keppra 1000 tid, restarted neurontin 600mg tid Code(s): G40.909 - EPILEPSY, UNSP, NOT INTRACTABLE, WITHOUT STATUS EPILEPTICUS (13) Cavitary lung disease Assessment/Plan: per CT scan, pulmonary following Code(s): J98.4 - OTHER DISORDERS OF LUNG Visit type - Emergency Visit Emergency Visit: Yes ED Registration Date: 07/02/19 Care time: The patient presented to the Emergency Department on the above date and was hospitalized for further evaluation of their emergent condition. - New Patient This patient is new to me today: No - Critical Care Critical Care patient: No - Discharge Referral Referred to [facility] Med P.C.: No
[2019-07-14] MEDS: GABAPENTIN 300 MG CAPSULE PO SCH ×2 (13:21→21:41)
--- NOTE | 2019-07-14 14:51 | PN ---
Progress Note (short form) - Note Progress Note: more comfortable Vital Signs Period Temp Pulse Resp BP Sys/Turner Pulse Ox Last 24 Hr 97.7 F-98.8 F 102-109 18-19 117-136/59-95 93-94 cor-rrr lungs clear abd soft,nt ext no edema CBC, BMP 07/14/19 07:30 07/14/19 07:30 Microbiology 07/12/19 07:20 Blood - Peripheral Venous Blood Culture - Preliminary NO GROWTH OBTAINED AFTER 48 HOURS, INCUBATION TO CONTINUE FOR 3 DAYS. 07/12/19 07:15 Blood - Peripheral Venous Blood Culture - Preliminary NO GROWTH OBTAINED AFTER 48 HOURS, INCUBATION TO CONTINUE FOR 3 DAYS. 07/09/19 06:40 Blood - Peripheral Venous Blood Culture - Final NO GROWTH AFTER 5 DAYS INCUBATION 07/09/19 06:45 Blood - Peripheral Venous Blood Culture - Final NO GROWTH AFTER 5 DAYS INCUBATION 07/06/19 07:19 Blood - Peripheral Venous Blood Culture - Final NO GROWTH AFTER 5 DAYS INCUBATION 07/06/19 07:19 Blood - Peripheral Venous Blood Culture - Final Mr S Aureus 07/04/19 06:10 Blood - Peripheral Venous Blood Culture - Final Staphylococcus Latex Coag Pos 07/04/19 05:50 Blood - Peripheral Venous Blood Culture - Final Mr S Aureus 07/03/19 17:30 Abscess Gram Stain - Final 07/03/19 17:30 Abscess Body Fluid Culture - Final Mr S Aureus 07/03/19 17:30 Abscess Anaerobic Culture - Final NO ANAEROBES WERE ISOLATED 07/03/19 11:10 Blood - Peripheral Venous Blood Culture - Final Mr S Aureus 07/03/19 11:10 Blood - Peripheral Venous Blood Culture - Final Mr S Aureus 07/02/19 00:55 Blood - Peripheral Venous Blood Culture - Final Mr S Aureus 07/02/19 01:02 Blood - Peripheral Venous Blood Culture - Final Mr S Aureus COVID pcr negative a/p suspected MRSA endocarditis MRSA bacteremia -last positive blood culture 07/05 abscesses left iliacus muscle-s/p IR drainage-coninues to drain via noah drain (please leave in place) bilateral cavitary infiltrates pen allergy obese poorly controlled DM lupus by history seizure disorder repeat blood culture negative! telavancin day #8 continue IVF while on televancin monitor renal function daily she reports anaphylaxis to penicillin and sulfa allergy options limited for MRSA treatment for both blood and lung infections as well as abscess
[2019-07-14] MEDS: LACTATED RINGERS SOLUTION 1,000 ML/1,000 ML INFUS.BAG IV SCH (15:25)
--- NOTE | 2019-07-14 16:30 | PN ---
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 yesterday developed fever, tmax 101; went to [facility] yesterday, where she said xrays were done and no further imaging or workup was pursued c/o severe left hip pain - Current Medication List Current Medications: Active Medications Acetaminophen (Tylenol -) 1,000 mg PO Q6H PRN PRN Reason: PAIN 4-6 Last Admin: 07/13/19 11:40 Dose: 1,000 mg Documented by: Acetaminophen/Butalbital/Caffeine (Fioricet -) 1 tablet PO Q6H PRN PRN Reason: HEADACHE Albuterol/Ipratropium (Combivent Respimat 20-100 Mcg) 1 puff IH QID [facility] Last Admin: 07/14/19 13:21 Dose: 1 puff Documented by: Albuterol/Ipratropium (Duoneb -) 1 amp NEB Q4H PRN PRN Reason: SHORTNESS OF BREATH Budesonide/Formoterol Fumarate (Symbicort 160/4.5mcg -) 2 puff IH BID [facility] Last Admin: 07/14/19 09:20 Dose: 2 puff Documented by: Cyclobenzaprine HCl (Flexeril -) 10 mg PO TID [facility] Last Admin: 07/14/19 13:21 Dose: 10 mg Documented by: Docusate Sodium (Colace -) 100 mg PO DAILY [facility] Last Admin: 07/14/19 09:20 Dose: 100 mg Documented by: Gabapentin (Neurontin -) 600 mg PO TID [facility] Last Admin: 07/14/19 13:21 Dose: 600 mg Documented by: Guaifenesin (Robitussin -) 10 ml PO Q6H PRN PRN Reason: COUGH Last Admin: 07/08/19 03:59 Dose: 10 ml Documented by: Heparin Sodium (Porcine) (Heparin -) 5,000 unit SQ TID [facility] Last Admin: 07/14/19 13:21 Dose: 5,000 unit Documented by: Hydromorphone HCl (Dilaudid -) 8 mg PO Q6H PRN PRN Reason: PAIN LEVEL 7 - 10 Last Admin: 07/13/19 18:17 Dose: 8 mg Documented by: Telavancin 1,000 mg/ Dextrose 316.6667 mls @ 316.667 mls/hr IVPB DAILY@1500 [facility] Last Admin: 07/13/19 14:46 Dose: 316.667 mls/hr Documented by: Lactated Ringer's (Lactated Ringers Solution) 1,000 ml in 1,000 mls @ 100 mls/hr IV ASDIR [facility] Last Admin: 07/14/19 15:25 Dose: 100 mls/hr Documented by: Insulin Aspart (Novolog Vial Sliding Scale -) [facility]; Protocol Last Admin: 07/14/19 06:26 Dose: 4 units Documented by: Insulin Detemir (Levemir Vial) 30 units SQ BID@0700,2200 [facility] Last Admin: 07/14/19 06:26 Dose: 30 units Documented by: Levetiracetam (Keppra -) 1,000 mg PO TID [facility] Last Admin: 07/14/19 13:21 Dose: 1,000 mg Documented by: Lidocaine (Lidoderm Patch -) 1 patch TP DAILY [facility] Last Admin: 07/14/19 09:20 Dose: 1 patch Documented by: Lisinopril (Prinivil) 5 mg PO DAILY [facility] Last Admin: 07/14/19 09:20 Dose: 5 mg Documented by: Lorazepam (Ativan -) 1 mg PO TID PRN PRN Reason: ANXIETY Last Admin: 07/13/19 17:06 Dose: 1 mg Documented by: Miscellaneous (Lidoderm Patch Removal) 1 each MC DAILY@2200 [facility] Last Admin: 07/13/19 22:24 Dose: 1 each Documented by: Nystatin (Nystop Powder -) 1 applic TP TID [facility] Last Admin: 07/14/19 14:10 Dose: 1 applic Documented by: Pantoprazole Sodium (Protonix -) 40 mg PO DAILY [facility] Last Admin: 07/14/19 09:20 Dose: 40 mg Documented by: Polyethylene Glycol (Miralax (For Daily Use) -) 17 gm PO DAILY PRN PRN Reason: CONSTIPATION Last Admin: 07/08/19 15:00 Dose: 17 gm Documented by: Potassium Chloride (K-Dur -) 40 meq PO DAILY [facility] Last Admin: 07/14/19 09:20 Dose: 40 meq Documented by: Sodium Chloride ([place] Nasal [place] -) 2 spray NS TID PRN PRN Reason: NASAL CONGESTION Last Admin: 07/05/19 13:10 Dose: 2 spray Documented by: - Objective Vital Signs: Vital Signs Temperature 97.6 F 07/14/19 14:00 Pulse Rate 92 H 07/14/19 14:00 Respiratory Rate 18 07/14/19 14:00 Blood Pressure 104/67 07/14/19 14:00 O2 Sat by Pulse Oximetry (%) 93 L 07/14/19 09:00 Eyes: Yes: WNL, Conjunctiva Clear, EOM Intact HENT: Yes: WNL, Atraumatic, Normocephalic Neck: Yes: WNL, Supple, Trachea Midline Cardiovascular: Yes: WNL, Regular Rate and Rhythm Respiratory: Yes: WNL, Regular, CTA Bilaterally Gastrointestinal: Yes: WNL, Normal Bowel Sounds Genitourinary: Yes: WNL Musculoskeletal: Yes: WNL Extremities: Yes: WNL Edema: No Integumentary: Yes: WNL Neurological: Yes: WNL, Alert, Oriented ...Motor Strength: WNL Psychiatric: Yes: WNL Labs: CBC, BMP 07/14/19 07:30 07/14/19 07:30 INR, PTT INR 1.07 (0.83-1.09) 07/01/19 22:15 Fibrinogen > 500.0 mg/dL (238-498) H 07/04/19 05:50 Assessment/Plan - Problems (1) Hypokalemia Assessment/Plan: Keep K 4.0-4.5 Keep Mg 2.0-2.4 (check serial level) Keep PO4 2.5-4.9 Code(s): E87.6 - HYPOKALEMIA (2) Endocarditis Assessment/Plan: 07/06/2019 blood cultures negative; repeat set pending. ECHO was repeated: essentially normal study. S/p iliacus abscess IR drainage. Severe atelectasis, infiltrates, cavitary pulmonary lesions. On antibiotics per ID. Code(s): I38 - ENDOCARDITIS, VALVE UNSPECIFIED (3) Blood bacterial culture positive Assessment/Plan: MRSA; most recent blood cultures (07/06/19) negative x >96 hours;f/u set pending (07/12/19 drawn). On antibiotics per ID. Repeat ECHO: essentially normal study. Afebrile since 07/02/19 except 100.1 on 07/10/19. Code(s): R78.81 - BACTEREMIA (4) Abscess Assessment/Plan: s/p IR purulent drainage of left iliacus abscess; still draining. Repeat CT results noted. Code(s): L02.91 - CUTANEOUS ABSCESS, UNSPECIFIED (5) Rheumatoid arthritis Code(s): M06.9 - RHEUMATOID ARTHRITIS, UNSPECIFIED (6) Lupus Code(s): M32.9 - SYSTEMIC LUPUS ERYTHEMATOSUS, UNSPECIFIED (7) Osteoarthritis Code(s): M19.90 - UNSPECIFIED OSTEOARTHRITIS, UNSPECIFIED SITE (8) HTN (hypertension) Assessment/Plan: started lisinopril (HTN; DM; episodes of hypokalemia). F/U BP serially; BUN/Cr, electrolytes. Code(s): I10 - ESSENTIAL (PRIMARY) HYPERTENSION (9) Migraine Code(s): G43.909 - MIGRAINE, UNSP, NOT INTRACTABLE, WITHOUT STATUS MIGRAINOSUS (10) Obesity, Class III, BMI 40-49.9 (morbid obesity) Code(s): E66.01 - MORBID (SEVERE) OBESITY DUE TO EXCESS CALORIES (11) Seizure Code(s): R56.9 - UNSPECIFIED CONVULSIONS (12) Sleep apnea Code(s): G47.30 - SLEEP APNEA, UNSPECIFIED (13) Sinus tachycardia Assessment/Plan: resolved. Code(s): R00.0 - TACHYCARDIA, UNSPECIFIED (14) Diabetes Code(s): E11.9 - TYPE 2 DIABETES MELLITUS WITHOUT COMPLICATIONS (15) Hx MRSA infection Assessment/Plan: Hx MRSA colonization; on chronic antibiotics. BLood cultures now: cocci in clusters. CT chest: severe atelectasis; cavitary lesions. MRI pelvis: collections suspicious for abscess. On antibiotics Code(s): Z86.14 - PERSONAL HISTORY OF METHICILLIN RESIS STAPH INFECTION (16) Pulmonary cavitary lesion Assessment/Plan: CT chest: severe atelectasis; multiple nodules, cavitations On antibiotics. 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 Code(s): J98.4 - OTHER DISORDERS OF LUNG (17) Leukocytosis Code(s): D72.829 - ELEVATED WHITE BLOOD CELL COUNT, UNSPECIFIED (18) Cervical cancer Assessment/Plan: hx chemotherapy. CT chest: multiple nodules, some cavitary. Code(s): C53.9 - MALIGNANT NEOPLASM OF CERVIX UTERI, UNSPECIFIED (19) COVID-19 Assessment/Plan: initial study negative; repeated: results pending. Code(s): U07.1 - COVID POSITIVE (20) Chronic pain with drug dependence Assessment/Plan: Pt will require present pain medications, then long-term pain management and help with gradually coming off the medications. Code(s): G89.29 - OTHER CHRONIC PAIN; F19.20 - OTHER PSYCHOACTIVE SUBSTANCE DEPENDENCE, UNCOMPLICATED
[2019-07-14] MEDS: TELAVANCIN HCL IVPB SCH (16:37)
[2019-07-14] MEDS: WATER IVPB SCH (16:37)
[2019-07-14] MEDS: DEXTROSE 5% IVPB SCH (16:37)
--- NOTE | 2019-07-14 16:58 | PN ---
Physical Exam: SUBJECTIVE: Patient seen and examined OBJECTIVE: Vital Signs Period Temp Pulse Resp BP Sys/Turner Pulse Ox Last 24 Hr 97.6 F-98.8 F 92-109 18-19 104-136/59-95 93-94 GENERAL: The patient is awake, alert, and fully oriented, in no acute distress. HEAD: Normal with no signs of trauma. EYES: PERRL, extraocular movements intact, sclera anicteric, conjunctiva clear. No ptosis. ENT: Ears normal, nares patent, oropharynx clear without exudates, moist mucous membranes. NECK: Trachea midline, full range of motion, supple. LUNGS: Breath sounds equal, clear to auscultation bilaterally, no wheezes, no crackles, no accessory muscle use. HEART: Regular rate and rhythm, S1, S2 without murmur, rub or gallop. ABDOMEN: Soft, nontender, nondistended, normoactive bowel sounds, no guarding, no rebound, no hepatosplenomegaly, no masses. EXTREMITIES: 2+ pulses, warm, well-perfused, no edema. NEUROLOGICAL: Cranial nerves II through XII grossly intact. Normal speech, gait not observed. PSYCH: Normal mood, normal affect. SKIN: Warm, dry, normal turgor, no rashes or lesions noted Laboratory Results - last 24 hr 07/12/19 07/14/19 07/14/19 19:30 05:43 07:30 WBC 12.3 H RBC 4.58 Hgb 13.2 Hct 40.5 MCV 88.5 MCH 28.9 MCHC 32.6 RDW 14.1 Plt Count 337 MPV 9.8 Absolute Neuts (auto) 8.7 H Neutrophils % 71.3 Lymphocytes % 19.9 Monocytes % 6.7 Eosinophils % 0.9 Basophils % 1.2 Nucleated RBC % 0 D-Dimer Sodium Potassium Chloride Carbon Dioxide Anion Gap BUN Creatinine Est GFR (CKD-EPI)AfAm Est GFR (CKD-EPI)NonAf POC Glucometer 198 Random Glucose Calcium Magnesium Ferritin Total Bilirubin AST ALT Alkaline Phosphatase LD Total C-Reactive Protein Total Protein Albumin COVID-19 (TESSIE) Not detected 07/14/19 07/14/19 07:30 07:30 WBC RBC Hgb Hct MCV MCH MCHC RDW Plt Count MPV Absolute Neuts (auto) Neutrophils % Lymphocytes % Monocytes % Eosinophils % Basophils % Nucleated RBC % D-Dimer 2253 H Sodium 133 L Potassium 4.5 Chloride 98 Carbon Dioxide 25 Anion Gap 11 BUN 9.8 Creatinine 0.8 Est GFR (CKD-EPI)AfAm 109.93 Est GFR (CKD-EPI)NonAf 94.85 POC Glucometer Random Glucose 272 H Calcium 9.4 Magnesium 2.2 Ferritin 259.1 Total Bilirubin 0.5 AST 6 L ALT 28 Alkaline Phosphatase 213 H LD Total 149 C-Reactive Protein 1.5 H Total Protein 7.6 Albumin 2.8 L COVID-19 (TESSIE) Active Medications Generic Name Dose Route Start Last Admin Trade Name Freq PRN Reason Stop Dose Admin Acetaminophen 1,000 mg 07/05/19 10:18 07/13/19 11:40 Tylenol - PO 1,000 mg Q6H PRN Administration PAIN 4-6 Acetaminophen/Butalbital/Caffeine 1 tablet 07/13/19 15:31 Fioricet - PO Q6H PRN HEADACHE Albuterol/Ipratropium 1 puff 07/07/19 11:47 07/14/19 13:21 Combivent Respimat 20-100 Mcg IH 1 puff QID [facility] Administration Albuterol/Ipratropium 1 amp 07/10/19 11:21 Duoneb - NEB Q4H PRN SHORTNESS OF BREATH Budesonide/Formoterol Fumarate 2 puff 07/08/19 10:00 07/14/19 09:20 Symbicort 160/4.5mcg - IH 2 puff BID [facility] Administration Cyclobenzaprine HCl 10 mg 07/13/19 15:37 07/14/19 13:21 Flexeril - PO 10 mg TID [facility] Administration Docusate Sodium 100 mg 07/08/19 10:00 07/14/19 09:20 Colace - PO 100 mg DAILY [facility] Administration Gabapentin 600 mg 07/14/19 14:00 07/14/19 13:21 Neurontin - PO 600 mg TID [facility] Administration Guaifenesin 10 ml 07/03/19 08:16 07/08/19 03:59 Robitussin - PO 10 ml Q6H PRN Administration COUGH Heparin Sodium (Porcine) 5,000 unit 07/08/19 06:00 07/14/19 13:21 Heparin - SQ 5,000 unit TID [facility] Administration Hydromorphone HCl 8 mg 07/13/19 16:10 07/13/19 18:17 Dilaudid - PO 8 mg Q6H PRN Administration PAIN LEVEL 7 - 10 Telavancin 1,000 mg/ Dextrose 316.6667 mls @ 316.667 mls/hr 07/07/19 15:00 07/14/19 16:37 IVPB 316.667 mls/hr DAILY@1500 [facility] Administration Lactated Ringer's 1,000 ml in 1,000 mls @ 100 mls/hr 07/08/19 14:29 07/14/19 15:25 Lactated Ringers Solution IV 100 mls/hr ASDIR [facility] Administration Insulin Aspart 1 vial 07/13/19 16:12 07/14/19 06:26 Novolog Vial Sliding Scale - SQ 4 units BIDAC [facility] Administration Protocol Insulin Detemir 30 units 07/12/19 22:00 07/14/19 06:26 Levemir Vial SQ 30 units BID@0700,2200 [facility] Administration Levetiracetam 1,000 mg 07/07/19 23:45 07/14/19 13:21 Keppra - PO 1,000 mg TID [facility] Administration Lidocaine 1 patch 07/06/19 11:00 07/14/19 09:20 Lidoderm Patch - TP 1 patch DAILY [facility] Administration Lisinopril 5 mg 07/09/19 12:30 07/14/19 09:20 Prinivil PO 5 mg DAILY [facility] Administration Lorazepam 1 mg 07/13/19 16:11 07/13/19 17:06 Ativan - PO 1 mg TID PRN Administration ANXIETY Miscellaneous 1 each 07/06/19 22:00 07/13/19 22:24 Lidoderm Patch Removal MC 1 each DAILY@2200 [facility] Administration Nystatin 1 applic 07/10/19 14:00 07/14/19 14:10 Nystop Powder - TP 1 applic TID [facility] Administration Pantoprazole Sodium 40 mg 07/08/19 16:30 07/14/19 09:20 Protonix - PO 40 mg DAILY [facility] Administration Polyethylene Glycol 17 gm 07/08/19 14:29 07/08/19 15:00 Miralax (For Daily Use) - PO 17 gm DAILY PRN Administration CONSTIPATION Potassium Chloride 40 meq 07/07/19 10:00 07/14/19 09:20 K-Dur - PO 40 meq DAILY [facility] Administration Sodium Chloride 2 spray 07/05/19 10:19 07/05/19 13:10 [place] Nasal [place] - NS 2 spray TID PRN Administration NASAL CONGESTION ASSESSMENT/PLAN: Problem List - Problems (1) MRSA bacteremia Code(s): R78.81 - BACTEREMIA; B95.62 - METHICILLIN RESIS STAPH INFCT CAUSING DISEASES CLASSD ELSWHR (2) Lupus Code(s): M32.9 - SYSTEMIC LUPUS ERYTHEMATOSUS, UNSPECIFIED (3) Iliopsoas abscess Code(s): K68.12 - PSOAS MUSCLE ABSCESS (4) Cervical cancer Code(s): C53.9 - MALIGNANT NEOPLASM OF CERVIX UTERI, UNSPECIFIED (5) Chronic bilateral low back pain Code(s): M54.5 - LOW BACK PAIN; G89.29 - OTHER CHRONIC PAIN (6) Endocarditis Code(s): I38 - ENDOCARDITIS, VALVE UNSPECIFIED (7) Hx MRSA infection Code(s): Z86.14 - PERSONAL HISTORY OF METHICILLIN RESIS STAPH INFECTION (8) Hypokalemia Code(s): E87.6 - HYPOKALEMIA (9) IDDM (insulin dependent diabetes mellitus) Code(s): [id number] - (10) Leukocytosis Code(s): D72.829 - ELEVATED WHITE BLOOD CELL COUNT, UNSPECIFIED (11) Obesity, Class III, BMI 40-49.9 (morbid obesity) Code(s): E66.01 - MORBID (SEVERE) OBESITY DUE TO EXCESS CALORIES
[2019-07-14] MEDS ORDERED: HYDROmorphone HCL 2 MG TABLET ONE (21:35)
[2019-07-14] MEDS: LIDOCAINE PATCH REMOVAL MC SCH (21:41)
[2019-07-15] MEDS: NYSTATIN POWDER 100,000 UNITS/GM - 15 GM TOPICAL POWDER TP SCH ×3 (00:05→13:29)
[2019-07-15] MEDS: CYCLOBENZAPRINE HCL 10 MG TABLET (FP) PO SCH ×3 (06:22→21:59)
[2019-07-15] MEDS: HEPARIN NA (PORCINE) 5,000 UNITS/ML 1ML VIAL SQ SCH ×3 (06:22→21:59)
[2019-07-15] MEDS: INSULIN (LEVEMIR) 100 UNITS/ML UNITS SQ SCH ×2 (06:23→21:59)
[2019-07-15] MEDS: INSULIN SLIDING SCALE (NOVOLOG) 1 VIAL SQ SCH ×4 (06:23→22:02)
[2019-07-15] MEDS: GABAPENTIN 300 MG CAPSULE PO SCH ×3 (06:23→22:02)
[2019-07-15] MEDS: levETIRAcetam 500 MG TABLET (FP) PO SCH ×3 (06:23→21:59)
[2019-07-15 08:29] LABS: EOS % 0.9 % (0-4.5); HEMATOCRIT 34.3 % (32.4-45.2); HEMOGLOBIN 11.3 GM/dL (10.7-15.3); LYMPH % 26.8 % (8-40); MCH 28.8 pg (25.7-33.7); MEAN CELL VOLUME 87.2 fl (80-96); MEAN PLT VOLUME 9.6 fl (7.5-11.1); NEUT % 65.3 % (42.8-82.8); PLATELET COUNT 365 K/MM3 (134-434); RBC 3.93 M/mm3 (3.60-5.2); WHITE BLOOD COUNT 9.3 K/mm3 (4.0-10.0)
[2019-07-15] MEDS: LIDOCAINE 5% TOPICAL PATCH TP SCH (09:09)
[2019-07-15] MEDS: DOCUSATE SODIUM 100 MG CAPSULE (FP) PO SCH (09:09)
[2019-07-15] MEDS: IPRATROPIUM/ALBUTEROL (COMBIVENT) RESPIMAT 20-100 MCG IH SCH ×5 (09:09→21:59)
[2019-07-15] MEDS: POTASSIUM CHLORIDE TABS 20 MEQ TABLET.ER (FP) PO SCH (09:09)
[2019-07-15] MEDS: BUDESONIDE/FORMETEROL FUMARATE 160/4.5 mcg INHALER IH SCH ×3 (09:09→22:03)
[2019-07-15] MEDS: LISINOPRIL 5 MG TABLET (FP) PO SCH (09:09)
[2019-07-15] MEDS: PANTOPRAZOLE 40 MG TABLET PO SCH (09:09)
[2019-07-15] MEDS: ACETAMINOPHEN/CAFFEINE/BUTALBITAL 1 TAB PO PRN (09:10)
[2019-07-15 09:16] LABS: ALBUMIN 2.5 g/dl (3.4-5.0); BILIRUBIN,TOTAL 0.3 mg/dL (0.2-1); BLOOD UREA NITROGEN 14.4 mg/dL (7-18); CALCIUM 8.4 mg/dL (8.5-10.1); CREATININE 0.7 mg/dL (0.55-1.3); MAGNESIUM 2.1 mg/dL (1.8-2.4); POTASSIUM 4.6 mmol/L (3.5-5.1); TOT PROT 6.8 g/dl (6.4-8.2)
--- NOTE | 2019-07-15 10:15 | PN ---
Physical Exam: SUBJECTIVE: Patient seen and examined, c/o of spitting up green phleghm. 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 ED evaluation found a Left-sided psoas abscess. Patient is also suspected to have endocarditis and is being followed by cardiology. Vital Signs Period Temp Pulse Resp BP Sys/Turner Pulse Ox Last 24 Hr 97.6 F-98.8 F 92-108 18-20 101-139/65-99 90-94 GENERAL: The patient is awake, alert, and fully oriented, in no acute distress. tolerating room air. HEAD: Normal with no signs of trauma. EYES: PERRL, extraocular movements intact, sclera anicteric, conjunctiva clear. No ptosis. ENT: Ears normal, nares patent, oropharynx clear without exudates, moist mucous membranes. NECK: Trachea midline, full range of motion, supple. LUNGS: diminished bilaterally ABDOMEN: Soft, nontender, nondistended, normoactive bowel sounds EXTREMITIES: 2+ pulses, warm, well-perfused, no edema. NEUROLOGICAL: Normal speech, gait not observed. PSYCH: Normal mood, normal affect. SKIN: Warm, dry, normal turgor, no rashes or lesions noted Laboratory Results - last 24 h 07/14/19 07/14/19 07/15/19 07:30 21:51 06:10 WBC 9.3 RBC 3.93 Hgb 11.3 Hct 34.3 D MCV 87.2 MCH 28.8 MCHC 33.0 RDW 14.0 Plt Count 365 MPV 9.6 Absolute Neuts (auto) 6.1 Neutrophils % 65.3 Lymphocytes % 26.8 D Monocytes % 6.0 Eosinophils % 0.9 Basophils % 1.0 Nucleated RBC % 0 D-Dimer Sodium Potassium Chloride Carbon Dioxide Anion Gap BUN Creatinine Est GFR (CKD-EPI)AfAm Est GFR (CKD-EPI)NonAf POC Glucometer 382 Random Glucose Calcium Magnesium Ferritin Total Bilirubin AST ALT Alkaline Phosphatase LD Total C-Reactive Protein 1.5 H Total Protein Albumin 07/15/19 07/15/19 07/15/19 06:10 06:10 06:10 WBC RBC Hgb Hct MCV MCH MCHC RDW Plt Count MPV Absolute Neuts (auto) Neutrophils % Lymphocytes % Monocytes % Eosinophils % Basophils % Nucleated RBC % D-Dimer 1921 H Sodium 133 L Potassium 4.6 Chloride 99 Carbon Dioxide 27 Anion Gap 8 BUN 14.4 Creatinine 0.7 Est GFR (CKD-EPI)AfAm 129.19 Est GFR (CKD-EPI)NonAf 111.47 POC Glucometer Random Glucose 273 H Calcium 8.4 L Magnesium 2.1 Ferritin 321.5 Total Bilirubin 0.3 AST 17 ALT 45 Alkaline Phosphatase 258 H LD Total 114 C-Reactive Protein 1.5 H Total Protein 6.8 Albumin 2.5 L Active Medications Generic Name Dose Route Start Last Admin Trade Name Freq PRN Reason Stop Dose Admin Acetaminophen 1,000 mg 07/05/19 10:18 07/13/19 11:40 Tylenol - PO 1,000 mg Q6H PRN Administration PAIN 4-6 Acetaminophen/Butalbital/Caffeine 1 tablet 07/13/19 15:31 07/15/19 09:10 Fioricet - PO 1 tablet Q6H PRN Administration HEADACHE Albuterol/Ipratropium 1 puff 07/07/19 11:47 07/15/19 09:11 Combivent Respimat 20-100 Mcg IH Not Given QID [facility] Albuterol/Ipratropium 1 amp 07/10/19 11:21 Duoneb - NEB Q4H PRN SHORTNESS OF BREATH Budesonide/Formoterol Fumarate 2 puff 07/08/19 10:00 07/15/19 09:11 Symbicort 160/4.5mcg - IH Not Given BID [facility] Cyclobenzaprine HCl 10 mg 07/13/19 15:37 07/15/19 06:22 Flexeril - PO 10 mg TID [facility] Administration Docusate Sodium 100 mg 07/08/19 10:00 07/15/19 09:09 Colace - PO 100 mg DAILY [facility] Administration Gabapentin 600 mg 07/14/19 14:00 07/15/19 06:23 Neurontin - PO 600 mg TID [facility] Administration Guaifenesin 10 ml 07/03/19 08:16 07/08/19 03:59 Robitussin - PO 10 ml Q6H PRN Administration COUGH Heparin Sodium (Porcine) 5,000 unit 07/08/19 06:00 07/15/19 06:22 Heparin - SQ 5,000 unit TID [facility] Administration Hydromorphone HCl 8 mg 07/13/19 16:10 07/15/19 05:05 Dilaudid - PO 8 mg Q6H PRN Administration PAIN LEVEL 7 - 10 Telavancin 1,000 mg/ Dextrose 316.6667 mls @ 316.667 mls/hr 07/07/19 15:00 07/14/19 16:37 IVPB 316.667 mls/hr DAILY@1500 [facility] Administration Lactated Ringer's 1,000 ml in 1,000 mls @ 100 mls/hr 07/08/19 14:29 07/14/19 15:25 Lactated Ringers Solution IV 100 mls/hr ASDIR [facility] Administration Insulin Aspart 1 vial 07/14/19 16:30 07/15/19 06:23 Novolog Vial Sliding Scale - SQ 10 units ACHS [facility] Administration Protocol Insulin Detemir 30 units 07/12/19 22:00 07/15/19 06:23 Levemir Vial SQ 30 units BID@0700,2200 [facility] Administration Levetiracetam 1,000 mg 07/07/19 23:45 07/15/19 06:23 Keppra - PO 1,000 mg TID [facility] Administration Lidocaine 1 patch 07/06/19 11:00 07/15/19 09:09 Lidoderm Patch - TP 1 patch DAILY [facility] Administration Lisinopril 5 mg 07/09/19 12:30 07/15/19 09:09 Prinivil PO 5 mg DAILY [facility] Administration Lorazepam 1 mg 07/13/19 16:11 07/13/19 17:06 Ativan - PO 1 mg TID PRN Administration ANXIETY Miscellaneous 1 each 07/06/19 22:00 07/14/19 21:41 Lidoderm Patch Removal MC 1 each DAILY@2200 [facility] Administration Nystatin 1 applic 07/10/19 14:00 07/15/19 06:23 Nystop Powder - TP 1 applic TID [facility] Administration Pantoprazole Sodium 40 mg 07/08/19 16:30 07/15/19 09:09 Protonix - PO 40 mg DAILY [facility] Administration Polyethylene Glycol 17 gm 07/08/19 14:29 07/08/19 15:00 Miralax (For Daily Use) - PO 17 gm DAILY PRN Administration CONSTIPATION Potassium Chloride 40 meq 07/07/19 10:00 07/15/19 09:09 K-Dur - PO 40 meq DAILY [facility] Administration Sodium Chloride 2 spray 07/05/19 10:19 07/05/19 13:10 [place] Nasal [place] - NS 2 spray TID PRN Administration NASAL CONGESTION ASSESSMENT/PLAN: Problem List - Problems (1) Endocarditis Assessment/Plan: followed by cardiology, per their note: 07/06/2019 blood cultures negative; repeat set negative to date. ECHO was repeated: essentially normal study. S/p iliacus abscess IR drainage. Severe atelectasis, infiltrates, cavitary pulmonary lesions. On antibiotics per ID. Code(s): I38 - ENDOCARDITIS, VALVE UNSPECIFIED (2) MRSA bacteremia Assessment/Plan: ilsiopsoas abcess drain placed on 07/02. patient with apx 5cc of total output, per IR, maintain drain in place. FRANCO with exudatative drainage but minimal on telavancin day #9 IV per ID TTE 07/01 supboptimal, nl LVEF, unable to eval for vegetations;repeated 07/04 and normal may require GENEVA if remains bacteremic per cardiololgy, however repeat blood culture negative cardiology following Code(s): R78.81 - BACTEREMIA; B95.62 - METHICILLIN RESIS STAPH INFCT CAUSING DISEASES CLASSD ELSWHR (3) Iliopsoas abscess Assessment/Plan: drainage with scant amount. continue antibiotics per ID, on telavancin 1000 mg day 9. abd/ct reviewed Code(s): K68.12 - PSOAS MUSCLE ABSCESS (4) Lupus Code(s): M32.9 - SYSTEMIC LUPUS ERYTHEMATOSUS, UNSPECIFIED (5) Cervical cancer Assessment/Plan: will need outpatient follow up Code(s): C53.9 - MALIGNANT NEOPLASM OF CERVIX UTERI, UNSPECIFIED (6) Chronic bilateral low back pain Assessment/Plan: flexiril tid Code(s): M54.5 - LOW BACK PAIN; G89.29 - OTHER CHRONIC PAIN (7) Hx MRSA infection Code(s): Z86.14 - PERSONAL HISTORY OF METHICILLIN RESIS STAPH INFECTION (8) Hypokalemia Assessment/Plan: resolved Code(s): E87.6 - HYPOKALEMIA (9) IDDM (insulin dependent diabetes mellitus) Assessment/Plan: on levemir bid, will tighten short acting to achieve fasting < 180 Code(s): [id number] - (10) Leukocytosis Code(s): D72.829 - ELEVATED WHITE BLOOD CELL COUNT, UNSPECIFIED (11) Obesity, Class III, BMI 40-49.9 (morbid obesity) Assessment/Plan: outpatient follow up Code(s): E66.01 - MORBID (SEVERE) OBESITY DUE TO EXCESS CALORIES (12) Seizure disorder Assessment/Plan: on keppra 1000 tid, neurontin 600mg tid Code(s): G40.909 - EPILEPSY, UNSP, NOT INTRACTABLE, WITHOUT STATUS EPILEPTICUS (13) Cavitary lung disease Assessment/Plan: per CT scan, pulmonary following Code(s): J98.4 - OTHER DISORDERS OF LUNG (14) COVID-19 virus not detected Assessment/Plan: negative x 2, however d dimer elevated as well as crp pulmonary following patient Code(s): Z03.818 - ENCNTR FOR OBS FOR SUSP EXPSR TO OTH BIOLG AGENTS RULED OUT Visit type - Emergency Visit Emergency Visit: Yes ED Registration Date: 07/02/19 Care time: The patient presented to the Emergency Department on the above date and was hospitalized for further evaluation of their emergent condition. - New Patient This patient is new to me today: No - Critical Care Critical Care patient: No - Discharge Referral Referred to [facility] Med P.C.: No
--- NOTE | 2019-07-15 13:27 | PN ---
Progress Note (short form) - Note Progress Note: PULMONARY AWAKE/ALERT OFFERS NO COMPLAINTS WANTS TO GO HOME, STARTED TO CRY VSS/AFEBRILE ANICTERIC CLEAR S1S2 BS+ OBESE NO EDEMA LABS/MEDS/NOTES/IMAGES REVIEWED IMP MRSA ENDOCARDITIS MULTIPLE PULMONARY NODULES LIKELY INFECTIOUS SLE RA COVID 19 NEGATIVE X2 MULTIPLE ABSCESSES ASTHMA H/O CERVICAL CA PLAN ABX PER ID BRONCHODILATORS DVT PROPHYLAXSIS Munira [facility] MD
[2019-07-15] MEDS: BACITRACIN 15 GM TUBE TOPICAL OINTMENT TP SCH (13:28)
[2019-07-15] MEDS: LACTATED RINGERS SOLUTION 1,000 ML/1,000 ML INFUS.BAG IV SCH (13:29)
[2019-07-15] MEDS ORDERED: PT OWN MED DRAWER 7, Y5N ONE (15:28)
--- NOTE | 2019-07-15 15:35 | PN ---
Progress Note (short form) - Note Progress Note: more comfortable still with drainage from NOAH drain Vital Signs Period Temp Pulse Resp BP Sys/Turner Pulse Ox Last 24 Hr 97.7 F-98.8 F 101-108 18-20 101-139/63-99 90-94 cor-rrr lungs decreased bs at bases abd soft,nt ext no edema +noah with purulent draiange CBC, BMP 07/15/19 06:10 07/15/19 06:10 Microbiology 07/12/19 07:20 Blood - Peripheral Venous Blood Culture - Preliminary NO GROWTH OBTAINED AFTER 72 HOURS, INCUBATION TO CONTINUE FOR 2 DAYS. 07/12/19 07:15 Blood - Peripheral Venous Blood Culture - Preliminary NO GROWTH OBTAINED AFTER 72 HOURS, INCUBATION TO CONTINUE FOR 2 DAYS. 07/09/19 06:40 Blood - Peripheral Venous Blood Culture - Final NO GROWTH AFTER 5 DAYS INCUBATION 07/09/19 06:45 Blood - Peripheral Venous Blood Culture - Final NO GROWTH AFTER 5 DAYS INCUBATION 07/06/19 07:19 Blood - Peripheral Venous Blood Culture - Final NO GROWTH AFTER 5 DAYS INCUBATION 07/06/19 07:19 Blood - Peripheral Venous Blood Culture - Final Mr S Aureus 07/04/19 06:10 Blood - Peripheral Venous Blood Culture - Final Staphylococcus Latex Coag Pos 07/04/19 05:50 Blood - Peripheral Venous Blood Culture - Final Mr S Aureus 07/03/19 17:30 Abscess Gram Stain - Final 07/03/19 17:30 Abscess Body Fluid Culture - Final Mr S Aureus 07/03/19 17:30 Abscess Anaerobic Culture - Final NO ANAEROBES WERE ISOLATED 07/03/19 11:10 Blood - Peripheral Venous Blood Culture - Final Mr S Aureus 07/03/19 11:10 Blood - Peripheral Venous Blood Culture - Final Mr S Aureus 07/02/19 00:55 Blood - Peripheral Venous Blood Culture - Final Mr S Aureus 07/02/19 01:02 Blood - Peripheral Venous Blood Culture - Final Mr S Aureus COVID pcr negative a/p suspected MRSA endocarditis MRSA bacteremia -last positive blood culture 07/05 abscesses left iliacus muscle-s/p IR drainage-coninues to drain via noah drain (please leave in place) bilateral cavitary infiltrates pen allergy obese poorly controlled DM lupus by history seizure disorder telavancin day #9 continue IVF while on televancin monitor renal function daily she reports anaphylaxis to penicillin and sulfa allergy options limited for MRSA treatment for both blood and lung infections as well as abscess plan is to hopefully transition to daptomycin on Friday and place picc line for home iv antibiotics cannot dose vancomycin therapeutically with her size this is first day her white count is normal
[2019-07-15] MEDS: TELAVANCIN HCL IVPB SCH (15:38)
[2019-07-15] MEDS: WATER IVPB SCH (15:38)
[2019-07-15] MEDS: DEXTROSE 5% IVPB SCH (15:38)
[2019-07-15] MEDS ORDERED: HYDROmorphone HCL 2 MG TABLET ONE (18:45)
[2019-07-15] MEDS: LIDOCAINE PATCH REMOVAL MC SCH (21:59)
[2019-07-16] MEDS: NYSTATIN POWDER 100,000 UNITS/GM - 15 GM TOPICAL POWDER TP SCH ×4 (00:59→22:42)
[2019-07-16] MEDS: BACITRACIN 15 GM TUBE TOPICAL OINTMENT TP SCH ×3 (00:59→22:41)
[2019-07-16] MEDS: LACTATED RINGERS SOLUTION 1,000 ML/1,000 ML INFUS.BAG IV SCH ×3 (01:00→16:58)
[2019-07-16] MEDS: LORazepam 1 MG TABLET PO PRN (03:09)
--- NOTE | 2019-07-16 04:41 | PN ---
Progress Note, Physician Chief Complaint: Pt A&Ox3; sitting up in bed; denies chest pain or dyspnea; hip pain is "OK". 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 yesterday developed fever, tmax 101; went to [facility] yesterday, where she said xrays were done and no further imaging or workup was pursued c/o severe left hip pain resides in [place]; came up to [place] to care for her sister who has endometriosis no other sick contacts. no travel history. no cough/congestion, vomiting, diarrhea, bloody stools, urinary sx. +current yeast infection, has not picked up her diflucan yet, as she gets frequent yeast infection from chronic use of doxycycline and clindamycin for chronic MRSA infections. no trauma, no recent procedures no h/o kidney stones, no prior sx of similar nature. Has had EKG recently; denies having had ECHO. - Current Medication List Current Medications: Active Medications Acetaminophen (Tylenol -) 1,000 mg PO Q6H PRN PRN Reason: PAIN 4-6 Last Admin: 07/13/19 11:40 Dose: 1,000 mg Documented by: Acetaminophen/Butalbital/Caffeine (Fioricet -) 1 tablet PO Q6H PRN PRN Reason: HEADACHE Last Admin: 07/15/19 09:10 Dose: 1 tablet Documented by: Albuterol/Ipratropium (Combivent Respimat 20-100 Mcg) 1 puff IH QID [facility] Last Admin: 07/15/19 21:59 Dose: 1 puff Documented by: Albuterol/Ipratropium (Duoneb -) 1 amp NEB Q4H PRN PRN Reason: SHORTNESS OF BREATH Bacitracin (Bacitracin -) 1 applic TP BID [facility] Last Admin: 07/16/19 00:59 Dose: Not Given Documented by: Budesonide/Formoterol Fumarate (Symbicort 160/4.5mcg -) 2 puff IH BID [facility] Last Admin: 07/15/19 22:03 Dose: 2 puff Documented by: Cyclobenzaprine HCl (Flexeril -) 10 mg PO TID [facility] Last Admin: 07/15/19 21:59 Dose: 10 mg Documented by: Docusate Sodium (Colace -) 100 mg PO DAILY [facility] Last Admin: 07/15/19 09:09 Dose: 100 mg Documented by: Gabapentin (Neurontin -) 600 mg PO TID [facility] Last Admin: 07/15/19 22:02 Dose: 600 mg Documented by: Guaifenesin (Robitussin -) 10 ml PO Q6H PRN PRN Reason: COUGH Last Admin: 07/08/19 03:59 Dose: 10 ml Documented by: Heparin Sodium (Porcine) (Heparin -) 5,000 unit SQ TID [facility] Last Admin: 07/15/19 21:59 Dose: 5,000 unit Documented by: Hydromorphone HCl (Dilaudid -) 8 mg PO Q6H PRN PRN Reason: PAIN LEVEL 7 - 10 Last Admin: 07/15/19 19:03 Dose: 8 mg Documented by: Telavancin 1,000 mg/ Dextrose 316.6667 mls @ 316.667 mls/hr IVPB DAILY@1500 [facility] Last Admin: 07/15/19 15:38 Dose: 316.667 mls/hr Documented by: Lactated Ringer's (Lactated Ringers Solution) 1,000 ml in 1,000 mls @ 100 mls/hr IV ASDIR [facility] Last Admin: 07/16/19 01:00 Dose: 100 mls/hr Documented by: Insulin Aspart (Novolog Vial Sliding Scale -) 1 vial SQ ACHS [facility]; Protocol Last Admin: 07/15/19 22:02 Dose: 10 unit Documented by: Insulin Detemir (Levemir Vial) 30 units SQ BID@0700,2200 [facility] Last Admin: 07/15/19 21:59 Dose: 30 units Documented by: Levetiracetam (Keppra -) 1,000 mg PO TID [facility] Last Admin: 07/15/19 21:59 Dose: 1,000 mg Documented by: Lidocaine (Lidoderm Patch -) 1 patch TP DAILY [facility] Last Admin: 07/15/19 09:09 Dose: 1 patch Documented by: Lisinopril (Prinivil) 5 mg PO DAILY [facility] Last Admin: 07/15/19 09:09 Dose: 5 mg Documented by: Lorazepam (Ativan -) 1 mg PO TID PRN PRN Reason: ANXIETY Last Admin: 07/16/19 03:09 Dose: 1 mg Documented by: Miscellaneous (Lidoderm Patch Removal) 1 each MC DAILY@2200 [facility] Last Admin: 07/15/19 21:59 Dose: 1 each Documented by: Nystatin (Nystop Powder -) 1 applic TP TID [facility] Last Admin: 07/16/19 00:59 Dose: Not Given Documented by: Pantoprazole Sodium (Protonix -) 40 mg PO DAILY [facility] Last Admin: 07/15/19 09:09 Dose: 40 mg Documented by: Polyethylene Glycol (Miralax (For Daily Use) -) 17 gm PO DAILY PRN PRN Reason: CONSTIPATION Last Admin: 07/08/19 15:00 Dose: 17 gm Documented by: Potassium Chloride (K-Dur -) 40 meq PO DAILY [facility] Last Admin: 07/15/19 09:09 Dose: 40 meq Documented by: Sodium Chloride ([place] Nasal [place] -) 2 spray NS TID PRN PRN Reason: NASAL CONGESTION Last Admin: 07/05/19 13:10 Dose: 2 spray Documented by: Zolpidem Tartrate (Ambien -) 5 mg PO HS PRN PRN Reason: INSOMNIA - Objective Vital Signs: Vital Signs Temperature 97.3 F L 07/15/19 23:36 Pulse Rate 103 H 07/15/19 23:36 Respiratory Rate 20 07/15/19 23:36 Blood Pressure 119/73 07/15/19 18:00 O2 Sat by Pulse Oximetry (%) 92 L 07/15/19 21:00 Constitutional: Yes: Obese Eyes: Yes: WNL HENT: Yes: WNL Neck: Yes: WNL Cardiovascular: Yes: S1, S2 Respiratory: Yes: Diminished Gastrointestinal: Yes: Soft, Abdomen, Obese ...Rectal Exam: Yes: Deferred Genitourinary: No: Anuria Breast(s): Yes: WNL Musculoskeletal: Yes: Joint Stiffness, Muscle Weakness Extremities: Yes: WNL Edema: No Peripheral Pulses WNL: Yes Integumentary: Yes: Tattoos Wound/Incision: Yes: Dressing Dry and Intact (LLQ abscess drain) Neurological: Yes: Alert, Oriented, Weakness Psychiatric: Yes: Other Labs: CBC, BMP 07/15/19 06:10 07/15/19 06:10 INR, PTT INR 1.07 (0.83-1.09) 07/01/19 22:15 Fibrinogen > 500.0 mg/dL (238-498) H 07/04/19 05:50 Abnormal Lab Results 07/15/19 07/15/19 07/15/19 06:10 06:10 06:10 D-Dimer 1921 H Sodium 133 L Random Glucose 273 H Calcium 8.4 L Alkaline Phosphatase 258 H C-Reactive Protein 1.5 H Albumin 2.5 L - ....Imaging Chest X-ray: Image Reviewed Problem List - Problems (1) Hypokalemia Assessment/Plan: Keep K 4.0-4.5 Keep Mg 2.0-2.4 Keep PO4 2.5-4.9 Code(s): E87.6 - HYPOKALEMIA (2) Endocarditis Assessment/Plan: Latest blood cultures (07/12/2019) negative x 72 hrs. WBCs now WNL. ECHO was repeated: essentially normal study. S/p iliacus abscess IR drainage. Severe atelectasis, infiltrates, cavitary pulmonary lesions. On antibiotics per ID; plan for Picc line and long-term regimen. Code(s): I38 - ENDOCARDITIS, VALVE UNSPECIFIED (3) Blood bacterial culture positive Assessment/Plan: MRSA; most recent blood cultures (07/12/19) negative x 72 hours. On antibiotics per ID; planning for several weeks Rx. WBC now wnL. Repeated ECHO: essentially normal study. Afebrile since 07/02/19 except 100.1 on 07/10/19. Code(s): R78.81 - BACTEREMIA (4) Abscess Assessment/Plan: s/p IR purulent drainage of left iliacus abscess; still draining. Code(s): L02.91 - CUTANEOUS ABSCESS, UNSPECIFIED (5) Rheumatoid arthritis Code(s): M06.9 - RHEUMATOID ARTHRITIS, UNSPECIFIED (6) Lupus Code(s): M32.9 - SYSTEMIC LUPUS ERYTHEMATOSUS, UNSPECIFIED (7) Osteoarthritis Code(s): M19.90 - UNSPECIFIED OSTEOARTHRITIS, UNSPECIFIED SITE (8) HTN (hypertension) Assessment/Plan: started lisinopril (HTN; DM; episodes of hypokalemia). F/U BP serially; BUN/Cr, electrolytes. Code(s): I10 - ESSENTIAL (PRIMARY) HYPERTENSION (9) Migraine Code(s): G43.909 - MIGRAINE, UNSP, NOT INTRACTABLE, WITHOUT STATUS MIGRAINOSUS (10) Obesity, Class III, BMI 40-49.9 (morbid obesity) Assessment/Plan: dietary consult may be of benefit. Code(s): E66.01 - MORBID (SEVERE) OBESITY DUE TO EXCESS CALORIES (11) Seizure Assessment/Plan: On Keppra. Code(s): R56.9 - UNSPECIFIED CONVULSIONS (12) Sleep apnea Code(s): G47.30 - SLEEP APNEA, UNSPECIFIED (13) Sinus tachycardia Code(s): R00.0 - TACHYCARDIA, UNSPECIFIED (14) Diabetes Assessment/Plan: markedly elevated HGBA1c. Dietary consult may be of benefit. Code(s): E11.9 - TYPE 2 DIABETES MELLITUS WITHOUT COMPLICATIONS (15) Hx MRSA infection Assessment/Plan: Hx MRSA colonization; on chronic antibiotics. BLood cultures: cocci in clusters; repeated show no growth. CT chest: severe atelectasis; cavitary lesions. MRI pelvis: collections suspicious for abscess. On antibiotics per ID. Code(s): Z86.14 - PERSONAL HISTORY OF METHICILLIN RESIS STAPH INFECTION (16) Pulmonary cavitary lesion Assessment/Plan: CT chest: severe atelectasis; multiple nodules, cavitations On antibiotics. F/u with ID, hospice clinical supervisor. Code(s): J98.4 - OTHER DISORDERS OF LUNG (17) Leukocytosis Code(s): D72.829 - ELEVATED WHITE BLOOD CELL COUNT, UNSPECIFIED (18) Cervical cancer Assessment/Plan: hx chemotherapy. CT chest: multiple nodules, some cavitary. Code(s): C53.9 - MALIGNANT NEOPLASM OF CERVIX UTERI, UNSPECIFIED (19) COVID-19 Assessment/Plan: Negative x 2. Code(s): U07.1 - COVID POSITIVE (20) Chronic pain with drug dependence Assessment/Plan: Pt will require present pain medications, then long-term pain management and help with gradually coming off the medications. Code(s): G89.29 - OTHER CHRONIC PAIN; F19.20 - OTHER PSYCHOACTIVE SUBSTANCE DEPENDENCE, UNCOMPLICATED
[2019-07-16] MEDS: INSULIN (LEVEMIR) 100 UNITS/ML UNITS SQ SCH ×2 (06:17→22:41)
[2019-07-16] MEDS: GABAPENTIN 300 MG CAPSULE PO SCH ×3 (06:17→22:42)
[2019-07-16] MEDS: CYCLOBENZAPRINE HCL 10 MG TABLET (FP) PO SCH ×3 (06:17→22:41)
[2019-07-16] MEDS: HEPARIN NA (PORCINE) 5,000 UNITS/ML 1ML VIAL SQ SCH ×3 (06:17→22:41)
[2019-07-16] MEDS: INSULIN SLIDING SCALE (NOVOLOG) 1 VIAL SQ SCH ×4 (06:17→22:42)
[2019-07-16] MEDS: levETIRAcetam 500 MG TABLET (FP) PO SCH ×3 (06:17→22:41)
[2019-07-16 08:36] LABS: BASO % 0.9 % (0-2.0); EOS % 0.7 % (0-4.5); HEMATOCRIT 37.2 % (32.4-45.2); HEMOGLOBIN 12.3 GM/dL (10.7-15.3); LYMPH % 33.2 % (8-40); MCH 28.6 pg (25.7-33.7); MEAN CELL VOLUME 86.7 fl (80-96); MEAN PLT VOLUME 8.7 fl (7.5-11.1); MONO % 7.1 % (3.8-10.2); NEUT % 58.1 % (42.8-82.8); PLATELET COUNT 402 K/MM3 (134-434); RBC 4.29 M/mm3 (3.60-5.2); RDW 13.9 % (11.6-15.6); WHITE BLOOD COUNT 8.1 K/mm3 (4.0-10.0)
--- NOTE | 2019-07-16 08:55 | PN ---
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 yesterday developed fever, tmax 101; went to [facility] yesterday, where she said xrays were done and no further imaging or workup was pursued c/o severe left hip pain - Current Medication List Current Medications: Active Medications Acetaminophen (Tylenol -) 1,000 mg PO Q6H PRN PRN Reason: PAIN 4-6 Last Admin: 07/13/19 11:40 Dose: 1,000 mg Documented by: Acetaminophen/Butalbital/Caffeine (Fioricet -) 1 tablet PO Q6H PRN PRN Reason: HEADACHE Last Admin: 07/15/19 09:10 Dose: 1 tablet Documented by: Albuterol/Ipratropium (Combivent Respimat 20-100 Mcg) 1 puff IH QID [facility] Last Admin: 07/15/19 21:59 Dose: 1 puff Documented by: Albuterol/Ipratropium (Duoneb -) 1 amp NEB Q4H PRN PRN Reason: SHORTNESS OF BREATH Bacitracin (Bacitracin -) 1 applic TP BID [facility] Last Admin: 07/16/19 00:59 Dose: Not Given Documented by: Budesonide/Formoterol Fumarate (Symbicort 160/4.5mcg -) 2 puff IH BID [facility] Last Admin: 07/15/19 22:03 Dose: 2 puff Documented by: Cyclobenzaprine HCl (Flexeril -) 10 mg PO TID [facility] Last Admin: 07/16/19 06:17 Dose: 10 mg Documented by: Docusate Sodium (Colace -) 100 mg PO DAILY [facility] Last Admin: 07/15/19 09:09 Dose: 100 mg Documented by: Gabapentin (Neurontin -) 600 mg PO TID [facility] Last Admin: 07/16/19 06:17 Dose: 600 mg Documented by: Guaifenesin (Robitussin -) 10 ml PO Q6H PRN PRN Reason: COUGH Last Admin: 07/08/19 03:59 Dose: 10 ml Documented by: Heparin Sodium (Porcine) (Heparin -) 5,000 unit SQ TID [facility] Last Admin: 07/16/19 06:17 Dose: 5,000 unit Documented by: Hydromorphone HCl (Dilaudid -) 8 mg PO Q6H PRN PRN Reason: PAIN LEVEL 7 - 10 Last Admin: 07/15/19 19:03 Dose: 8 mg Documented by: Telavancin 1,000 mg/ Dextrose 316.6667 mls @ 316.667 mls/hr IVPB DAILY@1500 [facility] Last Admin: 07/15/19 15:38 Dose: 316.667 mls/hr Documented by: Lactated Ringer's (Lactated Ringers Solution) 1,000 ml in 1,000 mls @ 100 mls/hr IV ASDIR [facility] Last Admin: 07/16/19 01:00 Dose: 100 mls/hr Documented by: Insulin Aspart (Novolog Vial Sliding Scale -) 1 vial SQ ACHS [facility]; Protocol Last Admin: 07/16/19 06:17 Dose: 8 unit Documented by: Insulin Detemir (Levemir Vial) 30 units SQ BID@0700,2200 [facility] Last Admin: 07/16/19 06:17 Dose: 30 units Documented by: Levetiracetam (Keppra -) 1,000 mg PO TID [facility] Last Admin: 07/16/19 06:17 Dose: 1,000 mg Documented by: Lidocaine (Lidoderm Patch -) 1 patch TP DAILY [facility] Last Admin: 07/15/19 09:09 Dose: 1 patch Documented by: Lisinopril (Prinivil) 5 mg PO DAILY [facility] Last Admin: 07/15/19 09:09 Dose: 5 mg Documented by: Lorazepam (Ativan -) 1 mg PO TID PRN PRN Reason: ANXIETY Last Admin: 07/16/19 03:09 Dose: 1 mg Documented by: Miscellaneous (Lidoderm Patch Removal) 1 each MC DAILY@2200 [facility] Last Admin: 07/15/19 21:59 Dose: 1 each Documented by: Nystatin (Nystop Powder -) 1 applic TP TID [facility] Last Admin: 07/16/19 06:17 Dose: Not Given Documented by: Pantoprazole Sodium (Protonix -) 40 mg PO DAILY [facility] Last Admin: 07/15/19 09:09 Dose: 40 mg Documented by: Polyethylene Glycol (Miralax (For Daily Use) -) 17 gm PO DAILY PRN PRN Reason: CONSTIPATION Last Admin: 07/08/19 15:00 Dose: 17 gm Documented by: Potassium Chloride (K-Dur -) 40 meq PO DAILY [facility] Last Admin: 07/15/19 09:09 Dose: 40 meq Documented by: Sodium Chloride ([place] Nasal [place] -) 2 spray NS TID PRN PRN Reason: NASAL CONGESTION Last Admin: 07/05/19 13:10 Dose: 2 spray Documented by: Zolpidem Tartrate (Ambien -) 5 mg PO HS PRN PRN Reason: INSOMNIA - Objective Vital Signs: Vital Signs Temperature 98.6 F 07/16/19 06:00 Pulse Rate 107 H 07/16/19 06:00 Respiratory Rate 18 07/16/19 06:00 Blood Pressure 153/79 07/16/19 06:00 O2 Sat by Pulse Oximetry (%) 92 L 07/15/19 21:00 Eyes: Yes: WNL, Conjunctiva Clear, EOM Intact HENT: Yes: WNL, Atraumatic, Normocephalic Neck: Yes: WNL, Supple, Trachea Midline Cardiovascular: Yes: WNL, Regular Rate and Rhythm Respiratory: Yes: WNL, Regular, CTA Bilaterally Gastrointestinal: Yes: WNL, Normal Bowel Sounds Genitourinary: Yes: WNL Musculoskeletal: Yes: WNL Extremities: Yes: WNL Edema: No Integumentary: Yes: WNL Neurological: Yes: WNL, Alert, Oriented ...Motor Strength: WNL Psychiatric: Yes: WNL Labs: CBC, BMP 07/16/19 08:05 INR, PTT INR 1.07 (0.83-1.09) 07/01/19 22:15 Fibrinogen > 500.0 mg/dL (238-498) H 07/04/19 05:50 Assessment/Plan - Problems (1) Hypokalemia Assessment/Plan: Keep K 4.0-4.5 Keep Mg 2.0-2.4 Keep PO4 2.5-4.9 Code(s): E87.6 - HYPOKALEMIA (2) Endocarditis Assessment/Plan: Latest blood cultures (07/12/2019) negative x 72 hrs. WBCs now WNL. ECHO was repeated: essentially normal study. S/p iliacus abscess IR drainage. Severe atelectasis, infiltrates, cavitary pulmonary lesions. On antibiotics per ID; plan for Picc line and long-term regimen. Code(s): I38 - ENDOCARDITIS, VALVE UNSPECIFIED (3) Blood bacterial culture positive Assessment/Plan: MRSA; most recent blood cultures (07/12/19) negative x 72 hours. On antibiotics per ID; planning for several weeks Rx. WBC now wnL. Repeated ECHO: essentially normal study. Afebrile since 07/02/19 except 100.1 on 07/10/19. Code(s): R78.81 - BACTEREMIA (4) Abscess Assessment/Plan: s/p IR purulent drainage of left iliacus abscess; still draining. Code(s): L02.91 - CUTANEOUS ABSCESS, UNSPECIFIED (5) Rheumatoid arthritis Code(s): M06.9 - RHEUMATOID ARTHRITIS, UNSPECIFIED (6) Lupus Code(s): M32.9 - SYSTEMIC LUPUS ERYTHEMATOSUS, UNSPECIFIED (7) Osteoarthritis Code(s): M19.90 - UNSPECIFIED OSTEOARTHRITIS, UNSPECIFIED SITE (8) HTN (hypertension) Assessment/Plan: started lisinopril (HTN; DM; episodes of hypokalemia). F/U BP serially; BUN/Cr, electrolytes. Code(s): I10 - ESSENTIAL (PRIMARY) HYPERTENSION (9) Migraine Code(s): G43.909 - MIGRAINE, UNSP, NOT INTRACTABLE, WITHOUT STATUS MIGRAINOSUS (10) Obesity, Class III, BMI 40-49.9 (morbid obesity) Assessment/Plan: dietary consult may be of benefit. Code(s): E66.01 - MORBID (SEVERE) OBESITY DUE TO EXCESS CALORIES (11) Seizure Assessment/Plan: On Keppra. Code(s): R56.9 - UNSPECIFIED CONVULSIONS (12) Sleep apnea Code(s): G47.30 - SLEEP APNEA, UNSPECIFIED (13) Sinus tachycardia Code(s): R00.0 - TACHYCARDIA, UNSPECIFIED (14) Diabetes Assessment/Plan: markedly elevated HGBA1c. Dietary consult may be of benefit. Code(s): E11.9 - TYPE 2 DIABETES MELLITUS WITHOUT COMPLICATIONS (15) Hx MRSA infection Assessment/Plan: Hx MRSA colonization; on chronic antibiotics. BLood cultures: cocci in clusters; repeated show no growth. CT chest: severe atelectasis; cavitary lesions. MRI pelvis: collections suspicious for abscess. On antibiotics per ID. Code(s): Z86.14 - PERSONAL HISTORY OF METHICILLIN RESIS STAPH INFECTION (16) Pulmonary cavitary lesion Assessment/Plan: CT chest: severe atelectasis; multiple nodules, cavitations On antibiotics. F/u with ID, audio visual arts director. Code(s): J98.4 - OTHER DISORDERS OF LUNG (17) Leukocytosis Code(s): D72.829 - ELEVATED WHITE BLOOD CELL COUNT, UNSPECIFIED (18) Cervical cancer Assessment/Plan: hx chemotherapy. CT chest: multiple nodules, some cavitary. Code(s): C53.9 - MALIGNANT NEOPLASM OF CERVIX UTERI, UNSPECIFIED (19) COVID-19 PCR negative Assessment/Plan: (20) Chronic pain with drug dependence Assessment/Plan: Pt will require present pain medications, then long-term pain management and help with gradually coming off the medications. Code(s): G89.29 - OTHER CHRONIC PAIN; F19.20 - OTHER PSYCHOACTIVE SUBSTANCE DEPENDENCE, UNCOMPLICATED
[2019-07-16 09:15] LABS: ALBUMIN 2.8 g/dl (3.4-5.0); BILIRUBIN,TOTAL 0.4 mg/dL (0.2-1); BLOOD UREA NITROGEN 8.5 mg/dL (7-18); CREATININE 0.7 mg/dL (0.55-1.3); MAGNESIUM 2.1 mg/dL (1.8-2.4); POTASSIUM 3.8 mmol/L (3.5-5.1); TOT PROT 7.5 g/dl (6.4-8.2)
[2019-07-16] MEDS: POTASSIUM CHLORIDE TABS 20 MEQ TABLET.ER (FP) PO SCH (09:30)
[2019-07-16] MEDS: DOCUSATE SODIUM 100 MG CAPSULE (FP) PO SCH (09:30)
[2019-07-16] MEDS: PANTOPRAZOLE 40 MG TABLET PO SCH (09:31)
[2019-07-16] MEDS: LIDOCAINE 5% TOPICAL PATCH TP SCH (09:31)
[2019-07-16] MEDS: LISINOPRIL 5 MG TABLET (FP) PO SCH (09:31)
[2019-07-16] MEDS: ACETAMINOPHEN/CAFFEINE/BUTALBITAL 1 TAB PO PRN ×3 (09:32→23:08)
[2019-07-16] MEDS: BUDESONIDE/FORMETEROL FUMARATE 160/4.5 mcg INHALER IH SCH ×2 (09:32→22:42)
[2019-07-16] MEDS: IPRATROPIUM/ALBUTEROL (COMBIVENT) RESPIMAT 20-100 MCG IH SCH ×4 (09:32→22:41)
--- NOTE | 2019-07-16 13:15 | PN ---
Progress Note (short form) - Note Progress Note: PULMONARY AWAKE/ALERT OFFERS NO COMPLAINTS NOT WEARING HER O2 VSS/AFEBRILE ANICTERIC CLEAR S1S2 BS+ OBESE NO EDEMA LABS/MEDS/NOTES/IMAGES REVIEWED IMP MRSA ENDOCARDITIS MULTIPLE PULMONARY NODULES LIKELY INFECTIOUS SLE RA COVID 19 NEGATIVE X2 MULTIPLE ABSCESSES ASTHMA H/O CERVICAL CA PLAN ABX PER ID BRONCHODILATORS DVT PROPHYLAXSIS PLEASE CALL [facility] MD
--- NOTE | 2019-07-16 14:05 | PN ---
Progress Note (short form) - Note Progress Note: more comfortable still with drainage from NOAH drain sad she is still here in the hospital Vital Signs Period Temp Pulse Resp BP Sys/Turner Pulse Ox Last 24 Hr 97.3 F-98.6 F 102-119 18-20 119-153/73-81 92-94 cor-rrr lungs clear abd soft,nt still with purulent drainage from the noah drain! ext no edema CBC, BMP 07/16/19 08:05 07/16/19 08:05 Microbiology 07/12/19 07:20 Blood - Peripheral Venous Blood Culture - Preliminary NO GROWTH OBTAINED AFTER 96 HOURS, INCUBATION TO CONTINUE FOR 1 DAYS. 07/12/19 07:15 Blood - Peripheral Venous Blood Culture - Preliminary NO GROWTH OBTAINED AFTER 96 HOURS, INCUBATION TO CONTINUE FOR 1 DAYS. 07/09/19 06:40 Blood - Peripheral Venous Blood Culture - Final NO GROWTH AFTER 5 DAYS INCUBATION 07/09/19 06:45 Blood - Peripheral Venous Blood Culture - Final NO GROWTH AFTER 5 DAYS INCUBATION 07/06/19 07:19 Blood - Peripheral Venous Blood Culture - Final NO GROWTH AFTER 5 DAYS INCUBATION 07/06/19 07:19 Blood - Peripheral Venous Blood Culture - Final Mr S Aureus 07/04/19 06:10 Blood - Peripheral Venous Blood Culture - Final Staphylococcus Latex Coag Pos 07/04/19 05:50 Blood - Peripheral Venous Blood Culture - Final Mr S Aureus 07/03/19 17:30 Abscess Gram Stain - Final 07/03/19 17:30 Abscess Body Fluid Culture - Final Mr S Aureus 07/03/19 17:30 Abscess Anaerobic Culture - Final NO ANAEROBES WERE ISOLATED 07/03/19 11:10 Blood - Peripheral Venous Blood Culture - Final Mr S Aureus 07/03/19 11:10 Blood - Peripheral Venous Blood Culture - Final Mr S Aureus 07/02/19 00:55 Blood - Peripheral Venous Blood Culture - Final Mr S Aureus 07/02/19 01:02 Blood - Peripheral Venous Blood Culture - Final Mr S Aureus COVID pcr negative a/p suspected MRSA endocarditis MRSA bacteremia -last positive blood culture 07/05 abscesses left iliacus muscle-s/p IR drainage-coninues to drain via noah drain (please leave in place) bilateral cavitary infiltrates pen allergy obese poorly controlled DM lupus by history seizure disorder telavancin day #10 continue IVF while on televancin monitor renal function daily she reports anaphylaxis to penicillin and sulfa allergy options limited for MRSA treatment for both blood and lung infections as well as abscess plan is to hopefully transition to daptomycin on Friday and place picc line for home iv antibiotics cannot dose vancomycin therapeutically with her size d/w hospitalist question is whether she will stay in [place] and complete her treatment or if treat ment can be transitioned to [place]
[2019-07-16] MEDS ORDERED: PT OWN MED DRAWER 7, Y5N ONE (14:20)
[2019-07-16] MEDS: TELAVANCIN HCL IVPB SCH (14:23)
[2019-07-16] MEDS: DEXTROSE 5% IVPB SCH (14:23)
[2019-07-16] MEDS: WATER IVPB SCH (14:23)
--- NOTE | 2019-07-16 15:41 | PN ---
Physical Exam: SUBJECTIVE: Patient seen and examined at the bedside, anxious and crying over family situation. denies chest pain or shortness of breath. OBJECTIVE: Patient is a 38 year old female with a significant past medical history of lupus, MRSA bacteremia, recurrent MRSA skin abscesses on intermittent doxycycline-clindamycin regimens, cervical CA (s/p chemotherapy 10ys prior), endometriosis, IDDM, seizure disorder, chronic migraines, herniated L-spine disc, chronic lower back pain (dilaudid 8mg TID), OA, RA, anxiety presented to [facility] for complaint of >7d of severe intermittent LLQ pain. ED evaluation found a Left-sided psoas abscess. Patient is also suspected to have endocarditis and is being followed by cardiology. Vital Signs Period Temp Pulse Resp BP Sys/Turner Pulse Ox Last 24 Hr 97.3 F-98.6 F 102-119 18-20 119-153/73-81 92-94 GENERAL: The patient is awake, alert, and fully oriented, in no acute distress. tolerating room air. HEAD: Normal with no signs of trauma. EYES: PERRL, extraocular movements intact, sclera anicteric, conjunctiva clear. No ptosis. ENT: Ears normal, nares patent, oropharynx clear without exudates, moist mucous membranes. NECK: Trachea midline, full range of motion, supple. LUNGS: diminished bilaterally, no wheezing or accessory muscle use. ABDOMEN: Soft, nontender, nondistended, normoactive bowel sounds EXTREMITIES: 2+ pulses, warm, well-perfused, no edema. NEUROLOGICAL: Normal speech, gait not observed. PSYCH: Normal mood, normal affect. SKIN: Warm, dry, normal turgor, no rashes or lesions noted Laboratory Results - last 24 hr 07/15/19 07/15/19 07/16/19 17:02 21:41 06:10 WBC RBC Hgb Hct MCV MCH MCHC RDW Plt Count MPV Absolute Neuts (auto) Neutrophils % Lymphocytes % Monocytes % Eosinophils % Basophils % Nucleated RBC % D-Dimer Sodium Potassium Chloride Carbon Dioxide Anion Gap BUN Creatinine Est GFR (CKD-EPI)AfAm Est GFR (CKD-EPI)NonAf POC Glucometer 191 240 167 Random Glucose Calcium Magnesium Ferritin Total Bilirubin AST ALT Alkaline Phosphatase LD Total C-Reactive Protein Total Protein Albumin 07/16/19 07/16/19 07/16/19 08:05 08:05 08:05 WBC 8.1 RBC 4.29 Hgb 12.3 Hct 37.2 MCV 86.7 MCH 28.6 MCHC 33.0 RDW 13.9 Plt Count 402 MPV 8.7 Absolute Neuts (auto) 4.7 Neutrophils % 58.1 Lymphocytes % 33.2 D Monocytes % 7.1 Eosinophils % 0.7 Basophils % 0.9 Nucleated RBC % 0 D-Dimer 1540 H Sodium 136 Potassium 3.8 Chloride 99 Carbon Dioxide 29 Anion Gap 8 BUN 8.5 Creatinine 0.7 Est GFR (CKD-EPI)AfAm 129.19 Est GFR (CKD-EPI)NonAf 111.47 POC Glucometer Random Glucose 71 L Calcium 9.0 Magnesium 2.1 Ferritin 259.4 Total Bilirubin 0.4 AST 10 L ALT 35 Alkaline Phosphatase 235 H LD Total 152 C-Reactive Protein 3.1 H Total Protein 7.5 Albumin 2.8 L Active Medications Generic Name Dose Route Start Last Admin Trade Name Freq PRN Reason Stop Dose Admin Acetaminophen 1,000 mg 07/05/19 10:18 07/13/19 11:40 Tylenol - PO 1,000 mg Q6H PRN Administration PAIN 4-6 Acetaminophen/Butalbital/Caffeine 1 tablet 07/13/19 15:31 07/16/19 09:32 Fioricet - PO 1 tablet Q6H PRN Administration HEADACHE Albuterol/Ipratropium 1 puff 07/07/19 11:47 07/16/19 14:24 Combivent Respimat 20-100 Mcg IH 1 puff QID FRANTZ Administration Albuterol/Ipratropium 1 amp 07/10/19 11:21 Duoneb - NEB Q4H PRN SHORTNESS OF BREATH Bacitracin 1 applic 07/15/19 11:15 07/16/19 09:31 Bacitracin - TP 1 applic BID FRANTZ Administration Budesonide/Formoterol Fumarate 2 puff 07/08/19 10:00 07/16/19 09:32 Symbicort 160/4.5mcg - IH 2 puff BID FRANTZ Administration Cyclobenzaprine HCl 10 mg 07/13/19 15:37 07/16/19 14:23 Flexeril - PO 10 mg TID FRANTZ Administration Docusate Sodium 100 mg 07/08/19 10:00 07/16/19 09:30 Colace - PO 100 mg DAILY FRANTZ Administration Gabapentin 600 mg 07/14/19 14:00 07/16/19 14:23 Neurontin - PO 600 mg TID FRANTZ Administration Guaifenesin 10 ml 07/03/19 08:16 07/08/19 03:59 Robitussin - PO 10 ml Q6H PRN Administration COUGH Heparin Sodium (Porcine) 5,000 unit 07/08/19 06:00 07/16/19 14:23 Heparin - SQ 5,000 unit TID FRANTZ Administration Hydromorphone HCl 8 mg 07/13/19 16:10 07/16/19 11:49 Dilaudid - PO 8 mg Q6H PRN Administration PAIN LEVEL 7 - 10 Telavancin 1,000 mg/ Dextrose 316.6667 mls @ 316.667 mls/hr 07/07/19 15:00 07/16/19 14:23 IVPB 316.667 mls/hr DAILY@1500 FRANTZ Administration Lactated Ringer's 1,000 ml in 1,000 mls @ 100 mls/hr 07/08/19 14:29 07/16/19 09:29 Lactated Ringers Solution IV 100 mls/hr ASDIR FRANTZ Administration Insulin Aspart 1 vial 07/15/19 14:51 07/16/19 11:54 Novolog Vial Sliding Scale - SQ 10 unit ACHS FRANTZ Administration Protocol Insulin Detemir 30 units 07/12/19 22:00 07/16/19 06:17 Levemir Vial SQ 30 units BID@0700,2200 FRANTZ Administration Levetiracetam 1,000 mg 07/07/19 23:45 07/16/19 14:23 Keppra - PO 1,000 mg TID FRANTZ Administration Lidocaine 1 patch 07/06/19 11:00 07/16/19 09:31 Lidoderm Patch - TP 1 patch DAILY FRANTZ Administration Lisinopril 5 mg 07/09/19 12:30 07/16/19 09:31 Prinivil PO 5 mg DAILY FRANTZ Administration Lorazepam 1 mg 07/13/19 16:11 07/16/19 03:09 Ativan - PO 1 mg TID PRN Administration ANXIETY Miscellaneous 1 each 07/06/19 22:00 07/15/19 21:59 Lidoderm Patch Removal MC 1 each DAILY@2200 FRANTZ Administration Nystatin 1 applic 07/10/19 14:00 07/16/19 14:24 Nystop Powder - TP 1 applic TID FRANTZ Administration Pantoprazole Sodium 40 mg 07/08/19 16:30 07/16/19 09:31 Protonix - PO 40 mg DAILY FRANTZ Administration Polyethylene Glycol 17 gm 07/08/19 14:29 07/08/19 15:00 Miralax (For Daily Use) - PO 17 gm DAILY PRN Administration CONSTIPATION Potassium Chloride 40 meq 07/07/19 10:00 07/16/19 09:30 K-Dur - PO 40 meq DAILY FRANTZ Administration Sodium Chloride 2 spray 07/05/19 10:19 07/05/19 13:10 [place] Nasal [place] - NS 2 spray TID PRN Administration NASAL CONGESTION Zolpidem Tartrate 5 mg 07/15/19 11:01 Ambien - PO HS PRN INSOMNIA ASSESSMENT/PLAN: Problem List - Problems (1) Endocarditis Assessment/Plan: followed by cardiology, per their note: 07/06/2019 blood cultures negative; repeat set negative to date. ECHO was repeated: essentially normal study. S/p iliacus abscess IR drainage. Severe atelectasis, infiltrates, cavitary pulmonary lesions. On antibiotics per ID. Code(s): I38 - ENDOCARDITIS, VALVE UNSPECIFIED (2) MRSA bacteremia Assessment/Plan: ilsiopsoas abcess drain placed on 07/02. per IR and ID, maintain drain in place. FRANCO with exudatative drainage but minimal on telavancin day #10 IV per ID, and will need PICC line prior to d/c TTE 07/01 supboptimal, nl LVEF, unable to eval for vegetations;repeated 07/04 and normal may require GENEVA if remains bacteremic per cardiololgy, however repeat blood culture negative cardiology following Code(s): R78.81 - BACTEREMIA; B95.62 - METHICILLIN RESIS STAPH INFCT CAUSING DISEASES CLASSD ELSWHR (3) Iliopsoas abscess Assessment/Plan: drainage with scant amount. continue antibiotics per ID, on telavancin 1000 mg day 10. abd/ct reviewed Code(s): K68.12 - PSOAS MUSCLE ABSCESS (4) Lupus Code(s): M32.9 - SYSTEMIC LUPUS ERYTHEMATOSUS, UNSPECIFIED (5) Cervical cancer Assessment/Plan: will need outpatient follow up Code(s): C53.9 - MALIGNANT NEOPLASM OF CERVIX UTERI, UNSPECIFIED (6) Chronic bilateral low back pain Assessment/Plan: flexiril tid Code(s): M54.5 - LOW BACK PAIN; G89.29 - OTHER CHRONIC PAIN (7) Hx MRSA infection Code(s): Z86.14 - PERSONAL HISTORY OF METHICILLIN RESIS STAPH INFECTION (8) Hypokalemia Assessment/Plan: resolved Code(s): E87.6 - HYPOKALEMIA (9) IDDM (insulin dependent diabetes mellitus) Assessment/Plan: on levemir bid, will tighten short acting to achieve fasting < 180 hmga1c 13.8, dietary consult will need endocrinology consult as an outpatient Code(s): [id number] - (10) Leukocytosis Code(s): D72.829 - ELEVATED WHITE BLOOD CELL COUNT, UNSPECIFIED (11) Obesity, Class III, BMI 40-49.9 (morbid obesity) Assessment/Plan: outpatient follow up Code(s): E66.01 - MORBID (SEVERE) OBESITY DUE TO EXCESS CALORIES (12) Seizure disorder Assessment/Plan: on keppra 1000 tid, neurontin 600mg tid Code(s): G40.909 - EPILEPSY, UNSP, NOT INTRACTABLE, WITHOUT STATUS EPILEPTICUS (13) Cavitary lung disease Assessment/Plan: per CT scan, pulmonary following Code(s): J98.4 - OTHER DISORDERS OF LUNG (14) COVID-19 virus not detected Assessment/Plan: negative x 2, however d dimer elevated as well as crp pulmonary following patient Code(s): Z03.818 - ENCNTR FOR OBS FOR SUSP EXPSR TO OTH BIOLG AGENTS RULED OUT Visit type - Emergency Visit Emergency Visit: Yes ED Registration Date: 07/02/19 Care time: The patient presented to the Emergency Department on the above date and was hospitalized for further evaluation of their emergent condition. - New Patient This patient is new to me today: No - Critical Care Critical Care patient: No - Discharge Referral Referred to [facility] Med P.C.: No
[2019-07-16] MEDS: LIDOCAINE PATCH REMOVAL MC SCH (22:42)
[2019-07-17] MEDS: ZOLPIDEM TARTRATE 5 MG TABLET PO PRN (01:05)
[2019-07-17] MEDS: ACETAMINOPHEN 500 MG TABLET (FP) PO PRN (01:05)
[2019-07-17] MEDS: GABAPENTIN 300 MG CAPSULE PO SCH ×3 (06:48→21:08)
[2019-07-17] MEDS: levETIRAcetam 500 MG TABLET (FP) PO SCH ×3 (06:48→21:08)
[2019-07-17] MEDS: NYSTATIN POWDER 100,000 UNITS/GM - 15 GM TOPICAL POWDER TP SCH ×3 (06:48→21:27)
[2019-07-17] MEDS: INSULIN (LEVEMIR) 100 UNITS/ML UNITS SQ SCH ×2 (06:48→21:10)
[2019-07-17] MEDS: CYCLOBENZAPRINE HCL 10 MG TABLET (FP) PO SCH ×3 (06:48→21:24)
[2019-07-17] MEDS: HEPARIN NA (PORCINE) 5,000 UNITS/ML 1ML VIAL SQ SCH ×3 (06:48→21:06)
[2019-07-17] MEDS: INSULIN SLIDING SCALE (NOVOLOG) 1 VIAL SQ SCH ×4 (06:49→21:17)
[2019-07-17 06:58] LABS: BASO % 1.2 % (0-2.0); EOS % 1.1 % (0-4.5); HEMATOCRIT 34.8 % (32.4-45.2); HEMOGLOBIN 11.4 GM/dL (10.7-15.3); LYMPH % 30.5 % (8-40); MCH 28.8 pg (25.7-33.7); MCHC 32.8 g/dl (32.0-36.0); MEAN CELL VOLUME 87.6 fl (80-96); MONO % 9.1 % (3.8-10.2); NEUT % 58.1 % (42.8-82.8); PLATELET COUNT 359 K/MM3 (134-434); RBC 3.97 M/mm3 (3.60-5.2); WHITE BLOOD COUNT 5.1 K/mm3 (4.0-10.0)
[2019-07-17 07:38] LABS: ALBUMIN 2.7 g/dl (3.4-5.0); BILIRUBIN,TOTAL 0.4 mg/dL (0.2-1); BLOOD UREA NITROGEN 10.3 mg/dL (7-18); CREATININE 0.7 mg/dL (0.55-1.3); MAGNESIUM 2.4 mg/dL (1.8-2.4); POTASSIUM 4.3 mmol/L (3.5-5.1)
[2019-07-17] MEDS: PANTOPRAZOLE 40 MG TABLET PO SCH (09:18)
[2019-07-17] MEDS: BACITRACIN 15 GM TUBE TOPICAL OINTMENT TP SCH ×2 (09:18→21:25)
[2019-07-17] MEDS: LISINOPRIL 5 MG TABLET (FP) PO SCH (09:18)
[2019-07-17] MEDS: DOCUSATE SODIUM 100 MG CAPSULE (FP) PO SCH (09:18)
[2019-07-17] MEDS: IPRATROPIUM/ALBUTEROL (COMBIVENT) RESPIMAT 20-100 MCG IH SCH ×4 (09:18→21:25)
[2019-07-17] MEDS: POTASSIUM CHLORIDE TABS 20 MEQ TABLET.ER (FP) PO SCH (09:18)
[2019-07-17] MEDS: BUDESONIDE/FORMETEROL FUMARATE 160/4.5 mcg INHALER IH SCH ×2 (09:18→21:27)
[2019-07-17] MEDS: LIDOCAINE 5% TOPICAL PATCH TP SCH (09:18)
--- NOTE | 2019-07-17 10:20 | PN ---
Physical Exam: SUBJECTIVE: Patient seen and examined. discussed with her that she will need a PICC line prior to d/c and will need 4-6 weeks of IV antibiotics. patient states she will stay in [place] to receive and complete IV antibiotic treatment. OBJECTIVE: Patient is a 38 year old female with a significant past medical history of t[place] pus, MRSA bacteremia, recurrent MRSA skin abscesses on intermittent doxycycline- clindamycin regimens, cervical CA (s/p chemotherapy 10ys prior), endometriosis, IDDM, seizure disorder, chronic migraines, herniated L-spine disc, chronic lower back pain (dilaudid 8mg TID), OA, RA, anxiety presented to [facility] for complaint of >7d of severe intermittent LLQ pain. ED evaluation found a Left-sided psoas abscess. Patient is also suspected to have endocarditis and is being followed by cardiology. Vital Signs Period Temp Pulse Resp BP Sys/Turner Pulse Ox Last 24 Hr 97.2 F-98.1 F 103-123 18-20 105-159/69-82 92 GENERAL: The patient is awake, alert, and fully oriented, in no acute distress. tolerating room air. HEAD: Normal with no signs of trauma. EYES: PERRL, extraocular movements intact, sclera anicteric, conjunctiva clear. No ptosis. ENT: Ears normal, nares patent, oropharynx clear without exudates, moist mucous membranes. NECK: Trachea midline, full range of motion, supple. ABDOMEN: Soft, nontender, nondistended, normoactive bowel sounds EXTREMITIES: 2+ pulses, warm, well-perfused, no edema. NEUROLOGICAL: Normal speech, gait not observed. PSYCH: Normal mood, normal affect. SKIN: Warm, dry, normal turgor, no rashes or lesions noted Laboratory Results - last 24 hr 07/17/19 07/17/19 07/17/19 05:40 05:40 05:40 WBC 5.1 RBC 3.97 Hgb 11.4 Hct 34.8 MCV 87.6 MCH 28.8 MCHC 32.8 RDW 14.0 Plt Count 359 MPV 9.0 Absolute Neuts (auto) 3.0 Neutrophils % 58.1 Lymphocytes % 30.5 Monocytes % 9.1 Eosinophils % 1.1 Basophils % 1.2 Nucleated RBC % 0 D-Dimer 1287 H Sodium 139 Potassium 4.3 Chloride 98 Carbon Dioxide 30 Anion Gap 11 BUN 10.3 Creatinine 0.7 Est GFR (CKD-EPI)AfAm 129.19 Est GFR (CKD-EPI)NonAf 111.47 POC Glucometer Random Glucose 164 H Calcium 9.0 Magnesium 2.4 Ferritin 212.8 Total Bilirubin 0.4 AST 7 L ALT 26 Alkaline Phosphatase 202 H LD Total 129 C-Reactive Protein 3.2 H Total Protein 7.0 Albumin 2.7 L 07/17/19 06:38 WBC RBC Hgb Hct MCV MCH MCHC RDW Plt Count MPV Absolute Neuts (auto) Neutrophils % Lymphocytes % Monocytes % Eosinophils % Basophils % Nucleated RBC % D-Dimer Sodium Potassium Chloride Carbon Dioxide Anion Gap BUN Creatinine Est GFR (CKD-EPI)AfAm Est GFR (CKD-EPI)NonAf POC Glucometer 209 Random Glucose Calcium Magnesium Ferritin Total Bilirubin AST ALT Alkaline Phosphatase LD Total C-Reactive Protein Total Protein Albumin Active Medications Generic Name Dose Route Start Last Admin Trade Name Freq PRN Reason Stop Dose Admin Acetaminophen 1,000 mg 07/05/19 10:18 07/17/19 01:05 Tylenol - PO 1,000 mg Q6H PRN Administration PAIN 4-6 Acetaminophen/Butalbital/Caffeine 1 tablet 07/13/19 15:31 07/16/19 23:08 Fioricet - PO 1 tablet Q6H PRN Administration HEADACHE Albuterol/Ipratropium 1 puff 07/07/19 11:47 07/17/19 09:18 Combivent Respimat 20-100 Mcg IH 1 puff QID FRANTZ Administration Albuterol/Ipratropium 1 amp 07/10/19 11:21 Duoneb - NEB Q4H PRN SHORTNESS OF BREATH Bacitracin 1 applic 07/15/19 11:15 07/17/19 09:18 Bacitracin - TP 1 applic BID FRANTZ Administration Budesonide/Formoterol Fumarate 2 puff 07/08/19 10:00 07/17/19 09:18 Symbicort 160/4.5mcg - IH 2 puff BID FRANTZ Administration Cyclobenzaprine HCl 10 mg 07/13/19 15:37 07/17/19 06:48 Flexeril - PO 10 mg TID FRANTZ Administration Docusate Sodium 100 mg 07/08/19 10:00 07/17/19 09:18 Colace - PO 100 mg DAILY FRANTZ Administration Gabapentin 600 mg 07/14/19 14:00 07/17/19 06:48 Neurontin - PO 600 mg TID FRANTZ Administration Guaifenesin 10 ml 07/03/19 08:16 07/08/19 03:59 Robitussin - PO 10 ml Q6H PRN Administration COUGH Heparin Sodium (Porcine) 5,000 unit 07/08/19 06:00 07/17/19 06:48 Heparin - SQ 5,000 unit TID FRANTZ Administration Hydromorphone HCl 8 mg 07/13/19 16:10 07/16/19 20:15 Dilaudid - PO 8 mg Q6H PRN Administration PAIN LEVEL 7 - 10 Telavancin 1,000 mg/ Dextrose 316.6667 mls @ 316.667 mls/hr 07/07/19 15:00 07/16/19 14:23 IVPB 316.667 mls/hr DAILY@1500 FRANTZ Administration Lactated Ringer's 1,000 ml in 1,000 mls @ 100 mls/hr 07/08/19 14:29 07/16/19 16:58 Lactated Ringers Solution IV Not Given ASDIR FRANTZ Insulin Aspart 1 vial 07/15/19 14:51 07/17/19 06:49 Novolog Vial Sliding Scale - SQ 10 unit ACHS FRANTZ Administration Protocol Insulin Detemir 30 units 07/12/19 22:00 07/17/19 06:48 Levemir Vial SQ 30 units BID@0700,2200 FRANTZ Administration Levetiracetam 1,000 mg 07/07/19 23:45 07/17/19 06:48 Keppra - PO 1,000 mg TID FRANTZ Administration Lidocaine 1 patch 07/06/19 11:00 07/17/19 09:18 Lidoderm Patch - TP 1 patch DAILY FRANTZ Administration Lisinopril 5 mg 07/09/19 12:30 07/17/19 09:18 Prinivil PO 5 mg DAILY FRANTZ Administration Lorazepam 1 mg 07/13/19 16:11 07/16/19 03:09 Ativan - PO 1 mg TID PRN Administration ANXIETY Miscellaneous 1 each 07/06/19 22:00 07/16/19 22:42 Lidoderm Patch Removal MC 1 each DAILY@2200 FARNTZ Administration Nystatin 1 applic 07/10/19 14:00 07/17/19 06:48 Nystop Powder - TP Not Given TID FRANTZ Pantoprazole Sodium 40 mg 07/08/19 16:30 07/17/19 09:18 Protonix - PO 40 mg DAILY FRANTZ Administration Polyethylene Glycol 17 gm 07/08/19 14:29 07/08/19 15:00 Miralax (For Daily Use) - PO 17 gm DAILY PRN Administration CONSTIPATION Potassium Chloride 40 meq 07/07/19 10:00 07/17/19 09:18 K-Dur - PO 40 meq DAILY FRANTZ Administration Sodium Chloride 2 spray 07/05/19 10:19 07/05/19 13:10 [place] Nasal [place] - NS 2 spray TID PRN Administration NASAL CONGESTION Zolpidem Tartrate 5 mg 07/15/19 11:01 07/17/19 01:05 Ambien - PO 5 mg HS PRN Administration INSOMNIA ASSESSMENT/PLAN: Problem List - Problems (1) Endocarditis Assessment/Plan: blood cultures negative; repeat set negative to date. will need 4-6 weeks of antibiotics via picc line to be arranged prior to d/c. ECHO was repeated: essentially normal study. cardiology following Code(s): I38 - ENDOCARDITIS, VALVE UNSPECIFIED (2) MRSA bacteremia Assessment/Plan: ilsiopsoas abcess drain placed on 07/02. per IR and ID, maintain drain in place. FRANCO with exudatative drainage but minimal on telavancin day #11 IV per ID, and will need PICC line prior to d/c for IV antibiotic therapy. Code(s): R78.81 - BACTEREMIA; B95.62 - METHICILLIN RESIS STAPH INFCT CAUSING DISEASES CLASSD ELSWHR (3) Iliopsoas abscess Assessment/Plan: drainage with scant amount. continue antibiotics per ID, on telavancin 1000 mg qd Code(s): K68.12 - PSOAS MUSCLE ABSCESS (4) Lupus Code(s): M32.9 - SYSTEMIC LUPUS ERYTHEMATOSUS, UNSPECIFIED (5) Cervical cancer Assessment/Plan: will need outpatient follow up Code(s): C53.9 - MALIGNANT NEOPLASM OF CERVIX UTERI, UNSPECIFIED (6) Chronic bilateral low back pain Assessment/Plan: flexiril tid Code(s): M54.5 - LOW BACK PAIN; G89.29 - OTHER CHRONIC PAIN (7) Hx MRSA infection Code(s): Z86.14 - PERSONAL HISTORY OF METHICILLIN RESIS STAPH INFECTION (8) Hypokalemia Assessment/Plan: resolved Code(s): E87.6 - HYPOKALEMIA (9) IDDM (insulin dependent diabetes mellitus) Assessment/Plan: on levemir bid, will tighten short acting to achieve fasting < 180 hmga1c 13.8, dietary consult will need endocrinology consult as an outpatient Code(s): [id number] - (10) Leukocytosis Assessment/Plan: resolved Code(s): D72.829 - ELEVATED WHITE BLOOD CELL COUNT, UNSPECIFIED (11) Obesity, Class III, BMI 40-49.9 (morbid obesity) Assessment/Plan: outpatient follow up Code(s): E66.01 - MORBID (SEVERE) OBESITY DUE TO EXCESS CALORIES (12) Seizure disorder Assessment/Plan: on keppra 1000 tid, neurontin 600mg tid Code(s): G40.909 - EPILEPSY, UNSP, NOT INTRACTABLE, WITHOUT STATUS EPILEPTICUS (13) Cavitary lung disease Assessment/Plan: per CT scan, pulmonary following Code(s): J98.4 - OTHER DISORDERS OF LUNG (14) COVID-19 virus not detected Assessment/Plan: negative x 2, however d dimer elevated as well as crp. will continue lovenox bid. pulmonary following patient Code(s): Z03.818 - ENCNTR FOR OBS FOR SUSP EXPSR TO OTH BIOLG AGENTS RULED OUT Visit type - Emergency Visit Emergency Visit: Yes ED Registration Date: 07/02/19 Care time: The patient presented to the Emergency Department on the above date and was hospitalized for further evaluation of their emergent condition. - New Patient This patient is new to me today: No - Critical Care Critical Care patient: No - Discharge Referral Referred to [facility] Med P.C.: No
[2019-07-17] MEDS ORDERED: PT OWN MED DRAWER 7, Y5N ONE (14:05)
--- NOTE | 2019-07-17 14:21 | PN ---
Progress Note, Physician Chief Complaint: Events noted Coverage for Dr. Maria Complains of left lower quadrant discomfort History of Present Illness: Patient was seen and examined. Awake and alert. Chart was reviewed Denies shortness of breath or palpitations - Current Medication List Current Medications: Active Medications Acetaminophen (Tylenol -) 1,000 mg PO Q6H PRN PRN Reason: PAIN 4-6 Last Admin: 07/17/19 01:05 Dose: 1,000 mg Documented by: Acetaminophen/Butalbital/Caffeine (Fioricet -) 1 tablet PO Q6H PRN PRN Reason: HEADACHE Last Admin: 07/16/19 23:08 Dose: 1 tablet Documented by: Albuterol/Ipratropium (Combivent Respimat 20-100 Mcg) 1 puff IH QID [facility] Last Admin: 07/17/19 14:03 Dose: 1 puff Documented by: Albuterol/Ipratropium (Duoneb -) 1 amp NEB Q4H PRN PRN Reason: SHORTNESS OF BREATH Bacitracin (Bacitracin -) 1 applic TP BID [facility] Last Admin: 07/17/19 09:18 Dose: 1 applic Documented by: Budesonide/Formoterol Fumarate (Symbicort 160/4.5mcg -) 2 puff IH BID [facility] Last Admin: 07/17/19 09:18 Dose: 2 puff Documented by: Cyclobenzaprine HCl (Flexeril -) 10 mg PO TID [facility] Last Admin: 07/17/19 14:03 Dose: 10 mg Documented by: Docusate Sodium (Colace -) 100 mg PO DAILY [facility] Last Admin: 07/17/19 09:18 Dose: 100 mg Documented by: Gabapentin (Neurontin -) 600 mg PO TID [facility] Last Admin: 07/17/19 14:04 Dose: 600 mg Documented by: Guaifenesin (Robitussin -) 10 ml PO Q6H PRN PRN Reason: COUGH Last Admin: 07/08/19 03:59 Dose: 10 ml Documented by: Heparin Sodium (Porcine) (Heparin -) 5,000 unit SQ TID [facility] Last Admin: 07/17/19 14:03 Dose: 5,000 unit Documented by: Hydromorphone HCl (Dilaudid -) 8 mg PO Q6H PRN PRN Reason: PAIN LEVEL 7 - 10 Last Admin: 07/17/19 12:23 Dose: 8 mg Documented by: Telavancin 1,000 mg/ Dextrose 316.6667 mls @ 316.667 mls/hr IVPB DAILY@1500 [facility] Last Admin: 07/16/19 14:23 Dose: 316.667 mls/hr Documented by: Lactated Ringer's (Lactated Ringers Solution) 1,000 ml in 1,000 mls @ 100 mls/hr IV ASDIR [facility] Last Admin: 07/16/19 16:58 Dose: Not Given Documented by: Insulin Aspart (Novolog Vial Sliding Scale -) 1 vial SQ ACHS [facility]; Protocol Last Admin: 07/17/19 11:19 Dose: 10 unit Documented by: Insulin Detemir (Levemir Vial) 30 units SQ BID@0700,2200 [facility] Last Admin: 07/17/19 06:48 Dose: 30 units Documented by: Levetiracetam (Keppra -) 1,000 mg PO TID [facility] Last Admin: 07/17/19 14:03 Dose: 1,000 mg Documented by: Lidocaine (Lidoderm Patch -) 1 patch TP DAILY [facility] Last Admin: 07/17/19 09:18 Dose: 1 patch Documented by: Lisinopril (Prinivil) 5 mg PO DAILY [facility] Last Admin: 07/17/19 09:18 Dose: 5 mg Documented by: Lorazepam (Ativan -) 1 mg PO TID PRN PRN Reason: ANXIETY Last Admin: 07/16/19 03:09 Dose: 1 mg Documented by: Miscellaneous (Lidoderm Patch Removal) 1 each MC DAILY@2200 [facility] Last Admin: 07/16/19 22:42 Dose: 1 each Documented by: Nystatin (Nystop Powder -) 1 applic TP TID [facility] Last Admin: 07/17/19 14:09 Dose: 1 applic Documented by: Pantoprazole Sodium (Protonix -) 40 mg PO DAILY [facility] Last Admin: 07/17/19 09:18 Dose: 40 mg Documented by: Polyethylene Glycol (Miralax (For Daily Use) -) 17 gm PO DAILY PRN PRN Reason: CONSTIPATION Last Admin: 07/08/19 15:00 Dose: 17 gm Documented by: Potassium Chloride (K-Dur -) 40 meq PO DAILY [facility] Last Admin: 07/17/19 09:18 Dose: 40 meq Documented by: Sodium Chloride ([place] -) 2 spray NS TID PRN PRN Reason: NASAL CONGESTION Last Admin: 07/05/19 13:10 Dose: 2 spray Documented by: Zolpidem Tartrate (Ambien -) 5 mg PO HS PRN PRN Reason: INSOMNIA Last Admin: 07/17/19 01:05 Dose: 5 mg Documented by: - Objective Vital Signs: Vital Signs Temperature 97.6 F 07/17/19 10:00 Pulse Rate 103 H 07/17/19 10:00 Respiratory Rate 07/17/19 10:00 Blood Pressure 116/67 07/17/19 10:00 O2 Sat by Pulse Oximetry (%) 96 07/17/19 09:00 Neck: Yes: Supple Cardiovascular: Yes: Tachycardia, S1, S2 Respiratory: Yes: CTA Bilaterally Gastrointestinal: Yes: Normal Bowel Sounds, Soft Edema: No Additional Findings/Remarks: - Review of Systems Constitutional: denies: Chills, Fever Cardiovascular: denies Shortness of Breath. denies: Chest Pain, Palpitations Respiratory: denies SOB, SOB on Exertion. denies: Cough, Orthopnea, PND, Wheezing Gastrointestinal: (+) Abdominal Pain, denies: Constipation, Diarrhea, Melena, Nausea, Rectal Bleeding, Vomiting Musculoskeletal: denies: Back Pain, Joint Pain Neurological: denies: Dizziness, Headache, Seizure, Syncope Labs: CBC, BMP 07/17/19 05:40 07/17/19 05:40 Problem List - Problems (1) Abscess Code(s): L02.91 - CUTANEOUS ABSCESS, UNSPECIFIED (2) Blood bacterial culture positive Code(s): R78.81 - BACTEREMIA (3) Cervical cancer Code(s): C53.9 - MALIGNANT NEOPLASM OF CERVIX UTERI, UNSPECIFIED (4) Endocarditis Code(s): I38 - ENDOCARDITIS, VALVE UNSPECIFIED (5) IDDM (insulin dependent diabetes mellitus) Code(s): [id number] - (6) Iliopsoas abscess Code(s): K68.12 - PSOAS MUSCLE ABSCESS (7) Leukocytosis Code(s): D72.829 - ELEVATED WHITE BLOOD CELL COUNT, UNSPECIFIED (8) Lupus Code(s): M32.9 - SYSTEMIC LUPUS ERYTHEMATOSUS, UNSPECIFIED (9) MRSA bacteremia Code(s): R78.81 - BACTEREMIA; B95.62 - METHICILLIN RESIS STAPH INFCT CAUSING DISEASES CLASSD ELSWHR (10) Osteoarthritis Code(s): M19.90 - UNSPECIFIED OSTEOARTHRITIS, UNSPECIFIED SITE (11) Pulmonary cavitary lesion Code(s): J98.4 - OTHER DISORDERS OF LUNG (12) Seizure disorder Code(s): G40.909 - EPILEPSY, UNSP, NOT INTRACTABLE, WITHOUT STATUS EPILEPTICUS (13) Sinus tachycardia Code(s): R00.0 - TACHYCARDIA, UNSPECIFIED (14) Diabetes Code(s): E11.9 - TYPE 2 DIABETES MELLITUS WITHOUT COMPLICATIONS (15) HTN (hypertension) Code(s): I10 - ESSENTIAL (PRIMARY) HYPERTENSION Qualifiers: Hypertension type: essential hypertension Qualified Code(s): I10 - Essential (primary) hypertension Assessment/Plan 1. Post iliopsoas abscess IR drainage 2. MRSA bacteremia/suspect endocarditis 3. HTN 4. Lupus 5. Cervical cancer 6. Sinus tachycardia 7. DM 8. Seizure PLAN: 1. Antibiotic coverage as per ID via PICC line to be placed 2. Surveillance culture so far negative 3. Post IR drain 4. Continue Lisinopril 5 mg QD 5. DVT and GI prophylaxis Continue present therapy. Dr. Maria to resume care Friday Lul Rodríguez MD
[2019-07-17] MEDS: TELAVANCIN HCL IVPB SCH (15:30)
[2019-07-17] MEDS: DEXTROSE 5% IVPB SCH (15:30)
[2019-07-17] MEDS: WATER IVPB SCH (15:30)
[2019-07-17] MEDS: LACTATED RINGERS SOLUTION 1,000 ML/1,000 ML INFUS.BAG IV SCH (16:51)
[2019-07-17] MEDS: LORazepam 1 MG TABLET PO PRN (21:08)
[2019-07-17] MEDS: LIDOCAINE PATCH REMOVAL MC SCH (21:27)
[2019-07-18] MEDS ORDERED: HYDROmorphone HCL 2 MG TABLET ONE (03:17)
[2019-07-18] MEDS: HEPARIN NA (PORCINE) 5,000 UNITS/ML 1ML VIAL SQ SCH ×3 (06:14→21:12)
[2019-07-18] MEDS: INSULIN (LEVEMIR) 100 UNITS/ML UNITS SQ SCH ×2 (06:15→21:13)
[2019-07-18] MEDS: INSULIN SLIDING SCALE (NOVOLOG) 1 VIAL SQ SCH ×4 (06:16→21:13)
[2019-07-18] MEDS: CYCLOBENZAPRINE HCL 10 MG TABLET (FP) PO SCH ×3 (06:18→21:12)
[2019-07-18] MEDS: levETIRAcetam 500 MG TABLET (FP) PO SCH ×3 (06:18→21:13)
[2019-07-18] MEDS: GABAPENTIN 300 MG CAPSULE PO SCH ×3 (06:19→21:13)
[2019-07-18 07:18] LABS: EOS % 1.4 % (0-4.5); HEMATOCRIT 33.7 % (32.4-45.2); HEMOGLOBIN 11.1 GM/dL (10.7-15.3); LYMPH % 27.2 % (8-40); MCH 28.6 pg (25.7-33.7); MCHC 32.9 g/dl (32.0-36.0); MEAN CELL VOLUME 87.2 fl (80-96); MONO % 10.4 % (3.8-10.2); PLATELET COUNT 348 K/MM3 (134-434); RBC 3.87 M/mm3 (3.60-5.2); WHITE BLOOD COUNT 4.7 K/mm3 (4.0-10.0)
[2019-07-18] MEDS: NYSTATIN POWDER 100,000 UNITS/GM - 15 GM TOPICAL POWDER TP SCH ×3 (07:30→21:14)
[2019-07-18 07:36] LABS: ALBUMIN 2.6 g/dl (3.4-5.0); BILIRUBIN,TOTAL 0.2 mg/dL (0.2-1); BLOOD UREA NITROGEN 11.4 mg/dL (7-18); CALCIUM 8.6 mg/dL (8.5-10.1); CREATININE 0.7 mg/dL (0.55-1.3); MAGNESIUM 2.3 mg/dL (1.8-2.4); POTASSIUM 4.9 mmol/L (3.5-5.1); TOT PROT 6.7 g/dl (6.4-8.2)
[2019-07-18] MEDS: BACITRACIN 15 GM TUBE TOPICAL OINTMENT TP SCH ×2 (09:33→21:12)
[2019-07-18] MEDS: BUDESONIDE/FORMETEROL FUMARATE 160/4.5 mcg INHALER IH SCH ×2 (09:33→22:06)
[2019-07-18] MEDS: LISINOPRIL 5 MG TABLET (FP) PO SCH (09:33)
[2019-07-18] MEDS: PANTOPRAZOLE 40 MG TABLET PO SCH (09:33)
[2019-07-18] MEDS: IPRATROPIUM/ALBUTEROL (COMBIVENT) RESPIMAT 20-100 MCG IH SCH ×4 (09:33→22:06)
[2019-07-18] MEDS: DOCUSATE SODIUM 100 MG CAPSULE (FP) PO SCH (09:33)
[2019-07-18] MEDS: LIDOCAINE 5% TOPICAL PATCH TP SCH (09:33)
[2019-07-18] MEDS: POTASSIUM CHLORIDE TABS 20 MEQ TABLET.ER (FP) PO SCH (09:33)
--- NOTE | 2019-07-18 10:30 | PN ---
Progress Note, Physician Chief Complaint: Coverage for Dr Davis History of Present Illness: Tachycardic, afebrile, left hip pain, denies shortness of breath or palpitations. - Current Medication List Current Medications: Active Medications Acetaminophen (Tylenol -) 1,000 mg PO Q6H PRN PRN Reason: PAIN 4-6 Last Admin: 07/17/19 01:05 Dose: 1,000 mg Documented by: Acetaminophen/Butalbital/Caffeine (Fioricet -) 1 tablet PO Q6H PRN PRN Reason: HEADACHE Last Admin: 07/16/19 23:08 Dose: 1 tablet Documented by: Albuterol/Ipratropium (Combivent Respimat 20-100 Mcg) 1 puff IH QID [facility] Last Admin: 07/18/19 09:33 Dose: 1 puff Documented by: Albuterol/Ipratropium (Duoneb -) 1 amp NEB Q4H PRN PRN Reason: SHORTNESS OF BREATH Bacitracin (Bacitracin -) 1 applic TP BID [facility] Last Admin: 07/18/19 09:33 Dose: 1 applic Documented by: Budesonide/Formoterol Fumarate (Symbicort 160/4.5mcg -) 2 puff IH BID [facility] Last Admin: 07/18/19 09:33 Dose: 2 puff Documented by: Cyclobenzaprine HCl (Flexeril -) 10 mg PO TID [facility] Last Admin: 07/18/19 06:18 Dose: 10 mg Documented by: Docusate Sodium (Colace -) 100 mg PO DAILY [facility] Last Admin: 07/18/19 09:33 Dose: 100 mg Documented by: Gabapentin (Neurontin -) 600 mg PO TID [facility] Last Admin: 07/18/19 06:19 Dose: 600 mg Documented by: Guaifenesin (Robitussin -) 10 ml PO Q6H PRN PRN Reason: COUGH Last Admin: 07/08/19 03:59 Dose: 10 ml Documented by: Heparin Sodium (Porcine) (Heparin -) 5,000 unit SQ TID [facility] Last Admin: 07/18/19 06:14 Dose: 5,000 unit Documented by: Hydromorphone HCl (Dilaudid -) 8 mg PO Q6H PRN PRN Reason: PAIN LEVEL 7 - 10 Last Admin: 07/18/19 03:22 Dose: 8 mg Documented by: Telavancin 1,000 mg/ Dextrose 316.6667 mls @ 316.667 mls/hr IVPB DAILY@1500 [facility] Last Admin: 07/17/19 15:30 Dose: 316.667 mls/hr Documented by: Lactated Ringer's (Lactated Ringers Solution) 1,000 ml in 1,000 mls @ 100 mls/hr IV ASDIR [facility] Last Admin: 07/17/19 16:51 Dose: Not Given Documented by: Insulin Aspart (Novolog Vial Sliding Scale -) 1 vial SQ ACHS [facility]; Protocol Last Admin: 07/18/19 06:16 Dose: 14 unit Documented by: Insulin Detemir (Levemir Vial) 35 units SQ BID@0700,2200 [facility] Levetiracetam (Keppra -) 1,000 mg PO TID [facility] Last Admin: 07/18/19 06:18 Dose: 1,000 mg Documented by: Lidocaine (Lidoderm Patch -) 1 patch TP DAILY [facility] Last Admin: 07/18/19 09:33 Dose: 1 patch Documented by: Lisinopril (Prinivil) 5 mg PO DAILY [facility] Last Admin: 07/18/19 09:33 Dose: 5 mg Documented by: Lorazepam (Ativan -) 1 mg PO TID PRN PRN Reason: ANXIETY Last Admin: 07/17/19 21:08 Dose: 1 mg Documented by: Miscellaneous (Lidoderm Patch Removal) 1 each MC DAILY@2200 [facility] Last Admin: 07/17/19 21:27 Dose: Not Given Documented by: Nystatin (Nystop Powder -) 1 applic TP TID [facility] Last Admin: 07/18/19 07:30 Dose: Not Given Documented by: Pantoprazole Sodium (Protonix -) 40 mg PO DAILY [facility] Last Admin: 07/18/19 09:33 Dose: 40 mg Documented by: Polyethylene Glycol (Miralax (For Daily Use) -) 17 gm PO DAILY PRN PRN Reason: CONSTIPATION Last Admin: 07/08/19 15:00 Dose: 17 gm Documented by: Potassium Chloride (K-Dur -) 40 meq PO DAILY [facility] Last Admin: 07/18/19 09:33 Dose: 40 meq Documented by: Sodium Chloride ([place] -) 2 spray NS TID PRN PRN Reason: NASAL CONGESTION Last Admin: 07/05/19 13:10 Dose: 2 spray Documented by: Zolpidem Tartrate (Ambien -) 5 mg PO HS PRN PRN Reason: INSOMNIA Last Admin: 07/17/19 01:05 Dose: 5 mg Documented by: - Objective Vital Signs: Vital Signs Temperature 98.6 F 07/18/19 04:00 Pulse Rate 108 H 07/18/19 04:00 Respiratory Rate 07/18/19 04:00 Blood Pressure 118/68 07/18/19 04:00 O2 Sat by Pulse Oximetry (%) 95 07/17/19 21:00 Constitutional: Yes: No Distress, Calm Neck: Yes: Supple Cardiovascular: Yes: Regular Rate and Rhythm Respiratory: Yes: Regular, Diminished Gastrointestinal: Yes: Normal Bowel Sounds, Soft, Abdomen, Obese Edema: No Labs: CBC, BMP 07/18/19 06:00 07/18/19 06:00 INR, PTT INR 1.07 (0.83-1.09) 07/01/19 22:15 Fibrinogen > 500.0 mg/dL (238-498) H 07/04/19 05:50 - ....Imaging EKG: Report Reviewed (Tele: ST QTc 426 msec) Assessment/Plan Problem List - Problems (1) Abscess Code(s): L02.91 - CUTANEOUS ABSCESS, UNSPECIFIED (2) Blood bacterial culture positive Code(s): R78.81 - BACTEREMIA (3) Cervical cancer Code(s): C53.9 - MALIGNANT NEOPLASM OF CERVIX UTERI, UNSPECIFIED (4) Endocarditis Code(s): I38 - ENDOCARDITIS, VALVE UNSPECIFIED (5) IDDM (insulin dependent diabetes mellitus) Code(s): [id number] - (6) Iliopsoas abscess Code(s): K68.12 - PSOAS MUSCLE ABSCESS (7) Leukocytosis Code(s): D72.829 - ELEVATED WHITE BLOOD CELL COUNT, UNSPECIFIED (8) Lupus Code(s): M32.9 - SYSTEMIC LUPUS ERYTHEMATOSUS, UNSPECIFIED (9) MRSA bacteremia Code(s): R78.81 - BACTEREMIA; B95.62 - METHICILLIN RESIS STAPH INFCT CAUSING DISEASES CLASSD ELSWHR (10) Osteoarthritis Code(s): M19.90 - UNSPECIFIED OSTEOARTHRITIS, UNSPECIFIED SITE (11) Pulmonary cavitary lesion Code(s): J98.4 - OTHER DISORDERS OF LUNG (12) Seizure disorder Code(s): G40.909 - EPILEPSY, UNSP, NOT INTRACTABLE, WITHOUT STATUS EPILEPTICUS (13) Sinus tachycardia Code(s): R00.0 - TACHYCARDIA, UNSPECIFIED (14) Diabetes Code(s): E11.9 - TYPE 2 DIABETES MELLITUS WITHOUT COMPLICATIONS (15) HTN (hypertension) Code(s): I10 - ESSENTIAL (PRIMARY) HYPERTENSION Qualifiers: Hypertension type: essential hypertension Qualified Code(s): I10 - Essential (primary) hypertension Assessment/Plan 1. Post iliopsoas abscess IR drainage 2. MRSA bacteremia/suspect endocarditis 3. HTN 4. Lupus 5. Cervical cancer 6. Sinus tachycardia 7. DM 8. Seizure PLAN: 1. Antibiotic coverage as per ID via PICC line to be placed 2. Surveillance cultures NGTD 3. Post IR drain 4. Continue Lisinopril 5 mg QD 5. DVT and GI prophylaxis, BD and O2 as needed Continue present therapy. Dr. Maria to resume care Friday
--- NOTE | 2019-07-18 13:01 | PN ---
Physical Exam: SUBJECTIVE: Patient seen and examined. discussed with her that she will need a PICC line prior to d/c and will need 4-6 weeks of IV antibiotics. she is in agreement and will stay in [place] to finish treatment. c/o of left sided abdominal pain at drain site. no drainage noted. will order abd/pelvis ct. 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 ED evaluation found a Left-sided psoas abscess. Patient is also suspected to have endocarditis and is being followed by cardiology. Vital Signs Period Temp Pulse Resp BP Sys/Turner Pulse Ox Last 24 Hr 97.1 F-98.6 F 108-118 20-20 107-136/59-93 94-95 GENERAL: The patient is awake, alert, and fully oriented, in no acute distress. tolerating room air. HEAD: Normal with no signs of trauma. EYES: PERRL, extraocular movements intact, sclera anicteric, conjunctiva clear. No ptosis. ENT: Ears normal, nares patent, oropharynx clear without exudates, moist mucous membranes. NECK: Trachea midline, full range of motion, supple. ABDOMEN: obese abdomen, left sided drain noted, pain around drain site, minimal to no output on drain EXTREMITIES: 2+ pulses, warm, well-perfused, no edema. NEUROLOGICAL: Normal speech, gait not observed. PSYCH: Normal mood, normal affect. SKIN: Warm, dry, normal turgor, no rashes or lesions noted Laboratory Results - last 24 hr 07/17/19 07/18/19 07/18/19 21:14 06:00 06:00 WBC 4.7 RBC 3.87 Hgb 11.1 Hct 33.7 MCV 87.2 MCH 28.6 MCHC 32.9 RDW 14.0 Plt Count 348 MPV 9.0 Absolute Neuts (auto) 2.8 Neutrophils % 60.0 Lymphocytes % 27.2 Monocytes % 10.4 H Eosinophils % 1.4 Basophils % 1.0 Nucleated RBC % 0 D-Dimer Sodium 135 L Potassium 4.9 Chloride 98 Carbon Dioxide 28 Anion Gap 9 BUN 11.4 Creatinine 0.7 Est GFR (CKD-EPI)AfAm 129.19 Est GFR (CKD-EPI)NonAf 111.47 POC Glucometer 281 Random Glucose 305 H Calcium 8.6 Magnesium 2.3 Ferritin 216.0 Total Bilirubin 0.2 AST 7 L ALT 21 Alkaline Phosphatase 192 H LD Total 116 C-Reactive Protein 3.8 H Total Protein 6.7 Albumin 2.6 L 07/18/19 06:00 WBC RBC Hgb Hct MCV MCH MCHC RDW Plt Count MPV Absolute Neuts (auto) Neutrophils % Lymphocytes % Monocytes % Eosinophils % Basophils % Nucleated RBC % D-Dimer 1459 H Sodium Potassium Chloride Carbon Dioxide Anion Gap BUN Creatinine Est GFR (CKD-EPI)AfAm Est GFR (CKD-EPI)NonAf POC Glucometer Random Glucose Calcium Magnesium Ferritin Total Bilirubin AST ALT Alkaline Phosphatase LD Total C-Reactive Protein Total Protein Albumin Active Medications Generic Name Dose Route Start Last Admin Trade Name Freq PRN Reason Stop Dose Admin Acetaminophen 1,000 mg 07/05/19 10:18 07/17/19 01:05 Tylenol - PO 1,000 mg Q6H PRN Administration PAIN 4-6 Acetaminophen/Butalbital/Caffeine 1 tablet 07/13/19 15:31 07/16/19 23:08 Fioricet - PO 1 tablet Q6H PRN Administration HEADACHE Albuterol/Ipratropium 1 puff 07/07/19 11:47 07/18/19 09:33 Combivent Respimat 20-100 Mcg IH 1 puff QID [facility] Administration Albuterol/Ipratropium 1 amp 07/10/19 11:21 Duoneb - NEB Q4H PRN SHORTNESS OF BREATH Bacitracin 1 applic 07/15/19 11:15 07/18/19 09:33 Bacitracin - TP 1 applic BID [facility] Administration Budesonide/Formoterol Fumarate 2 puff 07/08/19 10:00 07/18/19 09:33 Symbicort 160/4.5mcg - IH 2 puff BID [facility] Administration Cyclobenzaprine HCl 10 mg 07/13/19 15:37 07/18/19 06:18 Flexeril - PO 10 mg TID [facility] Administration Docusate Sodium 100 mg 04/23/20 10:00 07/18/19 09:33 Colace - PO 100 mg DAILY [facility] Administration Gabapentin 600 mg 07/14/19 14:00 07/18/19 06:19 Neurontin - PO 600 mg TID [facility] Administration Guaifenesin 10 ml 07/03/19 08:16 07/08/19 03:59 Robitussin - PO 10 ml Q6H PRN Administration COUGH Heparin Sodium (Porcine) 5,000 unit 07/08/19 06:00 07/18/19 06:14 Heparin - SQ 5,000 unit TID [facility] Administration Hydromorphone HCl 8 mg 07/13/19 16:10 07/18/19 11:34 Dilaudid - PO 8 mg Q6H PRN Administration PAIN LEVEL 7 - 10 Telavancin 1,000 mg/ Dextrose 316.6667 mls @ 316.667 mls/hr 07/07/19 15:00 07/17/19 15:30 IVPB 316.667 mls/hr DAILY@1500 [facility] Administration Lactated Ringer's 1,000 ml in 1,000 mls @ 100 mls/hr 07/08/19 14:29 07/17/19 16:51 Lactated Ringers Solution IV Not Given ASDIR [facility] Insulin Aspart 1 vial 07/15/19 14:51 07/18/19 11:37 Novolog Vial Sliding Scale - SQ 14 unit ACHS [facility] Administration Protocol Insulin Detemir 35 units 07/18/19 07:42 Levemir Vial SQ BID@0700,2200 [facility] Levetiracetam 1,000 mg 07/07/19 23:45 07/18/19 06:18 Keppra - PO 1,000 mg TID [facility] Administration Lidocaine 1 patch 07/06/19 11:00 07/18/19 09:33 Lidoderm Patch - TP 1 patch DAILY [facility] Administration Lisinopril 5 mg 07/09/19 12:30 07/18/19 09:33 Prinivil PO 5 mg DAILY [facility] Administration Lorazepam 1 mg 07/13/19 16:11 07/17/19 21:08 Ativan - PO 1 mg TID PRN Administration ANXIETY Miscellaneous 1 each 07/06/19 22:00 07/17/19 21:27 Lidoderm Patch Removal MC Not Given DAILY@2200 [facility] Nystatin 1 applic 07/10/19 14:00 07/18/19 07:30 Nystop Powder - TP Not Given TID [facility] Pantoprazole Sodium 40 mg 07/08/19 16:30 07/18/19 09:33 Protonix - PO 40 mg DAILY [facility] Administration Polyethylene Glycol 17 gm 07/08/19 14:29 07/08/19 15:00 Miralax (For Daily Use) - PO 17 gm DAILY PRN Administration CONSTIPATION Potassium Chloride 40 meq 07/07/19 10:00 07/18/19 09:33 K-Dur - PO 40 meq DAILY [facility] Administration Sodium Chloride 2 spray 07/05/19 10:19 07/05/19 13:10 [place] - NS 2 spray TID PRN Administration NASAL CONGESTION Zolpidem Tartrate 5 mg 07/15/19 11:01 07/17/19 01:05 Ambien - PO 5 mg HS PRN Administration INSOMNIA ASSESSMENT/PLAN: Problem List - Problems (1) Endocarditis Assessment/Plan: blood cultures negative; repeat set negative to date. will need 4-6 weeks of antibiotics via picc line to be arranged prior to d/c. ECHO was repeated: essentially normal study. cardiology following Code(s): I38 - ENDOCARDITIS, VALVE UNSPECIFIED (2) MRSA bacteremia Assessment/Plan: ilsiopsoas abcess drain placed on 07/02. per IR and ID, maintain drain in place. now having pain around drain site, will repeat abdomen/ct scan. FRANCO with exudatative drainage but minimal on telavancin day #12 IV per ID, and will need PICC line prior to d/c for IV antibiotic therapy. Code(s): R78.81 - BACTEREMIA; B95.62 - METHICILLIN RESIS STAPH INFCT CAUSING DISEASES CLASSD ELSWHR (3) Iliopsoas abscess Assessment/Plan: drainage with scant amount. continue antibiotics per ID, on telavancin 1000 mg qd Code(s): K68.12 - PSOAS MUSCLE ABSCESS (4) Lupus Code(s): M32.9 - SYSTEMIC LUPUS ERYTHEMATOSUS, UNSPECIFIED (5) Cervical cancer Assessment/Plan: will need outpatient follow up Code(s): C53.9 - MALIGNANT NEOPLASM OF CERVIX UTERI, UNSPECIFIED (6) Chronic bilateral low back pain Assessment/Plan: flexiril tid Code(s): M54.5 - LOW BACK PAIN; G89.29 - OTHER CHRONIC PAIN (7) Hx MRSA infection Code(s): Z86.14 - PERSONAL HISTORY OF METHICILLIN RESIS STAPH INFECTION (8) Hypokalemia Assessment/Plan: resolved Code(s): E87.6 - HYPOKALEMIA (9) IDDM (insulin dependent diabetes mellitus) Assessment/Plan: on levemir bid, will tighten short acting to achieve fasting < 180 hmga1c 13.8, dietary consult will need endocrinology consult as an outpatient Code(s): [id number] - (10) Leukocytosis Assessment/Plan: resolved Code(s): D72.829 - ELEVATED WHITE BLOOD CELL COUNT, UNSPECIFIED (11) Obesity, Class III, BMI 40-49.9 (morbid obesity) Assessment/Plan: outpatient follow up Code(s): E66.01 - MORBID (SEVERE) OBESITY DUE TO EXCESS CALORIES (12) Seizure disorder Assessment/Plan: on keppra 1000 tid, neurontin 600mg tid Code(s): G40.909 - EPILEPSY, UNSP, NOT INTRACTABLE, WITHOUT STATUS EPILEPTICUS (13) Cavitary lung disease Assessment/Plan: per CT scan, pulmonary following Code(s): J98.4 - OTHER DISORDERS OF LUNG (14) COVID-19 virus not detected Assessment/Plan: negative x 2, however d dimer elevated as well as crp. will continue lovenox bid . pulmonary following patient Code(s): Z03.818 - ENCNTR FOR OBS FOR SUSP EXPSR TO OTH BIOLG AGENTS RULED OUT Visit type - Emergency Visit Emergency Visit: Yes ED Registration Date: 07/02/19 Care time: The patient presented to the Emergency Department on the above date and was hospitalized for further evaluation of their emergent condition. - New Patient This patient is new to me today: No - Critical Care Critical Care patient: No - Discharge Referral Referred to [facility] Med P.C[facility] No
[2019-07-18] MEDS ORDERED: PT OWN MED DRAWER 7, Y5N ONE (15:04)
[2019-07-18] MEDS: TELAVANCIN HCL IVPB SCH (15:14)
[2019-07-18] MEDS: LACTATED RINGERS SOLUTION 1,000 ML/1,000 ML INFUS.BAG IV SCH (15:14)
[2019-07-18] MEDS: DEXTROSE 5% IVPB SCH (15:14)
[2019-07-18] MEDS: WATER IVPB SCH (15:14)
[2019-07-18] MEDS: LIDOCAINE PATCH REMOVAL MC SCH (21:13)
[2019-07-18] MEDS: ACETAMINOPHEN/CAFFEINE/BUTALBITAL 1 TAB PO PRN (21:14)
[2019-07-18] MEDS: ZOLPIDEM TARTRATE 5 MG TABLET PO PRN (21:32)
[2019-07-18] MEDS: LORazepam 1 MG TABLET PO PRN (21:32)
[2019-07-19] MEDS: ACETAMINOPHEN/CAFFEINE/BUTALBITAL 1 TAB PO PRN ×3 (03:23→17:41)
[2019-07-19] MEDS: GABAPENTIN 300 MG CAPSULE PO SCH ×3 (06:22→22:16)
[2019-07-19] MEDS: levETIRAcetam 500 MG TABLET (FP) PO SCH ×3 (06:22→22:15)
[2019-07-19] MEDS: NYSTATIN POWDER 100,000 UNITS/GM - 15 GM TOPICAL POWDER TP SCH ×3 (06:22→22:34)
[2019-07-19] MEDS: CYCLOBENZAPRINE HCL 10 MG TABLET (FP) PO SCH ×3 (06:22→22:16)
[2019-07-19] MEDS: HEPARIN NA (PORCINE) 5,000 UNITS/ML 1ML VIAL SQ SCH ×3 (06:22→22:12)
[2019-07-19] MEDS: INSULIN (LEVEMIR) 100 UNITS/ML UNITS SQ SCH ×2 (06:23→22:14)
[2019-07-19] MEDS: INSULIN SLIDING SCALE (NOVOLOG) 1 VIAL SQ SCH ×3 (06:23→22:13)
[2019-07-19 07:31] LABS: EOS % 1.7 % (0-4.5); HEMATOCRIT 33.6 % (32.4-45.2); HEMOGLOBIN 11.1 GM/dL (10.7-15.3); LYMPH % 32.6 % (8-40); MCH 28.8 pg (25.7-33.7); MCHC 33.1 g/dl (32.0-36.0); MEAN CELL VOLUME 86.8 fl (80-96); MEAN PLT VOLUME 8.8 fl (7.5-11.1); MONO % 12.9 % (3.8-10.2); NEUT % 51.8 % (42.8-82.8); PLATELET COUNT 319 K/MM3 (134-434); RBC 3.87 M/mm3 (3.60-5.2); RDW 14.1 % (11.6-15.6); WHITE BLOOD COUNT 3.5 K/mm3 (4.0-10.0)
[2019-07-19] MEDS ORDERED: INSULIN SLIDING SCALE (NOVOLOG) 1 VIAL SQ SCH (08:04)
[2019-07-19 08:07] LABS: ALBUMIN 2.7 g/dl (3.4-5.0); BILIRUBIN,TOTAL 0.3 mg/dL (0.2-1); BLOOD UREA NITROGEN 10.1 mg/dL (7-18); CALCIUM 8.6 mg/dL (8.5-10.1); CREATININE 0.7 mg/dL (0.55-1.3); MAGNESIUM 2.1 mg/dL (1.8-2.4); POTASSIUM 4.4 mmol/L (3.5-5.1); TOT PROT 7.1 g/dl (6.4-8.2)
--- NOTE | 2019-07-19 09:05 | PN ---
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 yesterday developed fever, tmax 101; went to [facility] yesterday, where she said xrays were done and no further imaging or workup was pursued c/o severe left hip pain - Current Medication List Current Medications: Active Medications Acetaminophen (Tylenol -) 1,000 mg PO Q6H PRN PRN Reason: PAIN 4-6 Last Admin: 07/17/19 01:05 Dose: 1,000 mg Documented by: Acetaminophen/Butalbital/Caffeine (Fioricet -) 1 tablet PO Q6H PRN PRN Reason: HEADACHE Last Admin: 07/19/19 03:23 Dose: 1 tablet Documented by: Albuterol/Ipratropium (Combivent Respimat 20-100 Mcg) 1 puff IH QID [facility] Last Admin: 07/18/19 22:06 Dose: 1 puff Documented by: Albuterol/Ipratropium (Duoneb -) 1 amp NEB Q4H PRN PRN Reason: SHORTNESS OF BREATH Bacitracin (Bacitracin -) 1 applic TP BID [facility] Last Admin: 07/18/19 21:12 Dose: 1 applic Documented by: Budesonide/Formoterol Fumarate (Symbicort 160/4.5mcg -) 2 puff IH BID [facility] Last Admin: 07/18/19 22:06 Dose: 2 puff Documented by: Cyclobenzaprine HCl (Flexeril -) 10 mg PO TID [facility] Last Admin: 07/19/19 06:22 Dose: 10 mg Documented by: Docusate Sodium (Colace -) 100 mg PO DAILY [facility] Last Admin: 07/18/19 09:33 Dose: 100 mg Documented by: Gabapentin (Neurontin -) 600 mg PO TID [facility] Last Admin: 07/19/19 06:22 Dose: Not Given Documented by: Guaifenesin (Robitussin -) 10 ml PO Q6H PRN PRN Reason: COUGH Last Admin: 07/08/19 03:59 Dose: 10 ml Documented by: Heparin Sodium (Porcine) (Heparin -) 5,000 unit SQ TID [facility] Last Admin: 07/19/19 06:22 Dose: 5,000 unit Documented by: Hydromorphone HCl (Dilaudid -) 8 mg PO Q6H PRN PRN Reason: PAIN LEVEL 7 - 10 Last Admin: 07/18/19 23:52 Dose: 8 mg Documented by: Telavancin 1,000 mg/ Dextrose 316.6667 mls @ 316.667 mls/hr IVPB DAILY@1500 [facility] Last Admin: 07/18/19 15:14 Dose: 316.667 mls/hr Documented by: Lactated Ringer's (Lactated Ringers Solution) 1,000 ml in 1,000 mls @ 100 mls/hr IV ASDIR [facility] Last Admin: 07/18/19 15:14 Dose: Not Given Documented by: Insulin Aspart (Novolog Vial Sliding Scale -) 1 vial SQ [facility]; Protocol Insulin Detemir (Levemir Vial) 35 units SQ BID@0700,2200 [facility] Last Admin: 07/19/19 06:23 Dose: 35 unit Documented by: Levetiracetam (Keppra -) 1,000 mg PO TID [facility] Last Admin: 07/19/19 06:22 Dose: 1,000 mg Documented by: Lidocaine (Lidoderm Patch -) 1 patch TP DAILY [facility] Last Admin: 07/18/19 09:33 Dose: 1 patch Documented by: Lisinopril (Prinivil) 5 mg PO DAILY [facility] Last Admin: 07/18/19 09:33 Dose: 5 mg Documented by: Lorazepam (Ativan -) 1 mg PO TID PRN PRN Reason: ANXIETY Last Admin: 07/18/19 21:32 Dose: 1 mg Documented by: Miscellaneous (Lidoderm Patch Removal) 1 each MC DAILY@2200 [facility] Last Admin: 07/18/19 21:13 Dose: 1 each Documented by: Nystatin (Nystop Powder -) 1 applic TP TID [facility] Last Admin: 07/19/19 06:22 Dose: 1 applic Documented by: Pantoprazole Sodium (Protonix -) 40 mg PO DAILY [facility] Last Admin: 07/18/19 09:33 Dose: 40 mg Documented by: Polyethylene Glycol (Miralax (For Daily Use) -) 17 gm PO DAILY PRN PRN Reason: CONSTIPATION Last Admin: 07/08/19 15:00 Dose: 17 gm Documented by: Potassium Chloride (K-Dur -) 40 meq PO DAILY [facility] Last Admin: 07/18/19 09:33 Dose: 40 meq Documented by: Sodium Chloride ([place] -) 2 spray NS TID PRN PRN Reason: NASAL CONGESTION Last Admin: 07/05/19 13:10 Dose: 2 spray Documented by: Zolpidem Tartrate (Ambien -) 5 mg PO HS PRN PRN Reason: INSOMNIA Last Admin: 07/18/19 21:32 Dose: 5 mg Documented by: - Objective Vital Signs: Vital Signs Temperature 97.9 F 07/19/19 08:50 Pulse Rate 107 H 07/19/19 08:50 Respiratory Rate 18 07/19/19 08:50 Blood Pressure 131/72 07/19/19 08:50 O2 Sat by Pulse Oximetry (%) 93 L 07/19/19 08:47 Eyes: Yes: WNL, Conjunctiva Clear, EOM Intact HENT: Yes: WNL, Atraumatic, Normocephalic Neck: Yes: WNL, Supple, Trachea Midline Cardiovascular: Yes: WNL, Regular Rate and Rhythm Respiratory: Yes: WNL, Regular, CTA Bilaterally Gastrointestinal: Yes: WNL, Normal Bowel Sounds Genitourinary: Yes: WNL Musculoskeletal: Yes: WNL Extremities: Yes: WNL Edema: No Integumentary: Yes: WNL Neurological: Yes: WNL, Alert, Oriented ...Motor Strength: WNL Psychiatric: Yes: WNL Labs: CBC, BMP 07/19/19 07:03 07/19/19 07:03 INR, PTT INR 1.07 (0.83-1.09) 07/01/19 22:15 Fibrinogen > 500.0 mg/dL (238-498) H 07/04/19 05:50 Assessment/Plan 1. Post iliopsoas abscess IR drainage 2. MRSA bacteremia/suspect endocarditis 3. HTN 4. Lupus 5. Cervical cancer 6. Sinus tachycardia 7. DM 8. Seizure PLAN: 1. Antibiotic coverage as per ID via PICC line to be placed 2. Surveillance cultures NGTD 3. Post IR drain 4. Continue Lisinopril 5 mg QD 5. DVT and GI prophylaxis, BD and O2 as needed
[2019-07-19] MEDS: BACITRACIN 15 GM TUBE TOPICAL OINTMENT TP SCH ×2 (09:21→22:33)
[2019-07-19] MEDS: LIDOCAINE 5% TOPICAL PATCH TP SCH (09:21)
[2019-07-19] MEDS: LISINOPRIL 5 MG TABLET (FP) PO SCH (09:21)
[2019-07-19] MEDS: DOCUSATE SODIUM 100 MG CAPSULE (FP) PO SCH (09:21)
[2019-07-19] MEDS: PANTOPRAZOLE 40 MG TABLET PO SCH (09:21)
[2019-07-19] MEDS: POTASSIUM CHLORIDE TABS 20 MEQ TABLET.ER (FP) PO SCH (09:22)
[2019-07-19] MEDS: IPRATROPIUM/ALBUTEROL (COMBIVENT) RESPIMAT 20-100 MCG IH SCH ×4 (09:22→22:34)
[2019-07-19] MEDS: BUDESONIDE/FORMETEROL FUMARATE 160/4.5 mcg INHALER IH SCH ×2 (09:23→22:34)
[2019-07-19] MEDS ORDERED: HYDROmorphone HCL 2 MG TABLET ONE (11:15)
--- NOTE | 2019-07-19 11:42 | PN ---
Progress Note (short form) - Note Progress Note: still with hip pain still with drainage from [facility] for f/u ct scan today Vital Signs Period Temp Pulse Resp BP Sys/Turner Pulse Ox Last 24 Hr 97.7 F-100.4 F 104-121 18-20 107-157/54-78 93-96 cor-rrr lungs decreased bs at bases abd soft,nt ext no edema +noah drain CBC, BMP 07/19/19 07:03 07/19/19 07:03 Microbiology 07/12/19 07:20 Blood - Peripheral Venous Blood Culture - Final NO GROWTH AFTER 5 DAYS INCUBATION 07/12/19 07:15 Blood - Peripheral Venous Blood Culture - Final NO GROWTH AFTER 5 DAYS INCUBATION 07/09/19 06:40 Blood - Peripheral Venous Blood Culture - Final NO GROWTH AFTER 5 DAYS INCUBATION 07/09/19 06:45 Blood - Peripheral Venous Blood Culture - Final NO GROWTH AFTER 5 DAYS INCUBATION 07/06/19 07:19 Blood - Peripheral Venous Blood Culture - Final NO GROWTH AFTER 5 DAYS INCUBATION 07/06/19 07:19 Blood - Peripheral Venous Blood Culture - Final Mr S Aureus 07/04/19 06:10 Blood - Peripheral Venous Blood Culture - Final Staphylococcus Latex Coag Pos 07/04/19 05:50 Blood - Peripheral Venous Blood Culture - Final Mr S Aureus 07/03/19 17:30 Abscess Gram Stain - Final 07/03/19 17:30 Abscess Body Fluid Culture - Final Mr S Aureus 07/03/19 17:30 Abscess Anaerobic Culture - Final NO ANAEROBES WERE ISOLATED 07/03/19 11:10 Blood - Peripheral Venous Blood Culture - Final Mr S Aureus 07/03/19 11:10 Blood - Peripheral Venous Blood Culture - Final Mr S Aureus 07/02/19 00:55 Blood - Peripheral Venous Blood Culture - Final Mr S Aureus 07/02/19 01:02 Blood - Peripheral Venous Blood Culture - Final Mr S Aureus COVID pcr negative a/p suspected MRSA endocarditis MRSA bacteremia -last positive blood culture 07/05 abscesses left iliacus muscle-s/p IR drainage-coninues to drain via noah drain (please leave in place) bilateral cavitary infiltrates pen allergy obese poorly controlled DM lupus by history seizure disorder telavancin day #13 continue IVF while on televancin monitor renal function daily she reports anaphylaxis to penicillin and sulfa allergy options limited for MRSA treatment for both blood and lung infections as well as abscess will switch to daptomycin iv daily and doxycycline po bid when ready for discharge picc line for another 4 weeks of antibiotics-she is agreeable to staying in [place] to complete her therapy have reached out to store planner-she will let us know the options- check cpk f/u crp
[2019-07-19] MEDS ORDERED: PT OWN MED DRAWER 7, Y5N ONE ×2 (14:02→14:35)
[2019-07-19] MEDS: WATER IVPB SCH (14:37)
[2019-07-19] MEDS: TELAVANCIN HCL IVPB SCH (14:37)
[2019-07-19] MEDS: LACTATED RINGERS SOLUTION 1,000 ML/1,000 ML INFUS.BAG IV SCH (14:37)
[2019-07-19] MEDS: DEXTROSE 5% IVPB SCH (14:37)
--- NOTE | 2019-07-19 15:02 | PN ---
Physical Exam: SUBJECTIVE: Patient seen and examined at the bedside. patient now tells me that she is planing on returning to [place] on August 06 after initially telling me that she would stay in [place] and complete 4 - 6 weeks of IV infusion. Asked her to re consider and stay and complete treatment here but he is not willing to. Discussed with SW, patient not agreeable to private pay home infusion and she is able to come to hospital every day until August 06. At that point she will be leaving to go back to [place]. She may need to continue treatment in [place] and may need to check in to a hospital. OBJECTIVE: Patient is a 38 year old female with a significant past medical history of lupus, MRSA bacteremia, recurrent MRSA skin abscesses on intermittent doxycycline-clindamycin regimens, cervical CA (s/p chemotherapy 10ys prior), endometriosis, IDDM, seizure disorder, chronic migraines, herniated L-spine disc, chronic lower back pain (dilaudid 8mg TID), OA, RA, anxiety presented to [facility]-ED for complaint of >7d of severe intermittent LLQ pain. ED evaluation found a Left-sided psoas abscess. Patient is also suspected to have endocarditis and is being followed by cardiology. Vital Signs Period Temp Pulse Resp BP Sys/Turner Pulse Ox Last 24 Hr 97.6 F-100.4 F 104-121 18-22 107-157/54-98 91-96 GENERAL: The patient is awake, alert, and fully oriented, in no acute distress. tolerating room air. HEAD: Normal with no signs of trauma. EYES: PERRL, extraocular movements intact, sclera anicteric, conjunctiva clear. No ptosis. ENT: Ears normal, nares patent, oropharynx clear without exudates, moist mucous membranes. NECK: Trachea midline, full range of motion, supple. ABDOMEN: obese abdomen, left sided drain noted, pain around drain site, minimal to no output on drain for abd/ct scan today EXTREMITIES: 2+ pulses, warm, well-perfused, no edema. NEUROLOGICAL: Normal speech, gait not observed. PSYCH: Normal mood, normal affect. SKIN: Warm, dry, normal turgor, no rashes or lesions noted Laboratory Results - last 24 hr 07/19/19 07/19/19 07/19/19 07:03 07:03 07:03 WBC 3.5 L RBC 3.87 Hgb 11.1 Hct 33.6 MCV 86.8 MCH 28.8 MCHC 33.1 RDW 14.1 Plt Count 319 MPV 8.8 Absolute Neuts (auto) 1.8 Neutrophils % 51.8 Lymphocytes % 32.6 Monocytes % 12.9 H Eosinophils % 1.7 Basophils % 1.0 Nucleated RBC % 0 D-Dimer Sodium 131 L Potassium 4.4 Chloride 97 L Carbon Dioxide 28 Anion Gap 6 L BUN 10.1 Creatinine 0.7 Est GFR (CKD-EPI)AfAm 129.19 Est GFR (CKD-EPI)NonAf 111.47 Random Glucose 230 H Calcium 8.6 Magnesium 2.1 Ferritin 238.1 Total Bilirubin 0.3 AST 34 ALT 41 Alkaline Phosphatase 230 H LD Total 160 C-Reactive Protein 5.7 H Total Protein 7.1 Albumin 2.7 L 07/19/19 07:03 WBC RBC Hgb Hct MCV MCH MCHC RDW Plt Count MPV Absolute Neuts (auto) Neutrophils % Lymphocytes % Monocytes % Eosinophils % Basophils % Nucleated RBC % D-Dimer 1741 H Sodium Potassium Chloride Carbon Dioxide Anion Gap BUN Creatinine Est GFR (CKD-EPI)AfAm Est GFR (CKD-EPI)NonAf Random Glucose Calcium Magnesium Ferritin Total Bilirubin AST ALT Alkaline Phosphatase LD Total C-Reactive Protein Total Protein Albumin Active Medications Generic Name Dose Route Start Last Admin Trade Name Francescoq PRN Reason Stop Dose Admin Acetaminophen 1,000 mg 07/05/19 10:18 07/17/19 01:05 Tylenol - PO 1,000 mg Q6H PRN Administration PAIN 4-6 Acetaminophen/Butalbital/Caffeine 1 tablet 07/13/19 15:31 07/19/19 09:22 Fioricet - PO 1 tablet Q6H PRN Administration HEADACHE Albuterol/Ipratropium 1 puff 07/07/19 11:47 07/19/19 14:36 Combivent Respimat 20-100 Mcg IH 1 puff QID [facility] Administration Albuterol/Ipratropium 1 amp 07/10/19 11:21 Duoneb - NEB Q4H PRN SHORTNESS OF BREATH Bacitracin 1 applic 07/15/19 11:15 07/19/19 09:21 Bacitracin - TP 1 applic BID [facility] Administration Budesonide/Formoterol Fumarate 2 puff 07/08/19 10:00 07/19/19 09:23 Symbicort 160/4.5mcg - IH 2 puff BID [facility] Administration Cyclobenzaprine HCl 10 mg 07/13/19 15:37 07/19/19 14:36 Flexeril - PO 10 mg TID [facility] Administration Docusate Sodium 100 mg 07/08/19 10:00 07/19/19 09:21 Colace - PO 100 mg DAILY [facility] Administration Gabapentin 600 mg 07/14/19 14:00 07/19/19 06:22 Neurontin - PO Not Given TID [facility] Guaifenesin 10 ml 07/03/19 08:16 07/08/19 03:59 Robitussin - PO 10 ml Q6H PRN Administration COUGH Heparin Sodium (Porcine) 5,000 unit 07/08/19 06:00 07/19/19 14:36 Heparin - SQ 5,000 unit TID [facility] Administration Hydromorphone HCl 8 mg 07/13/19 16:10 07/19/19 11:23 Dilaudid - PO 8 mg Q6H PRN Administration PAIN LEVEL 7 - 10 Telavancin 1,000 mg/ Dextrose 316.6667 mls @ 316.667 mls/hr 07/07/19 15:00 07/19/19 14:37 IVPB 316.667 mls/hr DAILY@1500 [facility] Administration Lactated Ringer's 1,000 ml in 1,000 mls @ 100 mls/hr 07/08/19 14:29 07/19/19 14:37 Lactated Ringers Solution IV 100 mls/hr ASDIR [facility] Administration Insulin Aspart 1 vial 07/19/19 08:04 07/19/19 11:22 Novolog Vial Sliding Scale - SQ 14 unit ACHS [facility] Administration Protocol Insulin Detemir 35 units 07/18/19 07:42 07/19/19 06:23 Levemir Vial SQ 35 unit BID@0700,2200 [facility] Administration Levetiracetam 1,000 mg 07/07/19 23:45 07/19/19 14:36 Keppra - PO 1,000 mg TID [facility] Administration Lidocaine 1 patch 07/06/19 11:00 07/19/19 09:21 Lidoderm Patch - TP 1 patch DAILY [facility] Administration Lisinopril 5 mg 07/09/19 12:30 07/19/19 09:21 Prinivil PO 5 mg DAILY [facility] Administration Lorazepam 1 mg 07/13/19 16:11 07/18/19 21:32 Ativan - PO 1 mg TID PRN Administration ANXIETY Miscellaneous 1 each 07/06/19 22:00 07/18/19 21:13 Lidoderm Patch Removal MC 1 each DAILY@2200 [facility] Administration Nystatin 1 applic 07/10/19 14:00 07/19/19 14:37 Nystop Powder - TP 1 applic TID [facility] Administration Pantoprazole Sodium 40 mg 07/08/19 16:30 07/19/19 09:21 Protonix - PO 40 mg DAILY [facility] Administration Polyethylene Glycol 17 gm 07/08/19 14:29 07/08/19 15:00 Miralax (For Daily Use) - PO 17 gm DAILY PRN Administration CONSTIPATION Potassium Chloride 40 meq 07/07/19 10:00 07/19/19 09:22 K-Dur - PO 40 meq DAILY [facility] Administration Sodium Chloride 2 spray 07/05/19 10:19 07/05/19 13:10 [place] Nasal [place] - NS 2 spray TID PRN Administration NASAL CONGESTION Zolpidem Tartrate 5 mg 07/15/19 11:01 07/18/19 21:32 Ambien - PO 5 mg HS PRN Administration INSOMNIA ASSESSMENT/PLAN: Problem List - Problems (1) Endocarditis Assessment/Plan: blood cultures negative; repeat set negative to date. will need 4-6 weeks of antibiotics via picc line to be arranged prior to d/c. ECHO was repeated: essentially normal study. cardiology following Code(s): I38 - ENDOCARDITIS, VALVE UNSPECIFIED (2) MRSA bacteremia Assessment/Plan: ilsiopsoas abcess drain placed on 07/02. per IR and ID, maintain drain in place. now having pain around drain site, will repeat abdomen/ct scan. FRANCO with exudatative drainage but minimal on telavancin day #13 IV per ID, and will need PICC line prior to d/c for IV antibiotic therapy. Code(s): R78.81 - BACTEREMIA; B95.62 - METHICILLIN RESIS STAPH INFCT CAUSING DISEASES CLASSD ELSWHR (3) Iliopsoas abscess Assessment/Plan: drainage with scant amount. continue antibiotics per ID, on telavancin 1000 mg qd Code(s): K68.12 - PSOAS MUSCLE ABSCESS (4) Lupus Code(s): M32.9 - SYSTEMIC LUPUS ERYTHEMATOSUS, UNSPECIFIED (5) Cervical cancer Assessment/Plan: will need outpatient follow up Code(s): C53.9 - MALIGNANT NEOPLASM OF CERVIX UTERI, UNSPECIFIED (6) Chronic bilateral low back pain Assessment/Plan: flexiril tid Code(s): M54.5 - LOW BACK PAIN; G89.29 - OTHER CHRONIC PAIN (7) Hx MRSA infection Code(s): Z86.14 - PERSONAL HISTORY OF METHICILLIN RESIS STAPH INFECTION (8) Hypokalemia Assessment/Plan: resolved Code(s): E87.6 - HYPOKALEMIA (9) IDDM (insulin dependent diabetes mellitus) Assessment/Plan: on levemir bid, will tighten short acting to achieve fasting < 180 hmga1c 13.8, dietary consult will need endocrinology consult as an outpatient Code(s): SCJ0988 - (10) Leukocytosis Assessment/Plan: resolved Code(s): D72.829 - ELEVATED WHITE BLOOD CELL COUNT, UNSPECIFIED (11) Obesity, Class III, BMI 40-49.9 (morbid obesity) Assessment/Plan: outpatient follow up Code(s): E66.01 - MORBID (SEVERE) OBESITY DUE TO EXCESS CALORIES (12) Seizure disorder Assessment/Plan: on keppra 1000 tid, neurontin 600mg tid Code(s): G40.909 - EPILEPSY, UNSP, NOT INTRACTABLE, WITHOUT STATUS EPILEPTICUS (13) Cavitary lung disease Assessment/Plan: per CT scan, pulmonary following Code(s): J98.4 - OTHER DISORDERS OF LUNG (14) COVID-19 virus not detected Assessment/Plan: negative x 2, however d dimer elevated as well as crp. will continue lovenox bid. pulmonary following patient Code(s): Z03.818 - ENCNTR FOR OBS FOR SUSP EXPSR TO OTH BIOLG AGENTS RULED OUT Visit type - Emergency Visit Emergency Visit: Yes ED Registration Date: 07/02/19 Care time: The patient presented to the Emergency Department on the above date and was hospitalized for further evaluation of their emergent condition. - New Patient This patient is new to me today: No - Critical Care Critical Care patient: No - Discharge Referral Referred to [facility] Med P.C.: No
[2019-07-19] MEDS: LORazepam 1 MG TABLET PO PRN ×2 (15:46→22:16)
[2019-07-19] MEDS: LIDOCAINE PATCH REMOVAL MC SCH (22:34)
[2019-07-20] MEDS: INSULIN SLIDING SCALE (NOVOLOG) 1 VIAL SQ SCH ×4 (06:05→21:08)
[2019-07-20] MEDS: HEPARIN NA (PORCINE) 5,000 UNITS/ML 1ML VIAL SQ SCH ×3 (06:06→21:07)
[2019-07-20] MEDS: INSULIN (LEVEMIR) 100 UNITS/ML UNITS SQ SCH ×2 (06:06→21:07)
[2019-07-20] MEDS: CYCLOBENZAPRINE HCL 10 MG TABLET (FP) PO SCH ×3 (06:07→21:07)
[2019-07-20] MEDS: levETIRAcetam 500 MG TABLET (FP) PO SCH ×3 (06:07→21:07)
[2019-07-20] MEDS: GABAPENTIN 300 MG CAPSULE PO SCH ×3 (06:07→21:06)
[2019-07-20] MEDS: NYSTATIN POWDER 100,000 UNITS/GM - 15 GM TOPICAL POWDER TP SCH ×3 (06:15→21:08)
[2019-07-20 06:53] LABS: BASO % 0.8 % (0-2.0); EOS % 2.2 % (0-4.5); HEMATOCRIT 31.2 % (32.4-45.2); HEMOGLOBIN 10.5 GM/dL (10.7-15.3); MCH 29.1 pg (25.7-33.7); MCHC 33.8 g/dl (32.0-36.0); MEAN PLT VOLUME 8.7 fl (7.5-11.1); MONO % 11.1 % (3.8-10.2); NEUT % 48.9 % (42.8-82.8); PLATELET COUNT 277 K/MM3 (134-434); RBC 3.62 M/mm3 (3.60-5.2); RDW 14.1 % (11.6-15.6); WHITE BLOOD COUNT 3.5 K/mm3 (4.0-10.0)
[2019-07-20 07:16] LABS: ALBUMIN 2.6 g/dl (3.4-5.0); BILIRUBIN,TOTAL 0.4 mg/dL (0.2-1); BLOOD UREA NITROGEN 7.7 mg/dL (7-18); CALCIUM 8.2 mg/dL (8.5-10.1); CREATININE 0.7 mg/dL (0.55-1.3); MAGNESIUM 2.1 mg/dL (1.8-2.4); POTASSIUM 4.2 mmol/L (3.5-5.1); TOT PROT 6.7 g/dl (6.4-8.2)
--- NOTE | 2019-07-20 08:33 | PN ---
Progress Note, Physician Chief Complaint: Seen and examined in bed. States she has been working with PT and is ready to go home History of Present Illness: Patient is a 38 year old female with a significant past medical history of lupus, MRSA bacteremia, recurrent MRSA skin abscesses on intermittent doxycycline-clindamycin regimens, cervical CA (s/p chemotherapy 10ys prior), endometriosis, IDDM, seizure disorder, chronic migraines, herniated L-spine disc, chronic lower back pain (dilaudid 8mg TID), OA, RA, anxiety presented to [facility]ED for complaint of >7d of severe intermittent LLQ pain. ED evaluation found a Left-sided psoas abscess. Patient is also suspected to have endocarditis and is being followed by cardiology. - Current Medication List Current Medications: Active Medications Acetaminophen (Tylenol -) 1,000 mg PO Q6H PRN PRN Reason: PAIN 4-6 Last Admin: 07/17/19 01:05 Dose: 1,000 mg Documented by: Acetaminophen/Butalbital/Caffeine (Fioricet -) 1 tablet PO Q6H PRN PRN Reason: HEADACHE Last Admin: 07/19/19 17:41 Dose: 1 tablet Documented by: Albuterol/Ipratropium (Combivent Respimat 20-100 Mcg) 1 puff IH QID [facility] Last Admin: 07/19/19 22:34 Dose: 1 puff Documented by: Albuterol/Ipratropium (Duoneb -) 1 amp NEB Q4H PRN PRN Reason: SHORTNESS OF BREATH Bacitracin (Bacitracin -) 1 applic TP BID [facility] Last Admin: 07/19/19 22:33 Dose: 1 applic Documented by: Budesonide/Formoterol Fumarate (Symbicort 160/4.5mcg -) 2 puff IH BID [facility] Last Admin: 07/19/19 22:34 Dose: 2 puff Documented by: Cyclobenzaprine HCl (Flexeril -) 10 mg PO TID [facility] Last Admin: 07/20/19 06:07 Dose: 10 mg Documented by: Docusate Sodium (Colace -) 100 mg PO DAILY [facility] Last Admin: 07/19/19 09:21 Dose: 100 mg Documented by: Gabapentin (Neurontin -) 600 mg PO TID [facility] Last Admin: 07/20/19 06:07 Dose: 600 mg Documented by: Guaifenesin (Robitussin -) 10 ml PO Q6H PRN PRN Reason: COUGH Last Admin: 07/08/19 03:59 Dose: 10 ml Documented by: Heparin Sodium (Porcine) (Heparin -) 5,000 unit SQ TID [facility] Last Admin: 07/20/19 06:06 Dose: 5,000 unit Documented by: Hydromorphone HCl (Dilaudid -) 8 mg PO Q6H PRN PRN Reason: PAIN LEVEL 7 - 10 Last Admin: 07/20/19 02:02 Dose: 8 mg Documented by: Telavancin 1,000 mg/ Dextrose 316.6667 mls @ 316.667 mls/hr IVPB DAILY@1500 [facility] Last Admin: 07/19/19 14:37 Dose: 316.667 mls/hr Documented by: Lactated Ringer's (Lactated Ringers Solution) 1,000 ml in 1,000 mls @ 100 mls/hr IV ASDIR [facility] Last Admin: 07/19/19 14:37 Dose: 100 mls/hr Documented by: Insulin Aspart (Novolog Vial Sliding Scale -) 1 vial SQ ACHS [facility]; Protocol Last Admin: 07/20/19 06:05 Dose: 12 units Documented by: Insulin Detemir (Levemir Vial) 35 units SQ BID@0700,2200 [facility] Last Admin: 07/20/19 06:06 Dose: 35 unit Documented by: Levetiracetam (Keppra -) 1,000 mg PO TID [facility] Last Admin: 07/20/19 06:07 Dose: 1,000 mg Documented by: Lidocaine (Lidoderm Patch -) 1 patch TP DAILY [facility] Last Admin: 07/19/19 09:21 Dose: 1 patch Documented by: Lisinopril (Prinivil) 5 mg PO DAILY [facility] Last Admin: 07/19/19 09:21 Dose: 5 mg Documented by: Lorazepam (Ativan -) 1 mg PO TID PRN PRN Reason: ANXIETY Last Admin: 07/19/19 22:16 Dose: 1 mg Documented by: Miscellaneous (Lidoderm Patch Removal) 1 each MC DAILY@2200 [facility] Last Admin: 07/19/19 22:34 Dose: 1 each Documented by: Nystatin (Nystop Powder -) 1 applic TP TID [facility] Last Admin: 07/20/19 06:15 Dose: Not Given Documented by: Pantoprazole Sodium (Protonix -) 40 mg PO DAILY [facility] Last Admin: 07/19/19 09:21 Dose: 40 mg Documented by: Polyethylene Glycol (Miralax (For Daily Use) -) 17 gm PO DAILY PRN PRN Reason: CONSTIPATION Last Admin: 07/08/19 15:00 Dose: 17 gm Documented by: Potassium Chloride (K-Dur -) 40 meq PO DAILY [facility] Last Admin: 07/19/19 09:22 Dose: 40 meq Documented by: Sodium Chloride ([place] Nasal Lehr -) 2 spray NS TID PRN PRN Reason: NASAL CONGESTION Last Admin: 07/05/19 13:10 Dose: 2 spray Documented by: Zolpidem Tartrate (Ambien -) 5 mg PO HS PRN PRN Reason: INSOMNIA Last Admin: 07/18/19 21:32 Dose: 5 mg Documented by: - Objective Vital Signs: Vital Signs Temperature 98.9 F 07/20/19 06:00 Pulse Rate 112 H 07/20/19 06:00 Respiratory Rate 18 07/20/19 06:00 Blood Pressure 111/64 07/20/19 06:00 O2 Sat by Pulse Oximetry (%) 93 L 07/19/19 21:00 Additional Findings/Remarks: Constitutional: Yes: No Distress, Calm, Obese Eyes: Yes: WNL, Conjunctiva Clear HENT: Yes: WNL, Atraumatic, Normocephalic Neck: Yes: WNL, Supple, Trachea Midline Cardiovascular: Yes: WNL, Regular Rate and Rhythm Respiratory: Yes: WNL, Regular, CTA Bilaterally, On Nasal O2 (2L) Gastrointestinal: Yes: Abdomen, Obese, Tenderness (TTP LLQ/flank near FRANCO drain) ...Rectal Exam: Yes: Deferred Genitourinary: Yes: Incontinence Breast(s): Yes: WNL Musculoskeletal: Yes: Muscle Weakness Extremities: Yes: WNL Edema: No Peripheral Pulses WNL: Yes Peripheral Pulses: Left Radial: 2+, Right Radial: 2+, Left Doralis Pedis: 2+, Right Dorsalis Pedis: 2+, Left Femoral: 2+, Right Femoral: 2+ Integumentary: Yes: Other (fungal rash to groin BL) ...Motor Strength: LLE, RLE (weakness) Labs: CBC, BMP 05/05/20 06:34 07/20/19 06:34 INR, PTT INR 1.07 (0.83-1.09) 07/01/19 22:15 Fibrinogen > 500.0 mg/dL (238-498) H 07/04/19 05:50 Problem List - Problems (1) Migraine Assessment/Plan: no migraines noted since admission takes fiorecet at home Code(s): G43.909 - MIGRAINE, UNSP, NOT INTRACTABLE, WITHOUT STATUS MIGRAINOSUS (2) IDDM (insulin dependent diabetes mellitus) Assessment/Plan: BGM AC/HS with novolog sliding scale BGM poorly controlled c/w levemir 35ubid and c/t monitor poor compliance with diet c/w diabetic diet Code(s): YKL3080 - (3) Chronic bilateral low back pain Assessment/Plan: takes dilaudid at home additional pain from iliopsoas abcess dilaudid PO for pain c/w gabapentiin Code(s): M54.5 - LOW BACK PAIN; G89.29 - OTHER CHRONIC PAIN (4) MRSA bacteremia Assessment/Plan: ilsiopsoas abcess drain placed on 07/02 FRANCO remains with minial drainage on telavancin IV day 13 TTE 07/01 supboptimal, nl LVEF, unable to eval for vegetations ;repeated 07/04 and normal cardiology following ID following on discharge--> daptomycin 800 mg iv daily in am and po doxycycline 100 mg po bid in am last date of antiibotics will be 08/17/19 Code(s): R78.81 - BACTEREMIA; B95.62 - METHICILLIN RESIS STAPH INFCT CAUSING DISEASES CLASSD ELSWHR (5) Fungal infection of the groin Assessment/Plan: c/w nystatin powder to groin prn avoid diapers, frequent toileting Code(s): B35.6 - TINEA CRURIS (6) Prophylactic measure Assessment/Plan: FEN Fluids: adequate PO intake Electrolytes: monitor & replete as needed Nutrition: diabetic diet DVT moderate risk sq heparin Dispo Maintain as inpatient full code discharge planning to home with IV abx-SW working on infusion therapy and insuarance Code(s): Z29.9 - ENCOUNTER FOR PROPHYLACTIC MEASURES, UNSPECIFIED (7) Iliopsoas abscess Assessment/Plan: FRANCO drain placed in IR on 07/[address] with no discrete collection seen c/w abx monitor temp and wbc curve Code(s): K68.12 - PSOAS MUSCLE ABSCESS (8) Lupus Code(s): M32.9 - SYSTEMIC LUPUS ERYTHEMATOSUS, UNSPECIFIED (9) Obesity, Class III, BMI 40-49.9 (morbid obesity) Assessment/Plan: weight loss counseling poor compliance with diet Code(s): E66.01 - MORBID (SEVERE) OBESITY DUE TO EXCESS CALORIES (10) Seizure Assessment/Plan: c/w keppra Code(s): R56.9 - UNSPECIFIED CONVULSIONS (11) Weakness Assessment/Plan: improved mobility Code(s): R53.1 - WEAKNESS (12) Endocarditis Assessment/Plan: blood cultures negative; repeat set negative to date. will need 4-6 weeks of antibiotics via picc line to be arranged prior to d/c. ECHO was repeated: essentially normal study. cardiology following Code(s): I38 - ENDOCARDITIS, VALVE UNSPECIFIED Visit type - Emergency Visit Emergency Visit: Yes ED Registration Date: 07/02/19 Care time: The patient presented to the Emergency Department on the above date and was hospitalized for further evaluation of their emergent condition. - New Patient This patient is new to me today: No - Critical Care Critical Care patient: No - Discharge Referral Referred to [facility] Med P.C.: No
[2019-07-20] MEDS: DOCUSATE SODIUM 100 MG CAPSULE (FP) PO SCH (10:15)
[2019-07-20] MEDS: IPRATROPIUM/ALBUTEROL (COMBIVENT) RESPIMAT 20-100 MCG IH SCH ×4 (10:15→21:07)
[2019-07-20] MEDS: POTASSIUM CHLORIDE TABS 20 MEQ TABLET.ER (FP) PO SCH (10:15)
[2019-07-20] MEDS: BACITRACIN 15 GM TUBE TOPICAL OINTMENT TP SCH ×2 (10:15→21:07)
[2019-07-20] MEDS: LIDOCAINE 5% TOPICAL PATCH TP SCH (10:15)
[2019-07-20] MEDS: LISINOPRIL 5 MG TABLET (FP) PO SCH (10:16)
[2019-07-20] MEDS: PANTOPRAZOLE 40 MG TABLET PO SCH (10:16)
[2019-07-20] MEDS: BUDESONIDE/FORMETEROL FUMARATE 160/4.5 mcg INHALER IH SCH ×2 (10:17→21:08)
--- NOTE | 2019-07-20 11:26 | PN ---
Progress Note (short form) - Note Progress Note: still with hip pain ct scan noted-soft tissue swelling no abscess Vital Signs Period Temp Pulse Resp BP Sys/Turner Pulse Ox Last 24 Hr 97.6 F-98.9 F 103-116 18-22 111-138/64-98 91-93 cor-rrr lungs decreased bs at bases abd soft,nt +noah drain- minimal ext no edema CBC, BMP 07/20/19 06:34 07/20/19 06:34 Microbiology 07/12/19 07:20 Blood - Peripheral Venous Blood Culture - Final NO GROWTH AFTER 5 DAYS INCUBATION 07/12/19 07:15 Blood - Peripheral Venous Blood Culture - Final NO GROWTH AFTER 5 DAYS INCUBATION 07/09/19 06:40 Blood - Peripheral Venous Blood Culture - Final NO GROWTH AFTER 5 DAYS INCUBATION 07/09/19 06:45 Blood - Peripheral Venous Blood Culture - Final NO GROWTH AFTER 5 DAYS INCUBATION 07/06/19 07:19 Blood - Peripheral Venous Blood Culture - Final NO GROWTH AFTER 5 DAYS INCUBATION 07/06/19 07:19 Blood - Peripheral Venous Blood Culture - Final Mr S Aureus 07/04/19 06:10 Blood - Peripheral Venous Blood Culture - Final Staphylococcus Latex Coag Pos 07/04/19 05:50 Blood - Peripheral Venous Blood Culture - Final Mr S Aureus 07/03/19 17:30 Abscess Gram Stain - Final 07/03/19 17:30 Abscess Body Fluid Culture - Final Mr S Aureus 07/03/19 17:30 Abscess Anaerobic Culture - Final NO ANAEROBES WERE ISOLATED 07/03/19 11:10 Blood - Peripheral Venous Blood Culture - Final Mr S Aureus 07/03/19 11:10 Blood - Peripheral Venous Blood Culture - Final Mr S Aureus 07/02/19 00:55 Blood - Peripheral Venous Blood Culture - Final Mr S Aureus 07/02/19 01:02 Blood - Peripheral Venous Blood Culture - Final Mr S Aureus COVID pcr negative a/p suspected MRSA endocarditis MRSA bacteremia -last positive blood culture 07/05 abscesses left iliacus muscle-s/p IR drainage-coninues to drain via noah drain (please leave in place) bilateral cavitary infiltrates pen allergy obese poorly controlled DM lupus by history seizure disorder telavancin day #13 continue IVF while on televancin monitor renal function daily she reports anaphylaxis to penicillin and sulfa allergy options limited for MRSA treatment for both blood and lung infections as well as abscess will switch to daptomycin iv daily and doxycycline po bid when ready for discharge picc line for another 4 weeks of antibiotics-she is agreeable to staying in [place] to complete her therapy have reached out to planner internship-she will let us know the options- last date of antiibotics will be 08/17/19 will switch to daptomycin 800 mg iv daily in am and po doxycycline 100 mg po bid in am d/w hospitalist and d/c materials planner/production planner
[2019-07-20] MEDS: ACETAMINOPHEN/CAFFEINE/BUTALBITAL 1 TAB PO PRN (12:31)
[2019-07-20] MEDS: LORazepam 1 MG TABLET PO PRN ×2 (13:43→21:09)
[2019-07-20] MEDS: DEXTROSE 5% IVPB SCH (14:35)
[2019-07-20] MEDS: WATER IVPB SCH (14:35)
[2019-07-20] MEDS: TELAVANCIN HCL IVPB SCH (14:35)
[2019-07-20] MEDS: LACTATED RINGERS SOLUTION 1,000 ML/1,000 ML INFUS.BAG IV SCH (14:35)
--- NOTE | 2019-07-20 16:08 | PN ---
Progress Note, Physician Chief Complaint: Pt A&Ox3; lying on left side, saying the pressure on her left hip helps relieve pain. No chest pain or dyspnea. 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 yesterday developed fever, tmax 101; went to [facility] yesterday, where she said xrays were done and no further imaging or workup was pursued c/o severe left hip pain resides in [place]; came up to [place] to care for her sister who has endometriosis no other sick contacts. no travel history. no cough/congestion, vomiting, diarrhea, bloody stools, urinary sx. +current yeast infection, has not picked up her diflucan yet, as she gets frequent yeast infection from chronic use of doxycycline and clindamycin for chronic MRSA infections. no trauma, no recent procedures no h/o kidney stones, no prior sx of similar nature. Has had EKG recently; denies having had ECHO. - Current Medication List Current Medications: Active Medications Acetaminophen (Tylenol -) 1,000 mg PO Q6H PRN PRN Reason: PAIN 4-6 Last Admin: 07/17/19 01:05 Dose: 1,000 mg Documented by: Acetaminophen/Butalbital/Caffeine (Fioricet -) 1 tablet PO Q6H PRN PRN Reason: HEADACHE Last Admin: 07/20/19 12:31 Dose: 1 tablet Documented by: Albuterol/Ipratropium (Combivent Respimat 20-100 Mcg) 1 puff IH QID [facility] Last Admin: 07/20/19 13:44 Dose: 1 puff Documented by: Albuterol/Ipratropium (Duoneb -) 1 amp NEB Q4H PRN PRN Reason: SHORTNESS OF BREATH Bacitracin (Bacitracin -) 1 applic TP BID [facility] Last Admin: 07/20/19 10:15 Dose: 1 applic Documented by: Budesonide/Formoterol Fumarate (Symbicort 160/4.5mcg -) 2 puff IH BID [facility] Last Admin: 07/20/19 10:17 Dose: Not Given Documented by: Cyclobenzaprine HCl (Flexeril -) 10 mg PO TID [facility] Last Admin: 07/20/19 13:44 Dose: 10 mg Documented by: Docusate Sodium (Colace -) 100 mg PO DAILY [facility] Last Admin: 07/20/19 10:15 Dose: 100 mg Documented by: Gabapentin (Neurontin -) 600 mg PO TID [facility] Last Admin: 07/20/19 13:43 Dose: 600 mg Documented by: Guaifenesin (Robitussin -) 10 ml PO Q6H PRN PRN Reason: COUGH Last Admin: 07/08/19 03:59 Dose: 10 ml Documented by: Heparin Sodium (Porcine) (Heparin -) 5,000 unit SQ TID [facility] Last Admin: 07/20/19 13:42 Dose: 5,000 unit Documented by: Hydromorphone HCl (Dilaudid -) 8 mg PO Q6H PRN PRN Reason: PAIN LEVEL 7 - 10 Last Admin: 07/20/19 02:02 Dose: 8 mg Documented by: Telavancin 1,000 mg/ Dextrose 316.6667 mls @ 316.667 mls/hr IVPB DAILY@1500 [facility] Last Admin: 07/20/19 14:35 Dose: 316.667 mls/hr Documented by: Lactated Ringer's (Lactated Ringers Solution) 1,000 ml in 1,000 mls @ 100 mls/hr IV ASDIR [facility] Last Admin: 07/20/19 14:35 Dose: Not Given Documented by: Insulin Aspart (Novolog Vial Sliding Scale -) 1 vial SQ ACHS [facility]; Protocol Last Admin: 07/20/19 11:43 Dose: 14 units Documented by: Insulin Detemir (Levemir Vial) 35 units SQ BID@0700,2200 [facility] Last Admin: 07/20/19 06:06 Dose: 35 unit Documented by: Levetiracetam (Keppra -) 1,000 mg PO TID [facility] Last Admin: 07/20/19 13:44 Dose: 1,000 mg Documented by: Lidocaine (Lidoderm Patch -) 1 patch TP DAILY [facility] Last Admin: 07/20/19 10:15 Dose: 1 patch Documented by: Lisinopril (Prinivil) 5 mg PO DAILY [facility] Last Admin: 07/20/19 10:16 Dose: 5 mg Documented by: Lorazepam (Ativan -) 1 mg PO TID PRN PRN Reason: ANXIETY Last Admin: 07/20/19 13:43 Dose: 1 mg Documented by: Miscellaneous (Lidoderm Patch Removal) 1 each MC DAILY@2200 [facility] Last Admin: 07/19/19 22:34 Dose: 1 each Documented by: Nystatin (Nystop Powder -) 1 applic TP TID [facility] Last Admin: 07/20/19 14:34 Dose: Not Given Documented by: Pantoprazole Sodium (Protonix -) 40 mg PO DAILY [facility] Last Admin: 07/20/19 10:16 Dose: 40 mg Documented by: Polyethylene Glycol (Miralax (For Daily Use) -) 17 gm PO DAILY PRN PRN Reason: CONSTIPATION Last Admin: 07/08/19 15:00 Dose: 17 gm Documented by: Potassium Chloride (K-Dur -) 40 meq PO DAILY [facility] Last Admin: 07/20/19 10:15 Dose: 40 meq Documented by: Sodium Chloride ([place] Nasal Dewitt -) 2 spray NS TID PRN PRN Reason: NASAL CONGESTION Last Admin: 07/05/19 13:10 Dose: 2 spray Documented by: Zolpidem Tartrate (Ambien -) 5 mg PO HS PRN PRN Reason: INSOMNIA Last Admin: 07/18/19 21:32 Dose: 5 mg Documented by: - Objective Vital Signs: Vital Signs Temperature 97.9 F 07/20/19 13:53 Pulse Rate 112 H 07/20/19 13:53 Respiratory Rate 19 07/20/19 13:53 Blood Pressure 134/72 07/20/19 13:53 O2 Sat by Pulse Oximetry (%) 95 07/20/19 09:00 Constitutional: Yes: Obese Eyes: Yes: WNL HENT: Yes: WNL Neck: Yes: WNL Cardiovascular: Yes: S1, S2 Respiratory: Yes: Regular Gastrointestinal: Yes: Soft, Abdomen, Obese ...Rectal Exam: Yes: Deferred Genitourinary: No: Anuria Breast(s): Yes: WNL Musculoskeletal: Yes: Joint Stiffness, Muscle Pain, Muscle Weakness Extremities: Yes: Cool Edema: No Peripheral Pulses WNL: Yes Integumentary: Yes: Other Wound/Incision: Yes: Dressing Dry and Intact Neurological: Yes: Alert, Oriented Psychiatric: Yes: Alert, Oriented Labs: CBC, BMP 07/20/19 06:34 07/20/19 06:34 INR, PTT INR 1.07 (0.83-1.09) 07/01/19 22:15 Fibrinogen > 500.0 mg/dL (238-498) H 07/04/19 05:50 Abnormal Lab Results 07/20/19 07/20/19 07/20/19 06:34 06:34 06:34 WBC 3.5 L Hgb 10.5 L Hct 31.2 L Monocytes % 11.1 H D-Dimer 1600 H Sodium 135 L Anion Gap 6 L Random Glucose 158 H Calcium 8.2 L AST 11 L Alkaline Phosphatase 193 H Creatine Kinase C-Reactive Protein 6.8 H Albumin 2.6 L 07/20/19 06:34 WBC Hgb Hct Monocytes % D-Dimer Sodium Anion Gap Random Glucose Calcium AST Alkaline Phosphatase Creatine Kinase 23 L C-Reactive Protein Albumin - ....Imaging Cat Scan: Image Reviewed (abdomnal) Problem List - Problems (1) Hypokalemia Assessment/Plan: Keep K 4.0-4.5 Keep Mg 2.0-2.4 Keep PO4 2.5-4.9 Code(s): E87.6 - HYPOKALEMIA (2) Endocarditis Assessment/Plan: Latest blood cultures (07/12/19): no growth after 5 days WBCs now WNL. ECHO was repeated: essentially normal study. S/p iliacus abscess IR drainage; latest CT abdomen shows edema at site of pigtail catheter, but no discrete collection. Severe atelectasis, infiltrates, cavitary pulmonary lesions. On antibiotics per ID; plan for Picc line and long-term regimen (plan for changing antibiotics 07/21/19) Code(s): I38 - ENDOCARDITIS, VALVE UNSPECIFIED (3) Blood bacterial culture positive Assessment/Plan: MRSA; most recent blood cultures (07/12/19): no growth x 5 days. On antibiotics per ID; planning for several weeks Rx (for change 07/21/19). WBC now wnL. Repeated ECHO: essentially normal study. Temp 100.4 on 07/18/2019. Code(s): R78.81 - BACTEREMIA (4) Abscess Assessment/Plan: s/p IR purulent drainage of left iliacus abscess; CT abdomen noted (edema, without discrete collection). Code(s): L02.91 - CUTANEOUS ABSCESS, UNSPECIFIED (5) Rheumatoid arthritis Code(s): M06.9 - RHEUMATOID ARTHRITIS, UNSPECIFIED (6) Lupus Code(s): M32.9 - SYSTEMIC LUPUS ERYTHEMATOSUS, UNSPECIFIED (7) Osteoarthritis Code(s): M19.90 - UNSPECIFIED OSTEOARTHRITIS, UNSPECIFIED SITE (8) HTN (hypertension) Assessment/Plan: On lisinopril (HTN; DM; episodes of hypokalemia). F/U BP serially; BUN/Cr, electrolytes. Code(s): I10 - ESSENTIAL (PRIMARY) HYPERTENSION Qualifiers: Hypertension type: essential hypertension Qualified Code(s): I10 - Essential (primary) hypertension (9) Migraine Code(s): G43.909 - MIGRAINE, UNSP, NOT INTRACTABLE, WITHOUT STATUS MIGRAINOSUS (10) Obesity, Class III, BMI 40-49.9 (morbid obesity) Code(s): E66.01 - MORBID (SEVERE) OBESITY DUE TO EXCESS CALORIES (11) Seizure Code(s): R56.9 - UNSPECIFIED CONVULSIONS (12) Sleep apnea Code(s): G47.30 - SLEEP APNEA, UNSPECIFIED (13) Sinus tachycardia Code(s): R00.0 - TACHYCARDIA, UNSPECIFIED (14) Diabetes Code(s): E11.9 - TYPE 2 DIABETES MELLITUS WITHOUT COMPLICATIONS (15) Hx MRSA infection Code(s): Z86.14 - PERSONAL HISTORY OF METHICILLIN RESIS STAPH INFECTION (16) Pulmonary cavitary lesion Code(s): J98.4 - OTHER DISORDERS OF LUNG (17) Leukocytosis Code(s): D72.829 - ELEVATED WHITE BLOOD CELL COUNT, UNSPECIFIED (18) Cervical cancer Code(s): C53.9 - MALIGNANT NEOPLASM OF CERVIX UTERI, UNSPECIFIED (19) COVID-19 Code(s): U07.1 - COVID POSITIVE (20) Chronic pain with drug dependence Code(s): G89.29 - OTHER CHRONIC PAIN; F19.20 - OTHER PSYCHOACTIVE SUBSTANCE DEPENDENCE, UNCOMPLICATED
[2019-07-20] MEDS: LIDOCAINE PATCH REMOVAL MC SCH (21:08)
[2019-07-20] MEDS: ZOLPIDEM TARTRATE 5 MG TABLET PO PRN (21:09)
[2019-07-21] MEDS: ACETAMINOPHEN 500 MG TABLET (FP) PO PRN (01:11)
[2019-07-21] MEDS: levETIRAcetam 500 MG TABLET (FP) PO SCH ×2 (05:53→13:02)
[2019-07-21] MEDS: CYCLOBENZAPRINE HCL 10 MG TABLET (FP) PO SCH ×2 (05:53→13:02)
[2019-07-21] MEDS: HEPARIN NA (PORCINE) 5,000 UNITS/ML 1ML VIAL SQ SCH ×2 (05:53→13:02)
[2019-07-21] MEDS: GABAPENTIN 300 MG CAPSULE PO SCH ×2 (05:53→13:02)
[2019-07-21] MEDS: NYSTATIN POWDER 100,000 UNITS/GM - 15 GM TOPICAL POWDER TP SCH ×2 (05:54→13:02)
[2019-07-21] MEDS: INSULIN SLIDING SCALE (NOVOLOG) 1 VIAL SQ SCH ×3 (06:01→17:00)
[2019-07-21] MEDS: INSULIN (LEVEMIR) 100 UNITS/ML UNITS SQ SCH (06:01)
--- NOTE | 2019-07-21 07:36 | PN ---
Progress Note, Physician History of Present Illness: Patient is a 38 year old female with a significant past medical history of lupus, MRSA bacteremia, recurrent MRSA skin abscesses on intermittent doxycycline-clindamycin regimens, cervical CA (s/p chemotherapy 10ys prior), endometriosis, IDDM, seizure disorder, chronic migraines, herniated L-spine disc, chronic lower back pain (dilaudid 8mg TID), OA, RA, anxiety presented to [facility] for complaint of >7d of severe intermittent LLQ pain. ED evaluation found a Left-sided psoas abscess. Patient is also suspected to have endocarditis and is being followed by cardiology. - Current Medication List Current Medications: Active Medications Acetaminophen (Tylenol -) 1,000 mg PO Q6H PRN PRN Reason: PAIN 4-6 Last Admin: 07/21/19 01:11 Dose: 1,000 mg Documented by: Acetaminophen/Butalbital/Caffeine (Fioricet -) 1 tablet PO Q6H PRN PRN Reason: HEADACHE Last Admin: 07/20/19 12:31 Dose: 1 tablet Documented by: Albuterol/Ipratropium (Combivent Respimat 20-100 Mcg) 1 puff IH QID [facility] Last Admin: 07/20/19 21:07 Dose: 1 puff Documented by: Albuterol/Ipratropium (Duoneb -) 1 amp NEB Q4H PRN PRN Reason: SHORTNESS OF BREATH Bacitracin (Bacitracin -) 1 applic TP BID [facility] Last Admin: 07/20/19 21:07 Dose: 1 applic Documented by: Budesonide/Formoterol Fumarate (Symbicort 160/4.5mcg -) 2 puff IH BID [facility] Last Admin: 07/20/19 21:08 Dose: 2 puff Documented by: Cyclobenzaprine HCl (Flexeril -) 10 mg PO TID [facility] Last Admin: 07/21/19 05:53 Dose: 10 mg Documented by: Docusate Sodium (Colace -) 100 mg PO DAILY [facility] Last Admin: 07/20/19 10:15 Dose: 100 mg Documented by: Doxycycline Hyclate (Vibramycin -) 100 mg PO BID@1000,1800 [facility] Gabapentin (Neurontin -) 600 mg PO TID [facility] Last Admin: 07/21/19 05:53 Dose: 600 mg Documented by: Guaifenesin (Robitussin -) 10 ml PO Q6H PRN PRN Reason: COUGH Last Admin: 07/08/19 03:59 Dose: 10 ml Documented by: Heparin Sodium (Porcine) (Heparin -) 5,000 unit SQ TID [facility] Last Admin: 07/21/19 05:53 Dose: 5,000 unit Documented by: Hydromorphone HCl (Dilaudid -) 8 mg PO Q6H PRN PRN Reason: PAIN LEVEL 7 - 10 Last Admin: 07/21/19 05:54 Dose: 8 mg Documented by: Lactated Ringer's (Lactated Ringers Solution) 1,000 ml in 1,000 mls @ 100 mls/hr IV ASDIR [facility] Last Admin: 07/20/19 14:35 Dose: Not Given Documented by: Daptomycin 800 mg/ Sodium (Chloride) 50 mls @ 50 mls/hr IVPB Q24H [facility]; Protocol Insulin Aspart (Novolog Vial Sliding Scale -) 1 vial SQ ACHS [facility]; Protocol Last Admin: 07/21/19 06:01 Dose: 14 units Documented by: Insulin Detemir (Levemir Vial) 35 units SQ BID@0700,2200 [facility] Last Admin: 07/21/19 06:01 Dose: 35 unit Documented by: Levetiracetam (Keppra -) 1,000 mg PO TID [facility] Last Admin: 07/21/19 05:53 Dose: 1,000 mg Documented by: Lidocaine (Lidoderm Patch -) 1 patch TP DAILY [facility] Last Admin: 07/20/19 10:15 Dose: 1 patch Documented by: Lisinopril (Prinivil) 5 mg PO DAILY [facility] Last Admin: 07/20/19 10:16 Dose: 5 mg Documented by: Lorazepam (Ativan -) 1 mg PO TID PRN PRN Reason: ANXIETY Last Admin: 07/20/19 21:09 Dose: 1 mg Documented by: Miscellaneous (Lidoderm Patch Removal) 1 each MC DAILY@2200 [facility] Last Admin: 07/20/19 21:08 Dose: 1 each Documented by: Nystatin (Nystop Powder -) 1 applic TP TID [facility] Last Admin: 07/21/19 05:54 Dose: Not Given Documented by: Pantoprazole Sodium (Protonix -) 40 mg PO DAILY [facility] Last Admin: 07/20/19 10:16 Dose: 40 mg Documented by: Polyethylene Glycol (Miralax (For Daily Use) -) 17 gm PO DAILY PRN PRN Reason: CONSTIPATION Last Admin: 07/08/19 15:00 Dose: 17 gm Documented by: Potassium Chloride (K-Dur -) 40 meq PO DAILY [facility] Last Admin: 07/20/19 10:15 Dose: 40 meq Documented by: Sodium Chloride ([place] Nasal [place] -) 2 spray NS TID PRN PRN Reason: NASAL CONGESTION Last Admin: 07/05/19 13:10 Dose: 2 spray Documented by: Zolpidem Tartrate (Ambien -) 5 mg PO HS PRN PRN Reason: INSOMNIA Last Admin: 07/20/19 21:09 Dose: 5 mg Documented by: - Objective Vital Signs: Vital Signs Temperature 98.4 F 07/21/19 06:00 Pulse Rate 82 07/21/19 06:00 Respiratory Rate 16 07/21/19 06:00 Blood Pressure 109/51 L 07/21/19 06:00 O2 Sat by Pulse Oximetry (%) 90 L 07/20/19 21:00 Labs: CBC, BMP 07/20/19 06:34 07/20/19 06:34 INR, PTT INR 1.07 (0.83-1.09) 07/01/19 22:15 Fibrinogen > 500.0 mg/dL (238-498) H 07/04/19 05:50 Problem List - Problems (1) Migraine Code(s): G43.909 - MIGRAINE, UNSP, NOT INTRACTABLE, WITHOUT STATUS MIGRAINOSUS (2) IDDM (insulin dependent diabetes mellitus) Code(s): HXY0437 - (3) Chronic bilateral low back pain Code(s): M54.5 - LOW BACK PAIN; G89.29 - OTHER CHRONIC PAIN (4) MRSA bacteremia Code(s): R78.81 - BACTEREMIA; B95.62 - METHICILLIN RESIS STAPH INFCT CAUSING DISEASES CLASSD ELSWHR (5) Fungal infection of the groin Code(s): B35.6 - TINEA CRURIS (6) Prophylactic measure Code(s): Z29.9 - ENCOUNTER FOR PROPHYLACTIC MEASURES, UNSPECIFIED (7) Iliopsoas abscess Code(s): K68.12 - PSOAS MUSCLE ABSCESS (8) Lupus Code(s): M32.9 - SYSTEMIC LUPUS ERYTHEMATOSUS, UNSPECIFIED (9) Obesity, Class III, BMI 40-49.9 (morbid obesity) Code(s): E66.01 - MORBID (SEVERE) OBESITY DUE TO EXCESS CALORIES (10) Seizure Code(s): R56.9 - UNSPECIFIED CONVULSIONS (11) Weakness Code(s): R53.1 - WEAKNESS (12) Endocarditis Code(s): I38 - ENDOCARDITIS, VALVE UNSPECIFIED
[2019-07-21 08:54] LABS: BASO % 1.1 % (0-2.0); EOS % 2.5 % (0-4.5); HEMOGLOBIN 10.7 GM/dL (10.7-15.3); LYMPH % 45.2 % (8-40); MCH 28.7 pg (25.7-33.7); MCHC 33.3 g/dl (32.0-36.0); MEAN CELL VOLUME 86.3 fl (80-96); MEAN PLT VOLUME 8.7 fl (7.5-11.1); MONO % 13.5 % (3.8-10.2); NEUT % 37.7 % (42.8-82.8); PLATELET COUNT 268 K/MM3 (134-434); RBC 3.71 M/mm3 (3.60-5.2); WHITE BLOOD COUNT 3.8 K/mm3 (4.0-10.0)
[2019-07-21] MEDS: IPRATROPIUM/ALBUTEROL (COMBIVENT) RESPIMAT 20-100 MCG IH SCH ×3 (09:20→17:01)
[2019-07-21] MEDS: LIDOCAINE 5% TOPICAL PATCH TP SCH (09:20)
[2019-07-21] MEDS: LISINOPRIL 5 MG TABLET (FP) PO SCH (09:20)
[2019-07-21] MEDS: BACITRACIN 15 GM TUBE TOPICAL OINTMENT TP SCH (09:20)
[2019-07-21] MEDS: DOCUSATE SODIUM 100 MG CAPSULE (FP) PO SCH (09:20)
[2019-07-21] MEDS: PANTOPRAZOLE 40 MG TABLET PO SCH (09:20)
[2019-07-21] MEDS: POTASSIUM CHLORIDE TABS 20 MEQ TABLET.ER (FP) PO SCH (09:20)
[2019-07-21] MEDS: BUDESONIDE/FORMETEROL FUMARATE 160/4.5 mcg INHALER IH SCH (09:21)
[2019-07-21] MEDS: DOXYCYCLINE HYCLATE 100 MG CAPSULE PO SCH ×2 (09:21→17:01)
--- NOTE | 2019-07-21 10:55 | PN ---
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 yesterday developed fever, tmax 101; went to [facility] yesterday, where she said xrays were done and no further imaging or workup was pursued c/o severe left hip pain - Current Medication List Current Medications: Active Medications Acetaminophen (Tylenol -) 1,000 mg PO Q6H PRN PRN Reason: PAIN 4-6 Last Admin: 07/21/19 01:11 Dose: 1,000 mg Documented by: Acetaminophen/Butalbital/Caffeine (Fioricet -) 1 tablet PO Q6H PRN PRN Reason: HEADACHE Last Admin: 07/20/19 12:31 Dose: 1 tablet Documented by: Albuterol/Ipratropium (Combivent Respimat 20-100 Mcg) 1 puff IH QID [facility] Last Admin: 07/21/19 09:20 Dose: 1 puff Documented by: Albuterol/Ipratropium (Duoneb -) 1 amp NEB Q4H PRN PRN Reason: SHORTNESS OF BREATH Bacitracin (Bacitracin -) 1 applic TP BID [facility] Last Admin: 07/21/19 09:20 Dose: 1 applic Documented by: Budesonide/Formoterol Fumarate (Symbicort 160/4.5mcg -) 2 puff IH BID [facility] Last Admin: 07/21/19 09:21 Dose: Not Given Documented by: Cyclobenzaprine HCl (Flexeril -) 10 mg PO TID [facility] Last Admin: 07/21/19 05:53 Dose: 10 mg Documented by: Docusate Sodium (Colace -) 100 mg PO DAILY [facility] Last Admin: 07/21/19 09:20 Dose: 100 mg Documented by: Doxycycline Hyclate (Vibramycin -) 100 mg PO BID@1000,1800 [facility] Last Admin: 07/21/19 09:21 Dose: 100 mg Documented by: Gabapentin (Neurontin -) 600 mg PO TID [facility] Last Admin: 07/21/19 05:53 Dose: 600 mg Documented by: Guaifenesin (Robitussin -) 10 ml PO Q6H PRN PRN Reason: COUGH Last Admin: 07/08/19 03:59 Dose: 10 ml Documented by: Heparin Sodium (Porcine) (Heparin -) 5,000 unit SQ TID [facility] Last Admin: 07/21/19 05:53 Dose: 5,000 unit Documented by: Hydromorphone HCl (Dilaudid -) 8 mg PO Q6H PRN PRN Reason: PAIN LEVEL 7 - 10 Last Admin: 07/21/19 05:54 Dose: 8 mg Documented by: Lactated Ringer's (Lactated Ringers Solution) 1,000 ml in 1,000 mls @ 100 mls/hr IV ASDIR [facility] Last Admin: 07/20/19 14:35 Dose: Not Given Documented by: Daptomycin 800 mg/ Sodium (Chloride) 50 mls @ 50 mls/hr IVPB Q24H [facility]; Protocol Insulin Aspart (Novolog Vial Sliding Scale -) 1 vial SQ ACHS [facility]; Protocol Last Admin: 07/21/19 06:01 Dose: 14 units Documented by: Insulin Detemir (Levemir Vial) 35 units SQ BID@0700,2200 [facility] Last Admin: 07/21/19 06:01 Dose: 35 unit Documented by: Levetiracetam (Keppra -) 1,000 mg PO TID [facility] Last Admin: 07/21/19 05:53 Dose: 1,000 mg Documented by: Lidocaine (Lidoderm Patch -) 1 patch TP DAILY [facility] Last Admin: 07/21/19 09:20 Dose: 1 patch Documented by: Lisinopril (Prinivil) 5 mg PO DAILY [facility] Last Admin: 07/21/19 09:20 Dose: 5 mg Documented by: Lorazepam (Ativan -) 1 mg PO TID PRN PRN Reason: ANXIETY Last Admin: 07/20/19 21:09 Dose: 1 mg Documented by: Miscellaneous (Lidoderm Patch Removal) 1 each MC DAILY@2200 [facility] Last Admin: 07/20/19 21:08 Dose: 1 each Documented by: Nystatin (Nystop Powder -) 1 applic TP TID [facility] Last Admin: 07/21/19 05:54 Dose: Not Given Documented by: Pantoprazole Sodium (Protonix -) 40 mg PO DAILY [facility] Last Admin: 07/21/19 09:20 Dose: 40 mg Documented by: Polyethylene Glycol (Miralax (For Daily Use) -) 17 gm PO DAILY PRN PRN Reason: CONSTIPATION Last Admin: 07/08/19 15:00 Dose: 17 gm Documented by: Potassium Chloride (K-Dur -) 40 meq PO DAILY [facility] Last Admin: 07/21/19 09:20 Dose: 40 meq Documented by: Sodium Chloride ([place] Nasal [place] -) 2 spray NS TID PRN PRN Reason: NASAL CONGESTION Last Admin: 07/05/19 13:10 Dose: 2 spray Documented by: Zolpidem Tartrate (Ambien -) 5 mg PO HS PRN PRN Reason: INSOMNIA Last Admin: 07/20/19 21:09 Dose: 5 mg Documented by: - Objective Vital Signs: Vital Signs Temperature 97.5 F L 07/21/19 09:00 Pulse Rate 99 H 07/21/19 09:00 Respiratory Rate 18 07/21/19 09:00 Blood Pressure 121/71 07/21/19 09:00 O2 Sat by Pulse Oximetry (%) 90 L 07/20/19 21:00 Eyes: Yes: WNL, Conjunctiva Clear, EOM Intact HENT: Yes: WNL, Atraumatic, Normocephalic Neck: Yes: WNL, Supple, Trachea Midline Cardiovascular: Yes: WNL, Regular Rate and Rhythm Respiratory: Yes: WNL, Regular, CTA Bilaterally Gastrointestinal: Yes: WNL, Normal Bowel Sounds Genitourinary: Yes: WNL Musculoskeletal: Yes: WNL Extremities: Yes: WNL Edema: No Integumentary: Yes: WNL Neurological: Yes: WNL, Alert, Oriented ...Motor Strength: WNL Psychiatric: Yes: WNL Labs: CBC, BMP 07/21/19 08:40 INR, PTT INR 1.07 (0.83-1.09) 07/01/19 22:15 Fibrinogen > 500.0 mg/dL (238-498) H 07/04/19 05:50 Assessment/Plan 1. Post iliopsoas abscess IR drainage 2. MRSA bacteremia/suspect endocarditis 3. HTN 4. Lupus 5. Cervical cancer 6. Sinus tachycardia 7. DM 8. Seizure PLAN: 1. Antibiotic coverage as per ID via PICC line to be placed 2. Surveillance cultures NGTD 3. Post IR drain 4. Continue Lisinopril 5 mg QD 5. DVT and GI prophylaxis, BD and O2 as needed
[2019-07-21 11:25] LABS: ALBUMIN 2.7 g/dl (3.4-5.0); BILIRUBIN,TOTAL 0.2 mg/dL (0.2-1); BLOOD UREA NITROGEN 8.2 mg/dL (7-18); CALCIUM 8.4 mg/dL (8.5-10.1); CREATININE 0.6 mg/dL (0.55-1.3); MAGNESIUM 2.4 mg/dL (1.8-2.4); POTASSIUM 4.3 mmol/L (3.5-5.1)
[2019-07-21] MEDS ORDERED: DAPTOMYCIN 800 MG in SODIUM CHLORIDE 50 ML IVPB SCH (12:00)
[2019-07-21] MEDS: ACETAMINOPHEN/CAFFEINE/BUTALBITAL 1 TAB PO PRN (12:05)
--- NOTE | 2019-07-21 12:24 | DS ---
Physical Exam: SUBJECTIVE: Patient seen and examined Patient signed out AMA because she did not want to wait for DM supplies and medciations to be delivered from Pharmacy-all co-pays were waived and pt is uninsured. OBJECTIVE: Vital Signs Period Temp Pulse Resp BP Sys/Turner Pulse Ox Last 24 Hr 97.5 F-98.8 F 82-112 16-19 102-134/51-72 90 PHYSICAL EXAM Constitutional: Yes: No Distress, Calm, Obese Eyes: Yes: WNL, Conjunctiva Clear HENT: Yes: WNL, Atraumatic, Normocephalic Neck: Yes: WNL, Supple, Trachea Midline Cardiovascular: Yes: WNL, Regular Rate and Rhythm Respiratory: Yes: WNL, Regular, CTA Bilaterally, On Nasal O2 (2L) Gastrointestinal: Yes: Abdomen, Obese, Tenderness (TTP LLQ/flank near FRANCO drain) ...Rectal Exam: Yes: Deferred Genitourinary: Yes: Incontinence Breast(s): Yes: WNL Musculoskeletal: Yes: Muscle Weakness Extremities: Yes: WNL Edema: No Peripheral Pulses WNL: Yes Peripheral Pulses: Left Radial: 2+, Right Radial: 2+, Left Doralis Pedis: 2+, Right Dorsalis Pedis: 2+, Left Femoral: 2+, Right Femoral: 2+ Integumentary: Yes: Other (fungal rash to groin BL) ...Motor Strength: LLE, RLE (weakness) LABS Laboratory Results - last 24 hr 07/20/19 07/21/19 07/21/19 17:12 08:40 08:40 WBC 3.8 L RBC 3.71 Hgb 10.7 Hct 32.0 L MCV 86.3 MCH 28.7 MCHC 33.3 RDW 14.0 Plt Count 268 MPV 8.7 Absolute Neuts (auto) 1.4 L Neutrophils % 37.7 L D Lymphocytes % 45.2 H D Monocytes % 13.5 H Eosinophils % 2.5 Basophils % 1.1 Nucleated RBC % 0 Sodium 137 Potassium 4.3 Chloride 104 Carbon Dioxide 26 Anion Gap 7 L BUN 8.2 Creatinine 0.6 Est GFR (CKD-EPI)AfAm 135.91 Est GFR (CKD-EPI)NonAf 117.26 POC Glucometer 153 Random Glucose 127 H Calcium 8.4 L Magnesium 2.4 Total Bilirubin 0.2 AST 12 L ALT 23 Alkaline Phosphatase 189 H Total Protein 7.0 Albumin 2.7 L HOSPITAL COURSE: Date of Admission:07/02/19 Date of Discharge: 07/21/19 Problem List - Problems (1) Migraine Assessment/Plan: no migraines noted since admission takes fiorecet at home Code(s): G43.909 - MIGRAINE, UNSP, NOT INTRACTABLE, WITHOUT STATUS MIGRAINOSUS (2) IDDM (insulin dependent diabetes mellitus) Assessment/Plan: BGM AC/HS with novolog sliding scale BGM poorly controlled c/w levemir 35ubid and c/t monitor poor compliance with diet c/w diabetic diet Code(s): [id number] - (3) Chronic bilateral low back pain Assessment/Plan: takes dilaudid at home additional pain from iliopsoas abcess dilaudid PO for pain c/w gabapentiin follows with pain managment doctor in [facility] Code(s): M54.5 - LOW BACK PAIN; G89.29 - OTHER CHRONIC PAIN (4) MRSA bacteremia Assessment/Plan: ilsiopsoas abcess drain placed on 07/02 FRANCO remains with minial drainage completeted telavancin IV day 14 trabsitioned to doxyciycline TTE 07/01 supboptimal, nl LVEF, unable to eval for vegetations ;repeated 07/04 and normal cardiology following ID following on discharge--> daptomycin 800 mg iv daily in am and po doxycycline 100 mg po bid in am last date of antiibotics will be 08/17/19 Code(s): R78.81 - BACTEREMIA; B95.62 - METHICILLIN RESIS STAPH INFCT CAUSING DISEASES CLASSD ELSWHR (5) Fungal infection of the groin Assessment/Plan: c/w nystatin powder to groin prn avoid diapers, frequent toileting Code(s): B35.6 - TINEA CRURIS (6) Prophylactic measure Assessment/Plan: FEN Fluids: adequate PO intake Electrolytes: monitor & replete as needed Nutrition: diabetic diet DVT moderate risk sq heparin Dispo Maintain as inpatient full code discharge planning to home with IV abx-SW working on infusion therapy and insuarance Code(s): Z29.9 - ENCOUNTER FOR PROPHYLACTIC MEASURES, UNSPECIFIED (7) Iliopsoas abscess Assessment/Plan: FRANCO drain placed in IR on 07/03-will remain in place repeat CT with no discrete collection seen c/w abx until 08/16-pt instructed to come to hospital for daily IV abx monitor temp at home Code(s): K68.12 - PSOAS MUSCLE ABSCESS (8) Lupus Code(s): M32.9 - SYSTEMIC LUPUS ERYTHEMATOSUS, UNSPECIFIED (9) Obesity, Class III, BMI 40-49.9 (morbid obesity) Assessment/Plan: weight loss counseling poor compliance with diet Code(s): E66.01 - MORBID (SEVERE) OBESITY DUE TO EXCESS CALORIES (10) Seizure Assessment/Plan: c/w keppra Code(s): R56.9 - UNSPECIFIED CONVULSIONS (11) Weakness Assessment/Plan: improved mobility Code(s): R53.1 - WEAKNESS (12) Endocarditis Assessment/Plan: blood cultures negative; repeat set negative to date. will need 4-6 weeks of antibiotics via picc line to be arranged prior to d/c. ECHO was repeated: essentially normal study. cardiology following follow up with PCP/cardiology Code(s): I38 - ENDOCARDITIS, VALVE UNSPECIFIED Minutes to complete discharge: 45 Discharge Summary Problems reviewed: Yes Reason For Visit: ILIOPSOAS ABSCESS Current Active Problems Abscess (Acute) Blood bacterial culture positive (Acute) COVID-19 (Acute) COVID-19 virus not detected (Acute) Cavitary lung disease (Acute) Cervical cancer (Acute) Chronic bilateral low back pain (Acute) Chronic pain with drug dependence (Acute) Endocarditis (Acute) Fungal infection of the groin (Acute) Hx MRSA infection (Acute) Hypokalemia (Acute) IDDM (insulin dependent diabetes mellitus) (Acute) Iliopsoas abscess (Acute) Leukocytosis (Acute) Lupus (Acute) MRSA bacteremia (Acute) Migraine (Acute) Osteoarthritis (Acute) Prophylactic measure (Acute) Pulmonary cavitary lesion (Acute) Rheumatoid arthritis (Acute) Seizure disorder (Acute) Sinus tachycardia (Acute) Weakness (Acute) - Instructions Diet, Activity, Other Instructions: DISCHARGE YOUR VISIT You came to the hospital because developed an abcess in your flank are. A drain was placed to remove the infection to remove the fluid. You are to come to the hospital infusion clinic to receive daily antibiotics. You will also take an oral antiobiotics twice a day. MEDICATIONS Please continue to take your home medications as prescribed. There was XXXXX changes DIET Continue your home diet ADDITIONAL CARE Please make an appointment to see your primary care provider, [phone] 1 week from today. ADDITIONAL INFORMATION Please call 911 or come directly to the emergency department if you experience unusual headache, vision change, shortness of breath, chest pain, numbness, tingling, loss of alertness/awareness, loss of function, unusual bleeding or any alarming symptoms. Thank you for allowing me to care for you. Peter Ley, ACNP, [facility] [phone] Disposition: AGAINST MEDICAL ADVICE - Home Medications Comprehensive Discharge Medication List: Ambulatory Orders Ipratropium/Albuterol Sulfate [Combivent Respimat 20-100 Mcg] 1 inh NEB BID 07/02/19 Clindamycin HCl 300 mg PO DAILY 07/03/19 Hydrocodone/Acetaminophen [Hydrocodone-Acetamin 5-325 mg] 1 tab PO DAILY 07/03/19 Metformin HCl [Glucophage] 1,000 mg PO DAILY 07/03/19 Problem List - Problems (1) Migraine Code(s): G43.909 - MIGRAINE, UNSP, NOT INTRACTABLE, WITHOUT STATUS MIGRAINOSUS (2) IDDM (insulin dependent diabetes mellitus) Code(s): [id number] - (3) Chronic bilateral low back pain Code(s): M54.5 - LOW BACK PAIN; G89.29 - OTHER CHRONIC PAIN (4) MRSA bacteremia Code(s): R78.81 - BACTEREMIA; B95.62 - METHICILLIN RESIS STAPH INFCT CAUSING DISEASES CLASSD ELSWHR (5) Fungal infection of the groin Code(s): B35.6 - TINEA CRURIS (6) Prophylactic measure Code(s): Z29.9 - ENCOUNTER FOR PROPHYLACTIC MEASURES, UNSPECIFIED (7) Iliopsoas abscess Code(s): K68.12 - PSOAS MUSCLE ABSCESS (8) Lupus Code(s): M32.9 - SYSTEMIC LUPUS ERYTHEMATOSUS, UNSPECIFIED (9) Obesity, Class III, BMI 40-49.9 (morbid obesity) Code(s): E66.01 - MORBID (SEVERE) OBESITY DUE TO EXCESS CALORIES (10) Seizure Code(s): R56.9 - UNSPECIFIED CONVULSIONS (11) Weakness Code(s): R53.1 - WEAKNESS (12) Endocarditis Code(s): I38 - ENDOCARDITIS, VALVE UNSPECIFIED This patient is new to me today: No Emergency Visit: Yes ED Registration Date: 07/02/19 Care time: The patient presented to the Emergency Department on the above date and was hospitalized for further evaluation of their emergent condition. Critical Care patient: No - Discharge Referral Referred to [facility] No
--- NOTE | 2019-07-21 12:43 | DS ---
Physical Exam: SUBJECTIVE: Patient seen and examined OBJECTIVE: Vital Signs Period Temp Pulse Resp BP Sys/Turner Pulse Ox Last 24 Hr 97.5 F-98.8 F 82-112 16-19 102-134/51-72 90 PHYSICAL EXAM GENERAL: The patient is awake, alert, and fully oriented, in no acute distress. HEAD: Normal with no signs of trauma. EYES: PERRL, extraocular movements intact, sclera anicteric, conjunctiva clear. ENT: Ears normal, nares patent, oropharynx clear without exudates, moist mucous membranes. NECK: Trachea midline, full range of motion, supple. LUNGS: Breath sounds equal, clear to auscultation bilaterally, no wheezes, no crackles, no accessory muscle use. HEART: Regular rate and rhythm, S1, S2 without murmur, rub or gallop. ABDOMEN: Soft, nontender, nondistended, normoactive bowel sounds, no guarding, no rebound, no hepatosplenomegaly, no masses. EXTREMITIES: 2+ pulses, warm, well-perfused, no edema. NEUROLOGICAL: Cranial nerves II through XII grossly intact. Normal speech, gait not observed. PSYCH: Normal mood, normal affect. SKIN: Warm, dry, normal turgor, no rashes or lesions noted. LABS Laboratory Results - last 24 hr 07/20/19 07/21/19 07/21/19 17:12 08:40 08:40 WBC 3.8 L RBC 3.71 Hgb 10.7 Hct 32.0 L MCV 86.3 MCH 28.7 MCHC 33.3 RDW 14.0 Plt Count 268 MPV 8.7 Absolute Neuts (auto) 1.4 L Neutrophils % 37.7 L D Lymphocytes % 45.2 H D Monocytes % 13.5 H Eosinophils % 2.5 Basophils % 1.1 Nucleated RBC % 0 Sodium 137 Potassium 4.3 Chloride 104 Carbon Dioxide 26 Anion Gap 7 L BUN 8.2 Creatinine 0.6 Est GFR (CKD-EPI)AfAm 135.91 Est GFR (CKD-EPI)NonAf 117.26 POC Glucometer 153 Random Glucose 127 H Calcium 8.4 L Magnesium 2.4 Total Bilirubin 0.2 AST 12 L ALT 23 Alkaline Phosphatase 189 H Total Protein 7.0 Albumin 2.7 L HOSPITAL COURSE: Date of Admission:07/02/19 Date of Discharge: 05/06/20 Minutes to complete discharge: 45 Discharge Summary Problems reviewed: Yes Reason For Visit: ILIOPSOAS ABSCESS Current Active Problems Abscess (Acute) Blood bacterial culture positive (Acute) COVID-19 (Acute) COVID-19 virus not detected (Acute) Cavitary lung disease (Acute) Cervical cancer (Acute) Chronic bilateral low back pain (Acute) Chronic pain with drug dependence (Acute) Endocarditis (Acute) Fungal infection of the groin (Acute) Hx MRSA infection (Acute) Hypokalemia (Acute) IDDM (insulin dependent diabetes mellitus) (Acute) Iliopsoas abscess (Acute) Leukocytosis (Acute) Lupus (Acute) MRSA bacteremia (Acute) Migraine (Acute) Osteoarthritis (Acute) Prophylactic measure (Acute) Pulmonary cavitary lesion (Acute) Rheumatoid arthritis (Acute) Seizure disorder (Acute) Sinus tachycardia (Acute) Weakness (Acute) Condition: Fair - Instructions - Home Medications Comprehensive Discharge Medication List: Ambulatory Orders Ipratropium/Albuterol Sulfate [Combivent Respimat 20-100 Mcg] 1 inh NEB BID 07/02/19 Hydrocodone/Acetaminophen [Hydrocodone-Acetamin 5-325 mg] 1 tab PO DAILY 07/03/19 Metformin HCl [Glucophage] 1,000 mg PO DAILY 07/03/19 Bacitracin - [Bacitracin Topical Ointment -] 1 applic TP BID tube 07/21/19 Budesonide/Formeterol Fumarate [SYMBICORT 160/4.5mcg -] 2 puff IH BID inhaler 07/21/19 Cyclobenzaprine HCl [Flexeril -] 10 mg PO TID tablet 07/21/19 Daptomycin [Cubicin (Restricted To Id) -] 800 mg IVPB Q24H vial 07/21/19 Docusate Sodium [Colace -] 100 mg PO DAILY #60 capsule 07/21/19 Doxycycline Hyclate [Vibramycin -] 100 mg PO BID@1000,1800 #60 capsule 07/21/19 Gabapentin [Neurontin -] 600 mg PO TID #90 capsule 07/21/19 Guaifenesin [Robitussin -] 10 ml PO Q6H PRN cup 07/21/19 HYDROmorphone [Dilaudid -] 8 mg PO Q6H PRN tablet 07/21/19 Insulin (Levemir) [Levemir Vial] 35 units SQ BID@0700,2200 units 07/21/19 Insulin Sliding Scale [Novolog Vial Sliding Scale -] 1 vial SQ ACHS units 07/21/19 LORazepam [Ativan] 1 mg PO TID PRN tablet 07/21/19 Lidocaine 5% Patch [Lidoderm -] 1 patch TP DAILY #30 patch 07/21/19 Lisinopril [Prinivil] 5 mg PO DAILY #30 tablet 07/21/19 Pantoprazole Sodium [Protonix -] 40 mg PO DAILY #30 tablet.ec 07/21/19 Polyethylene Glycol 3350 [Miralax 119 gm Btl -] 17 gm PO DAILY PRN #1 bottle 07/21/19 Zolpidem Tartrate [Ambien] 5 mg PO HS PRN tablet 07/21/19 levETIRAcetam [Keppra -] 1,000 mg PO TID tablet 07/21/19 Problem List - Problems (1) Migraine Code(s): G43.909 - MIGRAINE, UNSP, NOT INTRACTABLE, WITHOUT STATUS MIGRAINOSUS (2) IDDM (insulin dependent diabetes mellitus) Code(s): PFF0507 - (3) Chronic bilateral low back pain Code(s): M54.5 - LOW BACK PAIN; G89.29 - OTHER CHRONIC PAIN (4) MRSA bacteremia Code(s): R78.81 - BACTEREMIA; B95.62 - METHICILLIN RESIS STAPH INFCT CAUSING DISEASES CLASSD ELSWHR (5) Fungal infection of the groin Code(s): B35.6 - TINEA CRURIS (6) Prophylactic measure Code(s): Z29.9 - ENCOUNTER FOR PROPHYLACTIC MEASURES, UNSPECIFIED (7) Iliopsoas abscess Code(s): K68.12 - PSOAS MUSCLE ABSCESS (8) Lupus Code(s): M32.9 - SYSTEMIC LUPUS ERYTHEMATOSUS, UNSPECIFIED (9) Obesity, Class III, BMI 40-49.9 (morbid obesity) Code(s): E66.01 - MORBID (SEVERE) OBESITY DUE TO EXCESS CALORIES (10) Seizure Code(s): R56.9 - UNSPECIFIED CONVULSIONS (11) Weakness Code(s): R53.1 - WEAKNESS (12) Endocarditis Code(s): I38 - ENDOCARDITIS, VALVE UNSPECIFIED - Discharge Referral Referred to [facility] No
[2019-07-21 13:46] VITALS: PULSE 108
[2019-07-21 14:12] VITALS: BP 110/55; TEMP 98.3
[2019-07-21 15:46] VITALS: BMI 41.5
[2019-07-21] MEDS: LACTATED RINGERS SOLUTION 1,000 ML/1,000 ML INFUS.BAG IV SCH (16:55)
--- NOTE | 2019-07-21 18:05 | HOSP ---
Subjective - Review of Symptoms Events since last encounter: Pt was planned to be discharge with medications to be paid by hospital-she is uninsured and ANITRA Carl received approval for co-pays to be waived. At 5;30pm pt informed SHAKIRA Paiz and myself that she did not bring [facility] and have no supplies here. Attempted to call [facility] pharmacy and was not able to get DM meds/supplies tonight. Informed pt that discharge will have be put on hold until tomorrow when we can get supplies/meds. Her BGM have been high with 35u levemir BID and novolog sliding scale. Poor compliance with diet-eating [employer] and pepsi for dinner. Pt declined to stay until tomorrow and AMA form was signed. Physical Examination Vital Signs: Vital Signs Temperature 98.3 F 07/21/19 14:11 Pulse Rate 108 H 07/21/19 14:11 Respiratory Rate 20 07/21/19 14:11 Blood Pressure 110/55 L 07/21/19 14:11 O2 Sat by Pulse Oximetry (%) 93 L 07/21/19 13:45 Labs: CBC, BMP 07/21/19 08:40 07/21/19 08:40
== END 2019-07-21 17:45 | disposition left against medical advice (07) | DRG 710 ==
LOC: JER 20:53 → JERBED 07-02 00:37 → J6WEST-2 07-02 03:01 → J4S 07-03 21:26
PROVIDERS: ADMIT Internal Medicine; ATTEND Nurse Practitioner Acute Care
PROC: 0K9P30Z Drainage of Left Hip Muscle with Drainage Device, Percutaneous Approach (ICD-10-PCS; principal; 2019-07-03)
PROC: 02HV33Z Insertion of Infusion Device into Superior Vena Cava, Percutaneous Approach (ICD-10-PCS; 2019-07-21)
PROC: B518ZZA Fluoroscopy of Superior Vena Cava, Guidance (ICD-10-PCS; 2019-07-21)
DX: A41.01 Sepsis due to Methicillin susceptible Staphylococcus aureus (principal); F41.8 Other specified anxiety disorders; M06.9 Rheumatoid arthritis, unspecified; G43.909 Migraine, unspecified, not intractable, without status migrainosus; E66.01 Morbid (severe) obesity due to excess calories; Z68.41 Body mass index [BMI] 40.0-44.9, adult; E11.9 Type 2 diabetes mellitus without complications; R00.0 Tachycardia, unspecified; G40.909 Epilepsy, unspecified, not intractable, without status epilepticus; M54.5 Low back pain; M51.26 Other intervertebral disc displacement, lumbar region; B37.3 Candidiasis of vulva and vagina; R91.8 Other nonspecific abnormal finding of lung field; R16.0 Hepatomegaly, not elsewhere classified; K68.12 Psoas muscle abscess; K57.90 Diverticulosis of intestine, part unspecified, without perforation or abscess without bleeding; I38 Endocarditis, valve unspecified; G47.30 Sleep apnea, unspecified; D72.829 Elevated white blood cell count, unspecified; M32.9 Systemic lupus erythematosus, unspecified; L02.91 Cutaneous abscess, unspecified; J98.11 Atelectasis; J98.4 Other disorders of lung; G89.29 Other chronic pain; E87.6 Hypokalemia; Z88.0 Allergy status to penicillin; Z79.899 Other long term (current) drug therapy; Z85.41 Personal history of malignant neoplasm of cervix uteri
CPT/HCPCS: 36415; 36569; 49407; 71045-TC-FY; 71260-TC; 72148-TC; 72195-TC; 74177-TC; 76098-TC-FY; 76705-TC; 77001-TC-FY; 77012-TC; 80048; 80053; 80061; 80074; 80076; 81003; 82550; 82728; 82962; 83036; 83605; 83615; 83721; 83735; 84100; 84439; 84443; 84484; 84703; 85025; 85027; 85379; 85384; 85610; 85651; 85730; 86140; 86480; 87040; 87070; 87075; 87186; 87205; 87899; 93005; 93010; 93306-TC; 97116-GP; 97161-GP; 99285-25; C1729; C1751; C1769; G0480; J0131; J0878; J1644; J3095; J3535; Q9967; U0003

== ENCOUNTER 2023-03-23 20:14 | Emergency (ER) | payer OTHER ==
[2023-03-23] MEDS ORDERED: SODIUM CHLORIDE 1,000 ML IV SCH (20:30)
[2023-03-23 20:43] VITALS: BP 140/72; RESP 17; TEMP 97.5; BMI 41.5
[2023-03-23 21:09] VITALS: PULSE 110
[2023-03-23 21:10] LABS: BASO % 0.9 % (0-2.0); EOS % 0.9 % (0-4.5); HEMATOCRIT 38.1 % (32.4-45.2); HEMOGLOBIN 12.2 GM/dL (10.7-15.3); LYMPH % 21.4 % (8-40); MCH 27.8 pg (25.7-33.7); MCHC 32.1 g/dl (32.0-36.0); MEAN CELL VOLUME 86.4 fl (80-96); MEAN PLT VOLUME 9.8 fl (7.5-11.1); MONO % 5.2 % (3.8-10.2); NEUT % 71.6 % (42.8-82.8); PLATELET COUNT 379 10^3/uL (134-434); RBC 4.41 M/mm3 (3.60-5.2); RDW 14.5 % (11.6-15.6); WHITE BLOOD COUNT 14.2 K/mm3 (4.0-10.0)
[2023-03-23 21:18] LABS: INR 0.89 (0.83-1.09); PROTHROMBIN TIME (PATIENT) 10.3 SEC (9.7-13.0)
[2023-03-23 21:21] LABS: ACTIVATED PTT 27.6 SECONDS (25.2-36.5)
[2023-03-23 21:30] LABS: POTASSIUM 4.2 mmol/L (3.5-5.1)
[2023-03-23 21:31] LABS: CALCIUM 9.2 mg/dL (8.5-10.1)
[2023-03-23 21:32] LABS: ALBUMIN 3.4 g/dl (3.4-5.0)
[2023-03-23 21:34] LABS: BLOOD UREA NITROGEN 10.8 mg/dL (7-18)
[2023-03-23 21:37] LABS: TOT PROT 7.3 g/dl (6.4-8.2)
[2023-03-23 21:38] LABS: BILIRUBIN,TOTAL 0.1 mg/dL (0.2-1)
[2023-03-23] MEDS ORDERED: SODIUM CHLORIDE 0.9% 500 ML INFUS.BAG IV ONE (22:04)
[2023-03-23] MEDS ORDERED: ACETAMINOPHEN INJECTION 100 ML IVPB ONE (22:04)
[2023-03-23] MEDS ORDERED: ACETAMINOPHEN 1000 MG/100 ML BAG IVPB ONE (22:04)
[2023-03-23] MEDS ORDERED: ATORVASTATIN CA 80 MG TABLET (FP) PO ONE (22:43)
[2023-03-23] MEDS ORDERED: ASPIRIN 81 MG CHEWABLE TABLETS PO ONE (22:43)
[2023-03-23] MEDS ORDERED: ATORVASTATIN CA 80 MG TABLET (FP) ONE (22:45)
[2023-03-23] MEDS ORDERED: ASPIRIN 81 MG CHEWABLE TABLETS ONE (22:45)
[2023-03-23] MEDS ORDERED: KETOROLAC TROMETHAMINE 15 MG/ML VIAL IVPUSH ONE (22:46)
[2023-03-23] MEDS ORDERED: KETOROLAC TROMETHAMINE 15 MG/ML VIAL ONE (22:58)
== END 2023-03-24 00:24 | disposition left against medical advice (07) ==
LOC: JER 20:14
PROC: 3E033NZ Introduction of Analgesics, Hypnotics, Sedatives into Peripheral Vein, Percutaneous Approach (ICD-10-PCS; principal; 2023-03-23)
PROC: 3E0333Z Introduction of Anti-inflammatory into Peripheral Vein, Percutaneous Approach (ICD-10-PCS; 2023-03-23)
DX: G40.909 Epilepsy, unspecified, not intractable, without status epilepticus (principal); G45.9 Transient cerebral ischemic attack, unspecified; E11.65 Type 2 diabetes mellitus with hyperglycemia; R29.810 Facial weakness; Z79.891 Long term (current) use of opiate analgesic; Z20.822 Contact with and (suspected) exposure to COVID-19
CPT/HCPCS: 0241U-QW; 36415; 70450-TC; 70496-TC; 70498-TC; 71045-TC-FY; 73030-TC-LT-FY; 80053; 80061; 80177; 82550; 82962; 83036; 84484; 84703; 85025; 85610; 85730; 86850; 86900; 86901; 93005; 93010; 99291

== ENCOUNTER 2024-06-10 06:08 | Day surgery (SDC) | payer OTHER ==
[2024-06-07 11:59] VITALS: BMI 40.6
[2024-06-10 07:01] VITALS: TEMP 97.3
[2024-06-10] MEDS ORDERED: BUPIVACAINE HCL/PF 0.5% (5 MG/ML) 30 ML VIAL IJ ONE (08:10)
[2024-06-10] MEDS ORDERED: MIDAZOLAM HCL 2 MG/2 ML SINGLE DOSE VIAL ONE (08:11)
[2024-06-10] MEDS ORDERED: PROPOFOL 20 ML ONE ×2 (08:29→11:13)
[2024-06-10] MEDS ORDERED: ROCURONIUM BROMIDE 50 MG/5 ML SYRINGE ONE ×2 (08:30→08:35)
[2024-06-10] MEDS ORDERED: PHENYLEPHRINE HCL 10 MG/1 ML SINGLE DOSE VIAL ONE (09:30)
[2024-06-10] MEDS ORDERED: EPINEPHrine 1:1,000 1,000 MCG/ML ML ONE (11:10)
[2024-06-10] MEDS ORDERED: SUGAMMADEX SODIUM 200 MG/2 ML VIAL ONE ×2 (11:14→11:17)
[2024-06-10] MEDS: ONDANSETRON 4 MG/2 ML VIAL IM PRN (11:41)
[2024-06-10] MEDS ORDERED: ONDANSETRON 4 MG/2 ML VIAL ONE (11:42)
[2024-06-10] MEDS ORDERED: LACTATED RINGERS SOLUTION 1,000 ML IV SCH (11:45)
[2024-06-10] MEDS ORDERED: oxyCODONE HCL 5 MG TABLET PO PRN (11:50)
[2024-06-10] MEDS: PROMETHAZINE HCL 25 MG/1 ML VIAL IVPB PRN (11:55)
[2024-06-10 12:04] VITALS: RESP 16
[2024-06-10] MEDS ORDERED: ACETAMINOPHEN INJECTION 100 ML ONE (12:10)
[2024-06-10] MEDS: ACETAMINOPHEN 1000 MG/100 ML BAG IVPB ONE (12:15)
[2024-06-10] MEDS ORDERED: FENTANYL CITRATE/PF 50 MCG/ML VIAL ONE (12:16)
[2024-06-10] MEDS ORDERED: oxyCODONE HCL 5 MG TABLET PO ONE (13:03)
[2024-06-10] MEDS: oxyCODONE HCL 5 MG TABLET ONE (13:33)
[2024-06-10 14:13] VITALS: BP 122/68; PULSE 88
== END 2024-06-10 14:07 | disposition home or self-care (01) ==
LOC: FASU 06:08
PROVIDERS: ATTEND Orthopaedic Surgery Sports Medicine
PROC: 0LS34ZZ Reposition Right Upper Arm Tendon, Percutaneous Endoscopic Approach (ICD-10-PCS; principal; 2024-06-10 09:13)
DX: M75.101 Unspecified rotator cuff tear or rupture of right shoulder, not specified as traumatic (principal); J44.9 Chronic obstructive pulmonary disease, unspecified; I10 Essential (primary) hypertension; M32.9 Systemic lupus erythematosus, unspecified; E11.9 Type 2 diabetes mellitus without complications
CPT/HCPCS: 81025; 82962; 87081; 94760; C1713; C1763; C1883; J0131